=== PATIENT | male | born 1945 | race Caucasian/White ===

== ENCOUNTER 2017-09-11 11:19 | Inpatient (IN) | payer MEDICARE, BC ==
--- NOTE | 2017-09-11 12:35 | EDM.PDOC ---
ED HPI GENERAL MEDICAL PROBLEM - General Chief Complaint: General Time Seen by Provider: 09/11/17 11:59 Source of Information: Reports: Patient History Limitations: Reports: No Limitations - History of Present Illness INITIAL COMMENTS - FREE TEXT/NARRATIVE: Patient presents with pain in medial posterior right thigh for the last 5 days. It feels so tight that he can't straighten his knee enough to put weight on the leg; he is completely non-ambulatory for 5 days now. His and daughter aren't able to help him transfer to chair and bed, etc anymore. This started 5 days ago when he was going down some stairs with his walker and had to sit down on a step due to weakness in right knee. Since then he has been too tight and painful to bear weight on right leg or straighten the knee. Prior to this he has been minimally ambulatory with his walker, mostly just to bed, chair, bathroom and table for the past 6 months. This is due to his right knee arthritis and COPD. He was scheduled to has a right knee replacement a couple weeks ago that had to be postponed due to his COPD. He also tells me that a few times in the past couple weeks (most recently 3 days ago) he has had tightness in his chest and pain in his right shoulder. This usually lasted only a few seconds and was relieved by taking several deep breaths. He denies history of ME or CHF but has diabetes, COPD. Treatments [employer]: Reports: Acetaminophen Right Leg Pain Score (Numeric/FACES): 10 - Related Data Allergies Allergy/AdvReac Type Severity Reaction Status Date / Time aspirin Allergy Elevates Verified 09/11/17 11:36 LFT's per patient Home Meds: Home Meds fluvoxaMINE [Luvox] 100 mg PO BID 04/25/15 [History] metFORMIN [Glucophage XR] 1,000 mg PO BID 04/25/15 [History] Pravastatin [Pravachol] 40 mg PO DAILY 11/01/15 [History] Acetaminophen [Acetaminophen Extra Strength] 1,000 mg PO Q6H 09/11/17 [History] Albuterol/Ipratropium [DuoNeb 3.0-0.5 MG/3 ML] 3 ml INH TID 09/11/17 [History] Celecoxib 200 mg PO DAILY@1800 09/11/17 [History] Fluticasone/Salmeterol [Advair 100-50] 1 puff INH BID 09/11/17 [History] Tresiba 65 unit SUBCUT BID 09/11/17 [History] amLODIPine Besylate/Benazepril [Amlodipine-Benazepril 5-40 MG] 1 cap PO DAILY [History] Past Medical History Cardiovascular History: Reports: Heart Murmur, High Cholesterol, Hypertension, SOB on Exertion Respiratory History: Reports: Asthma, COPD, Sleep Apnea, SOB Gastrointestinal History: Reports: Diverticulosis, Helicobacter Pylori Genitourinary History: Reports: UTI, Recurrent Musculoskeletal History: Reports: Fracture, Gout, Osteoarthritis Neurological History: Reports: Vertigo Other Neuro History: patient states "bad memory" Psychiatric History: Reports: Depression, OCD Other Psychiatric History: irritability Endocrine/Metabolic History: Reports: Diabetes, Type II Oncologic (Cancer) History: Reports: Other (See Below) Other Oncologic History: skin Dermatologic History: Reports: Melanoma - Infectious Disease History Infectious Disease History: Reports: Chicken Pox, Herpes, Measles, Shingles - Past Surgical History Other Neurological Surgeries/Procedures: bone spurs on spinal cord, spinal operation, Social & Family History - Family History Cardiac: Reports: Angina, Heart Failure, High Cholesterol, Hypertension, ME Respiratory: Reports: Asthma, COPD Psychiatric: Reports: Depression, OCD - Tobacco Use Smoking Status *Q: Never Smoker Second Hand Smoke Exposure: No - Caffeine Use Caffeine Use: Reports: Soda - Recreational Drug Use Recreational Drug Use: No ED ROS GENERAL - Review of Systems Review Of Systems: See Below Constitutional: Denies: Fever, Malaise, Diaphoresis HEENT: Denies: Throat Pain, Vision Change Respiratory: Reports: Shortness of Breath (chronic without recent worsening) Cardiovascular: Denies: Chest Pain (see HPI), Lightheadedness, Syncope GI/Abdominal: Denies: Abdominal Pain, Vomiting : Denies: Dysuria, Flank Pain Musculoskeletal: Reports: Leg Pain. Denies: Neck Pain, Shoulder Pain, Arm Pain , Back Pain Skin: Denies: Cyanosis, Jaundice, Mottled, Pallor, Diaphoresis Neurological: Reports: Difficulty Walking. Denies: Confusion, Dizziness, Seizure, Syncope, Trouble Speaking Psychiatric: Denies: Agitation, Anxiety, Confusion ED EXAM, GENERAL - Physical Exam Exam: See Below Exam Limited By: No Limitations General Appearance: Alert, WD/WN, No Apparent Distress Eye Exam: Bilateral Eye: EOMI, Normal Inspection, PERRL Ears: Normal External Exam, Hearing Grossly Normal Nose: Normal Inspection, No Blood Throat/Mouth: Normal Inspection, Normal Lips, Normal Voice, No Airway Compromise Head: Atraumatic, Normocephalic Neck: Normal Inspection, Full Range of Motion Respiratory/Chest: No Respiratory Distress, Lungs Clear, Decreased Breath Sounds (distant throughout ). No: Crackles, Rhonchi, Wheezing, Stridor Cardiovascular: Regular Rate, Rhythm, No Murmur GI/Abdominal: Normal Bowel Sounds, Soft, Non-Tender, No Organomegaly, No Distention Back Exam: No: CVA Tenderness (L), CVA Tenderness (R) Extremities: Other (Leg raise shows symmetric strength against resistance but cannot raise as far with right as left. Palpation of the calf and thigh reveals exquisite tenderness of posterior, medial distal thigh. Calves are mildly tender to palpation/squeeze. Right calf measures 42 cm and left 41.5 cm in circumferences. ) Neurological: Alert, Oriented, Normal Cognition, No Motor/Sensory Deficits Psychiatric: Normal Affect, Normal Mood Skin Exam: Warm, Dry, Intact, Normal Color, No Rash Course - Vital Signs Last Recorded V/S: Last Vital Signs Temp 97.8 F 09/11/17 11:26 Pulse 82 09/11/17 11:26 Resp 20 09/11/17 11:26 BP 131/76 09/11/17 11:26 Pulse Ox 99 09/11/17 11:26 - Orders/Labs/Meds Orders: Active Orders 24 hr Category Date Time Status EKG Documentation Completion [RC] ASDIRECTED Care 09/11/17 12:22 Active Chest 2V [CR] Stat Exams 09/11/17 12:17 Ordered BASIC METABOLIC PANEL,BMP [CHEM] Stat Lab 09/11/17 12:17 Ordered CBC WITH AUTO DIFF [HEME] Stat Lab 09/11/17 12:17 Ordered TROPONIN I [CHEM] Stat Lab 09/11/17 12:17 Ordered EKG 12 Lead [EK] Routine Ther 09/11/17 12:21 Ordered - Re-Assessments/Exams Free Text/Narrative Re-Assessment/Exam: 09/11/17 12:45 I want to ruleout DVT but US is not available here now and we can't send to the [facility] because that would be sending to a lower level of care for a diagnostic test. The US tech may be able to come to the hospital in 1.5 hours to run the test in the ER but may have something else going on per clinic staff ; they will ask her when she returns from lunch. 09/11/17 13:55 CXR report shows left lower lobe infiltrate. Labs okay. We can get an US at 1500 today so will get blood cultures, start antibiotics and admit for treatment of pneumonia and after DVT is ruled out will likely get inpatient PT for muscle spasm and increased mobility. Discussed case with Dr. Bello who accepted patient for admission. Patient remained stable throughout ER course. Departure - Departure Time of Disposition: 13:53 Disposition: Admitted As Inpatient 66 Condition: Good Clinical Impression: Right thigh pain, Swelling of calf CAP (community acquired pneumonia) Qualifiers: Laterality: left Lung location: lower lobe of lung Qualified Code(s): J18.1 - Lobar pneumonia, unspecified organism - Discharge Information Referrals: Lynda Rai MD [Primary Care Provider] - - My Orders Last 24 Hours: My Active Orders 09/11/17 12:17 Chest 2V [CR] Stat BASIC METABOLIC PANEL,BMP [CHEM] Stat CBC WITH AUTO DIFF [HEME] Stat TROPONIN I [CHEM] Stat 09/11/17 12:21 EKG 12 Lead [EK] Routine 09/11/17 12:22 EKG Documentation Completion [RC] ASDIRECTED - Assessment/Plan Last 24 Hours: My Active Orders 09/11/17 12:17 Chest 2V [CR] Stat BASIC METABOLIC PANEL,BMP [CHEM] Stat CBC WITH AUTO DIFF [HEME] Stat TROPONIN I [CHEM] Stat 09/11/17 12:21 EKG 12 Lead [EK] Routine 09/11/17 12:22 EKG Documentation Completion [RC] ASDIRECTED
[2017-09-11 12:57] LABS: CHLORIDE,CL 106 mmol/L (98-115); SODIUM,NA 144 mmol/L (136-145)
[2017-09-11] MEDS ORDERED: cefTRIAXone 1 GM Vial IVPUSH ONE (13:54)
[2017-09-11] MEDS ORDERED: Levofloxacin/Dextrose 5%-Water 500 MG in Premix Bag 1 BAG IV ONE (13:54)
[2017-09-11] MEDS: Sodium Chloride 0.9% 100 ML IV SCH (14:58)
[2017-09-11] MEDS: Celecoxib 100 MG Cap PO SCH (17:50)
[2017-09-11] MEDS: metFORMIN 500 MG Tab PO SCH (17:50)
[2017-09-11] MEDS: Albuterol/Ipratropium 3.0-0.5 MG/3 ML Neb Soln INH SCH (20:04)
[2017-09-11] MEDS ORDERED: TRESIBA SUBCUT SCH (21:00)
[2017-09-11] MEDS: FLUVOXAMINE 100 MG PO SCH (21:15)
[2017-09-11] MEDS: Diclofenac Sodium 1% Gel 100 GM Tube TOP SCH (21:25)
[2017-09-11] MEDS: Fluticasone/Salmeterol 100-50 MCG Inhalation Powder 14/Diskus INH SCH (23:35)
[2017-09-12] MEDS ORDERED: Acetaminophen 500 MG Tab PO PRN (02:08)
[2017-09-12] MEDS: Albuterol/Ipratropium 3.0-0.5 MG/3 ML Neb Soln INH SCH ×3 (07:46→19:07)
[2017-09-12] MEDS: Fluticasone/Salmeterol 100-50 MCG Inhalation Powder 14/Diskus INH SCH ×2 (08:00→20:53)
[2017-09-12] MEDS: FLUVOXAMINE 100 MG PO SCH ×2 (08:20→20:54)
[2017-09-12] MEDS: Cholecalciferol (Vitamin D3) 1,000 Unit Tab PO SCH (08:20)
[2017-09-12] MEDS: metFORMIN 500 MG Tab PO SCH ×2 (08:20→18:30)
[2017-09-12] MEDS: Diclofenac Sodium 1% Gel 100 GM Tube TOP SCH ×2 (08:23→20:58)
--- NOTE | 2017-09-12 10:22 | HP ---
09/11/2017PATIENT NAME: EMERALD PONCE PATIENT PROFILE: The patient is a 72-year-old gentleman from [place], [place], who was been admitted because of right lobe pneumonia and pain and swelling of his right knee and thigh and calf. HISTORY OF PRESENT ILLNESS: This elderly patient presented to the emergency room with severe pain in his right knee, medial aspect of the right thigh and also coughing and low-grade temperature. The patient was stepping down from some stairs when he felt a sharp pain behind the right knee. He then was unable to twist the knee and he felt the pain increased in intensity. He presented himself to the emergency room after that. PAST MEDICAL HISTORY: His past history is positive for essential hypertension, right-sided back pain with sciatica; COPD; sleep apnea, obstructive; hyperlipidemia; type 2 diabetes mellitus; and diabetic polyneuropathy. Also, arthritis of the shoulder and morbid obesity. ALLERGIES: Aspirin. MEDICATIONS: Include Advair 1 puff two times a day, minerals and calcium two tablets twice a day, DuoNeb 1 inhalation three times a day, Tresiba 65 units subcutaneously daily, Voltaren gel to be applied 2 times a day as needed, luvox 100 mg two times a day, amlodipine/benazepril 10 mg/40 mg one capsule daily, metformin 1000 mg twice a day, vitamin D3 and Cholecalciferol 2000 units daily, Celebrex 200 mg daily, Pravachol 40 mg daily, B12 at 5000 mcg under the tongue one time daily, and natural products daily. He also uses CPAP and BiPAP therapy at bedtime at home. PAST SURGICAL HISTORY: Includes spine surgery and tonsillectomy. REVIEW OF SYSTEMS: HEAD AND NECK: No complaints. EYES: No complaints. EARS, NOSE, AND THROAT: No complaints. NECK: No complaints. LUNGS: Complains of coughing and wheezing. CHEST: No complaints. ABDOMEN: No complaints. EXTREMITIES: Complains of pain and swelling of the right knee. NEUROLOGICAL SYSTEM: No complaints. UROLOGICAL SYSTEM: No complaints. MUSCULOSKELETAL: Additionally, the patient complains of difficulty walking because of pain in the right knee. PSYCHIATRIC: No complaints. PHYSICAL EXAMINATION: GENERAL: Reveals an elderly patient, in a moderate amount of distress. He seems to be in moderate amount of pain in the right knee. VITAL SIGNS: His temperature is 97.8, pulse 82, respirations 20, blood pressure 130/76, pulse oxygenation is 99%. HEAD: Negative. EYES: Arcus senilis. EARS, NOSE, and THROAT: Normal. NECK: Supple. Full range of motion. No midline swellings. LYMPH NODES: Not enlarged. LUNGS: A few crackles at the right base. Left side is normal. HEART: Regular rhythm. No thrills and no murmurs. ABDOMEN: Normal. EXTREMITIES: The patient has fair amount of swelling in the right knee and also tenderness just below the knee on the medial aspect along the muscular tissue. No effusion is clinically palpable. Left knee is normal. Peripheral pulses are full. The patient has had lab tests performed including EKG and troponin which were negative. LABORATORY DATA: Hemoglobin is 14.4, white count 9.7. Sodium is 144. Eosinophils are slightly high at 9.2, normal is 3. Chest x-ray suspicious for right middle lobe pneumonia. FINAL DIAGNOSIS: 1. Acute pain and swelling of the right knee without effusion, possible deep vein thrombosis, possible tear of the medial collateral ligament and/or medial meniscus, history of osteoarthritis of the right knee. 2. Right middle lobe pneumonia. PLAN: We will get an ultrasound of the right lower extremity to rule out DVT. We will get x-rays of the right knee for additional documentation. Regarding the pneumonia, we will treat him with levofloxacin and Rocephin. Pulmonary function treatments would be to continue DuoNeb and CPAP device. We will follow up closely. Regarding the eosinophilia, this will be carefully monitored for any evidence of allergy, parasitic infections, etc. /[id number]/MODL
--- NOTE | 2017-09-12 10:23 | PCM.PN ---
- General Info Date of Service: 09/12/17 - Patient Data Vitals - Most Recent: Last Vital Signs Temp 97.1 F 09/12/17 06:03 Pulse 80 09/12/17 08:00 Resp 18 09/12/17 06:03 BP 130/80 09/12/17 06:03 Pulse Ox 95 09/12/17 08:00 Weight - Most Recent: 269 lb 13.533 oz I&O - Last 24 Hours: Intake & Output 09/11/17 09/12/17 09/12/17 22:59 06:59 14:59 Intake Total 775 400 Output Total 550 600 Balance 225 -200 Lab Results Last 24 Hours: Laboratory Results - last 24 hr 09/11/17 09/11/17 09/11/17 Range/Units 12:25 12:25 12:30 WBC 9.7 (5.0-10.0) 10^3/uL RBC 5.32 (4.50-6.00) 10^6/uL Hgb 14.4 (13.0-17.0) g/dL Hct 45.7 (40.0-52.0) % MCV 85.9 (82.0-92.0) fL MCH 27.1 (27.0-31.0) pg MCHC 31.5 L (32.0-36.0) g/dL RDW 16.4 H (11.5-14.5) % Plt Count 264 (150-300) 10^3/uL MPV 7.9 (7.4-10.4) fL Neut % (Auto) 65.5 (50.0-70.0) % Lymph % (Auto) 17.9 L (20.0-40.0) % [facility] % (Auto) 6.8 (2.0-8.0) % Eos % (Auto) 9.2 H (1.0-3.0) % Baso % (Auto) 0.6 (0.0-1.0) % Neut # (Auto) 6.3 (2.5-7.0) 10^3/uL Lymph # (Auto) 1.7 (1.0-4.0) 10^3/uL [facility] # (Auto) 0.7 (0.1-0.8) 10^3/uL Eos # (Auto) 0.9 H (0.1-0.3) 10^3/uL Baso # (Auto) 0.1 (0.0-0.1) 10^3/uL Sodium 144 (136-145) mmol/L Potassium 4.4 (3.3-5.3) mmol/L Chloride 106 (98-115) mmol/L Carbon Dioxide 25.7 (21.0-32.0) mmol/L BUN 20 (6-25) mg/dL Creatinine 0.74 (0.51-1.17) mg/dL Est Cr Clr Drug Dosing 90.23 mL/min Estimated GFR (MDRD) > 60 mL/min Glucose 100 (70-110) mg/dL POC Glucose 97 (74-106) mg/dl Calcium 9.5 (8.7-10.3) mg/dL Troponin I 0.06 (0.00-0.070) ng/mL 09/11/17 09/11/17 09/12/17 Range/Units 17:48 21:10 07:10 WBC 7.7 (5.0-10.0) 10^3/uL RBC 4.83 (4.50-6.00) 10^6/uL Hgb 13.1 (13.0-17.0) g/dL Hct 41.4 (40.0-52.0) % MCV 85.7 (82.0-92.0) fL MCH 27.0 (27.0-31.0) pg MCHC 31.5 L (32.0-36.0) g/dL RDW 16.3 H (11.5-14.5) % Plt Count 233 (150-300) 10^3/uL MPV 8.2 (7.4-10.4) fL Neut % (Auto) 54.0 (50.0-70.0) % Lymph % (Auto) 19.6 L (20.0-40.0) % [facility] % (Auto) 10.5 H (2.0-8.0) % Eos % (Auto) 14.7 H (1.0-3.0) % Baso % (Auto) 1.2 H (0.0-1.0) % Neut # (Auto) 4.2 (2.5-7.0) 10^3/uL Lymph # (Auto) 1.5 (1.0-4.0) 10^3/uL [facility] # (Auto) 0.8 (0.1-0.8) 10^3/uL Eos # (Auto) 1.1 H (0.1-0.3) 10^3/uL Baso # (Auto) 0.1 (0.0-0.1) 10^3/uL Sodium (136-145) mmol/L Potassium (3.3-5.3) mmol/L Chloride (98-115) mmol/L Carbon Dioxide (21.0-32.0) mmol/L BUN (6-25) mg/dL Creatinine (0.51-1.17) mg/dL Est Cr Clr Drug Dosing mL/min Estimated GFR (MDRD) mL/min Glucose (70-110) mg/dL POC Glucose 145 H 177 H (74-106) mg/dl Calcium (8.7-10.3) mg/dL Troponin I (0.00-0.070) ng/mL 09/12/17 Range/Units 07:12 WBC (5.0-10.0) 10^3/uL RBC (4.50-6.00) 10^6/uL Hgb (13.0-17.0) g/dL Hct (40.0-52.0) % MCV (82.0-92.0) fL MCH (27.0-31.0) pg MCHC (32.0-36.0) g/dL RDW (11.5-14.5) % Plt Count (150-300) 10^3/uL MPV (7.4-10.4) fL Neut % (Auto) (50.0-70.0) % Lymph % (Auto) (20.0-40.0) % [facility] % (Auto) (2.0-8.0) % Eos % (Auto) (1.0-3.0) % Baso % (Auto) (0.0-1.0) % Neut # (Auto) (2.5-7.0) 10^3/uL Lymph # (Auto) (1.0-4.0) 10^3/uL [facility] # (Auto) (0.1-0.8) 10^3/uL Eos # (Auto) (0.1-0.3) 10^3/uL Baso # (Auto) (0.0-0.1) 10^3/uL Sodium (136-145) mmol/L Potassium (3.3-5.3) mmol/L Chloride (98-115) mmol/L Carbon Dioxide (21.0-32.0) mmol/L BUN (6-25) mg/dL Creatinine (0.51-1.17) mg/dL Est Cr Clr Drug Dosing mL/min Estimated GFR (MDRD) mL/min Glucose (70-110) mg/dL POC Glucose 51 L (74-106) mg/dl Calcium (8.7-10.3) mg/dL Troponin I (0.00-0.070) ng/mL Med Orders - Current: Current Medications Acetaminophen (Tylenol Extra Strength) 1,000 mg PO Q6HR [facility] Albuterol/Ipratropium (Duoneb 3.0-0.5 Mg/3 Ml) 3 ml INH TIDRT [facility] Last Admin: 09/12/17 07:46 Dose: 3 ml Amlodipine Besylate (Norvasc) 5 mg PO DAILY [facility] Benazepril HCl (Lotensin) 40 mg PO DAILY [facility] Ceftriaxone Sodium (Rocephin) 1 gm IVPUSH Q24H [facility] Celecoxib (Celebrex) 200 mg PO DAILY@1800 [facility] Last Admin: 09/11/17 17:50 Dose: 200 mg Cholecalciferol (Vitamin D3) 2,000 units PO DAILY [facility] Last Admin: 09/12/17 08:20 Dose: 2,000 units Diclofenac Sodium (Voltaren 1% Gel) 0 gm TOP BID [facility] Last Admin: 09/12/17 08:23 Dose: 1 applic Sodium Chloride (Normal Saline) 100 mls @ 999 mls/hr IV DAILY@1500 [facility] Last Admin: 09/11/17 14:58 Dose: 999 mls/hr Levofloxacin/Dextrose 250 mg/ (Premix) 50 mls @ 50 mls/hr IV Q24H [facility] Metformin HCl (Glucophage) 1,000 mg PO BIDMEALS [facility] Last Admin: 09/12/17 08:20 Dose: 1,000 mg Ptom Cyanocobalamin ( Vitamin B-12) 5,000 Mcg Odt 1 each PO DAILY [facility] Fluvoxamine 100 Mg (Tab*Pt Own Med*) 1 each PO BID [facility] Last Admin: 09/12/17 08:20 Dose: 1 each Tresiba*Pt Own Med* 0 each SUBCUT BEDTIME [facility] Last Admin: 09/11/17 21:11 Dose: 65 each Fluticasone/Salmeterol (Advair Diskus 100-50) 0 puff INH BIDRT [facility] Last Admin: 09/12/17 08:00 Dose: 1 puff Simvastatin (Zocor) 20 mg PO DAILY [facility] Discontinued Medications Acetaminophen (Tylenol Extra Strength) 1,000 mg PO Q6H [facility] Acetaminophen (Tylenol Extra Strength) 1,000 mg PO Q6H PRN PRN Reason: Pain (Severe 7-10) Last Admin: 09/12/17 03:32 Dose: 1,000 mg Ceftriaxone Sodium (Rocephin) 1 gm IVPUSH ONETIME ONE Stop: 09/11/17 13:55 Last Admin: 09/11/17 14:29 Dose: 1 gm Levofloxacin/Dextrose 500 mg/ (Premix) 100 mls @ 100 mls/hr IV ONETIME ONE Stop: 09/11/17 14:53 Last Admin: 09/11/17 14:58 Dose: 100 mls/hr - Problem List Review Problem List Initiated/Reviewed/Updated: Yes - Plan Plan:: Chest x-ray, mild left lower lobe infiltrate or atelectasis, mild cardiomegaly without evidence of CHF
[2017-09-12] MEDS: Acetaminophen 500 MG Tab PO SCH ×5 (10:53→22:07)
[2017-09-12] MEDS: Simvastatin 20 MG Tab PO SCH (10:58)
[2017-09-12] MEDS: Benazepril 10 MG Tab PO SCH (10:59)
[2017-09-12] MEDS: amLODIPine 5 MG Tab PO SCH (11:00)
[2017-09-12] MEDS: CYANOCOBALAMIN 5000 MCG PO SCH (12:01)
[2017-09-12] MEDS ORDERED: cefTRIAXone 1 GM Vial IVPUSH SCH (14:00)
[2017-09-12] MEDS ORDERED: Levofloxacin/Dextrose 5%-Water 250 MG in Premix Bag 1 BAG IV SCH (15:00)
[2017-09-12] MEDS: Sodium Chloride 0.9% 100 ML IV SCH (18:21)
[2017-09-12] MEDS: Celecoxib 100 MG Cap PO SCH (18:30)
[2017-09-12] MEDS ORDERED: [UNRECOGNIZED DRUG - OTHER] SUBCUT SCH (21:00)
[2017-09-12] MEDS ORDERED: TRESIBA SUBCUT SCH (21:00)
[2017-09-13] MEDS: Acetaminophen 500 MG Tab PO SCH ×4 (05:39→22:41)
[2017-09-13] MEDS: Albuterol/Ipratropium 3.0-0.5 MG/3 ML Neb Soln INH SCH ×3 (07:14→19:03)
[2017-09-13] MEDS: Fluticasone/Salmeterol 100-50 MCG Inhalation Powder 14/Diskus INH SCH ×2 (07:30→19:44)
--- NOTE | 2017-09-13 08:16 | PN ---
09/12/2017 PATIENT NAME: EMERALD PONCE CHIEF COMPLAINT: Overall does feel better; however, still has ongoing pain in his right inner thigh behind right knee. BRIEF HISTORY: This patient was seen and evaluated in the ED complaining of some severe pain in his right knee, medial aspect of the knee. He stated he was stepping down from some stairs and felt a sharp pain behind the right knee, unable to twist the knee and felt pain increasingly quite bad. He did have a negative DVT ultrasound yesterday. While he was in the ED, chest x-ray did show an incidental suspicious for right middle lobe pneumonia. However, he had a normal hemoglobin. White count was normal. however, he did have elevated eosinophilia. He was started on dual antibiotics. PHYSICAL EXAMINATION: VITAL SIGNS: Blood pressure 126/70, heart rate 92, temperature 98.3, O2 sats 95% on room air, respiratory rate 16. GENERAL: The patient is alert and oriented. CV: Regular rate and rhythm. PULMONARY: Slight rhonchus anterior. RIGHT KNEE: No evidence of effusion. No palpable cyst posteriorly. Negative anterior posterior drawers. Slight pain on varus stress, however, does have significant tenderness and slight induration to his right hamstring. We will get MRI today. Negative Homans sign. DIAGNOSTICS: Chest x-ray showed mild left lower lobe infiltrate or atelectasis. No evidence of CHF. LABORATORY DATA: White count on admission was 9.7, still remains normal, normal hemoglobin, hematocrit, neutrophilia normal. Sodium 144, potassium 4.4, BUN 20, creatinine 0.74. Troponin normal. Calcium 9.5. IMPRESSION AND PLAN: 1. Acute pain, right medial thigh. We will get MRI today. 2. Rule out pneumonia likely viral etiology. Discontinue antibiotics. /[id number]/MODL MTDD
[2017-09-13] MEDS: metFORMIN 500 MG Tab PO SCH ×2 (08:43→17:57)
[2017-09-13] MEDS: Cholecalciferol (Vitamin D3) 1,000 Unit Tab PO SCH (08:43)
[2017-09-13] MEDS: Simvastatin 20 MG Tab PO SCH (08:44)
[2017-09-13] MEDS: amLODIPine 5 MG Tab PO SCH (08:45)
[2017-09-13] MEDS: Benazepril 10 MG Tab PO SCH (08:45)
[2017-09-13] MEDS: FLUVOXAMINE 100 MG PO SCH ×2 (08:47→20:52)
[2017-09-13] MEDS: CYANOCOBALAMIN 5000 MCG PO SCH (08:49)
[2017-09-13] MEDS: Diclofenac Sodium 1% Gel 100 GM Tube TOP SCH ×2 (08:49→20:53)
[2017-09-13] MEDS: Celecoxib 100 MG Cap PO SCH (17:57)
[2017-09-13] MEDS ORDERED: TRESIBA SUBCUT SCH (21:00)
[2017-09-13] MEDS ORDERED: [UNRECOGNIZED DRUG - OTHER] SUBCUT SCH (21:00)
[2017-09-13] MEDS ORDERED: TRESIBA 100 UNIT/ML SQ ONE (21:13)
--- NOTE | 2017-09-13 21:24 | PCM.PN ---
- General Info Date of Service: 09/13/17 Subjective Update: Mr. Womack reports improvement since admission in his RLE pain. Swelling has improved. States he feels much better knowing there isn't a clot in there, but is concerned about his ability to get around still. Continues to deny cough, shortness of breath, or any respiratory concerns. Nursing and physical therapy note ongoing significant difficulty with transfers and ambulation. - Patient Data Vitals - Most Recent: Last Vital Signs Temp 36.4 C 09/13/17 14:15 Pulse 79 09/13/17 19:04 Resp 16 09/13/17 14:15 BP 120/62 09/13/17 14:15 Pulse Ox 93 L 09/13/17 19:04 Weight - Most Recent: 122.4 kg I&O - Last 24 Hours: Intake & Output 09/13/17 09/13/17 09/13/17 06:59 14:59 22:59 Intake Total 100 1240 Output Total 750 575 Balance -650 665 Lab Results Last 24 Hours: Laboratory Results - last 24 hr 09/13/17 09/13/17 09/13/17 Range/Units 07:45 12:08 17:00 POC Glucose 40 L 120 H 102 (74-106) mg/dl 09/13/17 Range/Units 20:56 POC Glucose 108 H (74-106) mg/dl Ibrahima Results Last 24 Hours: Microbiology 09/11/17 13:55 Aerobic Blood Culture - Preliminary Blood - Venous NO GROWTH AFTER 2 DAYS Anaerobic Blood Culture - Preliminary NO GROWTH AFTER 2 DAYS 09/11/17 13:55 Aerobic Blood Culture - Preliminary Blood - Venous - Lab Draw NO GROWTH AFTER 2 DAYS Anaerobic Blood Culture - Preliminary NO GROWTH AFTER 2 DAYS Med Orders - Current: Current Medications Acetaminophen (Tylenol Extra Strength) 1,000 mg PO Q6HR [facility] Last Admin: 09/13/17 17:56 Dose: 1,000 mg Albuterol/Ipratropium (Duoneb 3.0-0.5 Mg/3 Ml) 3 ml INH TIDRT [facility] Last Admin: 09/13/17 19:03 Dose: 3 ml Amlodipine Besylate (Norvasc) 5 mg PO DAILY [facility] Last Admin: 09/13/17 08:45 Dose: 5 mg Benazepril HCl (Lotensin) 40 mg PO DAILY [facility] Last Admin: 09/13/17 08:45 Dose: 40 mg Celecoxib (Celebrex) 200 mg PO DAILY@1800 [facility] Last Admin: 09/13/17 17:57 Dose: 200 mg Cholecalciferol (Vitamin D3) 2,000 units PO DAILY [facility] Last Admin: 09/13/17 08:43 Dose: 2,000 units Diclofenac Sodium (Voltaren 1% Gel) 0 gm TOP BID [facility] Last Admin: 09/13/17 20:53 Dose: 1 applic Metformin HCl (Glucophage) 1,000 mg PO BIDMEALS [facility] Last Admin: 09/13/17 17:57 Dose: 1,000 mg Ptom Cyanocobalamin ( Vitamin B-12) 5,000 Mcg Odt 1 each PO DAILY [facility] Last Admin: 09/13/17 08:49 Dose: 1 each Fluvoxamine 100 Mg (Tab*Pt Own Med*) 1 each PO BID [facility] Last Admin: 09/13/17 20:52 Dose: 1 each Ptom Tresiba (100u/Ml Pen) 55 each SUBCUT BEDTIME [facility] Last Admin: 09/13/17 21:19 Dose: Not Given Fluticasone/Salmeterol (Advair Diskus 100-50) 0 puff INH BIDRT [facility] Last Admin: 09/13/17 19:44 Dose: 1 inhalation Simvastatin (Zocor) 20 mg PO DAILY [facility] Last Admin: 09/13/17 08:44 Dose: 20 mg Discontinued Medications Acetaminophen (Tylenol Extra Strength) 1,000 mg PO Q6H [facility] Last Admin: 09/12/17 20:09 Dose: Not Given Acetaminophen (Tylenol Extra Strength) 1,000 mg PO Q6H PRN PRN Reason: Pain (Severe 7-10) Last Admin: 09/12/17 03:32 Dose: 1,000 mg Ceftriaxone Sodium (Rocephin) 1 gm IVPUSH ONETIME ONE Stop: 09/11/17 13:55 Last Admin: 09/11/17 14:29 Dose: 1 gm Ceftriaxone Sodium (Rocephin) 1 gm IVPUSH Q24H [facility] Levofloxacin/Dextrose 500 mg/ (Premix) 100 mls @ 100 mls/hr IV ONETIME ONE Stop: 09/11/17 14:53 Last Admin: 09/11/17 14:58 Dose: 100 mls/hr Sodium Chloride (Normal Saline) 100 mls @ 999 mls/hr IV DAILY@1500 [facility] Last Admin: 09/12/17 18:21 Dose: Not Given Levofloxacin/Dextrose 250 mg/ (Premix) 50 mls @ 50 mls/hr IV Q24H [facility] Last Admin: 09/12/17 18:21 Dose: Not Given Tresiba 100 Units/Ml (Own Med) 0 units SQ ONETIME ONE Stop: 09/13/17 21:14 Tresiba*Pt Own Med* 0 each SUBCUT BEDTIME [facility] Last Admin: 09/11/17 21:11 Dose: 65 each Ptom Tresiba ( Insulin Degludec) 100u/Ml Pen 65 each SUBCUT BEDTIME [facility] Last Admin: 09/12/17 20:56 Dose: 65 each - Exam Physical Findings Comments:: GENERAL: Well-appearing elderly male sitting in bedside chair in no acute distress. HEENT: Normocephalic, atraumatic. Conjunctiva clear. Nares patent without discharge. Mucous membranes moist, posterior pharynx unremarkable. NECK: Supple, no masses. CV: Regular rate and rhythm, no murmurs, rubs, or gallops. 2+ radial pulses. PULMONARY: Normal effort, clear to auscultation bilaterally, no wheezes, rales, or rhonchi. ABDOMEN: Positive bowel sounds, soft, nontender, nondistended. EXTREMITIES: No edema, cyanosis, or clubbing. MUSCULOSKELETAL: R medial thigh with tenderness to palpation without overlying ecchymosis or palpable defect. R knee without abnormality. NEUROLOGICAL: No obvious deficits. DERMATOLOGIC: No rashes or suspicious lesions in exposed areas. PSYCHIATRIC: Alert, interactive, appropriate affect. - Problem List Review Problem List Initiated/Reviewed/Updated: Yes - My Orders Last 24 Hours: My Active Orders 09/13/17 21:00 Patient's Own Medication [Ptom] 55 each SUBCUT BEDTIME - Plan Plan:: 72yoM who sustained acute pain of his right medial thigh prior to presentation to the [facility] ED and was admitted for concern regarding DVT as well as CXR with possible pneumonia. # R medial thigh pain # Debility Ultrasound for DVT and MRI of the RLE are unremarkable and presentation most fitting with acute right adductor strain resulting in significant difficulty with ambulation and transfers for which physical therapy recommends ongoing assistance. # LLL atelectasis vs. infiltrates CXR with LLL atelectasis vs. infiltrates, which in the setting of no clinical evidence of pulmonary infection on admission or throughout stay, is like atelectasis. Antibiotics were stopped on 09/13/17. Sputum sample obtained and pending. Blood cultures negative. Continue clinical monitoring. # DMT2 # Hypoglycemia Asymptomatic hypoglycemia the past 2 mornings with this morning's BG of 40. Likely in setting of more regulated diet. Decrease Tresiba from 65 units to 55 units and continue to monitor BGs closely. Chronic conditions: # COPD: Stable. Continue Advair, DuoNebs. # HTN: Stable. Continue benazepril, amlodipine. # HLD: Continue simvastatin. # OA: Stable. Continue celecoxib. # Depression: Stable. Continue fluvoxamine. Hospitalization details: # FEN: No IVF. Electrolytes normal. Diabetic diet. # PPX: Enoxaparin for DVT ppx. # Code status: FULL. # Disposition: Continue on inpatient status for ongoing assistance with ADLs and ambulation. Anticipate discharge to swing bed tomorrow pending ongoing physical therapy recommendations.
[2017-09-14] MEDS: Acetaminophen 500 MG Tab PO SCH ×2 (05:54→10:40)
[2017-09-14] MEDS: Albuterol/Ipratropium 3.0-0.5 MG/3 ML Neb Soln INH SCH (06:05)
[2017-09-14 06:08] VITALS: BP 139/76
[2017-09-14] MEDS: Fluticasone/Salmeterol 100-50 MCG Inhalation Powder 14/Diskus INH SCH (08:33)
[2017-09-14] MEDS: Diclofenac Sodium 1% Gel 100 GM Tube TOP SCH (08:33)
[2017-09-14] MEDS: CYANOCOBALAMIN 5000 MCG PO SCH (08:34)
[2017-09-14] MEDS: FLUVOXAMINE 100 MG PO SCH (08:34)
[2017-09-14] MEDS: metFORMIN 500 MG Tab PO SCH (08:35)
[2017-09-14] MEDS: Benazepril 10 MG Tab PO SCH (08:35)
[2017-09-14] MEDS: amLODIPine 5 MG Tab PO SCH (08:36)
[2017-09-14] MEDS: Simvastatin 20 MG Tab PO SCH (08:37)
[2017-09-14] MEDS: Cholecalciferol (Vitamin D3) 1,000 Unit Tab PO SCH (08:37)
--- NOTE | 2017-09-16 12:14 | DISCH ---
DISCHARGE DIAGNOSIS: 1. Right medial thigh pain with debilitation. 2. Left lower lobe atelectasis versus infiltrates. 3. Type 2 diabetes. 4. Chronic conditions include chronic obstructive pulmonary disease which is stable. 5. Hypertension. 6. Stable HDL. 7. Osteoarthritis. 8. Depression. BRIEF HISTORY AND INPATIENT HOSPITAL SUMMARIZATION: The patient was initially evaluated through the emergency department complaining of pain and has right knee and medial aspect of the right thigh. The history included stepping down stairs and noting a sharp pain behind the knee. He was unable to twist and he felt the pain increase. He then fell on the step landing on his buttocks that did bring him to the emergency room and he was evaluated, treated, and admitted to inpatient. During the course of his inpatient stay, chest x-ray was completed noting the atelectasis versus the infiltrated. He initially was started on antibiotics, but those were discontinued. Blood cultures were obtained, those are negative as of day #2. Sputum sample was obtained and that report is pending. He also had an ultrasound completed for DVT and MRI of the right extremity which was unremarkable and presented most fitting with a right abductor strain. There were no specific complications. His labs and diagnostics done included the chest x-ray, MRI, and ultrasound of the right lower extremity. He did have lab work obtained. White count on admission was normal and remained normal. Sodium 144, potassium was 4.4, BUN 20 with a creatinine of 0.74, calcium was 9.5 and his troponin was normal. He had no consults on hospital inpatient discharge. REVIEW OF SYSTEMS: Review of systems was completed. HEENT: Negative. RESPIRATORY: He does have an intermittent cause that has improved. CARDIOVASCULAR: No complaints of chest pain or palpitations. ABDOMEN: No GI upset. MUSCULOSKELETAL: Improving right lower extremity pain and discomfort. The patient does state that he initially was to have a right knee replacement which has been placed on hold. PHYSICAL EXAMINATION: GENERAL: Well-appearing elderly male. HEENT: Head is normocephalic. Conjunctiva is clear. No nasal drainage. NECK: Supple without rigidity. RESPIRATORY: Lungs sounds are clear to auscultation without wheezing, rhonchi, or rales. CARDIOVASCULAR: Hear rate and rhythm is regular. S1 and S2. ABDOMEN: Bowel sounds are present x4 quadrants. Nontender. Nondistended. MUSCULOSKELETAL: Mild right medial thigh tenderness to touch and palpation. No discoloration, bruising, or swelling is observed. DISPOSITION AT DISCHARGE: The patient will be discharged from inpatient care and will be admitted to [facility]. MEDICATIONS: 1. Tylenol Extra Strength 1000 mg every six hours p.r.n. 2. DuoNeb t.i.d. p.r.n. 3. Norvasc 5 mg daily. 4. Benazepril 40 mg daily. 5. Celebrex 200 mg daily. 6. Vitamin D3 2000 units daily. 7. Voltaren gel topically b.i.d. 8. Metformin has been changed from 1000 mg to 500 mg b.i.d. due to current blood sugars. 9. Tresiba 50 units daily. 10.Fluvoxamine 100 mg daily. 11.Vitamin B12 5000 mcg daily. 12.Advair Diskus daily. 13.He will be receiving simvastatin 20 mg daily. /[id number]/MODL
== END 2017-09-14 11:07 | disposition swing bed (61) | DRG 537 ==
LOC: KA.ED 11:19 → KA.MS 13:59
PROVIDERS: ADMIT Physician Assistant Surgical; ATTEND Family Medicine
DX: M79.651 Pain in right thigh (principal); S76.211A Strain of adductor muscle, fascia and tendon of right thigh, initial encounter; M79.89 Other specified soft tissue disorders; J18.1 Lobar pneumonia, unspecified organism; E11.9 Type 2 diabetes mellitus without complications; R01.1 Cardiac murmur, unspecified; M17.11 Unilateral primary osteoarthritis, right knee; E78.00 Pure hypercholesterolemia, unspecified; Z68.41 Body mass index [BMI] 40.0-44.9, adult; M25.561 Pain in right knee; Z88.8 Allergy status to other drugs, medicaments and biological substances; D72.1 Eosinophilia; Z85.820 Personal history of malignant melanoma of skin; X58.XXXA Exposure to other specified factors, initial encounter; Y92.019 Unspecified place in single-family (private) house as the place of occurrence of the external cause; I10 Essential (primary) hypertension; J44.9 Chronic obstructive pulmonary disease, unspecified; E78.5 Hyperlipidemia, unspecified; E11.649 Type 2 diabetes mellitus with hypoglycemia without coma; E11.42 Type 2 diabetes mellitus with diabetic polyneuropathy; F32.9 Major depressive disorder, single episode, unspecified; E66.01 Morbid (severe) obesity due to excess calories; Z79.899 Other long term (current) drug therapy
CPT/HCPCS: 36415; 71046; 73718-RT; 80048; 82962; 84484; 85025; 87040; 87070; 87205; 93005; 93971; 94640; 94640-76; 97162-GP; 99284; 99285; A9270-GY; J0696; J1956; J7050

== ENCOUNTER 2017-09-14 09:45 | Inpatient (IN) | payer MEDICARE, BC ==
[2017-09-14] MEDS ORDERED: Albuterol/Ipratropium 3.0-0.5 MG/3 ML Neb Soln INH PRN ×2 (11:18→11:22)
[2017-09-14] MEDS: Acetaminophen 500 MG Tab PO SCH ×3 (12:35→23:24)
[2017-09-14] MEDS ORDERED: Acetaminophen 500 MG Tab PO SCH (17:00)
[2017-09-14] MEDS: Celecoxib 100 MG Cap PO SCH (17:33)
[2017-09-14] MEDS: metFORMIN 500 MG Tab PO SCH (17:34)
[2017-09-14] MEDS ORDERED: Non-Formulary Medication 1 Each (Celecoxib [Celecoxib] 200 MG) PO SCH (18:00)
[2017-09-14] MEDS ORDERED: Non-Formulary Medication 1 Each (Metformin Hcl [Metformin Hcl] 500 MG) PO SCH (18:00)
[2017-09-14] MEDS ORDERED: DICLOFENAC SODIUM 1 GM TOP SCH (21:00)
[2017-09-14] MEDS ORDERED: Non-Formulary Medication 1 Each (Fluticasone/Salmeterol [Advair 100-50] 1 PUFF) INH SCH (21:00)
[2017-09-14] MEDS ORDERED: Patient's Own Medication 1 Each SUBCUT SCH (21:00)
[2017-09-14] MEDS ORDERED: TRESIBA 50 UNIT SUBCUT SCH (21:00)
[2017-09-14] MEDS ORDERED: FLUVOXAMINE 100 MG PO SCH (21:00)
[2017-09-14] MEDS ORDERED: [UNRECOGNIZED DRUG - OTHER] SUBCUT ONE (21:15)
[2017-09-14] MEDS ORDERED: TRESIBA SUBCUT ONE (21:15)
[2017-09-14] MEDS: Fluticasone/Salmeterol 100-50 MCG Inhalation Powder 14/Diskus INH SCH (21:26)
[2017-09-14] MEDS: FLUVOXAMINE 100 MG PO SCH (21:28)
[2017-09-14] MEDS: Diclofenac Sodium 1% Gel 100 GM Tube TOP SCH (21:29)
[2017-09-15] MEDS: Acetaminophen 500 MG Tab PO SCH ×4 (05:14→22:34)
[2017-09-15] MEDS ORDERED: Benazepril 10 MG Tab PO SCH (09:00)
[2017-09-15] MEDS ORDERED: Simvastatin 20 MG Tab PO SCH (09:00)
[2017-09-15] MEDS ORDERED: amLODIPine 5 MG Tab PO SCH (09:00)
[2017-09-15] MEDS ORDERED: Patient's Own Medication 1 Each PO SCH (09:00)
[2017-09-15] MEDS ORDERED: Non-Formulary Medication 1 Each (Cholecalciferol (Vitamin D3) [Vitamin D3] 2,000 UNIT) PO SCH (09:00)
[2017-09-15] MEDS: Diclofenac Sodium 1% Gel 100 GM Tube TOP SCH ×2 (09:10→20:07)
[2017-09-15] MEDS: Fluticasone/Salmeterol 100-50 MCG Inhalation Powder 14/Diskus INH SCH ×2 (09:10→20:06)
[2017-09-15] MEDS: Benazepril 10 MG Tab PO SCH (09:11)
[2017-09-15] MEDS: metFORMIN 500 MG Tab PO SCH (09:12)
[2017-09-15] MEDS: amLODIPine 5 MG Tab PO SCH (09:13)
[2017-09-15] MEDS: Cholecalciferol (Vitamin D3) 1,000 Unit Tab PO SCH (09:13)
[2017-09-15] MEDS: VITAMIN B12 5000 MCG PO SCH (09:14)
[2017-09-15] MEDS: FLUVOXAMINE 100 MG PO SCH ×2 (09:14→20:07)
[2017-09-15] MEDS: Simvastatin 20 MG Tab PO SCH (09:15)
--- NOTE | 2017-09-15 09:34 | PCM.SN ---
- Free Text/Narrative Note: Mr. Flores is a 72-year-old male patient who has been placed in swing bed status as of yesterday. He has had ongoing low blood sugars with hypoglycemic reactions throughout the past few days. Yesterday his metformin was decreased from 1000 mg twice a day to 500 mg twice a day and he was given Tarceva 30 units at at bedtime. The Tresiba dosage on admit was 65 units daily. This a.m. it is reported that he is blood sugar was 64 mg percent. He was experiencing hypoglycemic symptoms. Patient was provided his breakfast diet along with juice. Blood sugar then increase to 134 mg percent. In visiting with the patient he reports that at home his dietary patterns are much different. He has a large breakfast which consists of 3 eggs and hashbrowns. His noon meal is also quite generous. He snacks throughout the day. His evening meal is taken at 10 PM. Should he take his evening meal at an earlier time he reports he has peanut butter and jelly sandwiches at bedtime. He also does have candy and sweets available if he feels his blood sugars are decreasing. He has not monitored the blood sugars when he experiences the symptoms. Patient is alert and oriented at the time of conversation. Respirations are at ease. Heart rate and rhythm is regular. As a result his metformin will be discontinued. Tresiba will be reevaluated this evening after his blood sugars have been reported.
[2017-09-15] MEDS: Celecoxib 100 MG Cap PO SCH (18:06)
[2017-09-15] MEDS ORDERED: Patient's Own Medication 1 Each SUBCUT ONE (21:12)
[2017-09-16] MEDS: Acetaminophen 500 MG Tab PO SCH ×3 (06:10→17:55)
[2017-09-16] MEDS: Fluticasone/Salmeterol 100-50 MCG Inhalation Powder 14/Diskus INH SCH ×2 (07:53→20:18)
[2017-09-16] MEDS: Benazepril 10 MG Tab PO SCH (08:03)
[2017-09-16] MEDS: amLODIPine 5 MG Tab PO SCH (08:04)
[2017-09-16] MEDS: FLUVOXAMINE 100 MG PO SCH ×2 (08:05→20:18)
[2017-09-16] MEDS: VITAMIN B12 5000 MCG PO SCH (08:05)
[2017-09-16] MEDS: Simvastatin 20 MG Tab PO SCH (08:06)
[2017-09-16] MEDS: Cholecalciferol (Vitamin D3) 1,000 Unit Tab PO SCH (08:06)
[2017-09-16] MEDS: Diclofenac Sodium 1% Gel 100 GM Tube TOP SCH ×2 (08:07→20:21)
[2017-09-16] MEDS: Celecoxib 100 MG Cap PO SCH (17:56)
[2017-09-16] MEDS ORDERED: TRESIBA SUBCUT SCH (21:00)
[2017-09-16] MEDS ORDERED: [UNRECOGNIZED DRUG - OTHER] SUBCUT SCH (21:00)
[2017-09-16] MEDS ORDERED: TRESIBA 100 UNIT/ML SQ ONE (21:19)
[2017-09-17] MEDS: Acetaminophen 500 MG Tab PO SCH ×4 (00:23→20:01)
[2017-09-17] MEDS: Fluticasone/Salmeterol 100-50 MCG Inhalation Powder 14/Diskus INH SCH ×2 (07:20→20:01)
[2017-09-17] MEDS: Benazepril 10 MG Tab PO SCH (10:03)
[2017-09-17] MEDS: FLUVOXAMINE 100 MG PO SCH ×2 (10:05→20:02)
[2017-09-17] MEDS: amLODIPine 5 MG Tab PO SCH (10:05)
[2017-09-17] MEDS: VITAMIN B12 5000 MCG PO SCH (10:05)
[2017-09-17] MEDS: Cholecalciferol (Vitamin D3) 1,000 Unit Tab PO SCH (10:06)
[2017-09-17] MEDS: Simvastatin 20 MG Tab PO SCH (10:07)
[2017-09-17] MEDS: Diclofenac Sodium 1% Gel 100 GM Tube TOP SCH ×2 (10:08→20:02)
[2017-09-17] MEDS: Celecoxib 100 MG Cap PO SCH (18:01)
[2017-09-17] MEDS: [UNRECOGNIZED DRUG - OTHER] SUBCUT SCH (21:14)
[2017-09-17] MEDS: TRESIBA SUBCUT SCH (21:14)
[2017-09-18] MEDS: Acetaminophen 500 MG Tab PO SCH ×3 (06:43→20:08)
[2017-09-18] MEDS: Fluticasone/Salmeterol 100-50 MCG Inhalation Powder 14/Diskus INH SCH ×2 (07:36→20:07)
[2017-09-18] MEDS: Benazepril 10 MG Tab PO SCH (08:33)
[2017-09-18] MEDS: Cholecalciferol (Vitamin D3) 1,000 Unit Tab PO SCH (08:34)
[2017-09-18] MEDS: amLODIPine 5 MG Tab PO SCH (08:34)
[2017-09-18] MEDS: Simvastatin 20 MG Tab PO SCH (08:34)
[2017-09-18] MEDS: Diclofenac Sodium 1% Gel 100 GM Tube TOP SCH ×2 (08:37→20:09)
[2017-09-18] MEDS: VITAMIN B12 5000 MCG PO SCH (08:37)
[2017-09-18] MEDS: FLUVOXAMINE 100 MG PO SCH ×2 (08:37→20:08)
--- NOTE | 2017-09-18 10:56 | HP ---
HISTORY OF PRESENT ILLNESS: The patient was initially admitted through the ED due to pain of the right knee and the medial aspect of the right thigh. The history of this injury included stepping downstairs and noting a sharp pain behind his knee. At that time, he was unable to twist and he felt the pain increased. He then fell on the step landing on his buttocks and that is what brought him to the emergency room. He was evaluated and treated and admitted. During the course of his inpatient stay, chest x-ray was completed noting atelectasis versus infiltrate. He initially was started on antibiotics. Those antibiotics were discontinued. Blood cultures were obtained. Negative reports as of day two. Sputum sample was obtained and that report is pending. The patient did have an ultrasound completed for DVT and MRI of the right extremity, which was unremarkable, and presented most fitting with a right abductor strain. There were no specific complications. LABS AND DIAGNOSTICS: Included chest x-ray, MRI, and ultrasound of the right lower extremity. He did have lab work obtained. White count on admission was normal and remained normal. His sodium was 144, potassium was 4.4, BUN 20 with a creatinine of 0.74, calcium was 9.5, and troponin was normal. He had no consults during his inpatient hospitalization. PAST MEDICAL HISTORY: Includes heart murmur, hypercholesterolemia, hypertension, shortness of breath on exertion, asthma, COPD, sleep apnea, diverticulosis with H. pylori, gout, osteoarthritis, depression, OCD, and diabetes. PAST SURGICAL HISTORY: Includes spinal surgeries due to bone spurs. FAMILY HISTORY: Cardiac disease, high cholesterol, hypertension, asthma, COPD, and depression. SOCIAL HISTORY: The patient has not been a smoker. He states that he does have occasional caffeinated sodas. REVIEW OF SYSTEMS: CONSTITUTIONAL: Negative. HEENT: Negative. RESPIRATORY: He has no complaints of cough or congestion. CARDIOVASCULAR: No chest pain or palpitations. GI: His appetite has been good without nausea, vomiting, or diarrhea. MUSCULOSKELETAL: Improving right lower extremity pain and discomfort. He does state that he initially was to have a right knee replacement which has been placed on hold. ENDOCRINE: The patient is diabetic. His blood sugars have been somewhat unstable during his hospital course. PHYSICAL EXAMINATION: HEENT: Head is normocephalic. Conjunctiva is clear. Mucosa is pink and moist. NECK: Supple without rigidity. RESPIRATORY: Lung sounds are clear to auscultation. CARDIOVASCULAR: Heart rate and rhythm is regular. S1 and S2. ABDOMEN: Soft, nontender. MUSCULOSKELETAL: Mild right medial thigh tenderness to touch and palpation. There is no discoloration, bruising, or swelling. DIAGNOSES: Includes right medial thigh pain with debilitation, left lower lobe atelectasis, type 2 diabetes. Chronic conditions include his chronic obstructive pulmonary disease which is stable, hypertension, stable HDL, osteoarthritis, and depression. PLAN: The patient will be admitted to the [facility] bed services for physical therapy to increase strength and endurance. He will continue on his current medications which includes Tylenol Extra Strength a 1000 mg every 6 hours, DuoNeb t.i.d., Norvasc 5 mg daily, benazepril 40 mg daily, Celebrex 200 mg daily, vitamin D 2000 units daily, Voltaren gel topically b.i.d., metformin 500 mg b.i.d., Tresiba will be adjusted daily, fluvoxamine 100 mg daily, vitamin B12 5000 mcg daily, Advair Diskus daily, and simvastatin 20 mg daily. /[id number]/MODL MTDD
[2017-09-18] MEDS: Celecoxib 100 MG Cap PO SCH (18:12)
[2017-09-18] MEDS: [UNRECOGNIZED DRUG - OTHER] SUBCUT SCH (20:09)
[2017-09-18] MEDS: TRESIBA SUBCUT SCH (20:09)
[2017-09-19] MEDS: Acetaminophen 500 MG Tab PO SCH (06:00)
[2017-09-19 06:41] VITALS: BP 140/81
[2017-09-19] MEDS: Fluticasone/Salmeterol 100-50 MCG Inhalation Powder 14/Diskus INH SCH (07:49)
[2017-09-19] MEDS: Diclofenac Sodium 1% Gel 100 GM Tube TOP SCH (08:47)
[2017-09-19] MEDS: Simvastatin 20 MG Tab PO SCH (08:47)
[2017-09-19] MEDS: VITAMIN B12 5000 MCG PO SCH (08:48)
[2017-09-19] MEDS: amLODIPine 5 MG Tab PO SCH (08:48)
[2017-09-19] MEDS: Cholecalciferol (Vitamin D3) 1,000 Unit Tab PO SCH (08:48)
[2017-09-19] MEDS: FLUVOXAMINE 100 MG PO SCH (08:48)
[2017-09-19] MEDS: Benazepril 10 MG Tab PO SCH (08:49)
--- NOTE | 2017-09-20 10:16 | DISCH ---
He was admitted into swing bed on 09/11/2017. Discharged from the swing bed today, 09/19/2017. FINAL DIAGNOSES: Right adductor strain, significant improvement with physical therapy. Asymptomatic hypoglycemia, improved with recent medications/insulin adjustments. HISTORY: This is a 72-year-old gentleman, who was initially admitted through the ER on 09/11/2017 due to extreme right knee, thigh, and calf pain as well as slight cough. On 09/07/2017, he fell down the steps as he lowered himself to sitting position somewhat of a controlled fall. His pain had progressively gotten worse. He was unable to advance his legs with walking. He did have an acute care stay that was noted for him to have a right lower lobe pneumonia that was incidental in the ED. He does have history of right knee osteoarthritis, COPD, and diabetes. An ultrasound was performed on 09/11/2017 to rule out DVT, which was ruled out. A subsequent MRI was done of his right groin and his right femur leg, which showed nonspecific edema in the anterior compartment of the thigh, however, otherwise no significant abnormalities. Again, he did very well in Physical Therapy. The patient does have diabetes mellitus and he has some asymptomatic hypoglycemic episodes in which his Tresiba was decreased significantly each day from 65 units to 14 units. His metformin was also slowly tapered off. This will have to be re-looked at that as he goes back on his home diet. Hopefully, the patient may eventually be continue to reduce his Tresiba and get back on metformin. Medication changes and adjustments; metformin, hold for now. Tresiba decreased from 65 units on admission to 14 units on discharge. Amlodipine 5 mg p.o. daily, with benazepril 40 mg p.o. daily. The patient to continue on all other home medications. DISPOSITION: The patient will be discharged from swing bed. He will receive outpatient physical therapy with at [facility] (patient preference). He is to report any increase in pain in his right lower extremity or any shortness of breath or cough. The patient will follow up with myself Delio Adam next week, mid week. /[id number]/MODL
== END 2017-09-19 10:55 | disposition home or self-care (01) | DRG 948 ==
LOC: KA.MS 11:07
PROVIDERS: ADMIT Physician Assistant Medical; ATTEND Family Medicine
DX: R53.81 Other malaise (principal); J98.11 Atelectasis; M17.11 Unilateral primary osteoarthritis, right knee; J44.9 Chronic obstructive pulmonary disease, unspecified; E11.649 Type 2 diabetes mellitus with hypoglycemia without coma; W10.9XXA Fall (on) (from) unspecified stairs and steps, initial encounter; I10 Essential (primary) hypertension; G47.30 Sleep apnea, unspecified; M10.9 Gout, unspecified; F32.9 Major depressive disorder, single episode, unspecified; F42.9 Obsessive-compulsive disorder, unspecified; M79.651 Pain in right thigh; E78.5 Hyperlipidemia, unspecified; Z79.84 Long term (current) use of oral hypoglycemic drugs; Z79.899 Other long term (current) drug therapy
CPT/HCPCS: 82962; 94640-76; 97110-GP; 97161-GP; A9270-GY

== ENCOUNTER 2017-10-14 17:45 | Observation (INO) | payer MEDICARE, BC ==
[2017-10-14] MEDS: fluvoxaMINE 100 MG Tab PO SCH (21:00)
[2017-10-14] MEDS ORDERED: Ketorolac 30 MG/ML SDV IM ONE (21:00)
[2017-10-14] MEDS ORDERED: Enoxaparin 40 MG/0.4 ML Syringe SUBCUT ONE (22:13)
[2017-10-15] MEDS ORDERED: Ketorolac 30 MG/ML SDV IM PRN (05:55)
[2017-10-15] MEDS ORDERED: Ondansetron 4 MG Tab.DIS PO PRN (05:57)
[2017-10-15] MEDS ORDERED: Acetaminophen/oxyCODONE 325-5 MG Tab PO PRN (05:57)
[2017-10-15] MEDS ORDERED: Acetaminophen 325 MG Tab PO PRN (05:58)
[2017-10-15 07:03] VITALS: BP 124/74
[2017-10-15] MEDS ORDERED: metFORMIN 500 MG Tab PO SCH (08:00)
[2017-10-15] MEDS ORDERED: Benazepril 10 MG Tab PO SCH (09:00)
[2017-10-15] MEDS ORDERED: AMLODIPINE PO SCH (09:00)
[2017-10-15] MEDS ORDERED: Pravastatin 20 MG Tab PO SCH (09:00)
[2017-10-15] MEDS ORDERED: Acetaminophen 500 MG Tab PO SCH (09:00)
[2017-10-15] MEDS ORDERED: BENAZEPRIL PO SCH (09:00)
[2017-10-15] MEDS ORDERED: amLODIPine 5 MG Tab PO SCH (09:00)
[2017-10-15] MEDS ORDERED: FLUVOXAMINE 100 MG PO SCH ×2 (09:36→09:45)
[2017-10-15] MEDS: fluvoxaMINE 100 MG Tab PO SCH (09:46)
--- NOTE | 2017-10-15 10:09 | PCM.HP ---
H&P History of Present Illness - General Date of Service: 10/15/17 Admit Problem/Dx: Admission Diagnosis/Problem Admission Diagnosis/Problem Patellar instability Source of Information: Patient, Old Records, Provider - History of Present Illness Initial Comments - Free Text/Narative: 72-year-old gentleman was admitted last night through the ED into observation after he states sustained a fall sustaining nondisplaced seventh and eighth rib fractures, along with a non-displaced left patella fracture, he was evaluated with plans on discharging with close follow-up however family concern immobility and high fall risk so he was admitted for pain control measures with social service consultation. He was placed in knee immobilizer, given Toradol and Percocet. Patient was recently discharged from SNF here at [facility] September 19, after sustaining a strain of his right abductor muscle in which he improved greatly with physical therapy--although he was also diagnosed and successfully treated for pneumonia upon ED arrival. The decision was made to place patient this morning directly from observation into SNF since the cause of the patient's fall likely was a result of his recent problems/dx in diagnosis as the patient was scheduled to undergo total right knee replacement tomorrow Monday, October 16, 2017. - Related Data Allergies/Adverse Reactions: Allergies Allergy/AdvReac Type Severity Reaction Status Date / Time aspirin Allergy Elevates Verified 10/15/17 04:58 LFT's per patient Home Medications: Home Meds Pravastatin [Pravachol] 40 mg PO 0900 11/01/15 [History] Acetaminophen [Acetaminophen Extra Strength] 1,000 mg PO 0900,2100 09/11/17 [ History] amLODIPine Besylate/Benazepril [Lotrel 10-40 MG] 1 cap PO 0900 09/12/17 [History ] fluvoxaMINE [Luvox] 100 mg PO 0900,2100 09/12/17 [History] metFORMIN HCl [Metformin HCl] 1,000 mg PO 0900,1800 09/12/17 [History] Tresiba 14 unit SUBCUT BEDTIME #0 09/19/17 [Rx] Past Medical History HEENT History: Reports: Impaired Vision Cardiovascular History: Reports: Heart Murmur, High Cholesterol, Hypertension, SOB on Exertion Respiratory History: Reports: Asthma, COPD, Sleep Apnea, SOB Gastrointestinal History: Reports: Diverticulosis, Helicobacter Pylori Genitourinary History: Reports: None Musculoskeletal History: Reports: Fracture, Gout, Osteoarthritis Neurological History: Reports: Vertigo Other Neuro History: patient states "bad memory" Psychiatric History: Reports: Depression, Mood Swings, OCD Other Psychiatric History: irritability Endocrine/Metabolic History: Reports: Diabetes, Type II, Obesity/BMI 30+ Oncologic (Cancer) History: Reports: Other (See Below) Other Oncologic History: skin Dermatologic History: Reports: Melanoma - Infectious Disease History Infectious Disease History: Reports: Chicken Pox, Measles, Shingles - Past Surgical History HEENT Surgical History: Reports: Adenoidectomy, Oral Surgery, Tonsillectomy Cardiovascular Surgical History: Reports: None Respiratory Surgical History: Reports: None GI Surgical History: Reports: Colonoscopy Male Surgical History: Reports: None Endocrine Surgical History: Reports: None Neurological Surgical History: Reports: C-Spine Other Neurological Surgeries/Procedures: bone spurs on spinal cord, spinal operation, Musculoskeletal Surgical History: Reports: Shoulder Surgery Oncologic Surgical History: Reports: None Dermatological Surgical History: Reports: None Social & Family History - Family History Cardiac: Reports: Angina, Heart Failure, High Cholesterol, Hypertension, [place] Respiratory: Reports: Asthma, COPD Psychiatric: Reports: Depression, OCD - Tobacco Use Smoking Status *Q: Never Smoker Second Hand Smoke Exposure: No - Caffeine Use Caffeine Use: Reports: None - Recreational Drug Use Recreational Drug Use: No H&P Review of Systems - Review of Systems: Review Of Systems: See Below General: Reports: No Symptoms HEENT: Reports: No Symptoms Pulmonary: Reports: No Symptoms Cardiovascular: Reports: Other (Left-sided chest wall pain since rib fractures) Gastrointestinal: Reports: No Symptoms Genitourinary: Reports: No Symptoms Musculoskeletal: Reports: Shoulder Pain (Left shoulder pain and stiffness, left knee pain and edema), Joint Pain, Joint Swelling, Muscle Stiffness Skin: Reports: Wound (Abrasion left elbow) Psychiatric: Reports: No Symptoms Neurological: Reports: Difficulty Walking. Denies: Confusion, Paresthesia, Syncope, Tingling, Change in Speech Hematologic/Lymphatic: Reports: No Symptoms Immunologic: Reports: No Symptoms Exam - Exam Exam: See Below - Vital Signs Vital Signs: Last Vital Signs Temp 97.2 F 10/15/17 07:00 Pulse 80 10/15/17 07:00 Resp 20 10/15/17 07:00 BP 124/74 10/15/17 07:00 Pulse Ox 96 10/15/17 07:00 Weight: 266 lb 7 oz - Exam Quality Assessment: No: Supplemental Oxygen General: Alert, Oriented, Cooperative. No: Mild Distress HEENT: Mucosa Moist & [place] Lungs: Clear to Auscultation, Normal Respiratory Effort Cardiovascular: Regular Rate, Regular Rhythm GI/Abdominal Exam: Normal Bowel Sounds, Soft (Male) Exam: Deferred Rectal (Males) Exam: Deferred Back Exam: No: CVA Tenderness (L), CVA Tenderness (R) Extremities: No Pedal Edema, Joint Swelling (Left knee effusion however in immobilizer now), Other (Left shoulder, limited ROM, ). No: Leg Pain, Increased Warmth Peripheral Pulses: 2+: Radial (L), Radial (R), Dorsalis Pedis (L), Dorsalis Pedis (R) Skin: Wound (Abrasion left elbow from fall,) Neurological: Strength Equal Bilateral, Normal Tone. No: Normal Gait (Unable to assess gait, left knee immobilizer) Neuro Extensive - Mental Status: Alert, Oriented x3, Normal Mood/Affect, Normal Cognition Neuro Extensive - Motor, Sensory, Reflexes: CN II-XII Intact Psychiatric: Alert, Normal Affect, Normal Mood Problem List Initiated/Reviewed/Updated: Yes Orders Last 24hrs: Active Orders 24 hr Category Date Time Status Admission Status [Patient Status] [ADT] Routine ADT 10/14/17 21:00 Ordered Activity as Tolerated [RC] DAILY Care 10/15/17 06:01 Active Blood Glucose Check, Bedside [RC] 0730,1130,1730,2100 Care 10/15/17 06:00 Active CPAP Noctural Home [RT BiPAP/CPAP] [RC] 2099 Care 10/15/17 06:07 Active Immobilizer [RC] DAILY Care 10/15/17 06:02 Active Vital Signs [RC] 0700,1500,2300 Care 10/15/17 06:01 Active ADA Diabetic [[employer]abetic [employer] Diet] [DIET Diet 10/15/17 Breakfast Active ] Acetaminophen [Tylenol Extra Strength] Med 10/15/17 09:00 Active 1,000 mg PO BID@0900,2100 Acetaminophen [Tylenol] Med 10/15/17 05:58 Active 650 mg PO Q4H PRN Acetaminophen/oxyCODONE [Percocet 325-5 MG] Med 10/15/17 05:57 Active 1 tab PO Q4H PRN Benazepril [Lotensin] Med 10/15/17 09:00 Active 40 mg PO DAILY Ketorolac [Toradol] Med 10/15/17 05:55 Active 15 mg IM Q6H PRN Ondansetron [Zofran ODT] Med 10/15/17 05:57 Active 4 mg PO Q4H PRN Patient's Own Medication [Ptom] Med 10/15/17 09:45 Active 1 each PO BID@0900,2100 Simvastatin [Zocor] Med 10/16/17 09:45 Active 20 mg PO DAILY amLODIPine [Norvasc] Med 10/15/17 09:00 Active 10 mg PO DAILY metFORMIN [Glucophage] Med 10/15/17 08:00 Active 1,000 mg PO BIDMEALS Ice Pack [Ice Therapy] [OM.PC] DAILY Oth 10/15/17 06:08 Ordered Code Status [Resuscitation Status] Routine Resus Stat 10/15/17 06:07 Ordered Medication Orders Acetaminophen (Tylenol Extra Strength) 1,000 mg PO BID@0900,2100 [facility] Acetaminophen (Tylenol) 650 mg PO Q4H PRN PRN Reason: Pain Amlodipine Besylate (Norvasc) 10 mg PO DAILY [facility] Benazepril HCl (Lotensin) 40 mg PO DAILY [facility] Ketorolac Tromethamine (Toradol) 15 mg IM Q6H PRN PRN Reason: Pain Stop: 10/20/17 05:56 Metformin HCl (Glucophage) 1,000 mg PO BIDMEALS [facility] Last Admin: 10/15/17 08:31 Dose: 1,000 mg Ondansetron HCl (Zofran Odt) 4 mg PO Q4H PRN PRN Reason: Nausea/Vomiting Oxycodone/Acetaminophen (Percocet 325-5 Mg) 1 tab PO Q4H PRN PRN Reason: Pain Last Admin: 10/14/17 22:15 Dose: 1 tab Ptom Fluvoxamine (100 Mg Tab) 1 each PO BID@0900,2100 [facility] Simvastatin (Zocor) 20 mg PO DAILY [facility] Assessment/Plan Comment:: HISTORY OF PRESENT ILLNESS and discharge summary (will be placed into SNF today) 72-year-old gentleman was admitted last night through the ED into observation after he states sustained a fall sustaining nondisplaced seventh and eighth rib fractures, along with a non-displaced left patella fracture, he was evaluated with plans on discharging with close follow-up however family concern immobility and high fall risk so he was admitted for pain control measures with social service consultation. He was placed in knee immobilizer, given Toradol and Percocet. Patient was recently discharged from SNF here at [facility] September 19, after sustaining a strain of his right abductor muscle in which he improved greatly with physical therapy--although he was also diagnosed and successfully treated for pneumonia upon ED arrival. The decision was made to place patient this morning directly from observation into SNF since the cause of the patient's fall likely was a result of his recent problems/dx in diagnosis as the patient was scheduled to undergo total right knee replacement tomorrow Saturday, October 16, 2017. Pertinent ED workup and findings Rib series, acute nondisplaced fractures left 7th & 8th rib Left knee, acute nondisplaced patella fracture, knee joint effusion Left shoulder, no acute findings, AC glenohumeral OA Primary problem Rib fractures Left patella fracture Mobility High risk recurrent pneumonia Chronic problems T2DM, significant reduction previous admission on his Tresiba, Continue with Metformin, monitor BG carefully, ADA diet COPD, stable, on no medication HTN, stable on CCB and MAURA inhibitor HLD, statin therapy OA, scheduled Tylenol Depression, stable on Luvox Overall plan; patient will be discharged from observation and placed directly into SNF this morning. Please use this document as both H&P into observation and discharge summary from observation. Incentive spirometer, pain control measures, social service consultation, physical therapy consultation, knee immobilizer, ice to shoulder and knee, Final diagnosis Rib fractures left, seventh and eighth ribs Left patella fracture Mobility
--- NOTE | 2017-10-15 13:26 | EDM.PDOC ---
ED HPI GENERAL MEDICAL PROBLEM - General Chief Complaint: Lower Extremity Injury/Pain Stated Complaint: fall Time Seen by Provider: 10/14/17 18:00 Source of Information: Reports: Patient, Old Records, Provider History Limitations: Reports: No Limitations - History of Present Illness INITIAL COMMENTS - FREE TEXT/NARRATIVE: PATIENT IS A 72-YEAR-OLD GENTLEMAN WHO PRESENTS TO THE EMERGENCY DEPARTMENT WITH A COMPLAINT OF LEFT KNEE PAIN, LEFT SHOULDER PLAIN, AND LEFT RIB PAIN. PATIENT STATES THAT HE ACCIDENTALLY TRIPPED ON A CURB, FROM A STANDING POSITION FELL TO HIS LEFT KNEE AND THEN ON HIS LEFT SIDE TO CONCRETE SIDEWALK. PATIENT DENIES HEADACHE INJURY, LOSS OF CONSCIOUSNESS, BLURRY VISION, NAUSEA OR VOMITING. Onset: Today Onset Date: 10/14/17 Location: Reports: Chest, Upper Extremity, Left, Lower Extremity, Left Quality: Reports: Ache Severity: Mild Improves with: Reports: None Worsens with: Reports: Movement Context: Reports: Trauma (PATIENT FELL FROM STANDING POSITION) Associated Symptoms: Reports: No Other Symptoms - Related Data Allergies Allergy/AdvReac Type Severity Reaction Status Date / Time aspirin Allergy Elevates Verified 10/15/17 04:58 LFT's per patient Home Meds: Home Meds Pravastatin [Pravachol] 40 mg PO 0900 11/01/15 [History] Acetaminophen [Acetaminophen Extra Strength] 1,000 mg PO 0900,2100 09/11/17 [ History] amLODIPine Besylate/Benazepril [Lotrel 10-40 MG] 1 cap PO 0900 09/12/17 [History ] fluvoxaMINE [Luvox] 100 mg PO 0900,2100 09/12/17 [History] metFORMIN HCl [Metformin HCl] 1,000 mg PO 0900,1800 09/12/17 [History] Tresiba 14 unit SUBCUT BEDTIME #0 09/19/17 [Rx] Past Medical History HEENT History: Reports: Impaired Vision Cardiovascular History: Reports: Heart Murmur, High Cholesterol, Hypertension, SOB on Exertion Respiratory History: Reports: Asthma, COPD, Sleep Apnea, SOB Gastrointestinal History: Reports: Diverticulosis, Helicobacter Pylori Genitourinary History: Reports: None Musculoskeletal History: Reports: Fracture, Gout, Osteoarthritis Neurological History: Reports: Vertigo Other Neuro History: patient states "bad memory" Psychiatric History: Reports: Depression, Mood Swings, OCD Other Psychiatric History: irritability Endocrine/Metabolic History: Reports: Diabetes, Type II, Obesity/BMI 30+ Oncologic (Cancer) History: Reports: Other (See Below) Other Oncologic History: skin Dermatologic History: Reports: Melanoma - Infectious Disease History Infectious Disease History: Reports: Chicken Pox, Measles, Shingles - Past Surgical History HEENT Surgical History: Reports: Adenoidectomy, Oral Surgery, Tonsillectomy Cardiovascular Surgical History: Reports: None Respiratory Surgical History: Reports: None GI Surgical History: Reports: Colonoscopy Male Surgical History: Reports: None Endocrine Surgical History: Reports: None Neurological Surgical History: Reports: C-Spine Other Neurological Surgeries/Procedures: bone spurs on spinal cord, spinal operation, Musculoskeletal Surgical History: Reports: Shoulder Surgery Oncologic Surgical History: Reports: None Dermatological Surgical History: Reports: None Social & Family History - Family History Family Medical History: Noncontributory Cardiac: Reports: Angina, Heart Failure, High Cholesterol, Hypertension, [place] Respiratory: Reports: Asthma, COPD Psychiatric: Reports: Depression, OCD - Tobacco Use Smoking Status *Q: Never Smoker Second Hand Smoke Exposure: No - Caffeine Use Caffeine Use: Reports: None - Recreational Drug Use Recreational Drug Use: No Review of Systems - Review of Systems Review Of Systems: ROS reveals no pertinent complaints other than HPI. Constitutional: Reports: No Symptoms Eyes: Reports: No Symptoms Ears: Reports: No Symptoms Nose: Reports: No Symptoms Mouth/Throat: Reports: No Symptoms Respiratory: Reports: Pleuritic Chest Pain Cardiovascular: Reports: No Symptoms GI/Abdominal: Reports: No Symptoms Genitourinary: Reports: No Symptoms Musculoskeletal: Reports: No Symptoms, Arm Pain (LEFT), Leg Pain (LEFT KNEE), Other (LEFT RIB PAIN) Skin: Reports: Wound (ABRASION TO LEFT KNEE) Neurological: Reports: No Symptoms Psychiatric: Reports: No Symptoms ED EXAM, GENERAL - Physical Exam Exam: See Below Exam Limited By: No Limitations General Appearance: Alert, WD/WN, No Apparent Distress Eye Exam: Bilateral Eye: Normal Inspection Ears: Normal External Exam, Normal Canal Nose: Normal Inspection, Normal Mucosa, No Blood Throat/Mouth: Normal Inspection, Normal Oropharynx, No Airway Compromise Head: Atraumatic, Normocephalic Neck: Normal Inspection, Supple, Non-Tender, Full Range of Motion Respiratory/Chest: No Respiratory Distress, Lungs Clear, Normal Breath Sounds, Other (LEFT MID AXILLA, TENDER TO PALPATION WITHOUT ECCHYMOSIS OR FLAIL CHEST.) Cardiovascular: Normal Peripheral Pulses, Regular Rate, Rhythm, No Murmur Peripheral Pulses: 2+: Radial (L), Radial (R), Dorsalis Pedis (L), Dorsalis Pedis (R) GI/Abdominal: Normal Bowel Sounds, Soft Back Exam: Normal Inspection. No: CVA Tenderness (L), CVA Tenderness (R) Extremities: No Pedal Edema, Joint Swelling (Left knee effusion however in immobilizer now), Arm Pain (LEFT SHOULDER TENDER TO RANGE OF MOTION. NO DISLOCATION NOTED), Leg Pain (LEFT KNEE ABRASION WITH MILD SUBPATELLAR EDEMA, NO LIGAMENT LAXITY), Other (Left shoulder, limited ROM, ) Neurological: Alert, Oriented, CN II-XII Intact, Normal Cognition Psychiatric: Normal Affect, Normal Mood Skin Exam: Warm, Dry, Intact, Normal Color, No Rash Course - Vital Signs Last Recorded V/S: Last Vital Signs Temp 97.2 F 10/15/17 07:00 Pulse 80 10/15/17 10:29 Resp 20 10/15/17 07:00 BP 124/74 10/15/17 09:39 Pulse Ox 99 10/15/17 10:29 - Orders/Labs/Meds Meds: Medications Discontinued Medications Generic Name Dose Route Start Last Admin Trade Name Mariia PRN Reason Stop Dose Admin Acetaminophen 1,000 mg 10/15/17 09:00 10/15/17 09:40 Tylenol Extra Strength PO 1,000 mg BID@0900,2100 [facility] Administration Acetaminophen 650 mg 10/15/17 05:58 Tylenol PO Q4H PRN Pain Amlodipine Besylate 10 mg 10/15/17 09:00 10/15/17 09:39 Norvasc PO 10 mg DAILY [facility] Administration Benazepril HCl 40 mg 10/15/17 09:00 10/15/17 09:38 Lotensin PO 40 mg DAILY [facility] Administration Enoxaparin Sodium 40 mg 10/14/17 22:13 10/14/17 22:13 Lovenox SUBCUT 10/14/17 22:14 40 mg ONETIME ONE Administration Fluvoxamine Maleate 100 mg 10/15/17 09:00 10/15/17 09:46 Luvox PO Not Given BID@0900,2100 [facility] Ketorolac Tromethamine 15 mg 10/15/17 05:55 Toradol IM 10/20/17 05:56 Q6H PRN Pain Ketorolac Tromethamine 30 mg 10/14/17 21:00 10/14/17 22:14 Toradol IM 10/14/17 21:01 30 mg ONETIME ONE Administration Metformin HCl 1,000 mg 10/15/17 08:00 10/15/17 08:31 Glucophage PO 1,000 mg BIDMEALS [facility] Administration Ondansetron HCl 4 mg 10/15/17 05:57 Zofran Odt PO Q4H PRN Nausea/Vomiting Oxycodone/Acetaminophen 1 tab 10/15/17 05:57 10/14/17 22:15 Percocet 325-5 Mg PO 1 tab Q4H PRN Administration Pain Ptom Fluvoxamine 1 each 10/15/17 09:36 100 Mg Tab PO BID@0900,2100 [facility] Ptom Fluvoxamine 1 each 10/15/17 09:45 10/15/17 09:49 100 Mg Tab PO 1 each BID@0900,2100 [facility] Administration Pravastatin Sodium 40 mg 10/15/17 09:00 10/15/17 09:47 Pravachol PO Not Given DAILY [facility] Simvastatin 20 mg 10/16/17 09:45 10/15/17 09:49 Zocor PO 20 mg DAILY [facility] Administration - Radiology Interpretation Free Text/Narrative:: X-RAY SHOWS NONDISPLACED LEFT PATELLA FRACTURE, AND NONDISPLACED LEFT SEVENTH AND EIGHTH RIB FRACTURES - Re-Assessments/Exams Free Text/Narrative Re-Assessment/Exam: 10/15/17 13:34 PATIENT AFEBRILE, NONTOXIC APPEARING, VITAL SIGNS STABLE. CASE DISCUSSED WITH GWEN ORTEGA FROM [facility] AND PATIENT WILL BE ADMITTED FOR OBSERVATION STATUS. Departure - Departure Time of Disposition: 21:00 Disposition: Refer to Observation Condition: Fair Clinical Impression: Left patella fracture Qualifiers: Encounter type: initial encounter Fracture type: closed Fracture morphology: unspecified fracture morphology Fracture alignment: nondisplaced Qualified Code( s): S82.002A - Unspecified fracture of left patella, initial encounter for closed fracture Multiple rib fractures Qualifiers: Encounter type: initial encounter Fracture type: closed Laterality: left Qualified Code(s): S22.42XA - Multiple fractures of ribs, left side, initial encounter for closed fracture - Discharge Information - Assessment/Plan Assessment:: LEFT PATELLA FRACTURE, RIB FRACTURES Plan: ADMIT TO [facility] FOR OBSERVATION
[2017-10-16] MEDS ORDERED: Simvastatin 20 MG Tab PO SCH (09:45)
== END 2017-10-15 10:24 | disposition swing bed (61) ==
LOC: KA.ED 17:45 → INTOOBSV 21:00 → KA.MS 21:00
PROVIDERS: ADMIT Nurse Practitioner Family; ATTEND Nurse Practitioner Family
DX: S22.42XA Multiple fractures of ribs, left side, initial encounter for closed fracture (principal); S82.002A Unspecified fracture of left patella, initial encounter for closed fracture; M25.462 Effusion, left knee; M19.012 Primary osteoarthritis, left shoulder; F32.9 Major depressive disorder, single episode, unspecified; I10 Essential (primary) hypertension; E78.00 Pure hypercholesterolemia, unspecified; J44.9 Chronic obstructive pulmonary disease, unspecified; G47.30 Sleep apnea, unspecified; E11.9 Type 2 diabetes mellitus without complications; E66.9 Obesity, unspecified; W19.XXXA Unspecified fall, initial encounter; Z88.0 Allergy status to penicillin; Z79.84 Long term (current) use of oral hypoglycemic drugs; Z68.30 Body mass index [BMI] 30.0-30.9, adult
CPT/HCPCS: 71101-LT; 73030-LT; 73562-LT; 82962; 96372; 99284; A9270-GY; G0378; J1650; J1885

== ENCOUNTER 2017-10-15 10:20 | Inpatient (IN) | payer MEDICARE, BC ==
[2017-10-15] MEDS ORDERED: Ketorolac 30 MG/ML SDV IM PRN (10:25)
[2017-10-15] MEDS ORDERED: Acetaminophen 325 MG Tab PO PRN (10:25)
[2017-10-15] MEDS ORDERED: Ondansetron 4 MG Tab.DIS PO PRN (10:25)
[2017-10-15] MEDS ORDERED: Acetaminophen/oxyCODONE 325-5 MG Tab PO PRN (10:25)
--- NOTE | 2017-10-15 10:34 | PCM.HP ---
H&P History of Present Illness - General Date of Service: 10/15/17 Source of Information: Patient, Old Records, Provider, RN History Limitations: Reports: No Limitations - History of Present Illness Initial Comments - Free Text/Narative: 72-year-old gentleman was admitted last night through the ED into observation after he states sustained a fall sustaining nondisplaced seventh and eighth rib fractures, along with a non-displaced left patella fracture, he was evaluated with plans on discharging with close follow-up however family concern immobility and high fall risk so he was admitted for pain control measures with social service consultation. He was placed in knee immobilizer, given Toradol and Percocet. Patient was recently discharged from SNF here at [facility] September 19, after sustaining a strain of his right abductor muscle in which he improved greatly with physical therapy--although he was also diagnosed and successfully treated for pneumonia upon ED arrival. The decision was made to place patient this morning directly from observation into SNF since the cause of the patient's fall likely was a result of his recent problems/dx in diagnosis as the patient was scheduled to undergo total right knee replacement tomorrow Saturday, October 16, 2017. - Related Data Allergies/Adverse Reactions: Allergies Allergy/AdvReac Type Severity Reaction Status Date / Time aspirin Allergy Elevates Verified 10/15/17 04:58 LFT's per patient Home Medications: Home Meds Pravastatin [Pravachol] 40 mg PO 0900 11/01/15 [History] Acetaminophen [Acetaminophen Extra Strength] 1,000 mg PO 0900,2100 09/11/17 [ History] amLODIPine Besylate/Benazepril [Lotrel 10-40 MG] 1 cap PO 0900 09/12/17 [History ] fluvoxaMINE [Luvox] 100 mg PO 0900,2100 09/12/17 [History] metFORMIN HCl [Metformin HCl] 1,000 mg PO 0900,1800 09/12/17 [History] Tresiba 14 unit SUBCUT BEDTIME #0 09/19/17 [Rx] Past Medical History HEENT History: Reports: Impaired Vision Cardiovascular History: Reports: Heart Murmur, High Cholesterol, Hypertension, SOB on Exertion Respiratory History: Reports: Asthma, COPD, Sleep Apnea, SOB Gastrointestinal History: Reports: Diverticulosis, Helicobacter Pylori Genitourinary History: Reports: None Musculoskeletal History: Reports: Fracture, Gout, Osteoarthritis Neurological History: Reports: Vertigo Other Neuro History: patient states "bad memory" Psychiatric History: Reports: Depression, Mood Swings, OCD Other Psychiatric History: irritability Endocrine/Metabolic History: Reports: Diabetes, Type II, Obesity/BMI 30+ Oncologic (Cancer) History: Reports: Other (See Below) Other Oncologic History: skin Dermatologic History: Reports: Melanoma - Infectious Disease History Infectious Disease History: Reports: Chicken Pox, Measles, Shingles - Past Surgical History HEENT Surgical History: Reports: Adenoidectomy, Oral Surgery, Tonsillectomy Cardiovascular Surgical History: Reports: None Respiratory Surgical History: Reports: None GI Surgical History: Reports: Colonoscopy Male Surgical History: Reports: None Endocrine Surgical History: Reports: None Neurological Surgical History: Reports: C-Spine Other Neurological Surgeries/Procedures: bone spurs on spinal cord, spinal operation, Musculoskeletal Surgical History: Reports: Shoulder Surgery Oncologic Surgical History: Reports: None Dermatological Surgical History: Reports: None Social & Family History - Family History Cardiac: Reports: Angina, Heart Failure, High Cholesterol, Hypertension, [place] Respiratory: Reports: Asthma, COPD Psychiatric: Reports: Depression, OCD - Caffeine Use Caffeine Use: Reports: None H&P Review of Systems - Review of Systems: Review Of Systems: See Below General: Denies: Fever, Chills, Malaise, Weakness, Decreased Appetite HEENT: Reports: No Symptoms Pulmonary: Reports: No Symptoms Cardiovascular: Reports: Other (Left chest wall pain) Gastrointestinal: Reports: No Symptoms Genitourinary: Reports: No Symptoms Musculoskeletal: Reports: Shoulder Pain, Arm Pain (Left elbow abrasion, left shoulder pain, left knee edema), Joint Pain, Joint Swelling Skin: Reports: Wound (Abrasion left elbow) Psychiatric: Reports: No Symptoms Neurological: Reports: Difficulty Walking, Gait Disturbance Hematologic/Lymphatic: Reports: No Symptoms Immunologic: Reports: No Symptoms Exam - Exam Exam: See Below - Exam Quality Assessment: DVT Prophylaxis. No: Supplemental Oxygen General: Alert, Oriented, 4 HEENT: Mucosa Moist & [place] Neck: Supple, Trachea Midline, 2 Lungs: Clear to Auscultation, Normal Respiratory Effort Cardiovascular: Regular Rate, Regular Rhythm, Normal S1, Normal S2 GI/Abdominal Exam: Normal Bowel Sounds, Soft, Non-Tender, No Organomegaly, No Distention, No Abnormal Bruit, No Mass, Pelvis Stable (Male) Exam: Deferred Rectal (Males) Exam: Deferred Back Exam: Muscle Spasm (Left shoulder muscle spasm joint stiffness). No: CVA Tenderness (L), CVA Tenderness (R) Extremities: No Pedal Edema, Joint Swelling (Left knee edema, currently in knee immobilizer). No: Increased Warmth Skin: Wound (Slight superficial abrasion left elbow covered with Telfa pad) Neurological: Cranial Nerves Intact Neuro Extensive - Mental Status: Alert, Oriented x3, Normal Mood/Affect, Normal Cognition Neuro Extensive - Motor, Sensory, Reflexes: CN II-XII Intact, Normal Gait, Normal Reflexes Psychiatric: Alert, Normal Affect, Normal Mood Problem List Initiated/Reviewed/Updated: Yes Orders Last 24hrs: Active Orders 24 hr Category Date Time Status Activity as Tolerated [] DAILY Care 10/15/17 10:25 Active Blood Glucose Check, Bedside [] 0730,1130,1730,2100 Care 10/15/17 10:25 Active CPAP Noctural Home [RT BiPAP/CPAP] [] 2099 Care 10/15/17 10:25 Active Immobilizer [] DAILY Care 10/15/17 10:25 Active Ready for Discharge [] PER UNIT ROUTINE Care 10/15/17 10:25 Active Vital Signs [] 0700,1500,2300 Care 10/15/17 10:25 Active ADA Diabetic [[employer] Diet] [DIET Diet 10/15/17 Breakfast Active ] Acetaminophen [Tylenol Extra Strength] Med 10/15/17 21:00 Ordered 1,000 mg PO BID@0900,2100 Acetaminophen [Tylenol] Med 10/15/17 10:25 Ordered 650 mg PO Q4H PRN Acetaminophen/oxyCODONE [Percocet 325-5 MG] Med 10/15/17 10:25 Ordered 1 tab PO Q4H PRN Benazepril [Lotensin] Med 10/16/17 09:00 Ordered 40 mg PO DAILY Ketorolac [Toradol] Med 10/15/17 10:25 Ordered 15 mg IM Q6H PRN Ondansetron [Zofran ODT] Med 10/15/17 10:25 Ordered 4 mg PO Q4H PRN Patient's Own Medication [Ptom] Med 10/15/17 21:00 Ordered 1 each PO BID@0900,2100 Simvastatin [Zocor] Med 10/17/17 09:00 Ordered 20 mg PO DAILY amLODIPine [Norvasc] Med 10/16/17 09:00 Ordered 10 mg PO DAILY metFORMIN [Glucophage] Med 10/15/17 18:00 Ordered 1,000 mg PO BIDMEALS Ice Pack [Ice Therapy] [OM.PC] DAILY Oth 10/15/17 10:25 Ordered Medication Orders Acetaminophen (Tylenol Extra Strength) 1,000 mg PO BID@0900,2100 [facility] Acetaminophen (Tylenol) 650 mg PO Q4H PRN PRN Reason: Pain Amlodipine Besylate (Norvasc) 10 mg PO DAILY [facility] Benazepril HCl (Lotensin) 40 mg PO DAILY [facility] Ketorolac Tromethamine (Toradol) 15 mg IM Q6H PRN PRN Reason: Pain Stop: 10/20/17 05:56 Metformin HCl (Glucophage) 1,000 mg PO BIDMEALS [facility] Ondansetron HCl (Zofran Odt) 4 mg PO Q4H PRN PRN Reason: Nausea/Vomiting Oxycodone/Acetaminophen (Percocet 325-5 Mg) 1 tab PO Q4H PRN PRN Reason: Pain Patient Own Medication (Ptom) 1 each PO BID@0900,2100 [facility] Simvastatin (Zocor) 20 mg PO DAILY [facility] Assessment/Plan Comment:: HISTORY OF PRESENT ILLNESS 72-year-old gentleman was admitted last night through the ED into observation after he sustained a fall when he tripped landing on his left shoulder and left knee, sustaining non-displaced seventh and eighth rib fractures, along with a non-displaced left patella fracture, he was evaluated with plans on discharging with close follow-up however family concern immobility and high fall risk so he was admitted for pain control measures with social service consultation. He was placed in knee immobilizer, given Toradol and Percocet. Patient was recently discharged from SNF here at [facility] September 19, after sustaining a strain of his right abductor muscle in which he improved greatly with physical therapy--although he was also diagnosed and successfully treated for pneumonia upon ED arrival. The decision was made to place patient this morning directly from observation into SNF since the cause of the patient's fall likely was a result of his recent problems/dx in diagnosis as the patient was scheduled to undergo total right knee replacement tomorrow Monday, October 16, 2017. Pertinent ED workup and findings Rib series, acute nondisplaced fractures left 7th & 8th rib Left knee, acute nondisplaced patella fracture, knee joint effusion Left shoulder, no acute findings, AC glenohumeral OA Primary problem Rib fractures Left patella fracture Decrease Mobility High risk recurrent pneumonia Chronic problems T2DM, significant reduction previous admission on his Tresiba, Continue with Metformin, monitor BG carefully, ADA diet COPD, stable, on no medication ARTEMIO, in home CPAP on hand HTN, stable on CCB and MAURA inhibitor HLD, statin therapy OA, scheduled Tylenol Depression, stable on Luvox Overall plan; PT consultation, isometric contraction of the quadriceps and SLR. DVT prophylaxis, LMWH Constipation, prophylaxis, senna S Delirium prophylaxis Remalteon, ear plugs, Activity, No weightbearing left leg, knee immobilizer, RICE, PT to instruct isometric contraction of the quadriceps and SLR. Pain control, scheduled Tylenol, discontinue ketorolac, Percocet when necessary CODE STATUS, discussed with patient, full code PT consult, social service consultation, was discharged from observation directly into SNF, Incentive spirometer, pain control measures, SS and PT consultation, knee immobilizer, ice to shoulder and knee.
[2017-10-15 12:34] LABS: CHLORIDE,CL 107 mmol/L (98-115); SODIUM,NA 144 mmol/L (136-145)
[2017-10-15] MEDS: Enoxaparin 40 MG/0.4 ML Syringe SUBCUT SCH (12:57)
[2017-10-15] MEDS: Acetaminophen 500 MG Tab PO SCH ×2 (15:37→21:09)
[2017-10-15] MEDS: metFORMIN 500 MG Tab PO SCH (19:45)
[2017-10-15] MEDS: fluvoxaMINE 100 MG Tab PO SCH (20:25)
[2017-10-15] MEDS: Insulin Detemir 100 Units/ML 3 ML Pen SUBCUT SCH (20:41)
[2017-10-15] MEDS ORDERED: Acetaminophen 500 MG Tab PO SCH (21:00)
[2017-10-16] MEDS: Acetaminophen 500 MG Tab PO SCH ×3 (06:02→21:24)
[2017-10-16] MEDS: Enoxaparin 40 MG/0.4 ML Syringe SUBCUT SCH (08:20)
[2017-10-16] MEDS: fluvoxaMINE 100 MG Tab PO SCH ×2 (08:21→20:48)
[2017-10-16] MEDS: Simvastatin 20 MG Tab PO SCH (08:22)
[2017-10-16] MEDS: metFORMIN 500 MG Tab PO SCH ×2 (08:23→18:21)
[2017-10-16] MEDS: amLODIPine 5 MG Tab PO SCH (08:24)
[2017-10-16] MEDS: Benazepril 10 MG Tab PO SCH (08:25)
[2017-10-16] MEDS: Insulin Detemir 100 Units/ML 3 ML Pen SUBCUT SCH (20:50)
[2017-10-17] MEDS: Acetaminophen 500 MG Tab PO SCH ×3 (05:22→21:02)
[2017-10-17] MEDS: metFORMIN 500 MG Tab PO SCH ×2 (08:13→18:23)
[2017-10-17] MEDS: fluvoxaMINE 100 MG Tab PO SCH ×2 (09:24→21:02)
[2017-10-17] MEDS: Benazepril 10 MG Tab PO SCH (09:24)
[2017-10-17] MEDS: Simvastatin 20 MG Tab PO SCH (09:26)
[2017-10-17] MEDS: amLODIPine 5 MG Tab PO SCH (09:26)
[2017-10-17] MEDS: Enoxaparin 40 MG/0.4 ML Syringe SUBCUT SCH (09:27)
[2017-10-17] MEDS: Insulin Detemir 100 Units/ML 3 ML Pen SUBCUT SCH (21:00)
[2017-10-18] MEDS: Acetaminophen 500 MG Tab PO SCH ×3 (06:26→21:03)
[2017-10-18] MEDS: metFORMIN 500 MG Tab PO SCH ×2 (08:57→18:04)
[2017-10-18] MEDS: amLODIPine 5 MG Tab PO SCH (08:58)
[2017-10-18] MEDS: fluvoxaMINE 100 MG Tab PO SCH ×2 (08:58→21:03)
[2017-10-18] MEDS: Benazepril 10 MG Tab PO SCH (08:59)
[2017-10-18] MEDS: Enoxaparin 40 MG/0.4 ML Syringe SUBCUT SCH (09:01)
[2017-10-18] MEDS: Simvastatin 20 MG Tab PO SCH (09:01)
[2017-10-18] MEDS: Insulin Detemir 100 Units/ML 3 ML Pen SUBCUT SCH (21:02)
[2017-10-18] MEDS: Melatonin 3 MG Tab PO SCH (21:04)
[2017-10-19] MEDS: Acetaminophen 500 MG Tab PO SCH ×3 (06:04→21:30)
[2017-10-19] MEDS: Simvastatin 20 MG Tab PO SCH (09:26)
[2017-10-19] MEDS: amLODIPine 5 MG Tab PO SCH (09:26)
[2017-10-19] MEDS: fluvoxaMINE 100 MG Tab PO SCH ×2 (09:26→21:30)
[2017-10-19] MEDS: Benazepril 10 MG Tab PO SCH (09:27)
[2017-10-19] MEDS: metFORMIN 500 MG Tab PO SCH ×2 (09:27→17:40)
[2017-10-19] MEDS: Enoxaparin 40 MG/0.4 ML Syringe SUBCUT SCH (09:27)
[2017-10-19] MEDS: Insulin Detemir 100 Units/ML 3 ML Pen SUBCUT SCH (21:28)
[2017-10-19] MEDS: Melatonin 3 MG Tab PO SCH (21:30)
[2017-10-20] MEDS: Acetaminophen 500 MG Tab PO SCH ×3 (06:21→21:08)
[2017-10-20] MEDS: metFORMIN 500 MG Tab PO SCH ×2 (08:31→17:48)
[2017-10-20] MEDS: amLODIPine 5 MG Tab PO SCH (08:31)
[2017-10-20] MEDS: Benazepril 10 MG Tab PO SCH (08:31)
[2017-10-20] MEDS: Enoxaparin 40 MG/0.4 ML Syringe SUBCUT SCH (08:32)
[2017-10-20] MEDS: fluvoxaMINE 100 MG Tab PO SCH ×2 (08:32→21:05)
[2017-10-20] MEDS: Simvastatin 20 MG Tab PO SCH (08:32)
[2017-10-20] MEDS: Insulin Detemir 100 Units/ML 3 ML Pen SUBCUT SCH (21:03)
[2017-10-20] MEDS: Melatonin 3 MG Tab PO SCH (21:05)
[2017-10-21] MEDS: Acetaminophen 500 MG Tab PO SCH ×3 (06:12→22:02)
[2017-10-21] MEDS: Benazepril 10 MG Tab PO SCH (08:23)
[2017-10-21] MEDS: Simvastatin 20 MG Tab PO SCH (08:23)
[2017-10-21] MEDS: metFORMIN 500 MG Tab PO SCH ×2 (08:23→18:18)
[2017-10-21] MEDS: amLODIPine 5 MG Tab PO SCH (08:24)
[2017-10-21] MEDS: Enoxaparin 40 MG/0.4 ML Syringe SUBCUT SCH (08:24)
[2017-10-21] MEDS: fluvoxaMINE 100 MG Tab PO SCH ×2 (08:24→21:54)
[2017-10-21] MEDS ORDERED: Bacitracin/Neomycin/Polymyxin B Oint 0.9 GM U/D Packet TOP SCH (10:30)
--- NOTE | 2017-10-21 12:41 | PN ---
10/21/2017 PATIENT NAME: EMERALD PONCE SUBJECTIVE: This is a 72-year-old male patient that was actually going to [place], going to a clinic for rehabilitation of his right knee so that he can have surgery, a knee replacement on his right knee when he tripped and fell on a lip in the concrete. He had a falling and landing directly on his left knee. At that time, he sustained a fracture to his left knee cap. He actually came from [place] back to [place], and was seen here in the emergency room for the left knee. He was admitted at that time to the hospital. He is in swing bed status now for PT and rehabilitation of the left and right knee. The patient states he is doing fine today. He takes Tylenol before his physical therapy. He states that his physical therapy has been doing well. He is able to walk short distances. He says his pain has been pretty well-controlled. He has no other health concerns today. OBJECTIVE: VITAL SIGNS: Today, he is 271 pounds, temperature is 98.0, blood pressure is 110/71, pulse is 70, respiratory rate is 20, and oxygen saturation on room air is 94%. HEART: Heart tones are regular rate and rhythm. LUNGS: Lung sounds are clear in upper lobes. GENERAL: He is obese. ABDOMEN: Large, soft, and nondistended. Bowel sounds present x4. EXTREMITIES: Left knee is edematous with a large scab with some small amount of serosanguineous drainage. He does have a left knee immobilizer on the left knee. LABORATORY DATA: He does not have any lab work drawn inpatient. His blood sugars have been well-controlled. IMPRESSION AND PLAN: 1. Fracture of the left patellar along with 7th and 8th rib fractures also. Plan; the patient just takes Tylenol before his physical therapy appointment, he states that it helps with the pain. He has been seen in physical therapy. He states that is going well. We will continue with the left knee immobilizer. 2. History of hypertension. The patient's blood pressure has been well- controlled. We will continue with amlodipine 10 mg daily along with benazepril 40 mg daily. 3. Deep vein thrombosis prophylaxis. Plan; the patient is mostly active, started with PT. We will continue the patient on Lovenox 40 mg subcutaneously daily. 4. History of mood disorder with depression. Plan; continue with Luvox 100 mg twice a day. 5. History of diabetes mellitus type 2. Plan; continue with Levemir 14 units subcutaneously at bedtime, along with metformin 1000 mg twice a day. Continue with blood sugar checks. 6. History of hyperlipidemia. Plan; continue with Zocor 20 mg daily. 7. Sleep disorder. Plan; continue with melatonin 3 mg at bedtime. 8. History of obstructive sleep apnea. Plan; continue with CPAP mask at night along with incentive spirometer. /[id number]/MODL MTDD
[2017-10-21] MEDS: Bacitracin/Neomycin/Polymyxin B Oint 28.4 GM Tube TOP SCH (21:52)
[2017-10-21] MEDS: Insulin Detemir 100 Units/ML 3 ML Pen SUBCUT SCH (21:53)
[2017-10-21] MEDS: Melatonin 3 MG Tab PO SCH (21:54)
[2017-10-22] MEDS: Acetaminophen 500 MG Tab PO SCH ×3 (06:01→21:01)
[2017-10-22] MEDS: metFORMIN 500 MG Tab PO SCH ×2 (08:10→18:05)
[2017-10-22] MEDS: fluvoxaMINE 100 MG Tab PO SCH ×2 (08:11→21:00)
[2017-10-22] MEDS: Simvastatin 20 MG Tab PO SCH (08:11)
[2017-10-22] MEDS: amLODIPine 5 MG Tab PO SCH (08:12)
[2017-10-22] MEDS: Benazepril 10 MG Tab PO SCH (08:12)
[2017-10-22] MEDS: Enoxaparin 40 MG/0.4 ML Syringe SUBCUT SCH (08:13)
[2017-10-22] MEDS: Bacitracin/Neomycin/Polymyxin B Oint 28.4 GM Tube TOP SCH ×2 (08:15→21:50)
[2017-10-22] MEDS: Insulin Detemir 100 Units/ML 3 ML Pen SUBCUT SCH (20:59)
[2017-10-22] MEDS: Melatonin 3 MG Tab PO SCH (21:00)
[2017-10-23] MEDS: Acetaminophen 500 MG Tab PO SCH ×3 (05:41→21:33)
[2017-10-23] MEDS: metFORMIN 500 MG Tab PO SCH ×2 (08:29→17:31)
[2017-10-23] MEDS: amLODIPine 5 MG Tab PO SCH (08:29)
[2017-10-23] MEDS: Bacitracin/Neomycin/Polymyxin B Oint 28.4 GM Tube TOP SCH ×2 (08:29→20:36)
[2017-10-23] MEDS: Simvastatin 20 MG Tab PO SCH (08:29)
[2017-10-23] MEDS: Benazepril 10 MG Tab PO SCH (08:30)
[2017-10-23] MEDS: Enoxaparin 40 MG/0.4 ML Syringe SUBCUT SCH (08:30)
[2017-10-23] MEDS: fluvoxaMINE 100 MG Tab PO SCH ×2 (08:30→20:38)
[2017-10-23] MEDS: Melatonin 3 MG Tab PO SCH (20:38)
[2017-10-23] MEDS: Insulin Detemir 100 Units/ML 3 ML Pen SUBCUT SCH (20:38)
[2017-10-24] MEDS: Acetaminophen 500 MG Tab PO SCH ×3 (06:29→21:46)
[2017-10-24] MEDS: metFORMIN 500 MG Tab PO SCH ×2 (08:18→17:53)
[2017-10-24] MEDS: Simvastatin 20 MG Tab PO SCH (08:18)
[2017-10-24] MEDS: fluvoxaMINE 100 MG Tab PO SCH ×2 (08:19→20:40)
[2017-10-24] MEDS: amLODIPine 5 MG Tab PO SCH (08:20)
[2017-10-24] MEDS: Benazepril 10 MG Tab PO SCH (08:21)
[2017-10-24] MEDS: Bacitracin/Neomycin/Polymyxin B Oint 28.4 GM Tube TOP SCH ×2 (08:22→21:44)
[2017-10-24] MEDS: Enoxaparin 40 MG/0.4 ML Syringe SUBCUT SCH (08:22)
[2017-10-24] MEDS: Insulin Detemir 100 Units/ML 3 ML Pen SUBCUT SCH (20:40)
[2017-10-24] MEDS: Melatonin 3 MG Tab PO SCH (21:44)
[2017-10-25] MEDS: Acetaminophen 500 MG Tab PO SCH ×3 (06:05→21:46)
[2017-10-25] MEDS: metFORMIN 500 MG Tab PO SCH ×2 (08:32→18:01)
[2017-10-25] MEDS: Benazepril 10 MG Tab PO SCH (08:34)
[2017-10-25] MEDS: fluvoxaMINE 100 MG Tab PO SCH ×2 (08:36→20:36)
[2017-10-25] MEDS: amLODIPine 5 MG Tab PO SCH (08:36)
[2017-10-25] MEDS: Enoxaparin 40 MG/0.4 ML Syringe SUBCUT SCH (08:39)
[2017-10-25] MEDS: Simvastatin 20 MG Tab PO SCH (09:54)
[2017-10-25] MEDS: Bacitracin/Neomycin/Polymyxin B Oint 28.4 GM Tube TOP SCH ×3 (09:57→21:48)
[2017-10-25] MEDS: Melatonin 3 MG Tab PO SCH (20:36)
[2017-10-25] MEDS: Insulin Detemir 100 Units/ML 3 ML Pen SUBCUT SCH (20:38)
[2017-10-26] MEDS: Acetaminophen 500 MG Tab PO SCH ×3 (05:56→21:46)
[2017-10-26] MEDS: Simvastatin 20 MG Tab PO SCH (08:29)
[2017-10-26] MEDS: fluvoxaMINE 100 MG Tab PO SCH ×2 (08:29→21:46)
[2017-10-26] MEDS: metFORMIN 500 MG Tab PO SCH ×2 (08:29→17:58)
[2017-10-26] MEDS: Benazepril 10 MG Tab PO SCH (08:31)
[2017-10-26] MEDS: Enoxaparin 40 MG/0.4 ML Syringe SUBCUT SCH (08:31)
[2017-10-26] MEDS: amLODIPine 5 MG Tab PO SCH (08:31)
[2017-10-26] MEDS: Bacitracin/Neomycin/Polymyxin B Oint 28.4 GM Tube TOP SCH (10:00)
[2017-10-26] MEDS: Melatonin 3 MG Tab PO SCH (21:46)
[2017-10-26] MEDS: Insulin Detemir 100 Units/ML 3 ML Pen SUBCUT SCH (21:50)
[2017-10-27] MEDS: Acetaminophen 500 MG Tab PO SCH ×3 (06:27→21:51)
[2017-10-27] MEDS: metFORMIN 500 MG Tab PO SCH ×2 (07:50→17:54)
[2017-10-27] MEDS: fluvoxaMINE 100 MG Tab PO SCH ×2 (09:06→21:51)
[2017-10-27] MEDS: Simvastatin 20 MG Tab PO SCH (09:06)
[2017-10-27] MEDS: amLODIPine 5 MG Tab PO SCH (09:07)
[2017-10-27] MEDS: Benazepril 10 MG Tab PO SCH (09:07)
[2017-10-27] MEDS: Enoxaparin 40 MG/0.4 ML Syringe SUBCUT SCH (09:10)
[2017-10-27] MEDS: Melatonin 3 MG Tab PO SCH (21:51)
[2017-10-27] MEDS: Insulin Detemir 100 Units/ML 3 ML Pen SUBCUT SCH (21:52)
[2017-10-28] MEDS: Acetaminophen 500 MG Tab PO SCH (05:46)
[2017-10-28] MEDS: metFORMIN 500 MG Tab PO SCH ×2 (08:49→18:10)
[2017-10-28] MEDS: fluvoxaMINE 100 MG Tab PO SCH ×2 (10:17→21:02)
[2017-10-28] MEDS: Benazepril 10 MG Tab PO SCH (10:18)
[2017-10-28] MEDS: Enoxaparin 40 MG/0.4 ML Syringe SUBCUT SCH (10:18)
[2017-10-28] MEDS: amLODIPine 5 MG Tab PO SCH (10:18)
[2017-10-28] MEDS: Simvastatin 20 MG Tab PO SCH (10:20)
[2017-10-28] MEDS ORDERED: Acetaminophen 500 MG Tab PO PRN (14:00)
[2017-10-28] MEDS: Melatonin 3 MG Tab PO SCH (21:02)
[2017-10-28] MEDS: Insulin Detemir 100 Units/ML 3 ML Pen SUBCUT SCH (21:02)
[2017-10-29] MEDS: metFORMIN 500 MG Tab PO SCH ×2 (08:09→17:58)
[2017-10-29] MEDS: Benazepril 10 MG Tab PO SCH (08:11)
[2017-10-29] MEDS: fluvoxaMINE 100 MG Tab PO SCH ×2 (08:12→21:48)
[2017-10-29] MEDS: amLODIPine 5 MG Tab PO SCH (08:13)
[2017-10-29] MEDS: Simvastatin 20 MG Tab PO SCH (08:13)
[2017-10-29] MEDS: Enoxaparin 40 MG/0.4 ML Syringe SUBCUT SCH (08:14)
[2017-10-29] MEDS: Insulin Detemir 100 Units/ML 3 ML Pen SUBCUT SCH (21:48)
[2017-10-29] MEDS: Melatonin 3 MG Tab PO SCH (21:48)
[2017-10-30] MEDS: metFORMIN 500 MG Tab PO SCH ×2 (08:18→18:06)
[2017-10-30] MEDS: Benazepril 10 MG Tab PO SCH (08:18)
[2017-10-30] MEDS: amLODIPine 5 MG Tab PO SCH (08:20)
[2017-10-30] MEDS: fluvoxaMINE 100 MG Tab PO SCH ×2 (08:20→21:26)
[2017-10-30] MEDS: Simvastatin 20 MG Tab PO SCH (08:20)
[2017-10-30] MEDS: Enoxaparin 40 MG/0.4 ML Syringe SUBCUT SCH (08:21)
--- NOTE | 2017-10-30 09:36 | PCM.PN ---
- General Info Date of Service: 10/25/17 Functional Status: Reports: Pain Controlled - Review of Systems General: Reports: No Symptoms HEENT: Reports: No Symptoms Pulmonary: Reports: No Symptoms Cardiovascular: Reports: No Symptoms Gastrointestinal: Reports: No Symptoms Genitourinary: Reports: No Symptoms Musculoskeletal: Reports: Joint Swelling (left knee swollen) Skin: Reports: Bruising (left knee and left elbow) Neurological: Reports: No Symptoms Psychiatric: Reports: No Symptoms - Patient Data Vitals - Most Recent: Last Vital Signs Temp 97.5 F 10/30/17 06:54 Pulse 62 10/30/17 06:54 Resp 16 10/30/17 06:54 BP 123/70 10/30/17 08:20 Pulse Ox 94 L 10/30/17 06:54 Weight - Most Recent: 266 lb I&O - Last 24 Hours: Intake & Output 10/29/17 10/30/17 10/30/17 22:59 06:59 14:59 Intake Total 500 50 Balance 500 50 Lab Results Last 24 Hours: Laboratory Results - last 24 hr 10/29/17 10/30/17 Range/Units 07:42 06:26 POC Glucose 162 H 130 H (74-106) mg/dl Med Orders - Current: Current Medications Acetaminophen (Tylenol Extra Strength) 1,000 mg PO Q8HR PRN PRN Reason: Pain Amlodipine Besylate (Norvasc) 10 mg PO DAILY [facility] Last Admin: 10/30/17 08:20 Dose: 10 mg Benazepril HCl (Lotensin) 40 mg PO DAILY [facility] Last Admin: 10/30/17 08:18 Dose: 40 mg Enoxaparin Sodium (Lovenox) 40 mg SUBCUT DAILY [facility] Last Admin: 10/30/17 08:21 Dose: 40 mg Fluvoxamine Maleate (Luvox) 100 mg PO BID@0900,2100 [facility] Last Admin: 10/30/17 08:20 Dose: 100 mg Insulin Detemir (Levemir) 14 unit SUBCUT BEDTIME [facility] Last Admin: 10/29/17 21:48 Dose: 14 units Melatonin (Melatonin) 3 mg PO BEDTIME [facility] Last Admin: 10/29/17 21:48 Dose: 3 mg Metformin HCl (Glucophage) 1,000 mg PO BIDMEALS [facility] Last Admin: 10/30/17 08:18 Dose: 1,000 mg Ondansetron HCl (Zofran Odt) 4 mg PO Q4H PRN PRN Reason: Nausea/Vomiting Oxycodone/Acetaminophen (Percocet 325-5 Mg) 1 tab PO Q4H PRN PRN Reason: Pain Last Admin: 10/24/17 13:19 Dose: 1 tab Senna/Docusate Sodium (Senna Plus) 1 tab PO DAILY [facility] Last Admin: 10/30/17 08:20 Dose: 1 tab Simvastatin (Zocor) 20 mg PO DAILY [facility] Last Admin: 10/30/17 08:20 Dose: 20 mg Discontinued Medications Acetaminophen (Tylenol Extra Strength) 1,000 mg PO BID@0900,2100 [facility] Acetaminophen (Tylenol) 650 mg PO Q4H PRN PRN Reason: Pain Acetaminophen (Tylenol Extra Strength) 1,000 mg PO Q8HR [facility] Last Admin: 10/28/17 05:46 Dose: 1,000 mg Ketorolac Tromethamine (Toradol) 15 mg IM Q6H PRN PRN Reason: Pain Stop: 10/20/17 05:56 Neomycin/Polymyxin/Bacitracin (Triple Antibiotic Oint) 1 each TOP BID [facility] Last Admin: 10/21/17 11:03 Dose: 1 each Neomycin/Polymyxin/Bacitracin (Triple Antibiotic Oint) 0 gm TOP BID [facility] Last Admin: 10/26/17 10:00 Dose: 1 applic - Exam Quality Assessment: Supplemental Oxygen General: Alert, Oriented Neck: Supple Lungs: Clear to Auscultation Cardiovascular: Regular Rate, Regular Rhythm Back Exam: CVA Tenderness (L), CVA Tenderness (R) Wound/Incisions: Healing Well, No Drainage Neurological: No New Focal Deficit Psy/Mental Status: Alert (nurses are reporting patient eating multiple entres during meal time,), Normal Affect, Normal Mood - Problem List Review Problem List Initiated/Reviewed/Updated: Yes - Plan Plan:: HISTORY OF PRESENT ILLNESS 72-year-old gentleman was admitted last night through the ED into observation after he sustained a fall when he tripped landing on his left shoulder and left knee, sustaining non-displaced seventh and eighth rib fractures, along with a non-displaced left patella fracture, he was evaluated with plans on discharging with close follow-up however family concern immobility and high fall risk so he was admitted for pain control measures with social service consultation. He was placed in knee immobilizer, given Toradol and Percocet. Patient was recently discharged from SNF here at [facility] September 19, after sustaining a strain of his right abductor muscle in which he improved greatly with physical therapy--although he was also diagnosed and successfully treated for pneumonia upon ED arrival. The decision was made to place patient this morning directly from observation into SNF since the cause of the patient's fall likely was a result of his recent problems/dx in diagnosis as the patient was scheduled to undergo total right knee replacement tomorrow Monday, October 16, 2017. Pertinent ED workup and findings Rib series, acute nondisplaced fractures left 7th & 8th rib Left knee, acute nondisplaced patella fracture, knee joint effusion Left shoulder, no acute findings, AC glenohumeral OA Primary problem Rib fractures Left patella fracture Decrease Mobility High risk recurrent pneumonia ARTEMIO, CPAP mask at night Chronic problems T2DM, significant reduction previous admission on his [facility], Continue with Metformin, monitor BG carefully, ADA diet, dietary consultation COPD, stable, on no medication ARTEMIO, in home CPAP on hand HTN, stable on CCB and MAURA inhibitor HLD, statin therapy OA, scheduled Tylenol Depression, stable on Luvox Overall plan; PT consultation, isometric contraction of the quadriceps and SLR. DVT prophylaxis, LMWH Constipation, prophylaxis, senna S Delirium prophylaxis Remalteon, ear plugs, Pain control, scheduled Tylenol, discontinue ketorolac, Percocet when necessary CODE STATUS, discussed with patient, full code continue with physical therapy, dietary consultation placed for weight loss diet.
[2017-10-30] MEDS: Melatonin 3 MG Tab PO SCH (21:26)
[2017-10-30] MEDS: Insulin Detemir 100 Units/ML 3 ML Pen SUBCUT SCH (21:27)
[2017-10-31 06:43] VITALS: BP 132/67
[2017-10-31] MEDS: fluvoxaMINE 100 MG Tab PO SCH (08:16)
[2017-10-31] MEDS: metFORMIN 500 MG Tab PO SCH (08:17)
[2017-10-31] MEDS: amLODIPine 5 MG Tab PO SCH (08:17)
[2017-10-31] MEDS: Benazepril 10 MG Tab PO SCH (08:17)
[2017-10-31] MEDS: Simvastatin 20 MG Tab PO SCH (08:17)
[2017-10-31] MEDS: Enoxaparin 40 MG/0.4 ML Syringe SUBCUT SCH (08:18)
--- NOTE | 2017-11-01 07:51 | DISCH ---
ADMITTING DIAGNOSIS: Nondisplaced left rib fracture of the 7th and 8th rib along with a nondisplaced left patellar fracture with high risk for fall. FINAL DIAGNOSES: Nondisplaced fracture of the 7th and 8th rib on the left, also nondisplaced fracture of the left patella. The patient improving with mobility and physical therapy. Pain is controlled. BRIEF HISTORY AND ESSENTIAL FINDINGS: This is a 72-year-old male patient that was in [place] at a rehabilitation clinic where he was going to do some rehab to his right knee so that he can have surgery and knee replacement on his right knee. While he was at the clinic, he tripped and fell on a lip in the concrete and fell directly on his left knee and left shoulder. The patient was in pain. He actually had driven back to [place] from [place] and was seen in [place] [facility] here where x-rays were obtained to the left shoulder, which was unremarkable except for some osteoarthritis. Left knee revealed a fracture of his left patella and left rib fractures showed a nondisplaced fracture of the seventh and eight rib. The patient was admitted to the hospital for observation. Then, he was admitted to swing bed the following day for rehabilitation due to high risk of falling again at home. SIGNIFICANT LABS, X-RAYS, AND CONSULTATION FINDINGS: Again, x-rays had revealed a left patellar fracture along with a left rib fracture, 7th and 8th ribs all were non-displaced. Significant labs; the patient's CBC that was obtained on 10/15/2017 showed WBC count within normal range at 8.0, hemoglobin 14.2, platelet count of 227. Chemistry panel that was obtained on that day also was unremarkable except for his glucose which was slightly elevated. Troponin was negative. The patient was referred to Physical Therapy. COURSE IN HOSPITAL WITH COMPLICATIONS IF ANY: The patient slowly progressed with his mobility and strengthening and gait. He does still wear a left knee immobilizer when he walks. The patient has been able to manage walking up- stairs here in physical therapy in the hospital. His pain has been well controlled. He has been taking some Tylenol, but he does not even take that much anymore. The patient is ready to go home. CONDITION TREATMENT AND FINAL DISPOSITION ON DISCHARGE AND PROGNOSIS: IMPRESSION AND PLAN: 1. Fracture of the left along with 7th and 8th rib fractures that are all nondisplaced. Plan: The patient has been working with physical therapy. They feel that he can be discharged home. He can take Tylenol as needed for pain at home. He is going to continue with outpatient physical therapy. Continue with left knee immobilizer. 2. History of hypertension. Plan: The patient's blood pressure has been well controlled in the hospital. We will continue with amlodipine 10 mg daily along with benazepril 40 mg daily. 3. History of mood disorder with depression. Plan: Continue with Luvox 100 mg twice a day. 4. History of diabetes mellitus type 2. Plan: Continue with Levemir 14 units subcutaneously at bedtime, along with metformin 1000 mg twice a day. The patient checks his blood sugars at home. 5. History of hyperlipidemia. Plan: Continue with Zocor 20 mg daily. 6. Sleep disorder. Plan: Continue with melatonin 3 mg at bedtime. 7. History of obstructive sleep apnea. Plan: Continue with the CPAP mask at night. OVERALL PLAN: The patient states he is ready for home. Physical Therapy feels that he is able to go home. He will continue with outpatient physical therapy. The patient does have frequent urination, he states that he has to get up three to four times a night for urinating. May consider Flomax or Ditropan for urinary frequency. The patient will follow with Delio Adam nurse practitioner in the clinic next week. /[id number]/MODL
== END 2017-10-31 16:40 | disposition home or self-care (01) | DRG 563 ==
LOC: KA.MS 10:24
PROVIDERS: ADMIT Nurse Practitioner Family; ATTEND Family Medicine
DX: S82.002A Unspecified fracture of left patella, initial encounter for closed fracture (principal); S22.42XA Multiple fractures of ribs, left side, initial encounter for closed fracture; W01.0XXA Fall on same level from slipping, tripping and stumbling without subsequent striking against object, initial encounter; Y92.89 Other specified places as the place of occurrence of the external cause; I10 Essential (primary) hypertension; E11.9 Type 2 diabetes mellitus without complications; E78.5 Hyperlipidemia, unspecified; J44.9 Chronic obstructive pulmonary disease, unspecified; M19.90 Unspecified osteoarthritis, unspecified site; G47.9 Sleep disorder, unspecified; G47.33 Obstructive sleep apnea (adult) (pediatric); R01.1 Cardiac murmur, unspecified; F32.9 Major depressive disorder, single episode, unspecified; Z79.899 Other long term (current) drug therapy; Z85.820 Personal history of malignant melanoma of skin
CPT/HCPCS: 36415; 80048; 82962; 85027; 97110-GP; 97140-GP; 97162-GP; 97530-GP; 97537-GP; A9270-GY; J1650; J1815-GY

== ENCOUNTER 2018-12-24 13:24 | Inpatient (IN) | payer MEDICARE, BC ==
[2018-12-24] MEDS ORDERED: Diclofenac Sodium 1% Gel 100 GM Tube TOP PRN (17:19)
[2018-12-24] MEDS: Acetaminophen 325 MG Tab PO SCH ×2 (18:14→23:54)
[2018-12-24] MEDS: metFORMIN 500 MG Tab PO SCH (18:14)
[2018-12-24] MEDS: fluvoxaMINE 100 MG Tab PO SCH (20:37)
[2018-12-24] MEDS: Bumetanide 1 MG Tab PO SCH (20:37)
[2018-12-24] MEDS ORDERED: amLODIPine 5 MG Tab PO SCH (21:00)
[2018-12-24] MEDS ORDERED: Benazepril 10 MG Tab PO SCH (21:00)
[2018-12-24] MEDS ORDERED: B.Bifidum/B.Longum/L.Acidophilus/L.Rhamnosus (Probiotic) Cap PO SCH (21:00)
[2018-12-25] MEDS: Acetaminophen 325 MG Tab PO SCH ×3 (05:05→17:52)
[2018-12-25] MEDS: Omeprazole 20 MG Cap.CR PO SCH (07:42)
[2018-12-25] MEDS: Amiodarone 200 MG Tab PO SCH (08:13)
[2018-12-25] MEDS: metFORMIN 500 MG Tab PO SCH (08:13)
[2018-12-25] MEDS: Aspirin 81 MG Tab.Chew PO SCH (08:13)
[2018-12-25] MEDS: fluvoxaMINE 100 MG Tab PO SCH ×2 (08:13→20:40)
[2018-12-25] MEDS: Bumetanide 1 MG Tab PO SCH ×2 (08:14→10:11)
[2018-12-25] MEDS ORDERED: Polyethylene Glycol 3350 Powder 17 GM Packet PO SCH (09:00)
[2018-12-25] MEDS ORDERED: Cyanocobalamin (Vitamin B12) 500 MCG Tab PO SCH (09:00)
[2018-12-25] MEDS ORDERED: Hydrocortisone 1% Crm 30 GM Tube TOP SCH (09:00)
[2018-12-25] MEDS ORDERED: Pravastatin 20 MG Tab PO SCH (09:00)
--- NOTE | 2018-12-25 11:26 | PCM.HP ---
H&P History of Present Illness - General Date of Service: 12/25/18 Admit Problem/Dx: Admission Diagnosis/Problem Admission Diagnosis/Problem Coronary artery disease Source of Information: Patient, Old Records, RN - Related Data Allergies/Adverse Reactions: Allergies Allergy/AdvReac Type Severity Reaction Status Date / Time aspirin Allergy Elevates Verified 12/23/17 15:13 LFT's per patient Home Medications: Home Meds Pravastatin [Pravachol] 40 mg PO DAILY 11/01/15 [History] amLODIPine Besylate/Benazepril [Lotrel 10-40 MG] 1 cap PO BEDTIME 09/12/17 [ History] fluvoxaMINE [Luvox] 100 mg PO BID 09/12/17 [History] metFORMIN HCl [Metformin HCl] 1,000 mg PO BIDMEALS 09/12/17 [History] Cyanocobalamin (Vitamin B-12) [B-12] 1,000 mcg SL DAILY 12/23/17 [History] Diclofenac Sodium [Voltaren] 2 gm TOP BID PRN 12/23/17 [History] Menthol/Aloe Vera Extract [Polar May Gel] 1 applic TOP DAILY PRN 12/23/17 [ History] [place] 1 tab PO QID 12/24/18 [History] Amiodarone [Cordarone] 200 mg PO DAILY 12/24/18 [History] Aspirin 81 mg PO DAILY 12/24/18 [History] Beef [place] 1 tab PO DAILY 12/24/18 [History] Bumetanide [Bumex] 1 mg PO BID 12/24/18 [History] Calcium Lactate 3 tab PO DAILY 12/24/18 [History] Cataplex C 3 tab PO DAILY 12/24/18 [History] Celecoxib [CeleBREX] 200 mg PO DAILY PRN 12/24/18 [History] Coconut Oil 1,000 mg PO DAILY 12/24/18 [History] Garlic Po 3 tab PO DAILY 12/24/18 [History] Ginkoba Po 1 tab PO DAILY 12/24/18 [History] Glucosamine Sulfate 2 tab PO BEDTIME 12/24/18 [History] Glucosamine Sulfate/Msm [Glucosamine-MSM 500-400 MG] 1 tab PO BEDTIME 12/24/18 [ History] High Tart [place] 1 tab PO DAILY 12/24/18 [History] Insulin Degludec [Tresiba] 14 units SQ BEDTIME 12/24/18 [History] L S 1 tab PO DAILY 12/24/18 [History] [place] 3-6-9 Complex Po 2 tab PO BEDTIME 12/24/18 [History] Omeprazole 20 mg PO ACBREAKFAST 12/24/18 [History] Pumpkin Seed Extract/Soy Germ [Azo Bladder Control Capsule] 2 tab PO DAILY 12/24 [History] [place] Oil 1 cap PO DAILY 12/24/18 [History] Tumeric 2 tab PO BEDTIME 12/24/18 [History] Albuterol/Ipratropium [DuoNeb 3.0-0.5 MG/3 ML] 3 ml INH Q4H PRN 12/25/18 [ History] Fluticasone/Vilanterol [Breo Ellipta 100-25 MCG Inhalation Kit] 1 each IH DAILY 12/25/18 [History] Potassium Chloride 40 meq PO DAILY 12/25/18 [History] Sennosides/Docusate Sodium [Senna-S] 1 each PO DAILY PRN 12/25/18 [History] Past Medical History HEENT History: Reports: Impaired Vision Cardiovascular History: Reports: CAD, Heart Murmur, High Cholesterol, Hypertension, MD, SOB on Exertion, Stents Respiratory History: Reports: Asthma, COPD, Sleep Apnea, SOB Gastrointestinal History: Reports: Diverticulosis, Helicobacter Pylori Genitourinary History: Reports: None Musculoskeletal History: Reports: Fracture, Gout, Osteoarthritis Neurological History: Reports: Vertigo, Other (See Below) Other Neuro History: patient states "bad memory" Psychiatric History: Reports: Depression, Mood Swings, OCD Other Psychiatric History: irritability Endocrine/Metabolic History: Reports: Diabetes, Type II, Obesity/BMI 30+ Oncologic (Cancer) History: Reports: Other (See Below) Other Oncologic History: skin Dermatologic History: Reports: Melanoma - Infectious Disease History Infectious Disease History: Reports: Chicken Pox, Measles, Shingles - Past Surgical History HEENT Surgical History: Reports: Adenoidectomy, Oral Surgery, Tonsillectomy Cardiovascular Surgical History: Reports: None, Other (See Below) Other Cardiovascular Surgeries/Procedures: lifevest Respiratory Surgical History: Reports: None GI Surgical History: Reports: Colonoscopy Male Surgical History: Reports: None Endocrine Surgical History: Reports: None Neurological Surgical History: Reports: C-Spine Other Neurological Surgeries/Procedures: bone spurs on spinal cord, spinal operation Musculoskeletal Surgical History: Reports: Knee Replacement, Shoulder Surgery Other Musculoskeletal Surgeries/Procedures:: 12-19-17 Right TKA Oncologic Surgical History: Reports: None Dermatological Surgical History: Reports: None Social & Family History - Family History Family Medical History: Noncontributory Cardiac: Reports: Angina, Heart Failure, High Cholesterol, Hypertension, MD Respiratory: Reports: Asthma, COPD Psychiatric: Reports: Depression, OCD - Tobacco Use Smoking Status *Q: Never Smoker Second Hand Smoke Exposure: No - Caffeine Use Caffeine Use: Reports: None - Recreational Drug Use Recreational Drug Use: No H&P Review of Systems - Review of Systems: Review Of Systems: See Below General: Reports: Weakness, Fatigue. Denies: Fever, Decreased Appetite HEENT: Reports: No Symptoms Pulmonary: Reports: No Symptoms Cardiovascular: Reports: Dyspnea on Exertion, Blood Pressure Problem. Denies: Chest Pain, Palpitations Gastrointestinal: Reports: No Symptoms Genitourinary: Reports: No Symptoms Musculoskeletal: Reports: No Symptoms Psychiatric: Reports: No Symptoms Neurological: Reports: Confusion, Pre-Existing Deficit, Difficulty Walking, Weakness Hematologic/Lymphatic: Reports: No Symptoms Immunologic: Reports: No Symptoms Exam - Exam Exam: See Below - Vital Signs Vital Signs: Last Vital Signs Temp 96.9 F 12/25/18 06:53 Pulse 64 12/25/18 06:53 Resp 16 12/25/18 06:53 BP 80/52 L 12/25/18 10:37 Pulse Ox 94 L 12/25/18 06:53 Weight: 255 lb 7 oz - Patient Data Result Diagrams: 12/26/18 07:25 01/04/19 08:30 Problem List Initiated/Reviewed/Updated: Yes Orders Last 24hrs: Active Orders 24 hr Category Date Time Status Patient Status [ADT] Routine ADT 12/24/18 14:05 Active Height and Weight [RC] DAILY Care 12/24/18 15:00 Active Intake and Output [RC] 1400,2200,0600 Care 12/24/18 14:05 Active May Shower [RC] ASDIRECTED Care 12/24/18 14:05 Active Oxygen Therapy [RC] .PRN Care 12/24/18 14:05 Active Up With Assistance [RC] ASDIRECTED Care 12/24/18 14:05 Active VTE/DVT Education [RC] PER UNIT ROUTINE Care 12/24/18 14:05 Active Vital Signs [RC] 0700,1500 Care 12/24/18 15:00 Active Mechanical Soft Diet [DIET] Diet 12/24/18 Dinner Active Acetaminophen [Tylenol] Med 12/24/18 17:30 Active 650 mg PO Q6H Amiodarone [Cordarone] Med 12/25/18 09:00 Active 200 mg PO DAILY Aspirin Med 12/25/18 09:00 Active 81 mg PO DAILY B.Bif/B.Long/L.Acidoph/L.Rhamn [Multi-Jennifer Plus] Med 12/24/18 21:00 Active 1 cap PO BEDTIME Benazepril [Lotensin] Med 12/24/18 21:00 Active 40 mg PO BEDTIME Bumetanide [Bumex] Med 12/24/18 21:00 Active 1 mg PO BID Cyanocobalamin (Vitamin B12) [Vitamin B12] Med 12/25/18 09:00 Active 1,000 mcg PO DAILY Diclofenac Sodium [Voltaren 1% Gel] Med 12/24/18 17:19 Active 2 gm TOP BID PRN Hydrocortisone [Hydrocortisone 1% Crm] Med 12/25/18 09:00 Active 0 gm TOP DAILY Insulin Degludec [Tresiba] Med 12/24/18 21:00 Pending 14 units SQ BEDTIME Omeprazole Med 12/25/18 07:30 Active 20 mg PO ACBREAKFAST Polyethylene Glycol 3350 [MiraLAX] Med 12/25/18 09:00 Active 17 gm PO DAILY Pravastatin [Pravachol] Med 12/25/18 09:00 Active 40 mg PO DAILY amLODIPine [Norvasc] Med 12/24/18 21:00 Active 10 mg PO BEDTIME fluvoxaMINE [Luvox] Med 12/24/18 21:00 Active 100 mg PO BID metFORMIN [Glucophage] Med 12/24/18 18:00 Active 1,000 mg PO BIDMEALS Resuscitation Status Routine Resus Stat 12/24/18 14:05 Ordered Medication Orders Acetaminophen (Tylenol) 650 mg PO Q6H [facility] Last Admin: 12/25/18 10:51 Dose: 650 mg Admin: 12/25/18 05:05 Dose: 650 mg Admin: 12/24/18 23:54 Dose: 650 mg Admin: 12/24/18 18:14 Dose: 650 mg Amiodarone HCl (Cordarone) 200 mg PO DAILY [facility] Last Admin: 12/25/18 08:13 Dose: 200 mg Amlodipine Besylate (Norvasc) 10 mg PO BEDTIME [facility] Last Admin: 12/24/18 20:37 Dose: 10 mg Aspirin (Aspirin) 81 mg PO DAILY [facility] Last Admin: 12/25/18 08:13 Dose: 81 mg Benazepril HCl (Lotensin) 40 mg PO BEDTIME [facility] Last Admin: 12/24/18 20:38 Dose: 40 mg Bumetanide (Bumex) 1 mg PO BID [facility] Last Admin: 12/25/18 10:11 Dose: Not Given Admin: 12/24/18 20:37 Dose: 1 mg Cyanocobalamin (Vitamin B12) 1,000 mcg PO DAILY [facility] Last Admin: 12/25/18 08:13 Dose: 1,000 mcg Diclofenac Sodium (Voltaren 1% Gel) 2 gm TOP BID PRN PRN Reason: Pain Fluvoxamine Maleate (Luvox) 100 mg PO BID [facility] Last Admin: 12/25/18 08:13 Dose: 100 mg Admin: 12/24/18 20:37 Dose: 100 mg Hydrocortisone (Hydrocortisone 1% Crm) 0 gm TOP DAILY [facility] Last Admin: 12/25/18 10:51 Dose: 1 applic Lactobacillus Acidophilus/Rhamnosus (Multi-Jennifer Plus) 1 cap PO BEDTIME [facility] Last Admin: 12/24/18 20:37 Dose: 1 cap Metformin HCl (Glucophage) 1,000 mg PO BIDMEALS [facility] Last Admin: 12/25/18 08:13 Dose: 1,000 mg Admin: 12/24/18 18:14 Dose: 1,000 mg Non-Formulary Medication (Insulin Degludec [Tresiba]) 14 units SQ BEDTIME [facility] Omeprazole (Omeprazole) 20 mg PO ACBREAKFAST [facility] Last Admin: 12/25/18 07:42 Dose: 20 mg Polyethylene Glycol (Miralax) 17 gm PO DAILY [facility] Last Admin: 12/25/18 08:13 Dose: 17 gm Pravastatin Sodium (Pravachol) 40 mg PO DAILY [facility] Last Admin: 12/25/18 10:46 Dose: Assessment/Plan Comment:: History of present illness 73-year-old gentleman was discharged from acute care to [facility] for rehabilitation. Hospital course [facility] Admit Date: 12/04/2018 Discharge Date: 12/24/2018 Length of stay: 20 Patient was admitted on 12/04 [facility] with dyspnea 2/2 decompensated HF w/ PNA. Patient underwent coronary angiogram on 12/08 demonstrating multivessel CAD. Line Controller recommended CABG. An IABP was placed on 12/11 with plan of CABG on 12/12 however patient developed V-fib requiring 2 rounds of CPR & defibrillator shock after which ROSC was achieved. He was transferred to ICU for close monitoring. During the ICU stay, patient had to be intubated, thoracocentesis 12/14 was done and chest tube was placed. Patient was started on an antiarrhythmic agent of mexiletine in the ICU and he was downgraded to intermediate care. He had developed PEYTON 2/2 contrast-induced kidney injury vs cardiogenic shock. diuretic was given and his creatinine reached a plateau. Patient had ongoing overload fluid quiring ongoi diuresis with lasix and zaroxolyn. he encountered episode of Afib and was successfully cardioverted. Patient was then switched to amiodarone and spironolactone was added. chest tube DC'd 12/22. Due to lasix, his gout flared up improve with steroids. Patient was slowly and steadily weaned off oxygen. Patient was discharged with a LifeVest to low intensity setting. Medication changes Upon [place] discharge ADDED --carvedilol --bumex, zaroxolyn, spironolactone, --aspirin, --plavix, --warfarin, --amiodarone, --rosuvastatin (changed from pravastatin) DC'd --amlodipine/benazepril Primary hospital problems Weakness/debilitation Recent PEYTON, 2/2 contrast recent gout flareup, 2/2 diuresis med anticoagulation, INR goal 2-3 Chronic problems HFrEF recent decompensation, Recent cardiact arrest with V. fib, external defibrillator, on Life Vest Recent single episode of A. Fib, successful cardioverted PVD, HTN CAD, multi-vessel DM, was on home Tresiba (lantus in hosp, increased from 40-50 on 23 December in [place]) HLD, mixed ARTEMIO, Nasal Bi/PAP obesity, BMI 35%
[2018-12-25] MEDS ORDERED: Metolazone 2.5 MG Tab PO SCH (12:00)
[2018-12-25] MEDS: Insulin Glargine,Human Rec. Analog 100 Units/ML 3 ML Pen SUBCUT SCH ×2 (12:08→20:44)
[2018-12-25] MEDS: Magnesium Oxide 500 MG Tab PO SCH (12:12)
[2018-12-25] MEDS: Insulin Aspart 100 Units/ML 3 ML Pen SUBCUT SCH ×2 (12:13→18:00)
[2018-12-25] MEDS: Clopidogrel 75 MG Tab PO SCH (12:13)
[2018-12-25] MEDS: Rosuvastatin 10 MG Tab PO SCH (12:13)
[2018-12-25] MEDS: Warfarin 2.5 MG Tab PO SCH (17:53)
[2018-12-25] MEDS: Carvedilol 6.25 MG Tab PO SCH (17:54)
[2018-12-25] MEDS ORDERED: Albuterol/Ipratropium 3.0-0.5 MG/3 ML Neb Soln NEB PRN (19:12)
[2018-12-26 08:00] LABS: HEMOGLOBIN A1C 7.4 % (4.3-5.7)
[2018-12-26 08:07] LABS: ANION GAP 9.9 mmol/L (5-15)
[2018-12-26] MEDS: Aspirin 81 MG Tab.Chew PO SCH (08:23)
[2018-12-26] MEDS: Clopidogrel 75 MG Tab PO SCH (08:23)
[2018-12-26] MEDS: Rosuvastatin 10 MG Tab PO SCH (08:23)
[2018-12-26] MEDS: Potassium Chloride 20 MEQ Tab.ER PO SCH (08:23)
[2018-12-26] MEDS: Insulin Aspart 100 Units/ML 3 ML Pen SUBCUT SCH ×3 (08:24→18:01)
[2018-12-26] MEDS: Amiodarone 200 MG Tab PO SCH (08:24)
[2018-12-26] MEDS: Metolazone 2.5 MG Tab PO SCH (08:24)
[2018-12-26] MEDS: Omeprazole 20 MG Cap.CR PO SCH (08:24)
[2018-12-26] MEDS: Spironolactone 25 MG Tab PO SCH (08:25)
[2018-12-26] MEDS: Magnesium Oxide 500 MG Tab PO SCH (08:25)
[2018-12-26] MEDS: Carvedilol 6.25 MG Tab PO SCH ×2 (08:31→18:13)
[2018-12-26] MEDS: VILANTEROL IH SCH (12:46)
[2018-12-26] MEDS: FLUTICASONE IH SCH (12:46)
[2018-12-26] MEDS: fluvoxaMINE 100 MG Tab PO SCH ×3 (13:00→20:37)
[2018-12-26] MEDS: Warfarin 2.5 MG Tab PO SCH (18:12)
[2018-12-26] MEDS ORDERED: Sodium Chloride 0.9% 500 ML IV SCH (18:45)
[2018-12-26] MEDS ORDERED: Sodium Chloride 0.9% 10 ML Syringe FLUSH PRN (19:04)
[2018-12-26] MEDS: Bumetanide 1 MG Tab PO SCH (20:37)
[2018-12-26] MEDS: Insulin Glargine,Human Rec. Analog 100 Units/ML 3 ML Pen SUBCUT SCH (20:40)
[2018-12-26] MEDS: Sodium Chloride 0.9% 1,000 ML IV SCH (22:01)
[2018-12-27] MEDS: Insulin Aspart 100 Units/ML 3 ML Pen SUBCUT SCH ×3 (08:04→18:10)
[2018-12-27] MEDS: Carvedilol 6.25 MG Tab PO SCH ×2 (08:04→18:12)
[2018-12-27] MEDS: Omeprazole 20 MG Cap.CR PO SCH (08:04)
[2018-12-27] MEDS: Rosuvastatin 10 MG Tab PO SCH (08:56)
[2018-12-27] MEDS: Magnesium Oxide 500 MG Tab PO SCH (08:56)
[2018-12-27] MEDS: Clopidogrel 75 MG Tab PO SCH (08:57)
[2018-12-27] MEDS: Aspirin 81 MG Tab.Chew PO SCH (08:57)
[2018-12-27] MEDS: Spironolactone 25 MG Tab PO SCH (08:57)
[2018-12-27] MEDS: Bumetanide 1 MG Tab PO SCH (08:57)
[2018-12-27] MEDS: Potassium Chloride 20 MEQ Tab.ER PO SCH (08:57)
[2018-12-27] MEDS: FLUTICASONE IH SCH (08:58)
[2018-12-27] MEDS: Amiodarone 200 MG Tab PO SCH (08:58)
[2018-12-27] MEDS: fluvoxaMINE 100 MG Tab PO SCH ×2 (08:58→20:22)
[2018-12-27] MEDS: VILANTEROL IH SCH (08:58)
[2018-12-27 10:45] LABS: ANION GAP 8.8 mmol/L (5-15)
--- NOTE | 2018-12-27 11:01 | PCM.PN ---
- General Info Date of Service: 12/27/18 Functional Status: Reports: Pain Controlled, Tolerating Diet, New Symptoms ( Rash to groin). Denies: Ambulating, Incentive Spirometry - Review of Systems General: Reports: Weakness, Fatigue, Malaise. Denies: Chills HEENT: Reports: No Symptoms Pulmonary: Reports: No Symptoms Cardiovascular: Reports: No Symptoms Gastrointestinal: Reports: Other ([place] difficult to chew) Genitourinary: Reports: No Symptoms Musculoskeletal: Reports: No Symptoms Skin: Reports: Rash (Rash to groin area) Neurological: Reports: Weakness, Gait Disturbance. Denies: Confusion Psychiatric: Reports: Mood Lability - Patient Data Vitals - Most Recent: Last Vital Signs Temp 96.4 F 12/27/18 06:30 Pulse 63 12/27/18 08:04 Resp 16 12/27/18 06:30 BP 101/63 12/27/18 08:04 Pulse Ox 96 12/27/18 06:30 Weight - Most Recent: 254 lb I&O - Last 24 Hours: Intake & Output 12/26/18 12/27/18 12/27/18 22:59 06:59 14:59 Intake Total 807 629 Output Total 400 Balance 407 629 Lab Results Last 24 Hours: Laboratory Results - last 24 hr 12/26/18 12/26/18 12/27/18 Range/Units 12:34 17:32 07:58 POC Glucose 221 H 223 H 207 H (74-106) mg/dl Med Orders - Current: Current Medications Albuterol/Ipratropium (Duoneb 3.0-0.5 Mg/3 Ml) 3 ml NEB Q4HRRT PRN PRN Reason: Shortness of Breath Amiodarone HCl (Cordarone) 200 mg PO DAILY [facility] Last Admin: 12/27/18 08:58 Dose: 200 mg Aspirin (Aspirin) 81 mg PO DAILY [facility] Last Admin: 12/27/18 08:57 Dose: 81 mg Bumetanide (Bumex) 1 mg PO BID [facility] Last Admin: 12/27/18 08:57 Dose: 1 mg Carvedilol (Coreg) 3.125 mg PO BIDMEALS [facility] Last Admin: 12/27/18 08:04 Dose: 3.125 mg Clopidogrel Bisulfate (Plavix) 75 mg PO DAILY [facility] Last Admin: 12/27/18 08:57 Dose: 75 mg Fluticasone/Vilanterol (Breo Ellipta 100-25 Mcg Inhalation Kit) 1 each IH DAILY [facility] Last Admin: 12/27/18 08:58 Dose: 1 each Fluvoxamine Maleate (Luvox) 100 mg PO BID [facility] Last Admin: 12/27/18 08:58 Dose: 100 mg Sodium Chloride (Normal Saline) 1,000 mls @ 75 mls/hr IV ASDIRECTED [facility] Last Admin: 12/26/18 22:01 Dose: 75 mls/hr Sodium Chloride (Normal Saline) 500 mls @ 250 mls/hr IV .BOLUS [facility] Last Admin: 12/26/18 19:59 Dose: 250 mls/hr Insulin Aspart (Novolog) 0 unit SUBCUT TIDMEALS [facility]; Protocol Last Admin: 12/27/18 08:04 Dose: 2 unit Insulin Glargine (Lantus Solostar) 15 units SUBCUT BEDTIME [facility] Last Admin: 12/26/18 20:40 Dose: 15 units Magnesium Oxide (Magnesium Oxide) 250 mg PO DAILY [facility] Last Admin: 12/27/18 08:56 Dose: 250 mg Metformin HCl (Glucophage) 1,000 mg PO BIDMEALS [facility] Last Admin: 12/25/18 08:13 Dose: 1,000 mg Metolazone (Zaroxolyn) 2.5 mg PO DAILY [facility] Last Admin: 12/26/18 08:24 Dose: 2.5 mg Omeprazole (Omeprazole) 20 mg PO ACBREAKFAST [facility] Last Admin: 12/27/18 08:04 Dose: 20 mg Potassium Chloride (Klor-Con M20) 20 meq PO DAILY [facility] Last Admin: 12/27/18 08:57 Dose: 20 meq Ramelteon (Rozerem) 8 mg PO BEDTIME [facility] Last Admin: 12/26/18 20:36 Dose: 8 mg Rosuvastatin Calcium (Crestor) 20 mg PO DAILY [facility] Last Admin: 12/27/18 08:56 Dose: 20 mg Senna/Docusate Sodium (Senna Plus) 1 tab PO DAILY PRN PRN Reason: Constipation Sodium Chloride (Saline Flush) 10 ml FLUSH Q8HR PRN PRN Reason: keep vein open Last Admin: 12/26/18 19:59 Dose: 10 ml Spironolactone (Aldactone) 12.5 mg PO DAILY [facility] Last Admin: 12/27/18 08:57 Dose: 12.5 mg Warfarin Sodium (Coumadin) 3.75 mg PO 1800 [facility] Last Admin: 12/26/18 18:12 Dose: 3.75 mg Discontinued Medications Acetaminophen (Tylenol) 650 mg PO Q6H [facility] Last Admin: 12/25/18 17:52 Dose: 650 mg Amlodipine Besylate (Norvasc) 10 mg PO BEDTIME [facility] Last Admin: 12/24/18 20:37 Dose: 10 mg Benazepril HCl (Lotensin) 40 mg PO BEDTIME [facility] Last Admin: 12/24/18 20:38 Dose: 40 mg Cyanocobalamin (Vitamin B12) 1,000 mcg PO DAILY [facility] Last Admin: 12/25/18 08:13 Dose: 1,000 mcg Fluvoxamine Maleate (Luvox) 100 mg PO BID [facility] Last Admin: 12/26/18 13:00 Dose: Not Given Hydrocortisone (Hydrocortisone 1% Crm) 0 gm TOP DAILY [facility] Last Admin: 12/25/18 10:51 Dose: 1 applic Lactobacillus Acidophilus/Rhamnosus (Multi-Jennifer Plus) 1 cap PO BEDTIME [facility] Last Admin: 12/24/18 20:37 Dose: 1 cap Metolazone (Zaroxolyn) 2.5 mg PO DAILY [facility] Polyethylene Glycol (Miralax) 17 gm PO DAILY [facility] Last Admin: 12/25/18 08:13 Dose: 17 gm Pravastatin Sodium (Pravachol) 40 mg PO DAILY [facility] Last Admin: 12/25/18 10:46 Dose: Not Given - Exam Quality Assessment: DVT Prophylaxis (Cross covered with anticoagulation). No: Supplemental Oxygen General: Alert, Oriented, No Acute Distress Neck: Supple, No JVD Lungs: Clear to Auscultation, Normal Respiratory Effort Cardiovascular: Murmurs GI/Abdominal Exam: Soft, No Distention Extremities: Non-Tender. No: Pedal Edema Skin: Moist, Rash (Yeasty appearance rash bilateral groin) Neurological: Normal Speech, Normal Tone Psy/Mental Status: Alert, Labile Mood - Problem List Review Problem List Initiated/Reviewed/Updated: Yes - My Orders Last 24 Hours: My Active Orders 12/26/18 13:00 fluvoxaMINE [Luvox] 100 mg PO BID 12/26/18 18:45 Sodium Chloride 0.9% [Normal Saline] 1,000 ml IV ASDIRECTED Sodium Chloride 0.9% [Normal Saline] 500 ml IV .BOLUS 12/26/18 19:04 Peripheral IV Care [RC] 0900,2100 Sodium Chloride 0.9% [Saline Flush] 10 ml FLUSH Q8HR PRN Peripheral IV Insertion Adult [OM.PC] Routine 12/27/18 10:20 BASIC METABOLIC PANEL,BMP [CHEM] Routine INR,PT,PROTHROMBIN TIME [COAG] Routine - Plan Plan:: History [place] 73-year-old gentleman was discharged from acute care to [facility] for rehabilitation. Patient was admitted on 12/[address] [facility] with dyspnea 2/ 2 decompensated HF w/PNA. Patient underwent coronary angiogram on 12/08 demonstrating multivessel CAD. Interventional Pain Physician recommended CABG. An IABP was placed on 12/11 with plan of CABG on 12/12 however patient developed V-fib requiring 2 rounds of CPR &defibrillator shock after which ROSC was achieved. He was transferred to ICU for close monitoring. During the ICU stay, patient had to be intubated, thoracocentesis 12/14 was done and chest tube was placed. Patient was started on an antiarrhythmic agent of mexiletine in the ICU and he was downgraded to intermediate care. He had developed PEYTON 2/2 contrast-induced kidney injury vs cardiogenic shock. diuretic was given and his creatinine reached a plateau.Patient had ongoing overload fluid quiring ongoi diuresis with lasix and zaroxolyn. he encountered episode of Afib and was successfully cardioverted. Patient was then switched to amiodarone and spironolactone was added. chest tube DC'd 12/22. Due to lasix, his gout flared up improve with steroids. Patient was slowly and steadily weaned off oxygen. Patient was discharged with a LifeVest to low intensity setting. He is here in [facility] for rehabilitation with physical therapy Hospital Dates [facility] Admit Date: 12/04/2018 Discharge Date: 12/24/2018 Length of stay: 20 Medication changes Upon [place] discharge ADDED --carvedilol --bumex, zaroxolyn, spironolactone, --aspirin, stop date placed. --plavix, --warfarin, --amiodarone, --rosuvastatin (changed from pravastatin) DC'd --amlodipine/benazepril Primary hospital problems PEYTON, recurrent, likely prerenal Weakness/debilitation Recent and ongoing PEYTON, 2/2 nephrotoxic contrast and diuretics recent gout flareup, 2/2 diuresis med anticoagulation therapy, INR goal 2-3 Chronic problems HFrEF recent decompensation, combined systolic/diastolic Recent cardiact arrest with V. fib, external defibrillator, on LifeVest/ wearable cardioverter-defibrillator Recent single episode of A. Fib, successful cardioverted Peripheral vascular disease, stable HTN stable within guidelines CAD, multi-vessel, no ongoing ischemic pain T2DM, with polyneuropathy, was on home Tresiba (lantus in hosp, increased from 40-50 on 23 December in [place]) HLD, mixed, changed to Rosuvastatin ARTEMIO, Nasal Bi/PAP, tolerating obesity, BMI 35%, dietary consultation for weight loss Disposition/overall plan --Continue gentle fluids holding diuretics and very close monitoring of fluid status --Hold diuretics for now due to PEYTON --Continue holding metformin, GFR ~35, will consider restarting soon at lower dose --SNF for rehabilitation, reinforce self ADLs as much as possible on his own --Bumex 1mg bid, Metolazone 2.5mg Mon/Thur Holding for now Nursing considerations --Notify provider for any SOB or edema, pulm rales or abdominal fullness. --Daily wts, contact provider with 3# wt weight gain overnight or 5 pound i 1 week. --Have pharmacist discuss with patient regarding OTC meds, run interaction checks, educate patient on unnecessary OTC meds --Consult with fiber optic technician for wt loss diet recommendations Follow-up appointments Needs cardiology and EP follow ~Jan 22, nursing staff please coordinate
[2018-12-27] MEDS: Sodium Chloride 0.9% 1,000 ML IV SCH (12:10)
[2018-12-27] MEDS: Nystatin Topical Powder 15 GM Bottle TOP SCH ×2 (16:30→22:00)
[2018-12-27] MEDS: Warfarin 2.5 MG Tab PO SCH (18:51)
[2018-12-27] MEDS ORDERED: Nitroglycerin 0.4 MG Tab.SL SL ONE (18:52)
[2018-12-27] MEDS: Insulin Glargine,Human Rec. Analog 100 Units/ML 3 ML Pen SUBCUT SCH (20:25)
[2018-12-27] MEDS ORDERED: Lidocaine 2% 100 MG/5 ML Syringe IVPUSH PRN (21:40)
[2018-12-27] MEDS ORDERED: Atropine 0.1 MG/ML 10 ML Syringe IVPUSH PRN (21:40)
[2018-12-27] MEDS ORDERED: Nitroglycerin 0.4 MG Tab.SL SL PRN (21:40)
[2018-12-27] MEDS ORDERED: EPINEPHrine 1:10,000 1 MG/10 ML Syringe IVPUSH PRN (21:40)
[2018-12-28] MEDS: Sodium Chloride 0.9% 1,000 ML IV SCH (02:10)
[2018-12-28] MEDS: Omeprazole 20 MG Cap.CR PO SCH (07:56)
[2018-12-28] MEDS: Carvedilol 6.25 MG Tab PO SCH ×2 (07:57→17:41)
[2018-12-28] MEDS: Insulin Aspart 100 Units/ML 3 ML Pen SUBCUT SCH ×3 (08:02→17:38)
[2018-12-28] MEDS: Clopidogrel 75 MG Tab PO SCH (08:13)
[2018-12-28] MEDS: Potassium Chloride 20 MEQ Tab.ER PO SCH (08:13)
[2018-12-28] MEDS: Rosuvastatin 10 MG Tab PO SCH (08:13)
[2018-12-28] MEDS: Aspirin 81 MG Tab.Chew PO SCH (08:14)
[2018-12-28] MEDS: Amiodarone 200 MG Tab PO SCH (08:14)
[2018-12-28] MEDS: Magnesium Oxide 500 MG Tab PO SCH (08:14)
[2018-12-28] MEDS: Spironolactone 25 MG Tab PO SCH (08:15)
[2018-12-28] MEDS: Nystatin Topical Powder 15 GM Bottle TOP SCH ×3 (08:15→21:23)
[2018-12-28] MEDS: FLUTICASONE IH SCH (08:16)
[2018-12-28] MEDS: fluvoxaMINE 100 MG Tab PO SCH ×2 (08:16→21:21)
[2018-12-28] MEDS: VILANTEROL IH SCH (08:16)
[2018-12-28] MEDS: Bumetanide 1 MG Tab PO SCH ×3 (10:46→21:21)
[2018-12-28] MEDS: Insulin Glargine,Human Rec. Analog 100 Units/ML 3 ML Pen SUBCUT SCH (21:22)
[2018-12-29] MEDS: Carvedilol 6.25 MG Tab PO SCH ×2 (08:23→18:34)
[2018-12-29] MEDS: Omeprazole 20 MG Cap.CR PO SCH (08:23)
[2018-12-29] MEDS: Insulin Aspart 100 Units/ML 3 ML Pen SUBCUT SCH ×3 (08:24→18:34)
[2018-12-29] MEDS: Spironolactone 25 MG Tab PO SCH (09:28)
[2018-12-29] MEDS: Clopidogrel 75 MG Tab PO SCH (09:28)
[2018-12-29] MEDS: Potassium Chloride 20 MEQ Tab.ER PO SCH (09:28)
[2018-12-29] MEDS: Rosuvastatin 10 MG Tab PO SCH (09:28)
[2018-12-29] MEDS: Metolazone 2.5 MG Tab PO SCH (09:28)
[2018-12-29] MEDS: Magnesium Oxide 500 MG Tab PO SCH (09:28)
[2018-12-29] MEDS: Bumetanide 1 MG Tab PO SCH ×2 (09:28→20:27)
[2018-12-29] MEDS: Amiodarone 200 MG Tab PO SCH (09:29)
[2018-12-29] MEDS: Aspirin 81 MG Tab.Chew PO SCH (09:29)
[2018-12-29] MEDS: Nystatin Topical Powder 15 GM Bottle TOP SCH ×3 (09:29→20:28)
[2018-12-29] MEDS: VILANTEROL IH SCH (09:30)
[2018-12-29] MEDS: FLUTICASONE IH SCH (09:30)
[2018-12-29] MEDS: fluvoxaMINE 100 MG Tab PO SCH ×2 (09:30→20:27)
[2018-12-29] MEDS: Insulin Glargine,Human Rec. Analog 100 Units/ML 3 ML Pen SUBCUT SCH (20:27)
[2018-12-30] MEDS: Omeprazole 20 MG Cap.CR PO SCH (06:33)
[2018-12-30] MEDS: Bumetanide 1 MG Tab PO SCH ×2 (08:07→21:05)
[2018-12-30] MEDS: Rosuvastatin 10 MG Tab PO SCH (08:07)
[2018-12-30] MEDS: Clopidogrel 75 MG Tab PO SCH (08:08)
[2018-12-30] MEDS: Metolazone 2.5 MG Tab PO SCH (08:08)
[2018-12-30] MEDS: Carvedilol 6.25 MG Tab PO SCH ×2 (08:08→18:13)
[2018-12-30] MEDS: Aspirin 81 MG Tab.Chew PO SCH (08:08)
[2018-12-30] MEDS: Spironolactone 25 MG Tab PO SCH (08:08)
[2018-12-30] MEDS: Potassium Chloride 20 MEQ Tab.ER PO SCH (08:08)
[2018-12-30] MEDS: Amiodarone 200 MG Tab PO SCH (08:09)
[2018-12-30] MEDS: fluvoxaMINE 100 MG Tab PO SCH ×2 (08:09→21:06)
[2018-12-30] MEDS: Magnesium Oxide 500 MG Tab PO SCH (08:09)
[2018-12-30] MEDS: Insulin Aspart 100 Units/ML 3 ML Pen SUBCUT SCH ×3 (08:13→18:13)
[2018-12-30] MEDS: FLUTICASONE IH SCH (08:52)
[2018-12-30] MEDS: VILANTEROL IH SCH (08:52)
--- NOTE | 2018-12-30 09:47 | PCM.SN ---
- Free Text/Narrative Note: --due to PEYTON with decreased GFR although improving we'll restart back on home metformin but much lower dose -500 mg by mouth daily --BMP today --Add ADA diet --start back on Coumadin however lower dose of 2.5 mg daily --Monitor INR
[2018-12-30] MEDS: Nystatin Topical Powder 15 GM Bottle TOP SCH ×3 (11:25→21:06)
[2018-12-30] MEDS: metFORMIN 500 MG Tab.ER PO SCH (18:12)
[2018-12-30] MEDS: Warfarin 2.5 MG Tab PO SCH (18:13)
[2018-12-30] MEDS: Insulin Glargine,Human Rec. Analog 100 Units/ML 3 ML Pen SUBCUT SCH (21:07)
[2018-12-31] MEDS: Nystatin Topical Powder 15 GM Bottle TOP SCH ×5 (07:42→21:24)
[2018-12-31] MEDS: Omeprazole 20 MG Cap.CR PO SCH (07:43)
[2018-12-31] MEDS: fluvoxaMINE 100 MG Tab PO SCH ×2 (08:17→21:24)
[2018-12-31] MEDS: Clopidogrel 75 MG Tab PO SCH (08:18)
[2018-12-31] MEDS: Bumetanide 1 MG Tab PO SCH ×2 (08:18→21:23)
[2018-12-31] MEDS: Spironolactone 25 MG Tab PO SCH (08:18)
[2018-12-31] MEDS: Rosuvastatin 10 MG Tab PO SCH (08:18)
[2018-12-31] MEDS: Amiodarone 200 MG Tab PO SCH (08:18)
[2018-12-31] MEDS: Metolazone 2.5 MG Tab PO SCH (08:19)
[2018-12-31] MEDS: Magnesium Oxide 500 MG Tab PO SCH (08:19)
[2018-12-31] MEDS: Aspirin 81 MG Tab.Chew PO SCH (08:20)
[2018-12-31] MEDS: Carvedilol 6.25 MG Tab PO SCH ×2 (08:20→18:01)
[2018-12-31] MEDS: Potassium Chloride 20 MEQ Tab.ER PO SCH (08:20)
[2018-12-31] MEDS: Insulin Aspart 100 Units/ML 3 ML Pen SUBCUT SCH ×3 (08:22→18:03)
[2018-12-31] MEDS: VILANTEROL IH SCH (08:53)
[2018-12-31] MEDS: FLUTICASONE IH SCH (08:53)
[2018-12-31] MEDS: metFORMIN 500 MG Tab.ER PO SCH (18:01)
[2018-12-31] MEDS: Warfarin 2.5 MG Tab PO SCH (18:01)
[2018-12-31] MEDS: Insulin Glargine,Human Rec. Analog 100 Units/ML 3 ML Pen SUBCUT SCH (21:25)
[2019-01-01] MEDS: Bumetanide 1 MG Tab PO SCH ×2 (08:21→20:52)
[2019-01-01] MEDS: Spironolactone 25 MG Tab PO SCH (08:21)
[2019-01-01] MEDS: Metolazone 2.5 MG Tab PO SCH (08:21)
[2019-01-01] MEDS: Aspirin 81 MG Tab.Chew PO SCH (08:21)
[2019-01-01] MEDS: Potassium Chloride 20 MEQ Tab.ER PO SCH (08:21)
[2019-01-01] MEDS: Clopidogrel 75 MG Tab PO SCH (08:22)
[2019-01-01] MEDS: Carvedilol 6.25 MG Tab PO SCH ×2 (08:22→18:03)
[2019-01-01] MEDS: Amiodarone 200 MG Tab PO SCH (08:22)
[2019-01-01] MEDS: Magnesium Oxide 500 MG Tab PO SCH (08:22)
[2019-01-01] MEDS: fluvoxaMINE 100 MG Tab PO SCH ×2 (08:22→20:52)
[2019-01-01] MEDS: Insulin Aspart 100 Units/ML 3 ML Pen SUBCUT SCH ×3 (08:25→18:00)
[2019-01-01] MEDS: Omeprazole 20 MG Cap.CR PO SCH (08:28)
[2019-01-01] MEDS: Rosuvastatin 10 MG Tab PO SCH (08:29)
[2019-01-01] MEDS: Nystatin Topical Powder 15 GM Bottle TOP SCH ×3 (08:30→20:52)
[2019-01-01] MEDS: VILANTEROL IH SCH (08:30)
[2019-01-01] MEDS: FLUTICASONE IH SCH (08:30)
[2019-01-01] MEDS: Warfarin 2.5 MG Tab PO SCH (18:00)
[2019-01-01] MEDS: metFORMIN 500 MG Tab.ER PO SCH (18:00)
[2019-01-01] MEDS: Insulin Glargine,Human Rec. Analog 100 Units/ML 3 ML Pen SUBCUT SCH (20:53)
[2019-01-02] MEDS: Carvedilol 6.25 MG Tab PO SCH ×2 (07:51→18:19)
[2019-01-02] MEDS: Omeprazole 20 MG Cap.CR PO SCH (07:52)
[2019-01-02] MEDS: Insulin Aspart 100 Units/ML 3 ML Pen SUBCUT SCH ×3 (07:52→18:18)
[2019-01-02] MEDS: Potassium Chloride 20 MEQ Tab.ER PO SCH (08:43)
[2019-01-02] MEDS: Clopidogrel 75 MG Tab PO SCH (08:43)
[2019-01-02] MEDS: Magnesium Oxide 500 MG Tab PO SCH (08:43)
[2019-01-02] MEDS: Aspirin 81 MG Tab.Chew PO SCH (08:43)
[2019-01-02] MEDS: Rosuvastatin 10 MG Tab PO SCH (08:43)
[2019-01-02] MEDS: fluvoxaMINE 100 MG Tab PO SCH ×2 (08:43→21:37)
[2019-01-02] MEDS: Spironolactone 25 MG Tab PO SCH (08:43)
[2019-01-02] MEDS: Bumetanide 1 MG Tab PO SCH ×2 (08:43→21:37)
[2019-01-02] MEDS: Metolazone 2.5 MG Tab PO SCH (08:43)
[2019-01-02] MEDS: Amiodarone 200 MG Tab PO SCH (08:44)
[2019-01-02] MEDS: VILANTEROL IH SCH (08:44)
[2019-01-02] MEDS: Nystatin Topical Powder 15 GM Bottle TOP SCH ×3 (08:44→21:38)
[2019-01-02] MEDS: FLUTICASONE IH SCH (08:44)
--- NOTE | 2019-01-02 09:34 | PCM.PN ---
- General Info Date of Service: 01/02/19 Functional Status: Reports: Pain Controlled, Tolerating Diet, Ambulating, New Symptoms (sore fingers from Accu-Cheks), Incentive Spirometry - Review of Systems General: Reports: Weakness HEENT: Reports: No Symptoms Pulmonary: Reports: No Symptoms Cardiovascular: Reports: Dyspnea on Exertion. Denies: Chest Pain, Palpitations , PND, Edema Gastrointestinal: Reports: No Symptoms Genitourinary: Reports: No Symptoms Musculoskeletal: Reports: No Symptoms Skin: Reports: No Symptoms Neurological: Reports: No Symptoms. Denies: Confusion Psychiatric: Reports: No Symptoms - Patient Data Vitals - Most Recent: Last Vital Signs Temp 99.1 F 01/02/19 06:34 Pulse 68 01/02/19 07:51 Resp 20 01/02/19 06:34 BP 107/64 01/02/19 07:51 Pulse Ox 95 01/02/19 06:34 Weight - Most Recent: 243 lb 6 oz I&O - Last 24 Hours: Intake & Output 01/01/19 01/02/19 01/02/19 22:59 06:59 14:59 Intake Total 300 0 Output Total 100 800 Balance 200 -800 Lab Results Last 24 Hours: Laboratory Results - last 24 hr 01/01/19 01/01/19 01/01/19 Range/Units 07:43 11:48 17:58 INR (0.9-1.1) POC Glucose 208 H 291 H 237 H (74-106) mg/dl 01/02/19 01/02/19 Range/Units 07:29 07:42 INR 1.9 H (0.9-1.1) POC Glucose 220 H (74-106) mg/dl Med Orders - Current: Current Medications Albuterol/Ipratropium (Duoneb 3.0-0.5 Mg/3 Ml) 3 ml NEB Q4HRRT PRN PRN Reason: Shortness of Breath Amiodarone HCl (Cordarone) 200 mg PO DAILY [facility] Last Admin: 01/02/19 08:44 Dose: 200 mg Aspirin (Aspirin) 81 mg PO DAILY [facility] Stop: 01/22/19 23:59 Last Admin: 01/02/19 08:43 Dose: 81 mg Atropine Sulfate (Atropine 0.1 Mg/Ml) 0 mg IVPUSH ASDIRECTED PRN PRN Reason: Heart. Bumetanide (Bumex) 1 mg PO BID [facility] Last Admin: 01/02/19 08:43 Dose: 1 mg Carvedilol (Coreg) 3.125 mg PO BIDMEALS [facility] Last Admin: 01/02/19 07:51 Dose: 3.125 mg Clopidogrel Bisulfate (Plavix) 75 mg PO DAILY [facility] Last Admin: 01/02/19 08:43 Dose: 75 mg Epinephrine HCl (Epinephrine 1:10,000) 1 mg IVPUSH ASDIRECTED PRN PRN Reason: Heart. Fluticasone/Vilanterol (Breo Ellipta 100-25 Mcg Inhalation Kit) 1 each IH DAILY [facility] Last Admin: 01/02/19 08:44 Dose: 1 each Fluvoxamine Maleate (Luvox) 100 mg PO BID [facility] Last Admin: 01/02/19 08:43 Dose: 100 mg Insulin Aspart (Novolog) 0 unit SUBCUT TIDMEALS [facility]; Protocol Last Admin: 01/02/19 07:52 Dose: 2 unit Insulin Glargine (Lantus Solostar) 15 units SUBCUT BEDTIME [facility] Last Admin: 01/01/19 20:53 Dose: 15 units Lidocaine HCl (Xylocaine 2%) 0 mg IVPUSH ASDIRECTED PRN PRN Reason: Heart. Magnesium Oxide (Magnesium Oxide) 250 mg PO DAILY [facility] Last Admin: 01/02/19 08:43 Dose: 250 mg Metformin HCl (Glucophage) 1,000 mg PO BIDMEALS [facility] Last Admin: 12/25/18 08:13 Dose: 1,000 mg Metformin HCl (Glucophage Xr) 500 mg PO 1800 [facility] Last Admin: 01/01/19 18:00 Dose: 500 mg Metolazone (Zaroxolyn) 2.5 mg PO DAILY [facility] Last Admin: 01/02/19 08:43 Dose: 2.5 mg Nitroglycerin (Nitrostat) 0.4 mg SL ASDIRECTED PRN PRN Reason: Heart. Nystatin (Nystop) 0 gm TOP TID [facility] Last Admin: 01/02/19 08:44 Dose: 1 applic Omeprazole (Omeprazole) 20 mg PO ACBREAKFAST [facility] Last Admin: 01/02/19 07:52 Dose: 20 mg Potassium Chloride (Klor-Con M20) 20 meq PO DAILY [facility] Last Admin: 01/02/19 08:43 Dose: 20 meq Ramelteon (Rozerem) 8 mg PO BEDTIME [facility] Last Admin: 01/01/19 20:52 Dose: 8 mg Rosuvastatin Calcium (Crestor) 20 mg PO DAILY [facility] Last Admin: 01/02/19 08:43 Dose: 20 mg Senna/Docusate Sodium (Senna Plus) 1 tab PO DAILY PRN PRN Reason: Constipation Sodium Chloride (Saline Flush) 10 ml FLUSH Q8HR PRN PRN Reason: keep vein open Last Admin: 12/26/18 19:59 Dose: 10 ml Spironolactone (Aldactone) 12.5 mg PO DAILY [facility] Last Admin: 01/02/19 08:43 Dose: 12.5 mg Warfarin Sodium (Coumadin Ask) 1 each PO ONETIME ONE Stop: 12/29/18 15:16 Warfarin Sodium (Coumadin) 2.5 mg PO 1800 [facility] Last Admin: 01/01/19 18:00 Dose: 2.5 mg Discontinued Medications Acetaminophen (Tylenol) 650 mg PO Q6H [facility] Last Admin: 12/25/18 17:52 Dose: 650 mg Amlodipine Besylate (Norvasc) 10 mg PO BEDTIME [facility] Last Admin: 12/24/18 20:37 Dose: 10 mg Benazepril HCl (Lotensin) 40 mg PO BEDTIME [facility] Last Admin: 12/24/18 20:38 Dose: 40 mg Cyanocobalamin (Vitamin B12) 1,000 mcg PO DAILY [facility] Last Admin: 12/25/18 08:13 Dose: 1,000 mcg Fluvoxamine Maleate (Luvox) 100 mg PO BID [facility] Last Admin: 12/26/18 13:00 Dose: Not Given Hydrocortisone (Hydrocortisone 1% Crm) 0 gm TOP DAILY [facility] Last Admin: 12/25/18 10:51 Dose: 1 applic Sodium Chloride (Normal Saline) 1,000 mls @ 75 mls/hr IV ASDIRECTED [facility] Last Admin: 12/28/18 02:10 Dose: 75 mls/hr Sodium Chloride (Normal Saline) 500 mls @ 250 mls/hr IV .BOLUS [facility] Last Admin: 12/26/18 19:59 Dose: 250 mls/hr Lactobacillus Acidophilus/Rhamnosus (Multi-Jennifer Plus) 1 cap PO BEDTIME [facility] Last Admin: 12/24/18 20:37 Dose: 1 cap Metolazone (Zaroxolyn) 2.5 mg PO DAILY [facility] Nitroglycerin (Nitrostat) 0.4 mg SL ONETIME ONE Stop: 12/27/18 18:53 Last Admin: 12/27/18 22:11 Dose: Not Given Polyethylene Glycol (Miralax) 17 gm PO DAILY [facility] Last Admin: 12/25/18 08:13 Dose: 17 gm Pravastatin Sodium (Pravachol) 40 mg PO DAILY [facility] Last Admin: 12/25/18 10:46 Dose: Not Given Warfarin Sodium (Coumadin) 3.75 mg PO 1800 [facility] Last Admin: 12/27/18 18:51 Dose: Not Given Warfarin Sodium (Coumadin) 1 mg PO ONETIME ONE Stop: 12/27/18 19:01 Last Admin: 12/27/18 20:22 Dose: 1 mg - Exam Quality Assessment: DVT Prophylaxis. No: Supplemental Oxygen General: Alert, Oriented Neck: Supple Lungs: Clear to Auscultation, Normal Respiratory Effort Cardiovascular: Regular Rate, Regular Rhythm, Other (continues on LifeVes) GI/Abdominal Exam: Soft (Male) Exam: Deferred Back Exam: No: Normal Inspection, CVA Tenderness (L) Extremities: No Pedal Edema Peripheral Pulses: 2+: Radial (L), Radial (R) Skin: Warm, Dry, Intact Neurological: No New Focal Deficit Psy/Mental Status: Alert, Normal Affect, Normal Mood - Problem List Review Problem List Initiated/Reviewed/Updated: Yes - My Orders Last 24 Hours: My Active Orders 01/03/19 05:11 INR,PT,PROTHROMBIN TIME [[facility]] DAILY 01/04/19 05:11 INR,PT,PROTHROMBIN TIME [[facility]] DAILY 01/05/19 05:11 INR,PT,PROTHROMBIN TIME [[facility]AG] DAILY - Plan Plan:: History Escobar 73-year-old gentleman was discharged from acute care to [facility] for rehabilitation. Patient was admitted on 12/04 with dyspnea 2/ 2 decompensated HF w/PNA. Patient underwent coronary angiogram on 12/08 demonstrating multivessel CAD. [place] Nurse recommended CABG. An IABP was placed on 12/11 with plan of CABG on 12/12 however patient developed V-fib requiring 2 rounds of CPR &defibrillator shock after which ROSC was achieved. He was transferred to ICU for close monitoring. During the ICU stay, patient had to be intubated, thoracocentesis 12/14 was done and chest tube was placed. Patient was started on an antiarrhythmic agent of mexiletine in the ICU and he was downgraded to intermediate care. He had developed PEYTON 2/2 contrast-induced kidney injury vs cardiogenic shock. diuretic was given and his creatinine reached a plateau.Patient had ongoing overload fluid quiring ongoi diuresis with lasix and zaroxolyn. he encountered episode of Afib and was successfully cardioverted. Patient was then switched to amiodarone and spironolactone was added. chest tube DC'd 12/22. Due to lasix, his gout flared up improve with steroids. Patient was slowly and steadily weaned off oxygen. Patient was discharged with a LifeVest to low intensity setting. He is here in [facility] for rehabilitation with physical therapy [facility] Admit Date: 12/04/2018 Discharge Date: 12/24/2018 Length of stay: 20 Medication changes Upon [place] discharge ADDED --carvedilol --bumex, zaroxolyn, spironolactone, --aspirin, stop date placed. --plavix, --warfarin, --amiodarone, --rosuvastatin (changed from pravastatin) DC'd --amlodipine/benazepril Primary SNF problems Weakness/debilitation PEYTON, recurrent, likely prerenal hyponatremia, hyotonic subtheraputic Anticoagulation, anticoagulation therapy, INR goal 2-3 Recent PEYTON, 2/2 nephrotoxic contrast and diuretics recent gout flareup, 2/2 diuresis med Chronic problems HFrEF recent decompensation, combined systolic/diastolic Recent cardiact arrest with V. fib, external defibrillator, on LifeVest/ wearable cardioverter-defibrillator Recent single episode of A. Fib, successful cardioverted Peripheral vascular disease, stable HTN stable within guidelines CAD, multi-vessel, no ongoing ischemic pain T2DM, with polyneuropathy, was on home Tresiba HLD, mixed, changed to Rosuvastatin ARTEMIO, Nasal Bi/PAP, tolerating obesity, BMI 35%, dietary consultation for weight loss Disposition/overall plan --due to PEYTON with decreased GFR although improving we'll restart back on home metformin at lower dose of 500mg BID --increase Lantus from 15 to 18 UNITS QHS --SNF for rehabilitation, reinforce self ADLs as much as possible on his own --reduce Accu-Cheks to twice a day before meals --BMP a.m. Nursing considerations --Notify provider for any SOB or edema, pulm rales or abdominal fullness. --Daily wts, contact provider with 3# wt weight gain overnight or 5 pound i 1 week. --Have pharmacist discuss with patient regarding OTC meds, run interaction checks, educate patient on unnecessary OTC meds --[employer] nail tech recommendatioregarding weight loss diet Follow-up appointments Needs cardiology and EP follow ~Jan 22, nursing staff please coordinate
[2019-01-02] MEDS: metFORMIN 500 MG Tab.ER PO SCH ×2 (18:18→21:38)
[2019-01-02] MEDS: Warfarin 2.5 MG Tab PO SCH (18:20)
[2019-01-02] MEDS: Insulin Glargine,Human Rec. Analog 100 Units/ML 3 ML Pen SUBCUT SCH (21:37)
[2019-01-03] MEDS: Omeprazole 20 MG Cap.CR PO SCH (06:42)
[2019-01-03] MEDS: Insulin Aspart 100 Units/ML 3 ML Pen SUBCUT SCH ×2 (08:10→18:15)
[2019-01-03] MEDS: Carvedilol 6.25 MG Tab PO SCH ×2 (08:10→17:46)
[2019-01-03] MEDS: Rosuvastatin 10 MG Tab PO SCH (09:05)
[2019-01-03] MEDS: Clopidogrel 75 MG Tab PO SCH (09:06)
[2019-01-03] MEDS: fluvoxaMINE 100 MG Tab PO SCH ×2 (09:06→21:01)
[2019-01-03] MEDS: Aspirin 81 MG Tab.Chew PO SCH (09:06)
[2019-01-03] MEDS: Metolazone 2.5 MG Tab PO SCH (09:06)
[2019-01-03] MEDS: Bumetanide 1 MG Tab PO SCH ×2 (09:06→21:01)
[2019-01-03] MEDS: Amiodarone 200 MG Tab PO SCH (09:06)
[2019-01-03] MEDS: metFORMIN 500 MG Tab.ER PO SCH ×2 (09:06→21:01)
[2019-01-03] MEDS: Spironolactone 25 MG Tab PO SCH (09:06)
[2019-01-03] MEDS: Magnesium Oxide 500 MG Tab PO SCH (09:06)
[2019-01-03] MEDS: FLUTICASONE IH SCH (09:07)
[2019-01-03] MEDS: Potassium Chloride 20 MEQ Tab.ER PO SCH (09:07)
[2019-01-03] MEDS: VILANTEROL IH SCH (09:07)
[2019-01-03 09:14] LABS: ANION GAP 10.3 mmol/L (5-15)
[2019-01-03] MEDS: Nystatin Topical Powder 15 GM Bottle TOP SCH ×3 (09:55→21:01)
[2019-01-03] MEDS ORDERED: Warfarin 2.5 MG Tab PO ONE (18:00)
[2019-01-03] MEDS: Insulin Glargine,Human Rec. Analog 100 Units/ML 3 ML Pen SUBCUT SCH (21:01)
[2019-01-04] MEDS: Insulin Aspart 100 Units/ML 3 ML Pen SUBCUT SCH ×2 (08:30→18:48)
[2019-01-04 08:54] LABS: ANION GAP 13.4 mmol/L (5-15)
[2019-01-04] MEDS: Omeprazole 20 MG Cap.CR PO SCH (09:06)
[2019-01-04] MEDS: Carvedilol 6.25 MG Tab PO SCH ×2 (09:07→18:45)
[2019-01-04] MEDS: Spironolactone 25 MG Tab PO SCH (09:08)
[2019-01-04] MEDS: Bumetanide 1 MG Tab PO SCH ×2 (09:09→20:46)
[2019-01-04] MEDS: Rosuvastatin 10 MG Tab PO SCH (09:09)
[2019-01-04] MEDS: Amiodarone 200 MG Tab PO SCH (09:09)
[2019-01-04] MEDS: Aspirin 81 MG Tab.Chew PO SCH (09:09)
[2019-01-04] MEDS: Potassium Chloride 20 MEQ Tab.ER PO SCH (09:11)
[2019-01-04] MEDS: Magnesium Oxide 500 MG Tab PO SCH (09:11)
[2019-01-04] MEDS: fluvoxaMINE 100 MG Tab PO SCH ×2 (09:11→20:46)
[2019-01-04] MEDS: metFORMIN 500 MG Tab.ER PO SCH ×2 (09:11→20:45)
[2019-01-04] MEDS: Clopidogrel 75 MG Tab PO SCH (09:12)
[2019-01-04] MEDS: Metolazone 2.5 MG Tab PO SCH (09:12)
[2019-01-04] MEDS: Nystatin Topical Powder 15 GM Bottle TOP SCH ×3 (09:15→20:46)
[2019-01-04] MEDS: FLUTICASONE IH SCH (10:06)
[2019-01-04] MEDS: VILANTEROL IH SCH (10:06)
[2019-01-04] MEDS ORDERED: Warfarin 2.5 MG Tab PO ONE (18:00)
[2019-01-04] MEDS: Insulin Glargine,Human Rec. Analog 100 Units/ML 3 ML Pen SUBCUT SCH (20:44)
[2019-01-05] MEDS: Carvedilol 6.25 MG Tab PO SCH ×2 (07:57→18:09)
[2019-01-05] MEDS: Omeprazole 20 MG Cap.CR PO SCH (07:57)
[2019-01-05] MEDS: Insulin Aspart 100 Units/ML 3 ML Pen SUBCUT SCH ×2 (07:58→18:05)
[2019-01-05] MEDS: fluvoxaMINE 100 MG Tab PO SCH ×2 (08:43→20:13)
[2019-01-05] MEDS: Aspirin 81 MG Tab.Chew PO SCH (08:43)
[2019-01-05] MEDS: Potassium Chloride 20 MEQ Tab.ER PO SCH (08:43)
[2019-01-05] MEDS: Metolazone 2.5 MG Tab PO SCH (08:43)
[2019-01-05] MEDS: Spironolactone 25 MG Tab PO SCH (08:43)
[2019-01-05] MEDS: Rosuvastatin 10 MG Tab PO SCH (08:43)
[2019-01-05] MEDS: Amiodarone 200 MG Tab PO SCH (08:43)
[2019-01-05] MEDS: Clopidogrel 75 MG Tab PO SCH (08:43)
[2019-01-05] MEDS: Nystatin Topical Powder 15 GM Bottle TOP SCH ×3 (08:44→20:13)
[2019-01-05] MEDS: Magnesium Oxide 500 MG Tab PO SCH (08:44)
[2019-01-05] MEDS: Bumetanide 1 MG Tab PO SCH ×2 (08:44→20:13)
[2019-01-05] MEDS: metFORMIN 500 MG Tab.ER PO SCH ×2 (08:44→20:13)
[2019-01-05] MEDS: VILANTEROL IH SCH (10:07)
[2019-01-05] MEDS: FLUTICASONE IH SCH (10:07)
[2019-01-05] MEDS: Warfarin 2.5 MG Tab PO SCH (18:05)
[2019-01-05] MEDS: Insulin Glargine,Human Rec. Analog 100 Units/ML 3 ML Pen SUBCUT SCH (20:15)
[2019-01-06] MEDS: Omeprazole 20 MG Cap.CR PO SCH (07:41)
[2019-01-06] MEDS: Insulin Aspart 100 Units/ML 3 ML Pen SUBCUT SCH ×2 (07:43→18:22)
[2019-01-06] MEDS: metFORMIN 500 MG Tab.ER PO SCH ×2 (08:16→21:17)
[2019-01-06] MEDS: Clopidogrel 75 MG Tab PO SCH (08:16)
[2019-01-06] MEDS: Rosuvastatin 10 MG Tab PO SCH (08:16)
[2019-01-06] MEDS: Potassium Chloride 20 MEQ Tab.ER PO SCH (08:16)
[2019-01-06] MEDS: Bumetanide 1 MG Tab PO SCH ×2 (08:17→21:17)
[2019-01-06] MEDS: Metolazone 2.5 MG Tab PO SCH (08:17)
[2019-01-06] MEDS: Amiodarone 200 MG Tab PO SCH (08:17)
[2019-01-06] MEDS: Spironolactone 25 MG Tab PO SCH (08:17)
[2019-01-06] MEDS: Aspirin 81 MG Tab.Chew PO SCH (08:17)
[2019-01-06] MEDS: Magnesium Oxide 500 MG Tab PO SCH (08:18)
[2019-01-06] MEDS: fluvoxaMINE 100 MG Tab PO SCH ×2 (08:18→21:17)
[2019-01-06] MEDS: Carvedilol 6.25 MG Tab PO SCH ×2 (08:22→17:49)
[2019-01-06] MEDS: Nystatin Topical Powder 15 GM Bottle TOP SCH ×3 (08:22→21:17)
[2019-01-06] MEDS: FLUTICASONE IH SCH (08:55)
[2019-01-06] MEDS: VILANTEROL IH SCH (08:55)
[2019-01-06] MEDS: Warfarin 2.5 MG Tab PO SCH (17:49)
[2019-01-06] MEDS: Insulin Glargine,Human Rec. Analog 100 Units/ML 3 ML Pen SUBCUT SCH (21:16)
[2019-01-07] MEDS: Omeprazole 20 MG Cap.CR PO SCH (07:44)
[2019-01-07] MEDS: Rosuvastatin 10 MG Tab PO SCH (08:36)
[2019-01-07] MEDS: Spironolactone 25 MG Tab PO SCH (08:37)
[2019-01-07] MEDS: Bumetanide 1 MG Tab PO SCH ×2 (08:37→21:09)
[2019-01-07] MEDS: fluvoxaMINE 100 MG Tab PO SCH ×2 (08:37→21:10)
[2019-01-07] MEDS: Carvedilol 6.25 MG Tab PO SCH ×2 (08:38→18:04)
[2019-01-07] MEDS: Magnesium Oxide 500 MG Tab PO SCH (08:38)
[2019-01-07] MEDS: Clopidogrel 75 MG Tab PO SCH (08:39)
[2019-01-07] MEDS: Potassium Chloride 20 MEQ Tab.ER PO SCH (08:39)
[2019-01-07] MEDS: Metolazone 2.5 MG Tab PO SCH (08:39)
[2019-01-07] MEDS: Amiodarone 200 MG Tab PO SCH (08:39)
[2019-01-07] MEDS: Aspirin 81 MG Tab.Chew PO SCH (08:39)
[2019-01-07] MEDS: Insulin Aspart 100 Units/ML 3 ML Pen SUBCUT SCH ×2 (08:40→18:04)
[2019-01-07] MEDS: metFORMIN 500 MG Tab.ER PO SCH ×2 (08:40→21:09)
[2019-01-07] MEDS: Nystatin Topical Powder 15 GM Bottle TOP SCH ×3 (08:43→21:10)
[2019-01-07] MEDS: VILANTEROL IH SCH (09:01)
[2019-01-07] MEDS: FLUTICASONE IH SCH (09:01)
[2019-01-07] MEDS ORDERED: Colchicine 0.6 MG Tab PO ONE ×2 (10:44→12:00)
[2019-01-07] MEDS ORDERED: Allopurinol 100 MG Tab PO SCH (10:45)
[2019-01-07] MEDS: Warfarin 2.5 MG Tab PO SCH (18:04)
[2019-01-07] MEDS: Insulin Glargine,Human Rec. Analog 100 Units/ML 3 ML Pen SUBCUT SCH (21:07)
[2019-01-08] MEDS: Rosuvastatin 10 MG Tab PO SCH (08:04)
[2019-01-08] MEDS: Omeprazole 20 MG Cap.CR PO SCH (08:04)
[2019-01-08] MEDS: metFORMIN 500 MG Tab.ER PO SCH ×2 (08:04→21:42)
[2019-01-08] MEDS: Spironolactone 25 MG Tab PO SCH (08:04)
[2019-01-08] MEDS: Metolazone 2.5 MG Tab PO SCH (08:05)
[2019-01-08] MEDS: Magnesium Oxide 500 MG Tab PO SCH (08:05)
[2019-01-08] MEDS: Amiodarone 200 MG Tab PO SCH (08:06)
[2019-01-08] MEDS: Clopidogrel 75 MG Tab PO SCH (08:06)
[2019-01-08] MEDS: Aspirin 81 MG Tab.Chew PO SCH (08:06)
[2019-01-08] MEDS: Potassium Chloride 20 MEQ Tab.ER PO SCH (08:07)
[2019-01-08] MEDS: fluvoxaMINE 100 MG Tab PO SCH ×2 (08:07→21:42)
[2019-01-08] MEDS: Carvedilol 6.25 MG Tab PO SCH ×2 (08:07→18:09)
[2019-01-08] MEDS: Bumetanide 1 MG Tab PO SCH ×2 (08:10→21:42)
[2019-01-08] MEDS: Insulin Aspart 100 Units/ML 3 ML Pen SUBCUT SCH ×2 (08:10→18:05)
[2019-01-08] MEDS: Nystatin Topical Powder 15 GM Bottle TOP SCH ×3 (08:11→21:42)
[2019-01-08] MEDS: VILANTEROL IH SCH (08:39)
[2019-01-08] MEDS: FLUTICASONE IH SCH (08:39)
[2019-01-08] MEDS: Warfarin 2.5 MG Tab PO SCH (18:02)
--- NOTE | 2019-01-08 18:05 | CR ---
[id number] RAD/RAD Ribs Bilateral 3V Exam: RAD Ribs Bilateral 3V Clinical Data: RIGHT RIB PAIN. RECENT TRAUMA COMPARISON: CORRELATION IS MADE WITH THE EXAM OF OCTOBER 14, 2017. FINDINGS: There are fracture deformities of the right ninth and 10th ribs. There may be a fracture of the right 11th rib. The age of the fractures is not obvious but apparently the pain is ongoing and the trauma is recent. If there is abdominal pain, consider contrast CT of the abdomen to evaluate the liver. IMPRESSION: IDENTIFICATION OF LOWER RIGHT RIB FRACTURES NOT SEEN ON THE CHEST RADIOGRAPH OF OCTOBER 14, 2017. Demetri Archuleta MD 01/08/19 [id number] Thank you for allowing us to participate in the care of your patient.
--- NOTE | 2019-01-08 18:07 | CR ---
[id number] RAD/RAD Chest PA And Lateral EXAM: RAD Chest PA And Lateral CLINICAL DATA: RIGHT SIDE CHEST PAIN. HISTORY OF RELATIVELY RECENT TRAUMA. COMPARISON: CORRELATION IS MADE WITH THE EXAM OF SEPTEMBER 11, 2017. FINDINGS: The right rib series today demonstrates relatively recent lower right rib fractures. The exam of October 14, 2017 demonstrated left rib fractures. Currently there is discoid atelectasis at the right lung base. There is also mild pleural reaction at the right lung base. There is no pneumothorax. The cardiomediastinal contour is stable. IMPRESSION: PLEURAL AND PARENCHYMAL CHANGES RIGHT LUNG BASE. RELATIVELY RECENT LOWER RIGHT RIB FRACTURES. IF FURTHER EVALUATION IS NEEDED, CONTRAST CT OF THE CHEST AND ABDOMEN WOULD BE HELPFUL. Demetri Archuleta MD 01/08/19 [id number] Thank you for allowing us to participate in the care of your patient.
[2019-01-08] MEDS: Insulin Glargine,Human Rec. Analog 100 Units/ML 3 ML Pen SUBCUT SCH (21:44)
[2019-01-09] MEDS: Potassium Chloride 20 MEQ Tab.ER PO SCH (08:12)
[2019-01-09] MEDS: Omeprazole 20 MG Cap.CR PO SCH (08:12)
[2019-01-09] MEDS: Aspirin 81 MG Tab.Chew PO SCH (08:12)
[2019-01-09] MEDS: metFORMIN 500 MG Tab.ER PO SCH ×2 (08:12→22:10)
[2019-01-09] MEDS: Magnesium Oxide 500 MG Tab PO SCH (08:12)
[2019-01-09] MEDS: Bumetanide 1 MG Tab PO SCH ×2 (08:12→22:10)
[2019-01-09] MEDS: Amiodarone 200 MG Tab PO SCH (08:12)
[2019-01-09] MEDS: Rosuvastatin 10 MG Tab PO SCH (08:12)
[2019-01-09] MEDS: Clopidogrel 75 MG Tab PO SCH (08:13)
[2019-01-09] MEDS: Spironolactone 25 MG Tab PO SCH (08:13)
[2019-01-09] MEDS: Metolazone 2.5 MG Tab PO SCH (08:13)
[2019-01-09] MEDS: fluvoxaMINE 100 MG Tab PO SCH ×2 (08:13→22:10)
[2019-01-09] MEDS: VILANTEROL IH SCH (08:14)
[2019-01-09] MEDS: Insulin Aspart 100 Units/ML 3 ML Pen SUBCUT SCH ×2 (08:14→17:49)
[2019-01-09] MEDS: Nystatin Topical Powder 15 GM Bottle TOP SCH ×3 (08:14→22:11)
[2019-01-09] MEDS: Carvedilol 6.25 MG Tab PO SCH ×2 (08:14→17:48)
[2019-01-09] MEDS: FLUTICASONE IH SCH (08:14)
[2019-01-09] MEDS: Warfarin 2.5 MG Tab PO SCH (17:48)
[2019-01-09] MEDS: Insulin Glargine,Human Rec. Analog 100 Units/ML 3 ML Pen SUBCUT SCH (22:13)
[2019-01-10] MEDS: Carvedilol 6.25 MG Tab PO SCH ×2 (07:48→18:04)
[2019-01-10] MEDS: Omeprazole 20 MG Cap.CR PO SCH (07:49)
[2019-01-10] MEDS: Spironolactone 25 MG Tab PO SCH (08:09)
[2019-01-10] MEDS: metFORMIN 500 MG Tab.ER PO SCH ×2 (08:09→21:16)
[2019-01-10] MEDS: Amiodarone 200 MG Tab PO SCH (08:09)
[2019-01-10] MEDS: Magnesium Oxide 500 MG Tab PO SCH (08:09)
[2019-01-10] MEDS: fluvoxaMINE 100 MG Tab PO SCH ×2 (08:09→21:17)
[2019-01-10] MEDS: Clopidogrel 75 MG Tab PO SCH (08:09)
[2019-01-10] MEDS: Aspirin 81 MG Tab.Chew PO SCH (08:09)
[2019-01-10] MEDS: Metolazone 2.5 MG Tab PO SCH (08:09)
[2019-01-10] MEDS: Nystatin Topical Powder 15 GM Bottle TOP SCH ×3 (08:10→21:18)
[2019-01-10] MEDS: Insulin Aspart 100 Units/ML 3 ML Pen SUBCUT SCH ×2 (08:10→18:04)
[2019-01-10] MEDS: Bumetanide 1 MG Tab PO SCH ×2 (08:10→21:17)
[2019-01-10] MEDS: Rosuvastatin 10 MG Tab PO SCH (08:10)
[2019-01-10] MEDS: Potassium Chloride 20 MEQ Tab.ER PO SCH (08:10)
[2019-01-10] MEDS: VILANTEROL IH SCH (08:10)
[2019-01-10] MEDS: FLUTICASONE IH SCH (08:10)
[2019-01-10] MEDS: Insulin Glargine,Human Rec. Analog 100 Units/ML 3 ML Pen SUBCUT SCH (21:19)
[2019-01-11] MEDS: Omeprazole 20 MG Cap.CR PO SCH (07:38)
[2019-01-11] MEDS: Carvedilol 6.25 MG Tab PO SCH ×2 (07:38→17:57)
[2019-01-11] MEDS: Insulin Aspart 100 Units/ML 3 ML Pen SUBCUT SCH ×2 (07:39→18:29)
[2019-01-11] MEDS: Potassium Chloride 20 MEQ Tab.ER PO SCH (08:35)
[2019-01-11] MEDS: Amiodarone 200 MG Tab PO SCH (08:35)
[2019-01-11] MEDS: Aspirin 81 MG Tab.Chew PO SCH (08:35)
[2019-01-11] MEDS: VILANTEROL IH SCH (08:35)
[2019-01-11] MEDS: FLUTICASONE IH SCH (08:35)
[2019-01-11] MEDS: Clopidogrel 75 MG Tab PO SCH (08:35)
[2019-01-11] MEDS: Spironolactone 25 MG Tab PO SCH (08:35)
[2019-01-11] MEDS: Bumetanide 1 MG Tab PO SCH ×2 (08:35→21:21)
[2019-01-11] MEDS: metFORMIN 500 MG Tab.ER PO SCH ×2 (08:35→21:21)
[2019-01-11] MEDS: Rosuvastatin 10 MG Tab PO SCH (08:35)
[2019-01-11] MEDS: fluvoxaMINE 100 MG Tab PO SCH ×2 (08:35→21:21)
[2019-01-11] MEDS: Nystatin Topical Powder 15 GM Bottle TOP SCH ×3 (08:36→21:21)
[2019-01-11] MEDS: Metolazone 2.5 MG Tab PO SCH (08:36)
[2019-01-11] MEDS: Magnesium Oxide 500 MG Tab PO SCH (08:36)
[2019-01-11] MEDS: Insulin Glargine,Human Rec. Analog 100 Units/ML 3 ML Pen SUBCUT SCH (21:25)
[2019-01-12] MEDS: Omeprazole 20 MG Cap.CR PO SCH (07:52)
[2019-01-12] MEDS: Insulin Aspart 100 Units/ML 3 ML Pen SUBCUT SCH ×2 (08:36→18:05)
[2019-01-12] MEDS: Aspirin 81 MG Tab.Chew PO SCH (08:37)
[2019-01-12] MEDS: Rosuvastatin 10 MG Tab PO SCH (08:37)
[2019-01-12] MEDS: fluvoxaMINE 100 MG Tab PO SCH ×2 (08:37→20:12)
[2019-01-12] MEDS: Bumetanide 1 MG Tab PO SCH ×2 (08:37→20:12)
[2019-01-12] MEDS: Metolazone 2.5 MG Tab PO SCH (08:37)
[2019-01-12] MEDS: Clopidogrel 75 MG Tab PO SCH (08:37)
[2019-01-12] MEDS: metFORMIN 500 MG Tab.ER PO SCH ×2 (08:37→20:12)
[2019-01-12] MEDS: Spironolactone 25 MG Tab PO SCH (08:38)
[2019-01-12] MEDS: Nystatin Topical Powder 15 GM Bottle TOP SCH ×3 (08:38→20:12)
[2019-01-12] MEDS: Potassium Chloride 20 MEQ Tab.ER PO SCH (08:38)
[2019-01-12] MEDS: Magnesium Oxide 500 MG Tab PO SCH (08:38)
[2019-01-12] MEDS: Amiodarone 200 MG Tab PO SCH (08:38)
[2019-01-12] MEDS: Carvedilol 6.25 MG Tab PO SCH ×2 (08:41→17:54)
[2019-01-12] MEDS: VILANTEROL IH SCH (08:52)
[2019-01-12] MEDS: FLUTICASONE IH SCH (08:52)
[2019-01-12] MEDS: Insulin Glargine,Human Rec. Analog 100 Units/ML 3 ML Pen SUBCUT SCH (20:13)
[2019-01-13] MEDS: Magnesium Oxide 500 MG Tab PO SCH (08:13)
[2019-01-13] MEDS: metFORMIN 500 MG Tab.ER PO SCH ×2 (08:13→21:11)
[2019-01-13] MEDS: fluvoxaMINE 100 MG Tab PO SCH ×2 (08:13→21:11)
[2019-01-13] MEDS: Potassium Chloride 20 MEQ Tab.ER PO SCH (08:14)
[2019-01-13] MEDS: Rosuvastatin 10 MG Tab PO SCH (08:14)
[2019-01-13] MEDS: Aspirin 81 MG Tab.Chew PO SCH (08:14)
[2019-01-13] MEDS: Clopidogrel 75 MG Tab PO SCH (08:14)
[2019-01-13] MEDS: Spironolactone 25 MG Tab PO SCH (08:14)
[2019-01-13] MEDS: Metolazone 2.5 MG Tab PO SCH (08:14)
[2019-01-13] MEDS: Bumetanide 1 MG Tab PO SCH ×2 (08:14→21:11)
[2019-01-13] MEDS: Amiodarone 200 MG Tab PO SCH (08:14)
[2019-01-13] MEDS: Omeprazole 20 MG Cap.CR PO SCH (08:14)
[2019-01-13] MEDS: Carvedilol 6.25 MG Tab PO SCH ×2 (08:15→17:35)
[2019-01-13] MEDS: Insulin Aspart 100 Units/ML 3 ML Pen SUBCUT SCH ×2 (08:16→17:17)
[2019-01-13] MEDS: Nystatin Topical Powder 15 GM Bottle TOP SCH ×3 (08:17→21:14)
[2019-01-13] MEDS: VILANTEROL IH SCH (08:27)
[2019-01-13] MEDS: FLUTICASONE IH SCH (08:27)
[2019-01-13] MEDS: Magnesium Hydroxide 400 MG/5 ML Susp 30 ML Cup PO PRN (14:21)
[2019-01-13] MEDS: Warfarin 2.5 MG Tab PO SCH (17:35)
[2019-01-13] MEDS: Insulin Glargine,Human Rec. Analog 100 Units/ML 3 ML Pen SUBCUT SCH (21:11)
[2019-01-14] MEDS: Omeprazole 20 MG Cap.CR PO SCH (07:35)
[2019-01-14] MEDS: Rosuvastatin 10 MG Tab PO SCH (08:19)
[2019-01-14] MEDS: Aspirin 81 MG Tab.Chew PO SCH (08:20)
[2019-01-14] MEDS: Bumetanide 1 MG Tab PO SCH ×2 (08:20→20:07)
[2019-01-14] MEDS: Spironolactone 25 MG Tab PO SCH (08:21)
[2019-01-14] MEDS: Clopidogrel 75 MG Tab PO SCH (08:22)
[2019-01-14] MEDS: Amiodarone 200 MG Tab PO SCH (08:22)
[2019-01-14] MEDS: Magnesium Oxide 500 MG Tab PO SCH (08:22)
[2019-01-14] MEDS: Carvedilol 6.25 MG Tab PO SCH ×2 (08:23→17:53)
[2019-01-14] MEDS: Potassium Chloride 20 MEQ Tab.ER PO SCH (08:24)
[2019-01-14] MEDS: fluvoxaMINE 100 MG Tab PO SCH ×2 (08:24→20:07)
[2019-01-14] MEDS: metFORMIN 500 MG Tab.ER PO SCH ×2 (08:25→20:08)
[2019-01-14] MEDS: Metolazone 2.5 MG Tab PO SCH (08:25)
[2019-01-14] MEDS: Insulin Aspart 100 Units/ML 3 ML Pen SUBCUT SCH ×2 (08:26→17:26)
[2019-01-14] MEDS: Nystatin Topical Powder 15 GM Bottle TOP SCH ×3 (08:26→20:08)
[2019-01-14] MEDS: FLUTICASONE IH SCH (08:54)
[2019-01-14] MEDS: VILANTEROL IH SCH (08:54)
[2019-01-14] MEDS: Warfarin 2 MG Tab PO SCH (17:53)
[2019-01-14] MEDS: Insulin Glargine,Human Rec. Analog 100 Units/ML 3 ML Pen SUBCUT SCH (20:08)
[2019-01-15] MEDS: Omeprazole 20 MG Cap.CR PO SCH (07:28)
[2019-01-15] MEDS: Clopidogrel 75 MG Tab PO SCH (08:28)
[2019-01-15] MEDS: metFORMIN 500 MG Tab.ER PO SCH ×2 (08:28→20:47)
[2019-01-15] MEDS: Rosuvastatin 10 MG Tab PO SCH (08:28)
[2019-01-15] MEDS: fluvoxaMINE 100 MG Tab PO SCH ×2 (08:28→20:47)
[2019-01-15] MEDS: Carvedilol 6.25 MG Tab PO SCH ×2 (08:29→18:06)
[2019-01-15] MEDS: Metolazone 2.5 MG Tab PO SCH (08:30)
[2019-01-15] MEDS: Potassium Chloride 20 MEQ Tab.ER PO SCH (08:30)
[2019-01-15] MEDS: Bumetanide 1 MG Tab PO SCH ×2 (08:30→20:47)
[2019-01-15] MEDS: Magnesium Oxide 500 MG Tab PO SCH (08:31)
[2019-01-15] MEDS: Spironolactone 25 MG Tab PO SCH (08:31)
[2019-01-15] MEDS: Amiodarone 200 MG Tab PO SCH (08:32)
[2019-01-15] MEDS: Aspirin 81 MG Tab.Chew PO SCH (08:32)
[2019-01-15] MEDS: Nystatin Topical Powder 15 GM Bottle TOP SCH ×3 (08:38→20:47)
[2019-01-15] MEDS: Insulin Aspart 100 Units/ML 3 ML Pen SUBCUT SCH ×2 (09:17→18:12)
[2019-01-15] MEDS: FLUTICASONE IH SCH (09:56)
[2019-01-15] MEDS: VILANTEROL IH SCH (09:56)
[2019-01-15] MEDS: Warfarin 2.5 MG Tab PO SCH (18:10)
[2019-01-15] MEDS: Insulin Glargine,Human Rec. Analog 100 Units/ML 3 ML Pen SUBCUT SCH (20:47)
[2019-01-16] MEDS: Carvedilol 6.25 MG Tab PO SCH ×3 (07:59→17:20)
[2019-01-16] MEDS: Omeprazole 20 MG Cap.CR PO SCH (07:59)
[2019-01-16] MEDS: metFORMIN 500 MG Tab.ER PO SCH ×2 (10:04→21:15)
[2019-01-16] MEDS: Magnesium Oxide 500 MG Tab PO SCH (10:04)
[2019-01-16] MEDS: Spironolactone 25 MG Tab PO SCH (10:04)
[2019-01-16] MEDS: Bumetanide 1 MG Tab PO SCH ×2 (10:04→21:15)
[2019-01-16] MEDS: Potassium Chloride 20 MEQ Tab.ER PO SCH (10:04)
[2019-01-16] MEDS: Aspirin 81 MG Tab.Chew PO SCH (10:05)
[2019-01-16] MEDS: VILANTEROL IH SCH (10:05)
[2019-01-16] MEDS: Rosuvastatin 10 MG Tab PO SCH (10:05)
[2019-01-16] MEDS: fluvoxaMINE 100 MG Tab PO SCH ×2 (10:05→21:15)
[2019-01-16] MEDS: FLUTICASONE IH SCH (10:05)
[2019-01-16] MEDS: Metolazone 2.5 MG Tab PO SCH (10:05)
[2019-01-16] MEDS: Clopidogrel 75 MG Tab PO SCH (10:05)
[2019-01-16] MEDS: Amiodarone 200 MG Tab PO SCH (10:05)
[2019-01-16] MEDS: Nystatin Topical Powder 15 GM Bottle TOP SCH ×3 (10:05→21:14)
[2019-01-16] MEDS: Insulin Aspart 100 Units/ML 3 ML Pen SUBCUT SCH ×2 (10:06→18:34)
[2019-01-16] MEDS: Warfarin 2 MG Tab PO SCH (17:18)
[2019-01-16] MEDS: Insulin Glargine,Human Rec. Analog 100 Units/ML 3 ML Pen SUBCUT SCH (21:14)
[2019-01-17] MEDS: Omeprazole 20 MG Cap.CR PO SCH (08:31)
[2019-01-17] MEDS: Insulin Aspart 100 Units/ML 3 ML Pen SUBCUT SCH ×2 (08:31→17:33)
[2019-01-17] MEDS: Bumetanide 1 MG Tab PO SCH ×2 (08:32→20:45)
[2019-01-17] MEDS: Metolazone 2.5 MG Tab PO SCH (08:32)
[2019-01-17] MEDS: Clopidogrel 75 MG Tab PO SCH (08:33)
[2019-01-17] MEDS: metFORMIN 500 MG Tab.ER PO SCH ×2 (08:33→20:46)
[2019-01-17] MEDS: fluvoxaMINE 100 MG Tab PO SCH ×2 (08:33→20:45)
[2019-01-17] MEDS: Potassium Chloride 20 MEQ Tab.ER PO SCH (08:33)
[2019-01-17] MEDS: Rosuvastatin 10 MG Tab PO SCH (08:34)
[2019-01-17] MEDS: Aspirin 81 MG Tab.Chew PO SCH (08:34)
[2019-01-17] MEDS: Carvedilol 6.25 MG Tab PO SCH ×2 (08:34→17:43)
[2019-01-17] MEDS: Amiodarone 200 MG Tab PO SCH (08:34)
[2019-01-17] MEDS: Magnesium Oxide 500 MG Tab PO SCH (08:36)
[2019-01-17] MEDS: Spironolactone 25 MG Tab PO SCH (08:36)
[2019-01-17] MEDS: Nystatin Topical Powder 15 GM Bottle TOP SCH ×3 (08:37→20:45)
[2019-01-17] MEDS: VILANTEROL IH SCH (08:37)
[2019-01-17] MEDS: FLUTICASONE IH SCH (08:37)
[2019-01-17] MEDS: Warfarin 2.5 MG Tab PO SCH (17:43)
[2019-01-17] MEDS: Insulin Glargine,Human Rec. Analog 100 Units/ML 3 ML Pen SUBCUT SCH (20:44)
[2019-01-17] MEDS: Magnesium Hydroxide 400 MG/5 ML Susp 30 ML Cup PO PRN (20:45)
[2019-01-18] MEDS: Omeprazole 20 MG Cap.CR PO SCH (08:00)
[2019-01-18] MEDS: Insulin Aspart 100 Units/ML 3 ML Pen SUBCUT SCH ×2 (09:03→18:06)
[2019-01-18] MEDS: Potassium Chloride 20 MEQ Tab.ER PO SCH (09:04)
[2019-01-18] MEDS: Rosuvastatin 10 MG Tab PO SCH (09:04)
[2019-01-18] MEDS: Spironolactone 25 MG Tab PO SCH (09:04)
[2019-01-18] MEDS: fluvoxaMINE 100 MG Tab PO SCH ×2 (09:04→20:39)
[2019-01-18] MEDS: metFORMIN 500 MG Tab.ER PO SCH ×2 (09:04→20:39)
[2019-01-18] MEDS: Clopidogrel 75 MG Tab PO SCH (09:04)
[2019-01-18] MEDS: Metolazone 2.5 MG Tab PO SCH (09:06)
[2019-01-18] MEDS: Carvedilol 6.25 MG Tab PO SCH ×2 (09:06→18:06)
[2019-01-18] MEDS: Bumetanide 1 MG Tab PO SCH ×2 (09:06→20:39)
[2019-01-18] MEDS: Aspirin 81 MG Tab.Chew PO SCH (09:07)
[2019-01-18] MEDS: Amiodarone 200 MG Tab PO SCH (09:07)
[2019-01-18] MEDS: Magnesium Oxide 500 MG Tab PO SCH (09:07)
[2019-01-18] MEDS: VILANTEROL IH SCH (09:10)
[2019-01-18] MEDS: Nystatin Topical Powder 15 GM Bottle TOP SCH ×3 (09:10→20:39)
[2019-01-18] MEDS: FLUTICASONE IH SCH (09:10)
[2019-01-18] MEDS: Warfarin 2.5 MG Tab PO SCH (18:05)
[2019-01-18] MEDS: Insulin Glargine,Human Rec. Analog 100 Units/ML 3 ML Pen SUBCUT SCH (20:40)
[2019-01-19] MEDS: Aspirin 81 MG Tab.Chew PO SCH (07:59)
[2019-01-19] MEDS: Rosuvastatin 10 MG Tab PO SCH (07:59)
[2019-01-19] MEDS: Metolazone 2.5 MG Tab PO SCH (07:59)
[2019-01-19] MEDS: Insulin Aspart 100 Units/ML 3 ML Pen SUBCUT SCH ×2 (07:59→17:51)
[2019-01-19] MEDS: fluvoxaMINE 100 MG Tab PO SCH ×2 (08:00→21:07)
[2019-01-19] MEDS: Magnesium Oxide 500 MG Tab PO SCH (08:00)
[2019-01-19] MEDS: Bumetanide 1 MG Tab PO SCH ×2 (08:00→21:07)
[2019-01-19] MEDS: Clopidogrel 75 MG Tab PO SCH (08:00)
[2019-01-19] MEDS: Spironolactone 25 MG Tab PO SCH (08:00)
[2019-01-19] MEDS: Potassium Chloride 20 MEQ Tab.ER PO SCH (08:00)
[2019-01-19] MEDS: Amiodarone 200 MG Tab PO SCH (08:00)
[2019-01-19] MEDS: Omeprazole 20 MG Cap.CR PO SCH (08:00)
[2019-01-19] MEDS: metFORMIN 500 MG Tab.ER PO SCH ×2 (08:01→21:07)
[2019-01-19] MEDS: Carvedilol 6.25 MG Tab PO SCH ×2 (08:06→17:40)
[2019-01-19] MEDS: FLUTICASONE IH SCH (08:30)
[2019-01-19] MEDS: VILANTEROL IH SCH (08:30)
[2019-01-19] MEDS: Nystatin Topical Powder 15 GM Bottle TOP SCH ×3 (09:38→21:13)
[2019-01-19] MEDS: Insulin Glargine,Human Rec. Analog 100 Units/ML 3 ML Pen SUBCUT SCH (21:07)
[2019-01-20] MEDS: VILANTEROL IH SCH (08:14)
[2019-01-20] MEDS: FLUTICASONE IH SCH (08:14)
[2019-01-20] MEDS: Omeprazole 20 MG Cap.CR PO SCH (08:26)
[2019-01-20] MEDS: fluvoxaMINE 100 MG Tab PO SCH ×2 (08:26→20:45)
[2019-01-20] MEDS: Rosuvastatin 10 MG Tab PO SCH (08:26)
[2019-01-20] MEDS: metFORMIN 500 MG Tab.ER PO SCH ×2 (08:26→20:45)
[2019-01-20] MEDS: Potassium Chloride 20 MEQ Tab.ER PO SCH (08:26)
[2019-01-20] MEDS: Clopidogrel 75 MG Tab PO SCH (08:26)
[2019-01-20] MEDS: Aspirin 81 MG Tab.Chew PO SCH (08:26)
[2019-01-20] MEDS: Bumetanide 1 MG Tab PO SCH ×2 (08:26→20:44)
[2019-01-20] MEDS: Amiodarone 200 MG Tab PO SCH (08:27)
[2019-01-20] MEDS: Nystatin Topical Powder 15 GM Bottle TOP SCH ×3 (08:27→20:45)
[2019-01-20] MEDS: Carvedilol 6.25 MG Tab PO SCH ×2 (08:27→18:03)
[2019-01-20] MEDS: Spironolactone 25 MG Tab PO SCH (08:27)
[2019-01-20] MEDS: Metolazone 2.5 MG Tab PO SCH (08:27)
[2019-01-20] MEDS: Magnesium Oxide 500 MG Tab PO SCH (08:27)
[2019-01-20] MEDS: Insulin Aspart 100 Units/ML 3 ML Pen SUBCUT SCH ×2 (10:14→18:03)
[2019-01-20] MEDS: Warfarin 2 MG Tab PO SCH (18:03)
[2019-01-20] MEDS: Insulin Glargine,Human Rec. Analog 100 Units/ML 3 ML Pen SUBCUT SCH (20:45)
[2019-01-21] MEDS: Bumetanide 1 MG Tab PO SCH ×2 (08:05→21:23)
[2019-01-21] MEDS: Clopidogrel 75 MG Tab PO SCH (08:06)
[2019-01-21] MEDS: Magnesium Oxide 500 MG Tab PO SCH (08:06)
[2019-01-21] MEDS: Omeprazole 20 MG Cap.CR PO SCH (08:06)
[2019-01-21] MEDS: Potassium Chloride 20 MEQ Tab.ER PO SCH (08:06)
[2019-01-21] MEDS: Metolazone 2.5 MG Tab PO SCH (08:07)
[2019-01-21] MEDS: metFORMIN 500 MG Tab.ER PO SCH ×2 (08:07→21:24)
[2019-01-21] MEDS: Rosuvastatin 10 MG Tab PO SCH (08:07)
[2019-01-21] MEDS: fluvoxaMINE 100 MG Tab PO SCH ×2 (08:07→21:24)
[2019-01-21] MEDS: Spironolactone 25 MG Tab PO SCH (08:07)
[2019-01-21] MEDS: Aspirin 81 MG Tab.Chew PO SCH (08:07)
[2019-01-21] MEDS: Carvedilol 6.25 MG Tab PO SCH ×2 (08:14→17:46)
[2019-01-21] MEDS: Amiodarone 200 MG Tab PO SCH (08:15)
[2019-01-21] MEDS: Insulin Aspart 100 Units/ML 3 ML Pen SUBCUT SCH ×2 (09:48→18:17)
[2019-01-21] MEDS: Nystatin Topical Powder 15 GM Bottle TOP SCH ×3 (10:07→21:26)
[2019-01-21] MEDS: FLUTICASONE IH SCH (10:16)
[2019-01-21] MEDS: VILANTEROL IH SCH (10:16)
[2019-01-21] MEDS: Warfarin 2 MG Tab PO SCH (17:47)
[2019-01-21] MEDS: Insulin Glargine,Human Rec. Analog 100 Units/ML 3 ML Pen SUBCUT SCH (21:24)
[2019-01-22] MEDS: Omeprazole 20 MG Cap.CR PO SCH (06:33)
[2019-01-22] MEDS: Insulin Aspart 100 Units/ML 3 ML Pen SUBCUT SCH ×2 (07:54→18:08)
[2019-01-22] MEDS: FLUTICASONE IH SCH (08:04)
[2019-01-22] MEDS: VILANTEROL IH SCH (08:04)
[2019-01-22] MEDS: Magnesium Oxide 500 MG Tab PO SCH (08:13)
[2019-01-22] MEDS: Aspirin 81 MG Tab.Chew PO SCH (08:13)
[2019-01-22] MEDS: Carvedilol 6.25 MG Tab PO SCH ×2 (08:13→17:58)
[2019-01-22] MEDS: Amiodarone 200 MG Tab PO SCH (08:14)
[2019-01-22] MEDS: metFORMIN 500 MG Tab.ER PO SCH ×2 (08:14→21:16)
[2019-01-22] MEDS: Metolazone 2.5 MG Tab PO SCH (08:14)
[2019-01-22] MEDS: fluvoxaMINE 100 MG Tab PO SCH ×2 (08:14→21:17)
[2019-01-22] MEDS: Potassium Chloride 20 MEQ Tab.ER PO SCH (08:14)
[2019-01-22] MEDS: Bumetanide 1 MG Tab PO SCH (08:15)
[2019-01-22] MEDS: Spironolactone 25 MG Tab PO SCH (08:15)
[2019-01-22] MEDS: Clopidogrel 75 MG Tab PO SCH (08:15)
[2019-01-22] MEDS: Rosuvastatin 10 MG Tab PO SCH (08:15)
[2019-01-22] MEDS: Nystatin Topical Powder 15 GM Bottle TOP SCH ×3 (08:18→21:14)
[2019-01-22] MEDS: Warfarin 2 MG Tab PO SCH (17:58)
[2019-01-22] MEDS: Insulin Glargine,Human Rec. Analog 100 Units/ML 3 ML Pen SUBCUT SCH (21:18)
[2019-01-23] MEDS: Omeprazole 20 MG Cap.CR PO SCH (06:33)
[2019-01-23] MEDS: Carvedilol 6.25 MG Tab PO SCH ×2 (08:01→18:06)
[2019-01-23] MEDS: Insulin Aspart 100 Units/ML 3 ML Pen SUBCUT SCH ×2 (08:03→18:08)
[2019-01-23] MEDS: Potassium Chloride 20 MEQ Tab.ER PO SCH (08:38)
[2019-01-23] MEDS: Clopidogrel 75 MG Tab PO SCH (08:39)
[2019-01-23] MEDS: Spironolactone 25 MG Tab PO SCH (08:39)
[2019-01-23] MEDS: Magnesium Oxide 500 MG Tab PO SCH (08:39)
[2019-01-23] MEDS: fluvoxaMINE 100 MG Tab PO SCH ×2 (08:39→21:13)
[2019-01-23] MEDS: Bumetanide 1 MG Tab PO SCH ×2 (08:40→21:15)
[2019-01-23] MEDS: metFORMIN 500 MG Tab.ER PO SCH ×2 (08:40→21:13)
[2019-01-23] MEDS: Rosuvastatin 10 MG Tab PO SCH (08:41)
[2019-01-23] MEDS: Amiodarone 200 MG Tab PO SCH (08:41)
[2019-01-23] MEDS: Nystatin Topical Powder 15 GM Bottle TOP SCH ×3 (10:25→21:14)
[2019-01-23] MEDS: FLUTICASONE IH SCH (10:25)
[2019-01-23] MEDS: VILANTEROL IH SCH (10:25)
[2019-01-23] MEDS ORDERED: Warfarin 2.5 MG Tab PO SCH (18:00)
[2019-01-23] MEDS: Warfarin 2.5 MG Tab PO SCH (18:06)
[2019-01-23] MEDS: Magnesium Hydroxide 400 MG/5 ML Susp 30 ML Cup PO PRN (21:12)
[2019-01-23] MEDS: Insulin Glargine,Human Rec. Analog 100 Units/ML 3 ML Pen SUBCUT SCH (21:18)
[2019-01-24] MEDS: Carvedilol 6.25 MG Tab PO SCH ×2 (07:51→18:12)
[2019-01-24] MEDS: Omeprazole 20 MG Cap.CR PO SCH (07:51)
[2019-01-24] MEDS: Insulin Aspart 100 Units/ML 3 ML Pen SUBCUT SCH ×2 (09:00→18:12)
[2019-01-24] MEDS: Clopidogrel 75 MG Tab PO SCH (09:51)
[2019-01-24] MEDS: metFORMIN 500 MG Tab.ER PO SCH ×2 (09:51→22:04)
[2019-01-24] MEDS: fluvoxaMINE 100 MG Tab PO SCH ×2 (09:51→22:04)
[2019-01-24] MEDS: Potassium Chloride 20 MEQ Tab.ER PO SCH (09:51)
[2019-01-24] MEDS: Spironolactone 25 MG Tab PO SCH (09:52)
[2019-01-24] MEDS: Magnesium Oxide 500 MG Tab PO SCH (09:52)
[2019-01-24] MEDS: VILANTEROL IH SCH (09:52)
[2019-01-24] MEDS: Nystatin Topical Powder 15 GM Bottle TOP SCH ×3 (09:52→22:05)
[2019-01-24] MEDS: Rosuvastatin 10 MG Tab PO SCH (09:52)
[2019-01-24] MEDS: FLUTICASONE IH SCH (09:52)
[2019-01-24] MEDS: Amiodarone 200 MG Tab PO SCH (09:52)
[2019-01-24] MEDS: Bumetanide 1 MG Tab PO SCH ×2 (09:52→22:04)
[2019-01-24] MEDS: Insulin Glargine,Human Rec. Analog 100 Units/ML 3 ML Pen SUBCUT SCH (22:05)
[2019-01-25] MEDS: Omeprazole 20 MG Cap.CR PO SCH (06:41)
[2019-01-25] MEDS: Carvedilol 6.25 MG Tab PO SCH ×2 (08:02→17:06)
[2019-01-25] MEDS: Insulin Aspart 100 Units/ML 3 ML Pen SUBCUT SCH ×2 (08:03→18:16)
[2019-01-25] MEDS: Spironolactone 25 MG Tab PO SCH (09:02)
[2019-01-25] MEDS: Bumetanide 1 MG Tab PO SCH ×2 (09:02→21:46)
[2019-01-25] MEDS: metFORMIN 500 MG Tab.ER PO SCH ×2 (09:03→21:45)
[2019-01-25] MEDS: Magnesium Oxide 500 MG Tab PO SCH (09:03)
[2019-01-25] MEDS: Rosuvastatin 10 MG Tab PO SCH (09:03)
[2019-01-25] MEDS: Clopidogrel 75 MG Tab PO SCH (09:03)
[2019-01-25] MEDS: Amiodarone 200 MG Tab PO SCH (09:04)
[2019-01-25] MEDS: fluvoxaMINE 100 MG Tab PO SCH ×2 (09:04→21:46)
[2019-01-25] MEDS: Potassium Chloride 20 MEQ Tab.ER PO SCH (09:04)
[2019-01-25] MEDS: Nystatin Topical Powder 15 GM Bottle TOP SCH ×3 (09:05→21:47)
[2019-01-25] MEDS: VILANTEROL IH SCH (09:06)
[2019-01-25] MEDS: FLUTICASONE IH SCH (09:06)
[2019-01-25] MEDS: Insulin Glargine,Human Rec. Analog 100 Units/ML 3 ML Pen SUBCUT SCH (21:45)
[2019-01-26] MEDS: Omeprazole 20 MG Cap.CR PO SCH (06:37)
[2019-01-26] MEDS: Insulin Aspart 100 Units/ML 3 ML Pen SUBCUT SCH ×2 (08:27→18:13)
[2019-01-26] MEDS: Spironolactone 25 MG Tab PO SCH (08:27)
[2019-01-26] MEDS: metFORMIN 500 MG Tab.ER PO SCH ×2 (08:28→20:08)
[2019-01-26] MEDS: Rosuvastatin 10 MG Tab PO SCH (08:28)
[2019-01-26] MEDS: Magnesium Oxide 500 MG Tab PO SCH (08:28)
[2019-01-26] MEDS: Potassium Chloride 20 MEQ Tab.ER PO SCH (08:28)
[2019-01-26] MEDS: Bumetanide 1 MG Tab PO SCH ×2 (08:28→20:08)
[2019-01-26] MEDS: fluvoxaMINE 100 MG Tab PO SCH ×2 (08:29→20:08)
[2019-01-26] MEDS: Clopidogrel 75 MG Tab PO SCH (08:29)
[2019-01-26] MEDS: Nystatin Topical Powder 15 GM Bottle TOP SCH ×3 (08:30→20:08)
[2019-01-26] MEDS: Amiodarone 200 MG Tab PO SCH (08:30)
[2019-01-26] MEDS: Carvedilol 6.25 MG Tab PO SCH ×2 (08:31→18:30)
[2019-01-26] MEDS: VILANTEROL IH SCH (08:35)
[2019-01-26] MEDS: FLUTICASONE IH SCH (08:35)
[2019-01-26] MEDS: Warfarin 2.5 MG Tab PO SCH (18:29)
[2019-01-26] MEDS: Insulin Glargine,Human Rec. Analog 100 Units/ML 3 ML Pen SUBCUT SCH (20:09)
[2019-01-27] MEDS: Omeprazole 20 MG Cap.CR PO SCH (07:44)
[2019-01-27] MEDS: Carvedilol 6.25 MG Tab PO SCH ×2 (07:45→19:27)
[2019-01-27] MEDS: FLUTICASONE IH SCH (08:42)
[2019-01-27] MEDS: VILANTEROL IH SCH (08:42)
[2019-01-27] MEDS: metFORMIN 500 MG Tab.ER PO SCH ×2 (09:07→20:56)
[2019-01-27] MEDS: Spironolactone 25 MG Tab PO SCH (09:07)
[2019-01-27] MEDS: Potassium Chloride 20 MEQ Tab.ER PO SCH (09:07)
[2019-01-27] MEDS: Magnesium Oxide 500 MG Tab PO SCH (09:07)
[2019-01-27] MEDS: Rosuvastatin 10 MG Tab PO SCH (09:07)
[2019-01-27] MEDS: Amiodarone 200 MG Tab PO SCH (09:07)
[2019-01-27] MEDS: Bumetanide 1 MG Tab PO SCH ×2 (09:08→20:57)
[2019-01-27] MEDS: Nystatin Topical Powder 15 GM Bottle TOP SCH ×3 (09:08→20:55)
[2019-01-27] MEDS: fluvoxaMINE 100 MG Tab PO SCH ×2 (09:08→20:56)
[2019-01-27] MEDS: Clopidogrel 75 MG Tab PO SCH (09:08)
[2019-01-27] MEDS: Insulin Aspart 100 Units/ML 3 ML Pen SUBCUT SCH ×2 (09:40→18:11)
--- NOTE | 2019-01-27 10:37 | PCM.SN ---
- Free Text/Narrative Note: Was asked to see patient improves on lower back. Nursing report patient likely sustained a bruise to his back after "flopping" down hard on toilet a few days ago. Patient has no mechanism of injury recollection. I had patient walked to the bathroom and it appears the metal area on the back of the toilet could match the area as described by nursing could reproduce the area of concern. Physical exam: mid lower lumbar 5 cm annular bruise noted, appears to have actinic keratosis in the center. Plan, demarcated with a skin pen. Ice. Will monitor for any sequela.
[2019-01-27] MEDS ORDERED: amLODIPine 5 MG Tab PO SCH (11:00)
[2019-01-27] MEDS ORDERED: Benazepril 10 MG Tab PO SCH (11:00)
[2019-01-27] MEDS: Benazepril 10 MG Tab PO SCH (11:52)
[2019-01-27] MEDS: amLODIPine 5 MG Tab PO SCH (11:52)
[2019-01-27] MEDS: Warfarin 2 MG Tab PO SCH (18:10)
[2019-01-27] MEDS ORDERED: Sodium Chloride 0.9% 1,000 ML IV SCH ×2 (18:15→19:14)
[2019-01-27] MEDS: Sodium Chloride 0.9% 1,000 ML IV SCH (19:20)
[2019-01-27 20:50] LABS: ANION GAP 15.9 mmol/L (5-15); CHLORIDE,CL 95 mmol/L (98-115); SODIUM,NA 136 mmol/L (136-145)
[2019-01-27] MEDS: Insulin Glargine,Human Rec. Analog 100 Units/ML 3 ML Pen SUBCUT SCH (20:56)
[2019-01-28] MEDS: Sodium Chloride 0.9% 1,000 ML IV SCH ×2 (01:05→18:56)
[2019-01-28] MEDS: Omeprazole 20 MG Cap.CR PO SCH (07:23)
[2019-01-28] MEDS: Insulin Aspart 100 Units/ML 3 ML Pen SUBCUT SCH ×2 (07:24→17:54)
[2019-01-28] MEDS: fluvoxaMINE 100 MG Tab PO SCH ×2 (08:13→20:56)
[2019-01-28] MEDS: Clopidogrel 75 MG Tab PO SCH (08:13)
[2019-01-28] MEDS: Magnesium Oxide 500 MG Tab PO SCH (08:13)
[2019-01-28] MEDS: metFORMIN 500 MG Tab.ER PO SCH (08:13)
[2019-01-28] MEDS: Amiodarone 200 MG Tab PO SCH (08:13)
[2019-01-28] MEDS: Rosuvastatin 10 MG Tab PO SCH (08:13)
[2019-01-28] MEDS: Potassium Chloride 20 MEQ Tab.ER PO SCH (08:14)
[2019-01-28] MEDS: Nystatin Topical Powder 15 GM Bottle TOP SCH ×3 (08:17→20:56)
--- NOTE | 2019-01-28 09:19 | PCM.PN ---
- General Info Date of Service: 01/28/19 Functional Status: Reports: Pain Controlled, Tolerating Diet, Ambulating ( Assistants), New Symptoms (Slight lightheadedness upon standing) - Review of Systems General: Denies: Fever, Weakness, Fatigue, Chills HEENT: Reports: No Symptoms Pulmonary: Denies: Shortness of Breath, Cough Cardiovascular: Reports: Orthopnea, Lightheadedness. Denies: Chest Pain, Palpitations, PND, Edema Gastrointestinal: Reports: No Symptoms Genitourinary: Reports: No Symptoms Skin: Reports: Bruising, Other (Bruise middle lower back). Denies: Cyanosis Neurological: Reports: Pre-Existing Deficit, Difficulty Walking, Gait Disturbance. Denies: Confusion, Numbness - Patient Data Vitals - Most Recent: Last Vital Signs Temp 96.7 F 01/28/19 06:40 Pulse 65 01/28/19 06:40 Resp 20 01/28/19 06:40 BP 89/47 L 01/28/19 06:40 Pulse Ox 95 01/28/19 06:40 Weight - Most Recent: 233 lb 4.8 oz I&O - Last 24 Hours: Intake & Output 01/27/19 01/28/19 01/28/19 22:59 06:59 14:59 Intake Total 350 1331 Output Total 100 Balance 350 1231 Lab Results Last 24 Hours: Laboratory Results - last 24 hr 01/27/19 01/27/19 01/27/19 Range/Units 11:35 14:57 17:21 PT TNP INR 2.2 H (0.9-1.1) Sodium (136-145) mmol/L Potassium (3.3-5.3) mmol/L Chloride (98-115) mmol/L Carbon Dioxide (21.0-32.0) mmol/L Anion Gap (5-15) mmol/L BUN (6-25) mg/dL Creatinine (0.51-1.17) mg/dL Est Cr Clr Drug Dosing mL/min Estimated GFR (MDRD) mL/min Glucose (75 - 99) mg/dL POC Glucose 171 H 169 H (74-106) mg/dl Calcium (8.7-10.3) mg/dL Troponin I (0.00-0.070) ng/mL 01/27/19 01/28/19 01/28/19 Range/Units 20:15 07:10 07:24 PT TNP INR 2.5 H (0.9-1.1) Sodium 136 (136-145) mmol/L Potassium 4.1 (3.3-5.3) mmol/L Chloride 95 L (98-115) mmol/L Carbon Dioxide 29.2 (21.0-32.0) mmol/L Anion Gap 15.9 H (5-15) mmol/L BUN 54 H* (6-25) mg/dL Creatinine 2.72 H (0.51-1.17) mg/dL Est Cr Clr Drug Dosing 24.97 mL/min Estimated GFR (MDRD) 23 mL/min Glucose 173 H (75 - 99) mg/dL POC Glucose 135 H (74-106) mg/dl Calcium 9.1 (8.7-10.3) mg/dL Troponin I < 0.04 (0.00-0.070) ng/mL Med Orders - Current: Current Medications Albuterol/Ipratropium (Duoneb 3.0-0.5 Mg/3 Ml) 3 ml NEB Q4HRRT PRN PRN Reason: Shortness of Breath Amiodarone HCl (Cordarone) 200 mg PO DAILY [facility] Last Admin: 01/28/19 08:13 Dose: 200 mg Amlodipine Besylate (Norvasc) 5 mg PO DAILY [facility] Last Admin: 01/27/19 11:52 Dose: 5 mg Atropine Sulfate (Atropine 0.1 Mg/Ml) 0 mg IVPUSH ASDIRECTED PRN PRN Reason: Heart. Benazepril HCl (Lotensin) 20 mg PO DAILY [facility] Last Admin: 01/27/19 11:52 Dose: 20 mg Bumetanide (Bumex) 2 mg PO BID [facility] Last Admin: 01/27/19 20:57 Dose: Not Given Carvedilol (Coreg) 6.25 mg PO BIDMEALS [facility] Last Admin: 01/27/19 19:27 Dose: Not Given Clopidogrel Bisulfate (Plavix) 75 mg PO DAILY [facility] Last Admin: 01/28/19 08:13 Dose: 75 mg Epinephrine HCl (Epinephrine 1:10,000) 1 mg IVPUSH ASDIRECTED PRN PRN Reason: Heart. Fluticasone/Vilanterol (Breo Ellipta 100-25 Mcg Inhalation Kit) 1 each IH DAILY [facility] Last Admin: 01/27/19 08:42 Dose: 1 each Fluvoxamine Maleate (Luvox) 100 mg PO BID [facility] Last Admin: 01/28/19 08:13 Dose: 100 mg Sodium Chloride (Normal Saline) 1,000 mls @ 60 mls/hr IV ASDIRECTED [facility] Last Admin: 01/28/19 01:05 Dose: 60 mls/hr Insulin Aspart (Novolog) 0 unit SUBCUT BIDMEALS [facility]; Protocol Last Admin: 01/28/19 07:24 Dose: Not Given Insulin Glargine (Lantus Solostar) 22 units SUBCUT BEDTIME [facility] Last Admin: 01/27/19 20:56 Dose: 22 units Lidocaine HCl (Xylocaine 2%) 0 mg IVPUSH ASDIRECTED PRN PRN Reason: Heart. Magnesium Hydroxide (Milk Of Magnesia) 30 ml PO DAILY PRN PRN Reason: Constipation Last Admin: 01/23/19 21:12 Dose: 30 ml Magnesium Oxide (Magnesium Oxide) 250 mg PO DAILY [facility] Last Admin: 01/28/19 08:13 Dose: 250 mg Metformin HCl (Glucophage Xr) 500 mg PO BID [facility] Last Admin: 01/28/19 08:13 Dose: 500 mg Nitroglycerin (Nitrostat) 0.4 mg SL ASDIRECTED PRN PRN Reason: Heart. Nystatin (Nystop) 0 gm TOP TID [facility] Last Admin: 01/28/19 08:17 Dose: 1 applic Omeprazole (Omeprazole) 20 mg PO ACBREAKFAST [facility] Last Admin: 01/28/19 07:23 Dose: 20 mg Potassium Chloride (Klor-Con M20) 20 meq PO DAILY [facility] Last Admin: 01/28/19 08:14 Dose: 20 meq Ramelteon (Rozerem) 8 mg PO BEDTIME [facility] Last Admin: 01/27/19 20:56 Dose: 8 mg Rosuvastatin Calcium (Crestor) 20 mg PO DAILY [facility] Last Admin: 01/28/19 08:13 Dose: 20 mg Senna/Docusate Sodium (Senna Plus) 1 tab PO DAILY PRN PRN Reason: Constipation Last Admin: 01/13/19 10:13 Dose: 1 tab Sodium Chloride (Saline Flush) 10 ml FLUSH Q8HR PRN PRN Reason: keep vein open Last Admin: 12/26/18 19:59 Dose: 10 ml Spironolactone (Aldactone) 12.5 mg PO DAILY [facility] Last Admin: 01/27/19 09:07 Dose: 12.5 mg Warfarin Sodium (Coumadin Ask) 1 each PO ONETIME ONE Stop: 12/29/18 15:16 Warfarin Sodium (Coumadin) 2 mg PO SuTuWeThSa@1800 [facility] Last Admin: 01/27/19 18:10 Dose: 2 mg Warfarin Sodium (Coumadin) 2.5 mg PO MoFr@1800 [facility] Last Admin: 01/26/19 18:29 Dose: 2.5 mg Discontinued Medications Acetaminophen (Tylenol) 650 mg PO Q6H [facility] Last Admin: 12/25/18 17:52 Dose: 650 mg Allopurinol (Zyloprim) 100 mg PO DAILY [facility] Amlodipine Besylate (Norvasc) 10 mg PO BEDTIME [facility] Last Admin: 12/24/18 20:37 Dose: 10 mg Amlodipine Besylate (Norvasc) 10 mg PO DAILY [facility] Aspirin (Aspirin) 81 mg PO DAILY [facility] Stop: 01/22/19 23:59 Last Admin: 01/22/19 08:13 Dose: 81 mg Benazepril HCl (Lotensin) 40 mg PO BEDTIME [facility] Last Admin: 12/24/18 20:38 Dose: 40 mg Benazepril HCl (Lotensin) 40 mg PO DAILY [facility] Bumetanide (Bumex) 1 mg PO BID [facility] Last Admin: 01/22/19 08:15 Dose: 1 mg Carvedilol (Coreg) 3.125 mg PO BIDMEALS [facility] Last Admin: 01/22/19 08:13 Dose: 3.125 mg Colchicine (Colcrys) 1.2 mg PO ONETIME ONE Stop: 01/07/19 10:45 Last Admin: 01/07/19 11:50 Dose: 1.2 mg Colchicine (Colcrys) 0.6 mg PO ONETIME ONE Stop: 01/07/19 12:01 Last Admin: 01/07/19 12:57 Dose: 0.6 mg Cyanocobalamin (Vitamin B12) 1,000 mcg PO DAILY [facility] Last Admin: 12/25/18 08:13 Dose: 1,000 mcg Fluvoxamine Maleate (Luvox) 100 mg PO BID [facility] Last Admin: 12/26/18 13:00 Dose: Not Given Hydrocortisone (Hydrocortisone 1% Crm) 0 gm TOP DAILY [facility] Last Admin: 12/25/18 10:51 Dose: 1 applic Sodium Chloride (Normal Saline) 1,000 mls @ 75 mls/hr IV ASDIRECTED [facility] Last Admin: 12/28/18 02:10 Dose: 75 mls/hr Sodium Chloride (Normal Saline) 500 mls @ 250 mls/hr IV .BOLUS ROSIO Last Admin: 12/26/18 19:59 Dose: 250 mls/hr Sodium Chloride (Normal Saline) 1,000 mls @ 400 mls/hr IV ASDIRECTED ROSIO Stop: 01/27/19 19:16 Sodium Chloride (Normal Saline) 400 mls @ 200 mls/hr IV ASDIRECTED ROSIO Stop: 01/27/19 19:16 Insulin Aspart (Novolog) 0 unit SUBCUT TIDMEALS [facility]; Protocol Last Admin: 01/02/19 14:48 Dose: Not Given Insulin Glargine (Lantus Solostar) 15 units SUBCUT BEDTIME [facility] Last Admin: 01/01/19 20:53 Dose: 15 units Insulin Glargine (Lantus Solostar) 18 units SUBCUT BEDTIME [facility] Last Admin: 01/04/19 20:44 Dose: 18 units Insulin Glargine (Lantus Solostar) 20 units SUBCUT BEDTIME [facility] Last Admin: 01/06/19 21:16 Dose: 20 units Lactobacillus Acidophilus/Rhamnosus (Multi-Jennifer Plus) 1 cap PO BEDTIME [facility] Last Admin: 12/24/18 20:37 Dose: 1 cap Metformin HCl (Glucophage) 1,000 mg PO BIDMEALS [facility] Last Admin: 12/25/18 08:13 Dose: 1,000 mg Metformin HCl (Glucophage Xr) 500 mg PO 1800 [facility] Last Admin: 01/01/19 18:00 Dose: 500 mg Metolazone (Zaroxolyn) 2.5 mg PO DAILY [facility] Metolazone (Zaroxolyn) 2.5 mg PO DAILY [facility] Last Admin: 01/22/19 08:14 Dose: 2.5 mg Nitroglycerin (Nitrostat) 0.4 mg SL ONETIME ONE Stop: 12/27/18 18:53 Last Admin: 12/27/18 22:11 Dose: Not Given Polyethylene Glycol (Miralax) 17 gm PO DAILY [facility] Last Admin: 12/25/18 08:13 Dose: 17 gm Pravastatin Sodium (Pravachol) 40 mg PO DAILY [facility] Last Admin: 12/25/18 10:46 Dose: Not Given Warfarin Sodium (Coumadin) 3.75 mg PO 1800 [facility] Last Admin: 12/27/18 18:51 Dose: Not Given Warfarin Sodium (Coumadin) 1 mg PO ONETIME ONE Stop: 12/27/18 19:01 Last Admin: 12/27/18 20:22 Dose: 1 mg Warfarin Sodium (Coumadin) 2.5 mg PO 1800 [facility] Last Admin: 01/02/19 18:20 Dose: 2.5 mg Warfarin Sodium (Coumadin) 3.75 mg PO ONETIME ONE Stop: 01/03/19 18:01 Last Admin: 01/03/19 17:45 Dose: 3.75 mg Warfarin Sodium (Coumadin) 2.5 mg PO ONETIME ONE Stop: 01/04/19 18:01 Last Admin: 01/04/19 18:45 Dose: 2.5 mg Warfarin Sodium (Coumadin) 2.5 mg PO 1800 [facility] Last Admin: 01/09/19 17:48 Dose: 2.5 mg Warfarin Sodium (Coumadin) 1 mg PO ONETIME ONE Stop: 01/10/19 18:01 Last Admin: 01/10/19 18:02 Dose: 1 mg Warfarin Sodium (Coumadin) 2 mg PO MoWeFr@1800 [facility] Last Admin: 01/16/19 17:18 Dose: 2 mg Warfarin Sodium (Coumadin) 2.5 mg PO SuTuThSa@1800 [facility] Last Admin: 01/18/19 18:05 Dose: 2.5 mg Warfarin Sodium (Coumadin) 1 mg PO ONETIME [facility] Last Admin: 01/19/19 17:40 Dose: 1 mg Warfarin Sodium (Coumadin) 2 mg PO SuTuWeThSa@1800 [facility] Last Admin: 01/22/19 17:58 Dose: 2 mg Warfarin Sodium (Coumadin) 2.5 mg PO MoFr@1800 [facility] - Exam Quality Assessment: DVT Prophylaxis. No: Supplemental Oxygen General: Alert, Oriented Neck: Supple Lungs: Clear to Auscultation, Normal Respiratory Effort Cardiovascular: Regular Rate, Regular Rhythm Back Exam: No: CVA Tenderness (R) Extremities: No Pedal Edema Skin: Other (Bruised middle lower back, receiving from demarcated lines) Neurological: No New Focal Deficit Psy/Mental Status: Alert, Normal Affect, Normal Mood - Problem List Review Problem List Initiated/Reviewed/Updated: Yes - My Orders Last 24 Hours: My Active Orders 01/27/19 11:00 Benazepril [Lotensin] 20 mg PO DAILY amLODIPine [Norvasc] 5 mg PO DAILY 01/27/19 19:15 Sodium Chloride 0.9% [Normal Saline] 1,000 ml IV ASDIRECTED 01/27/19 20:37 Sequential Compression Device [OM.PC] Routine JUAN FRANCISCO Hose [Antiembolic Hose] [OM.PC] Routine 01/27/19 20:38 Antiembolic Devices [RC] PER UNIT ROUTINE 01/29/19 05:11 INR,PT,PROTHROMBIN TIME [COAG] DAILY 01/30/19 05:11 INR,PT,PROTHROMBIN TIME [COAG] DAILY - Plan Plan:: History History Escobar 73-year-old gentleman was discharged from acute care to [facility] for rehabilitation. Patient was admitted on 12/04 [facility] with dyspnea 2/2 decompensated HF w/PNA. Patient underwent coronary angiogram on 12/08 demonstrating multivessel CAD. Standards Analyst recommended CABG. An IABP was placed on 12/11 with plan of CABG on 12/12 however patient developed V-fib requiring 2 rounds of CPR &defibrillator shock after which ROSC was achieved. He was transferred to ICU for close monitoring. During the ICU stay, patient had to be intubated, thoracocentesis 12/14 was done and chest tube was placed. Patient was started on an antiarrhythmic agent of mexiletine in the ICU and he was downgraded to intermediate care. He had developed PEYTON 2/2 contrast-induced kidney injury vs cardiogenic shock. diuretic was given and his creatinine reached a plateau.Patient had ongoing overload fluid quiring ongoi diuresis with lasix and zaroxolyn. he encountered episode of Afib and was successfully cardioverted. Patient was then switched to amiodarone and spironolactone was added. chest tube DC'd 12/22. Due to lasix, his gout flared up improve with steroids. Patient was slowly and steadily weaned off oxygen. Patient was discharged with a LifeVest to low intensity setting. He is here in [facility] for rehabilitation with physical therapy [facility] Admit Date: 12/04/2018 Discharge Date: 12/24/2018 Length of stay: 20 Medication changes Upon [place] discharge ADDED --carvedilol --bumex, zaroxolyn, spironolactone, --aspirin, stop date placed. --plavix, --warfarin, --amiodarone, --rosuvastatin (changed from pravastatin) Update, yesterday prior to anticipating discharging home attempted to place patient back on Lotrel per recommended cardiology however started at 50% of the dose (10/27) and patient with profound symptomatic hypotension. No chest pain or shortness of breath, troponin negative, elevated creatinine likely due to prerenal sequela. Oral and IV fluids started, Juan Francisco/SCDs. Blood pressure did improve without the use of pressors. Primary SNF problems Hypotension, drug induced PEYTON, recurrent, prerenal Chronic problems HFrEF recent decompensation, combined systolic/diastolic Recent cardiact arrest with V. fib, external defibrillator, on LifeVest/ wearable cardioverter-defibrillator Recent single episode of A. Fib, successful cardioverted Peripheral vascular disease, stable HTN, hx. CAD, multi-vessel, no ongoing ischemic pain T2DM, with polyneuropathy, was on home Tresiba HLD, mixed, changed to Rosuvastatin ARTEMIO, Nasal Bi/PAP, tolerating obesity, BMI 35%, dietary consultation for weight loss Disposition/overall plan --due to PEYTON with decreased GFR we'll hold amlodipine/benazepril , IV and oral fluids gently. Hold metformin. --Recommend 24-48hrs SNF stay--monitoring, IV fluids, monitor BP/creatinine levels.
[2019-01-28] MEDS: Benazepril 10 MG Tab PO SCH (10:37)
[2019-01-28] MEDS: amLODIPine 5 MG Tab PO SCH (10:38)
[2019-01-28] MEDS: VILANTEROL IH SCH (11:04)
[2019-01-28] MEDS: FLUTICASONE IH SCH (11:04)
[2019-01-28] MEDS: Spironolactone 25 MG Tab PO SCH (11:16)
[2019-01-28] MEDS: Bumetanide 1 MG Tab PO SCH ×2 (11:18→20:06)
[2019-01-28 15:06] LABS: ANION GAP 14.1 mmol/L (5-15)
[2019-01-28] MEDS: Warfarin 2 MG Tab PO SCH (17:59)
[2019-01-28] MEDS: Insulin Glargine,Human Rec. Analog 100 Units/ML 3 ML Pen SUBCUT SCH (20:57)
[2019-01-29] MEDS: Omeprazole 20 MG Cap.CR PO SCH (06:51)
[2019-01-29] MEDS: Insulin Aspart 100 Units/ML 3 ML Pen SUBCUT SCH ×2 (08:17→18:07)
[2019-01-29] MEDS: Spironolactone 25 MG Tab PO SCH (08:18)
[2019-01-29] MEDS: Magnesium Oxide 500 MG Tab PO SCH (08:18)
[2019-01-29] MEDS: fluvoxaMINE 100 MG Tab PO SCH ×2 (08:19→21:58)
[2019-01-29] MEDS: Amiodarone 200 MG Tab PO SCH (08:19)
[2019-01-29] MEDS: Clopidogrel 75 MG Tab PO SCH (08:19)
[2019-01-29] MEDS: Rosuvastatin 10 MG Tab PO SCH (08:19)
[2019-01-29] MEDS: Potassium Chloride 20 MEQ Tab.ER PO SCH (08:20)
[2019-01-29] MEDS: Nystatin Topical Powder 15 GM Bottle TOP SCH ×3 (08:20→21:58)
[2019-01-29] MEDS: FLUTICASONE IH SCH (09:59)
[2019-01-29] MEDS: VILANTEROL IH SCH (09:59)
[2019-01-29 10:12] LABS: ANION GAP 12.2 mmol/L (5-15)
[2019-01-29] MEDS: Carvedilol 6.25 MG Tab PO SCH (17:46)
[2019-01-29] MEDS: Warfarin 2 MG Tab PO SCH (17:48)
[2019-01-29] MEDS: Bumetanide 1 MG Tab PO SCH (21:57)
[2019-01-29] MEDS: Insulin Glargine,Human Rec. Analog 100 Units/ML 3 ML Pen SUBCUT SCH (22:00)
[2019-01-30 07:46] LABS: ANION GAP 14.6 mmol/L (5-15)
[2019-01-30] MEDS: VILANTEROL IH SCH (08:01)
[2019-01-30] MEDS: FLUTICASONE IH SCH (08:01)
[2019-01-30] MEDS: Spironolactone 25 MG Tab PO SCH (08:45)
[2019-01-30] MEDS: Omeprazole 20 MG Cap.CR PO SCH (08:45)
[2019-01-30] MEDS: Magnesium Oxide 500 MG Tab PO SCH (08:46)
[2019-01-30] MEDS: fluvoxaMINE 100 MG Tab PO SCH (08:47)
[2019-01-30] MEDS: Rosuvastatin 10 MG Tab PO SCH (08:47)
[2019-01-30] MEDS: Potassium Chloride 20 MEQ Tab.ER PO SCH (08:47)
[2019-01-30] MEDS: Clopidogrel 75 MG Tab PO SCH (08:47)
[2019-01-30] MEDS: Bumetanide 1 MG Tab PO SCH (08:47)
[2019-01-30] MEDS: Amiodarone 200 MG Tab PO SCH (08:47)
[2019-01-30] MEDS: Insulin Aspart 100 Units/ML 3 ML Pen SUBCUT SCH (08:51)
[2019-01-30] MEDS: Carvedilol 6.25 MG Tab PO SCH (08:51)
[2019-01-30] MEDS: Nystatin Topical Powder 15 GM Bottle TOP SCH (08:52)
--- NOTE | 2019-01-30 10:17 | PCM.DCSUM1 ---
Discharge Summary - Hospital Course Diagnosis: Stroke: No - Discharge Data Discharge Date: 01/30/19 Discharge Disposition: Home, W Home Health Agency 06 Condition: Good - Patient Summary/Data Consults: Consultations 12/25/18 11:37 Consult to Physical Therapy [PT Evaluation and Treatment] [CONS] Routine 12/28/18 08:00 Consult to Dietary [Consult to Legal Support Assistant] [CONS] Routine - Patient Instructions Diet: Heart Healthy Diet, Diabetic Diet Activity: As Tolerated Driving: Do Not Drive Showering/Bathing: May Shower Other/Special Instructions: --report any lightheadedness or dizziness. -- report any life pack issues. Called [phone] if it goes off. --You done a good job keeping your calories down--keep up the good work. --Avoid dehydration. -- - Discharge Plan *PRESCRIPTION DRUG MONITORING PROGRAM REVIEWED*: Not Applicable *COPY OF PRESCRIPTION DRUG MONITORING REPORT IN PATIENT PHAN: Not Applicable Prescriptions/Med Rec: Amiodarone [Cordarone] 200 mg PO DAILY #30 tablet metFORMIN [Glucophage XR] 500 mg PO BIDMEALS #60 tab.er Home Medications: Home Meds Pravastatin [Pravachol] 40 mg PO DAILY 11/01/15 [History] fluvoxaMINE [Luvox] 100 mg PO BID 09/12/17 [History] Cyanocobalamin (Vitamin B-12) [B-12] 1,000 mcg SL DAILY 12/23/17 [History] Diclofenac Sodium [Voltaren] 2 gm TOP BID PRN 12/23/17 [History] Menthol/Aloe Vera Extract [Polar May Gel] 1 applic TOP DAILY PRN 12/23/17 [ History] Amiodarone [Cordarone] 200 mg PO DAILY 12/24/18 [History] Aspirin 81 mg PO DAILY 12/24/18 [History] Calcium Lactate 3 tab PO DAILY 12/24/18 [History] Cataplex C 3 tab PO DAILY 12/24/18 [History] Celecoxib [CeleBREX] 200 mg PO DAILY PRN 12/24/18 [History] Coconut Oil 1,000 mg PO DAILY 12/24/18 [History] Garlic Po 3 tab PO DAILY 12/24/18 [History] Glucosamine Sulfate 2 tab PO BEDTIME 12/24/18 [History] Glucosamine Sulfate/Msm [Glucosamine-MSM 500-400 MG] 1 tab PO BEDTIME 12/24/18 [ History] Insulin Degludec [Tresiba] 14 units SQ BEDTIME 12/24/18 [History] L S 1 tab PO DAILY 12/24/18 [History] [place] 3-6-9 Complex Po 2 tab PO BEDTIME 12/24/18 [History] Omeprazole 20 mg PO ACBREAKFAST 12/24/18 [History] Pumpkin Seed Extract/Soy Germ [Azo Bladder Control Capsule] 2 tab PO DAILY 12/24 [History] [place] Oil 1 cap PO DAILY 12/24/18 [History] Tumeric 2 tab PO BEDTIME 12/24/18 [History] Albuterol/Ipratropium [DuoNeb 3.0-0.5 MG/3 ML] 3 ml INH Q4H PRN 12/25/18 [ History] Fluticasone/Vilanterol [Breo Ellipta 100-25 MCG Inhalation Kit] 1 each IH DAILY 12/25/18 [History] Potassium Chloride 40 meq PO DAILY 12/25/18 [History] Sennosides/Docusate Sodium [Senna-S] 1 each PO DAILY PRN 12/25/18 [History] Amiodarone [Cordarone] 200 mg PO DAILY #30 tablet 01/30/19 [Rx] Bumetanide [Bumex] 2 mg PO BID #60 01/30/19 [Rx] Clopidogrel [Plavix] 75 mg PO DAILY tablet 01/30/19 [Rx] metFORMIN [Glucophage XR] 500 mg PO BIDMEALS #60 tab.er 01/30/19 [Rx] Referrals: [facility] [Outside] Delio Adam, NEGATIVE STRIPPER [Nurse Practitioner] - (mid to late next week. tell patient to bring all meds to this appointment) - Discharge Summary/Plan Comment DC Time >30 min.: Yes Discharge Summary/Plan Comment: final diagnosis Weakness/debilitation Hypotension, drug induced PEYTON, recurrent, prerenal Chronic problems HFrEF recent decompensation, combined systolic/diastolic Recent cardiact arrest with V. fib, external defibrillator, on LifeVest/ wearable cardioverter-defibrillator Recent single episode of A. Fib, successful cardioverted Peripheral vascular disease, stable HTN, hx. many adjustments made CAD, multi-vessel, had no ischemic pain T2DM, with polyneuropathy, HLD, mixed, changed to Rosuvastatin ARTEMIO, Nasal Bi/PAP, tolerated well in hospital obesity, BMI 35%, wt loss diet, dietary consultated while in SNF History History Escobar 73-year-old gentleman was discharged from acute care to [facility] for rehabilitation. Patient was admitted on 12/04 [facility] with dyspnea 2/2 decompensated HF w/PNA. Patient underwent coronary angiogram on 12/08 demonstrating multivessel CAD. [employer] recommended CABG. An IABP was placed on 12/11 with plan of CABG on 12/12 however patient developed V-fib requiring 2 rounds of CPR &defibrillator shock after which ROSC was achieved. He was transferred to ICU for close monitoring. During the ICU stay, patient had to be intubated, thoracocentesis 12/14 was done and chest tube was placed. Patient was started on an antiarrhythmic agent of mexiletine in the ICU and he was downgraded to intermediate care. He had developed PEYTON 2/2 contrast-induced kidney injury vs cardiogenic shock. diuretic was given and his creatinine reached a plateau.Patient had ongoing overload fluid quiring ongoi diuresis with lasix and zaroxolyn. he encountered episode of Afib and was successfully cardioverted. Patient was then switched to amiodarone and spironolactone was added. chest tube DC'd 12/22. Due to lasix, his gout flared up improve with steroids. Patient was slowly and steadily weaned off oxygen. Patient was discharged with a LifeVest to low intensity setting. He considerable time in [facility] for rehabilitation with physical therapy. hospital course Went fairly well however was quite variable at times. he did continue to wear his life vest without any difficulty and no aberrancy. attempted to start patient on Lotrel per recommended cardiology however started at 50% of the dose (gave 10/27) however the patient had profound symptomatic hypotension. No chest pain or shortness of breath, troponin negative, elevated creatinine likely due to prerenal sequela. Oral and IV fluids started, Davis/SCDs. Blood pressure did improve without the use of pressors--because of this it did extend his day by 48 more hours. Upon discharge his blood pressure had improved to 110/59. we did not attempt restart this. patient did require IV fluids due to elevated creatinine levels [facility] due to prerenal dehydration/diuretic use. His creatinine was much improved on discharge. Patient did sustain a bruise to his back after "flopping" down hard on toilet. Patient has no mechanism of injury recollection. I had patient walked to the bathroom and it appears the metal area on the back of the toilet could match the area as described by nursing could reproduce the area of concern. mid lower lumbar 5 cm annular bruise noted, appears to have actinic keratosis in the center, this was improving upon discharge. discharge discharge the family received LifeVest training. patient was sent to cardiology for follow-up soma medication changes adjustments. See plan below. Enrolled in the epidural clinic. Will eventually need cardiac rehabilitation. Recent Medication changes/adjustments --carvedilol (Increased to 6.25mg BID by cardiology) --bumex, (increased to 2mg bid by cardiology) --aspirin, stop date placed. --plavix, --warfarin, --amiodarone, --rosuvastatin (changed from pravastatin) --zaroxolyn (DC by cardiology) --amlodipine/benazepril, holding due to profound hypotension --metformin, due to GFR decreased by 50% to 500 mg by mouth twice a day --Majority of his nyoh-hld-dyxdwzy herbs were held-some restared on dc. disposition/follow-up --Discharged from [facility], --Nursing, PT, OT referrals placed --follow-up appointment with Delio Adam NP --will need cardiac rehabilitation --we'll consider outpatient Benazapril trial This is the order and a [id number] encounter for home health services to include nursing, PT, OT. these develop an in-home therapy program along with home safety assessment instruction plan as the patient does have decreased strength and endurance and will require the above services. Patient is homebound due to limited or decreased strength and endurance lower extremity muscle weakness along with unsteady gait area they have been medication changes and adjustments require close monitoring of blood pressure rate, daily weights. Or any weight gain more than 2 pounds a day or 5 pounds/week or any shortness of breath, chest pain or any concerns with Lifepak Vest - General Info Functional Status: Reports: Pain Controlled - Review of Systems General: Denies: Weakness HEENT: Reports: No Symptoms Pulmonary: Reports: No Symptoms Cardiovascular: Denies: Dyspnea on Exertion, Orthopnea, Edema, Lightheadedness Gastrointestinal: Reports: No Symptoms Genitourinary: Reports: No Symptoms Musculoskeletal: Reports: No Symptoms Skin: Reports: Bruising (bruise on middle lower back) Neurological: Reports: Difficulty Walking, Gait Disturbance Psychiatric: Reports: No Symptoms - Patient Data Vitals - Most Recent: Last Vital Signs Temp 97.4 F 01/30/19 06:55 Pulse 68 01/30/19 08:01 Resp 18 01/30/19 06:55 BP 107/56 L 01/30/19 06:55 Pulse Ox 96 01/30/19 09:20 Weight - Most Recent: 241 lb 3 oz I&O - Last 24 hours: Intake & Output 01/29/19 01/30/19 01/30/19 22:59 06:59 14:59 Intake Total 1129 314 Output Total 300 1750 Balance 829 -1436 Lab Results - Last 24 hrs: Laboratory Results - last 24 hr 01/29/19 01/29/19 01/30/19 Range/Units 09:45 17:50 06:45 PT 22.6 H (8.9-11.4) SEC INR 2.3 H (0.9-1.1) Sodium 135 L (136-145) mmol/L Potassium 4.9 (3.3-5.3) mmol/L Chloride 99 (98-115) mmol/L Carbon Dioxide 28.7 (21.0-32.0) mmol/L Anion Gap 12.2 (5-15) mmol/L BUN 52 H* (6-25) mg/dL Creatinine 2.03 H (0.51-1.17) mg/dL Est Cr Clr Drug Dosing 33.46 mL/min Estimated GFR (MDRD) 32 mL/min Glucose 252 H (75 - 99) mg/dL POC Glucose 162 H (74-106) mg/dl Calcium 9.1 (8.7-10.3) mg/dL 01/30/19 01/30/19 Range/Units 06:45 08:21 PT (8.9-11.4) SEC INR (0.9-1.1) Sodium 141 (136-145) mmol/L Potassium 4.3 (3.3-5.3) mmol/L Chloride 103 (98-115) mmol/L Carbon Dioxide 27.7 (21.0-32.0) mmol/L Anion Gap 14.6 (5-15) mmol/L BUN 34 H (6-25) mg/dL Creatinine 1.45 H (0.51-1.17) mg/dL Est Cr Clr Drug Dosing 46.85 mL/min Estimated GFR (MDRD) 48 mL/min Glucose 109 H (75 - 99) mg/dL POC Glucose 101 (74-106) mg/dl Calcium 8.9 (8.7-10.3) mg/dL Med Orders - Current: Current Medications Albuterol/Ipratropium (Duoneb 3.0-0.5 Mg/3 Ml) 3 ml NEB Q4HRRT PRN PRN Reason: Shortness of Breath Amiodarone HCl (Cordarone) 200 mg PO DAILY [facility] Last Admin: 01/30/19 08:47 Dose: 200 mg Amlodipine Besylate (Norvasc) 5 mg PO DAILY [facility] Last Admin: 01/28/19 10:38 Dose: Not Given Atropine Sulfate (Atropine 0.1 Mg/Ml) 0 mg IVPUSH ASDIRECTED PRN PRN Reason: Heart. Benazepril HCl (Lotensin) 20 mg PO DAILY [facility] Last Admin: 01/28/19 10:37 Dose: Not Given Bumetanide (Bumex) 2 mg PO BID [facility] Last Admin: 01/30/19 08:47 Dose: 2 mg Carvedilol (Coreg) 6.25 mg PO BIDMEALS [facility] Last Admin: 01/29/19 17:46 Dose: Not Given Clopidogrel Bisulfate (Plavix) 75 mg PO DAILY [facility] Last Admin: 01/30/19 08:47 Dose: 75 mg Epinephrine HCl (Epinephrine 1:10,000) 1 mg IVPUSH ASDIRECTED PRN PRN Reason: Heart. Fluticasone/Vilanterol (Breo Ellipta 100-25 Mcg Inhalation Kit) 1 each IH DAILY [facility] Last Admin: 01/30/19 08:01 Dose: 1 each Fluvoxamine Maleate (Luvox) 100 mg PO BID [facility] Last Admin: 01/30/19 08:47 Dose: 100 mg Sodium Chloride (Normal Saline) 1,000 mls @ 60 mls/hr IV ASDIRECTED [facility] Last Admin: 01/28/19 18:56 Dose: 60 mls/hr Insulin Aspart (Novolog) 0 unit SUBCUT BIDMEALS [facility]; Protocol Last Admin: 01/30/19 08:51 Dose: Not Given Insulin Glargine (Lantus Solostar) 22 units SUBCUT BEDTIME [facility] Last Admin: 01/29/19 22:00 Dose: 22 units Lidocaine HCl (Xylocaine 2%) 0 mg IVPUSH ASDIRECTED PRN PRN Reason: Heart. Magnesium Hydroxide (Milk Of Magnesia) 30 ml PO DAILY PRN PRN Reason: Constipation Last Admin: 01/23/19 21:12 Dose: 30 ml Magnesium Oxide (Magnesium Oxide) 250 mg PO DAILY [facility] Last Admin: 01/30/19 08:46 Dose: 250 mg Metformin HCl (Glucophage Xr) 500 mg PO BID [facility] Last Admin: 01/28/19 08:13 Dose: 500 mg Nitroglycerin (Nitrostat) 0.4 mg SL ASDIRECTED PRN PRN Reason: Heart. Nystatin (Nystop) 0 gm TOP TID [facility] Last Admin: 01/30/19 08:52 Dose: 1 applic Omeprazole (Omeprazole) 20 mg PO ACBREAKFAST [facility] Last Admin: 01/30/19 08:45 Dose: 20 mg Potassium Chloride (Klor-Con M20) 20 meq PO DAILY [facility] Last Admin: 01/30/19 08:47 Dose: 20 meq Ramelteon (Rozerem) 8 mg PO BEDTIME [facility] Last Admin: 01/29/19 21:58 Dose: 8 mg Rosuvastatin Calcium (Crestor) 20 mg PO DAILY [facility] Last Admin: 01/30/19 08:47 Dose: 20 mg Senna/Docusate Sodium (Senna Plus) 1 tab PO DAILY PRN PRN Reason: Constipation Last Admin: 01/13/19 10:13 Dose: 1 tab Sodium Chloride (Saline Flush) 10 ml FLUSH Q8HR PRN PRN Reason: keep vein open Last Admin: 12/26/18 19:59 Dose: 10 ml Spironolactone (Aldactone) 12.5 mg PO DAILY [facility] Last Admin: 01/30/19 08:45 Dose: 12.5 mg Warfarin Sodium (Coumadin Ask) 1 each PO ONETIME ONE Stop: 12/29/18 15:16 Warfarin Sodium (Coumadin) 2 mg PO [email or web address] [facility] Last Admin: 01/29/19 17:48 Dose: 2 mg Warfarin Sodium (Coumadin) 2.5 mg PO [email or web address]@1800 [facility] Last Admin: 01/26/19 18:29 Dose: 2.5 mg Discontinued Medications Acetaminophen (Tylenol) 650 mg PO Q6H [facility] Last Admin: 12/25/18 17:52 Dose: 650 mg Allopurinol (Zyloprim) 100 mg PO DAILY [facility] Amlodipine Besylate (Norvasc) 10 mg PO BEDTIME [facility] Last Admin: 12/24/18 20:37 Dose: 10 mg Amlodipine Besylate (Norvasc) 10 mg PO DAILY [facility] Aspirin (Aspirin) 81 mg PO DAILY [facility] Stop: 01/22/19 23:59 Last Admin: 01/22/19 08:13 Dose: 81 mg Benazepril HCl (Lotensin) 40 mg PO BEDTIME [facility] Last Admin: 12/24/18 20:38 Dose: 40 mg Benazepril HCl (Lotensin) 40 mg PO DAILY [facility] Bumetanide (Bumex) 1 mg PO BID [facility] Last Admin: 01/22/19 08:15 Dose: 1 mg Carvedilol (Coreg) 3.125 mg PO BIDMEALS [facility] Last Admin: 01/22/19 08:13 Dose: 3.125 mg Colchicine (Colcrys) 1.2 mg PO ONETIME ONE Stop: 01/07/19 10:45 Last Admin: 01/07/19 11:50 Dose: 1.2 mg Colchicine (Colcrys) 0.6 mg PO ONETIME ONE Stop: 01/07/19 12:01 Last Admin: 01/07/19 12:57 Dose: 0.6 mg Cyanocobalamin (Vitamin B12) 1,000 mcg PO DAILY [facility] Last Admin: 12/25/18 08:13 Dose: 1,000 mcg Fluvoxamine Maleate (Luvox) 100 mg PO BID [facility] Last Admin: 12/26/18 13:00 Dose: Not Given Hydrocortisone (Hydrocortisone 1% Crm) 0 gm TOP DAILY [facility] Last Admin: 12/25/18 10:51 Dose: 1 applic Sodium Chloride (Normal Saline) 1,000 mls @ 75 mls/hr IV ASDIRECTED [facility] Last Admin: 12/28/18 02:10 Dose: 75 mls/hr Sodium Chloride (Normal Saline) 500 mls @ 250 mls/hr IV .BOLUS [facility] Last Admin: 12/26/18 19:59 Dose: 250 mls/hr Sodium Chloride (Normal Saline) 1,000 mls @ 400 mls/hr IV ASDIRECTED [facility] Stop: 01/27/19 19:16 Sodium Chloride (Normal Saline) 400 mls @ 200 mls/hr IV ASDIRECTED [facility] Stop: 01/27/19 19:16 Insulin Aspart (Novolog) 0 unit SUBCUT TIDMEALS [facility]; Protocol Last Admin: 01/02/19 14:48 Dose: Not Given Insulin Glargine (Lantus Solostar) 15 units SUBCUT BEDTIME [facility] Last Admin: 01/01/19 20:53 Dose: 15 units Insulin Glargine (Lantus Solostar) 18 units SUBCUT BEDTIME [facility] Last Admin: 01/04/19 20:44 Dose: 18 units Insulin Glargine (Lantus Solostar) 20 units SUBCUT BEDTIME [facility] Last Admin: 01/06/19 21:16 Dose: 20 units Lactobacillus Acidophilus/Rhamnosus (Multi-Jennifer Plus) 1 cap PO BEDTIME [facility] Last Admin: 12/24/18 20:37 Dose: 1 cap Metformin HCl (Glucophage) 1,000 mg PO BIDMEALS [facility] Last Admin: 12/25/18 08:13 Dose: 1,000 mg Metformin HCl (Glucophage Xr) 500 mg PO 1800 [facility] Last Admin: 01/01/19 18:00 Dose: 500 mg Metolazone (Zaroxolyn) 2.5 mg PO DAILY [facility] Metolazone (Zaroxolyn) 2.5 mg PO DAILY [facility] Last Admin: 01/22/19 08:14 Dose: 2.5 mg Nitroglycerin (Nitrostat) 0.4 mg SL ONETIME ONE Stop: 12/27/18 18:53 Last Admin: 12/27/18 22:11 Dose: Not Given Polyethylene Glycol (Miralax) 17 gm PO DAILY [facility] Last Admin: 12/25/18 08:13 Dose: 17 gm Pravastatin Sodium (Pravachol) 40 mg PO DAILY [facility] Last Admin: 12/25/18 10:46 Dose: Not Given Warfarin Sodium (Coumadin) 3.75 mg PO 1800 [facility] Last Admin: 12/27/18 18:51 Dose: Not Given Warfarin Sodium (Coumadin) 1 mg PO ONETIME ONE Stop: 12/27/18 19:01 Last Admin: 12/27/18 20:22 Dose: 1 mg Warfarin Sodium (Coumadin) 2.5 mg PO 1800 [facility] Last Admin: 01/02/19 18:20 Dose: 2.5 mg Warfarin Sodium (Coumadin) 3.75 mg PO ONETIME ONE Stop: 01/03/19 18:01 Last Admin: 01/03/19 17:45 Dose: 3.75 mg Warfarin Sodium (Coumadin) 2.5 mg PO ONETIME ONE Stop: 01/04/19 18:01 Last Admin: 01/04/19 18:45 Dose: 2.5 mg Warfarin Sodium (Coumadin) 2.5 mg PO 1800 [facility] Last Admin: 01/09/19 17:48 Dose: 2.5 mg Warfarin Sodium (Coumadin) 1 mg PO ONETIME ONE Stop: 01/10/19 18:01 Last Admin: 01/10/19 18:02 Dose: 1 mg Warfarin Sodium (Coumadin) 2 mg PO [email or web address] [facility] Last Admin: 01/16/19 17:18 Dose: 2 mg Warfarin Sodium (Coumadin) 2.5 mg PO [email or web address] [facility] Last Admin: 01/18/19 18:05 Dose: 2.5 mg Warfarin Sodium (Coumadin) 1 mg PO ONETIME [facility] Last Admin: 01/19/19 17:40 Dose: 1 mg Warfarin Sodium (Coumadin) 2 mg PO [email or web address] [facility] Last Admin: 01/22/19 17:58 Dose: 2 mg Warfarin Sodium (Coumadin) 2.5 mg PO MoFr@1800 [facility] - Exam Quality Assessment: Denies: Supplemental Oxygen General: Reports: Alert, Oriented Neck: Reports: Supple Lungs: Reports: Clear to Auscultation, Normal Respiratory Effort Cardiovascular: Reports: Regular Rate, Regular Rhythm GI/Abdominal Exam: Normal Bowel Sounds, Soft, No Distention. No: Distended (Male) Exam: Deferred Rectal (Males) Exam: Deferred Back Exam: Denies: CVA Tenderness (L), CVA Tenderness (R) Extremities: No Pedal Edema Neurological: Reports: No New Focal Deficit Psy/Mental Status: Reports: Alert, Normal Affect, Normal Mood
[2019-01-30 15:14] VITALS: BP 113/63
== END 2019-01-30 16:15 | disposition home health service (06) | DRG 682 ==
LOC: KA.MS 14:56
PROVIDERS: ADMIT Nurse Practitioner Family; ATTEND Family Medicine
DX: N17.9 Acute kidney failure, unspecified (principal); I50.23 Acute on chronic systolic (congestive) heart failure; E87.1 Hypo-osmolality and hyponatremia; R53.1 Weakness; I95.2 Hypotension due to drugs; I11.0 Hypertensive heart disease with heart failure; I25.10 Atherosclerotic heart disease of native coronary artery without angina pectoris; E66.9 Obesity, unspecified; G47.33 Obstructive sleep apnea (adult) (pediatric); E78.2 Mixed hyperlipidemia; E11.42 Type 2 diabetes mellitus with diabetic polyneuropathy; E11.51 Type 2 diabetes mellitus with diabetic peripheral angiopathy without gangrene; T46.1X5A Adverse effect of calcium-channel blockers, initial encounter; T46.4X5A Adverse effect of angiotensin-converting-enzyme inhibitors, initial encounter; J44.9 Chronic obstructive pulmonary disease, unspecified; F32.9 Major depressive disorder, single episode, unspecified; Z68.35 Body mass index [BMI] 35.0-35.9, adult; M10.9 Gout, unspecified; T50.2X5A Adverse effect of carbonic-anhydrase inhibitors, benzothiadiazides and other diuretics, initial encounter; Z85.828 Personal history of other malignant neoplasm of skin; Z95.810 Presence of automatic (implantable) cardiac defibrillator; Z79.82 Long term (current) use of aspirin; Z79.899 Other long term (current) drug therapy; Z96.651 Presence of right artificial knee joint; Z79.4 Long term (current) use of insulin; I25.2 Old myocardial infarction; Z90.49 Acquired absence of other specified parts of digestive tract
CPT/HCPCS: 36415; 36416; 71046; 71110; 80048; 80053; 82962; 83036; 84484; 85027; 85610; 93005; 94640; 97110-GP; 97150-GP; 97162-GP; 97530-GP; 97537-GP; A9270-GY; J1815-GY; J7030; J7040

== ENCOUNTER 2019-07-15 13:29 | Emergency (ER) | payer MEDICARE, BC ==
[2019-07-15] MEDS ORDERED: Sodium Chloride 0.9% 10 ML Syringe FLUSH PRN (13:36)
[2019-07-15 14:17] LABS: ANION GAP 14.9 mmol/L (5-15)
--- NOTE | 2019-07-15 14:38 | EDM.PDOC ---
ED HPI GENERAL MEDICAL PROBLEM - General Chief Complaint: Lower Extremity Injury/Pain Stated Complaint: FELL Time Seen by Provider: 07/15/19 13:45 Source of Information: Reports: Patient, EMS, EMS Notes Reviewed, Family (Son and ) History Limitations: Reports: No Limitations - History of Present Illness INITIAL COMMENTS - FREE TEXT/NARRATIVE: Patient is a 74-year-old gentleman who presents to the emergency department via EMS secondary to fall at home. His son and state that patient became dizzy while walking with walker, lost his balance and fell to his left side against wall. Son said that father complained of left leg pain following fall. Patient was said to not have struck head. Patient has had more recent falls and increased confusion over the last several months. Patient has history of cardiac stent placement December 2018. Patient denies chest pain, shortness of breath, headache, fever, nausea, vomiting, diarrhea, abdominal pain, neck pain, hip pain, or back pain. Onset: Today Duration: Hour(s): Location: Reports: Lower Extremity, Left Quality: Reports: Ache Severity: Mild Improves with: Reports: Immobilization Worsens with: Reports: Movement Context: Reports: Trauma (Fall from standing position) Left Thigh Pain Score (Numeric/FACES): 5 - Related Data Allergies Allergy/AdvReac Type Severity Reaction Status Date / Time No Known Allergies Allergy Verified 07/15/19 14:12 Home Meds: Home Meds fluvoxaMINE [Luvox] 100 mg PO BID 09/12/17 [History] Albuterol/Ipratropium [DuoNeb 3.0-0.5 MG/3 ML] 3 ml INH Q4H PRN 12/25/18 [ History] Fluticasone/Vilanterol [Breo Ellipta 100-25 MCG Inhalation Kit] 1 each IH DAILY 12/25/18 [History] Amiodarone [Cordarone] 200 mg PO DAILY #30 tablet 01/30/19 [Rx] Clopidogrel [Plavix] 75 mg PO DAILY tablet 01/30/19 [Rx] Rosuvastatin [Crestor] 20 mg PO DAILY #90 tablet 01/30/19 [Rx] Benazepril HCl 5 mg PO DAILY 07/15/19 [History] Bumetanide [Bumex] 1 mg PO BID 07/15/19 [History] Insulin Degludec [Tresiba] 10 unit SQ BEDTIME 07/15/19 [History] Isosorbide Dinitrate 5 mg PO BID 07/15/19 [History] Tamsulosin HCl 0.4 mg PO BEDTIME 07/15/19 [History] Warfarin [Coumadin] 1 mg PO MOWEFR 07/15/19 [History] Warfarin [Coumadin] 2 mg PO SUTUTHSA@1800 07/15/19 [History] carvediloL [Coreg] 12.5 mg PO BIDMEALS 07/15/19 [History] hydrALAZINE [Apresoline] 25 mg PO TID 07/15/19 [History] polyethylene glycoL 3350 [MiraLAX] 17 gm PO DAILY PRN 07/15/19 [History] Past Medical History HEENT History: Reports: Impaired Vision Cardiovascular History: Reports: CAD, Heart Murmur, High Cholesterol, Hypertension, [place], SOB on Exertion, Stents Respiratory History: Reports: Asthma, COPD, Sleep Apnea, SOB Gastrointestinal History: Reports: Diverticulosis, Helicobacter Pylori Genitourinary History: Reports: None Musculoskeletal History: Reports: Fracture, Gout, Osteoarthritis Neurological History: Reports: Vertigo, Other (See Below) Other Neuro History: patient states "bad memory" Psychiatric History: Reports: Depression, Mood Swings, OCD Other Psychiatric History: irritability Endocrine/Metabolic History: Reports: Diabetes, Type II, Obesity/BMI 30+ Oncologic (Cancer) History: Reports: Other (See Below) Other Oncologic History: skin Dermatologic History: Reports: Melanoma - Infectious Disease History Infectious Disease History: Reports: Chicken Pox, Measles, Shingles - Past Surgical History HEENT Surgical History: Reports: Adenoidectomy, Oral Surgery, Tonsillectomy Cardiovascular Surgical History: Reports: None, Other (See Below) Other Cardiovascular Surgeries/Procedures: lifevest Respiratory Surgical History: Reports: None GI Surgical History: Reports: Colonoscopy Male Surgical History: Reports: None Endocrine Surgical History: Reports: None Neurological Surgical History: Reports: C-Spine Other Neurological Surgeries/Procedures: bone spurs on spinal cord, spinal operation Musculoskeletal Surgical History: Reports: Knee Replacement, Shoulder Surgery Other Musculoskeletal Surgeries/Procedures:: 12-19-17 Right TKA Oncologic Surgical History: Reports: None Dermatological Surgical History: Reports: None Social & Family History - Family History Family Medical History: Noncontributory Cardiac: Reports: Angina, Heart Failure, High Cholesterol, Hypertension, [place] Respiratory: Reports: Asthma, COPD Psychiatric: Reports: Depression, OCD - Tobacco Use Smoking Status *Q: Never Smoker Second Hand Smoke Exposure: No - Caffeine Use Caffeine Use: Reports: Other Other Caffeine Use: water with lemon - Recreational Drug Use Recreational Drug Use: No Review of Systems - Review of Systems Review Of Systems: Comprehensive ROS is negative, except as noted in HPI. Constitutional: Reports: No Symptoms Eyes: Reports: No Symptoms Ears: Reports: No Symptoms Nose: Reports: No Symptoms Mouth/Throat: Reports: No Symptoms Respiratory: Reports: No Symptoms Cardiovascular: Reports: No Symptoms GI/Abdominal: Reports: No Symptoms Genitourinary: Reports: No Symptoms Musculoskeletal: Reports: Leg Pain (Left thigh) Skin: Reports: No Symptoms Neurological: Reports: Confusion (Of worsening nature over the past several months) Psychiatric: Reports: No Symptoms ED EXAM, GENERAL - Physical Exam Exam: See Below Exam Limited By: No Limitations General Appearance: Alert, WD/WN, No Apparent Distress Eye Exam: Bilateral Eye: Normal Inspection Nose: Normal Inspection, Normal Mucosa, No Blood Throat/Mouth: Normal Inspection, Normal Oropharynx, No Airway Compromise Head: Atraumatic, Normocephalic Neck: Normal Inspection, Supple, Non-Tender, Full Range of Motion Respiratory/Chest: No Respiratory Distress, Lungs Clear, Normal Breath Sounds, No Accessory Muscle Use, Chest Non-Tender Cardiovascular: No Murmur, Bradycardia Peripheral Pulses: 2+: Femoral (L), Femoral (R), Popliteal (L), Popliteal (R), Posterior Tibial (L), Posterior Tibial (R), Dorsalis Pedis (L), Dorsalis Pedis ( R) GI/Abdominal: Normal Bowel Sounds, Soft, Non-Tender, No Organomegaly, No Distention, No Abnormal Bruit, No Mass, Pelvis Stable Back Exam: Normal Inspection. No: CVA Tenderness (L), CVA Tenderness (R), Decreased Range of Motion, Paraspinal Tenderness, Vertebral Tenderness Extremities: No Pedal Edema, Normal Capillary Refill, Leg Pain (Left lateral mid femur), Other (Left lower extremity, lateral rotation without shortening) Neurological: Alert, Oriented, Normal Cognition Psychiatric: Normal Affect, Normal Mood Skin Exam: Warm, Dry, Intact, Normal Color, No Rash Lymphatic: No Adenopathy Course - Vital Signs Last Recorded V/S: Last Vital Signs Temp 97.3 F 07/15/19 13:30 Pulse 61 07/15/19 15:00 Resp 22 H 07/15/19 15:00 BP 116/45 L 07/15/19 15:00 Pulse Ox 93 L 07/15/19 15:00 - Orders/Labs/Meds Orders: Active Orders 24 hr Category Date Time Status EKG Documentation Completion [RC] ASDIRECTED Care 07/15/19 13:34 Active Peripheral IV Care [RC] . DIRECTED Care 07/15/19 13:36 Active Sodium Chloride 0.9% [Saline Flush] Med 07/15/19 13:36 Active 10 ml FLUSH Q8HR PRN Peripheral IV Insertion Adult [OM.PC] Routine Oth 07/15/19 13:36 Ordered EKG 12 Lead [EK] Routine Ther 07/15/19 13:34 Ordered Medication Orders Sodium Chloride (Saline Flush) 10 ml FLUSH Q8HR PRN PRN Reason: keep vein open Labs: Laboratory Tests 07/15/19 07/15/19 07/15/19 Range/Units 13:42 13:42 13:42 WBC 8.18 (5.00-10.00) 10^3/uL RBC 4.13 L (4.50-6.00) 10^6/uL Hgb 12.9 L (13.0-17.0) g/dL Hct 38.5 L (40.0-52.0) % MCV 93.2 H D (82.0-92.0) fL MCH 31.2 H (27.0-31.0) pg MCHC 33.5 (32.0-36.0) g/dL RDW 13.8 (11.5-14.5) % Plt Count 204 D (150-400) 10^3/uL MPV 10.3 (7.4-10.4) fL Immature Gran % (Auto) 0.2 (0.0-5.0) % Neut % (Auto) 85.9 H (50.0-70.0) % Lymph % (Auto) 8.8 L (20.0-40.0) % [place] % (Auto) 4.3 (2.0-8.0) % Eos % (Auto) 0.6 L (1.0-3.0) % Baso % (Auto) 0.2 (0.0-1.0) % Immature Gran # (Auto) 0.02 (0.00-0.50) 10^3/uL Neut # (Auto) 7.02 H (2.50-7.00) 10^3/uL Lymph # (Auto) 0.72 L (1.00-4.00) 10^3/uL [place] # (Auto) 0.35 (0.10-0.80) 10^3/uL Eos # (Auto) 0.05 L (0.10-0.30) 10^3/uL Baso # (Auto) 0.02 (0.00-0.10) 10^3/uL PT 18.4 H (8.9-11.4) SEC INR 1.8 H (0.9-1.1) APTT 34.5 H (23.1-31.3) SEC Sodium 138 (136-145) mmol/L Potassium 4.3 (3.3-5.3) mmol/L Chloride 100 (98-115) mmol/L Carbon Dioxide 27.4 (21.0-32.0) mmol/L Anion Gap 14.9 (5-15) mmol/L BUN 37 H (6-25) mg/dL Creatinine 1.61 H (0.51-1.17) mg/dL Est Cr Clr Drug Dosing 41.56 mL/min Estimated GFR (MDRD) 42 mL/min Glucose 159 H (75 - 99) mg/dL Calcium 9.3 (8.7-10.3) mg/dL Total Bilirubin 0.9 (0.2-1.0) mg/dL AST 62 H (15-37) U/L ALT 130 H (12-78) U/L Alkaline Phosphatase 108 (46-116) IU/L B-Natriuretic Peptide (0-100) pg/mL Total Protein 7.1 (6.4-8.2) g/dL Albumin 3.61 (3.00-4.80) g/dL Specimen Type Urine Color (YELLOW) Urine Appearance (CLEAR) Urine pH (5.0-9.0) Ur Specific [place] (1.005-1.030) Urine Protein (NEGATIVE) mg/dL Urine Glucose (UA) (NEGATIVE) mg/dL Urine Ketones (NEGATIVE) mg/dL Urine Occult Blood (NEGATIVE) Urine Nitrite (NEGATIVE) Urine Bilirubin (NEGATIVE) Urine Urobilinogen (0.2-1.0) E.U./dL Ur Leukocyte Esterase (NEGATIVE) Urine RBC (0-5) /HPF Urine WBC (0-5) /HPF Ur Epithelial Cells /LPF Urine Bacteria (NONE TO FEW) /HPF 07/15/19 07/15/19 Range/Units 13:42 14:10 WBC (5.00-10.00) 10^3/uL RBC (4.50-6.00) 10^6/uL Hgb (13.0-17.0) g/dL Hct (40.0-52.0) % MCV (82.0-92.0) fL MCH (27.0-31.0) pg MCHC (32.0-36.0) g/dL RDW (11.5-14.5) % Plt Count (150-400) 10^3/uL MPV (7.4-10.4) fL Immature Gran % (Auto) (0.0-5.0) % Neut % (Auto) (50.0-70.0) % Lymph % (Auto) (20.0-40.0) % [place] % (Auto) (2.0-8.0) % Eos % (Auto) (1.0-3.0) % Baso % (Auto) (0.0-1.0) % Immature Gran # (Auto) (0.00-0.50) 10^3/uL Neut # (Auto) (2.50-7.00) 10^3/uL Lymph # (Auto) (1.00-4.00) 10^3/uL [place] # (Auto) (0.10-0.80) 10^3/uL Eos # (Auto) (0.10-0.30) 10^3/uL Baso # (Auto) (0.00-0.10) 10^3/uL PT (8.9-11.4) SEC INR (0.9-1.1) APTT (23.1-31.3) SEC Sodium (136-145) mmol/L Potassium (3.3-5.3) mmol/L Chloride (98-115) mmol/L Carbon Dioxide (21.0-32.0) mmol/L Anion Gap (5-15) mmol/L BUN (6-25) mg/dL Creatinine (0.51-1.17) mg/dL Est Cr Clr Drug Dosing mL/min Estimated GFR (MDRD) mL/min Glucose (75 - 99) mg/dL Calcium (8.7-10.3) mg/dL Total Bilirubin (0.2-1.0) mg/dL AST (15-37) U/L ALT (12-78) U/L Alkaline Phosphatase (46-116) IU/L B-Natriuretic Peptide 433 H (0-100) pg/mL Total Protein (6.4-8.2) g/dL Albumin (3.00-4.80) g/dL Specimen Type . Urine Color Yellow (YELLOW) Urine Appearance Clear (CLEAR) Urine pH 6.5 (5.0-9.0) Ur Specific [place] 1.015 (1.005-1.030) Urine Protein Trace H (NEGATIVE) mg/dL Urine Glucose (UA) Negative (NEGATIVE) mg/dL Urine Ketones Negative (NEGATIVE) mg/dL Urine Occult Blood Negative (NEGATIVE) Urine Nitrite Negative (NEGATIVE) Urine Bilirubin Negative (NEGATIVE) Urine Urobilinogen 0.2 (0.2-1.0) E.U./dL Ur Leukocyte Esterase Small H (NEGATIVE) Urine RBC 0-5 (0-5) /HPF Urine WBC >100 H (0-5) /HPF Ur Epithelial Cells Rare /LPF Urine Bacteria Occasional (NONE TO FEW) /HPF Meds: Medications Generic Name Dose Route Start Last Admin Trade Name Freq PRN Reason Stop Dose Admin Sodium Chloride 10 ml 07/15/19 13:36 Saline Flush FLUSH Q8HR PRN keep vein open Discontinued Medications Generic Name Dose Route Start Last Admin Trade Name Freq PRN Reason Stop Dose Admin Morphine Sulfate 2 mg 07/15/19 15:22 Morphine IVPUSH 07/15/19 15:23 ONETIME ONE Ondansetron HCl 4 mg 07/15/19 15:22 Zofran IVPUSH 07/15/19 15:23 ONETIME ONE - Radiology Interpretation Free Text/Narrative:: Left hip x-ray shows acute left femoral neck fracture - Re-Assessments/Exams Free Text/Narrative Re-Assessment/Exam: 07/15/19 15:25 Patient afebrile, vital signs stable, pain controlled. Discussed case with Dr. Thomas, hospitalist at [facility]. He will accept transfer of care. Patient will be transferred via ground EMS. Departure - Departure Time of Disposition: 15:26 Disposition: DC/Tfer to [facility] 02 Condition: Fair Clinical Impression: Fracture of neck of femur, hip - Discharge Information Referrals: Delio Adam [employer] MANAGER [Primary Care Provider] - Forms: ED Department Discharge Sepsis Event Note - Evaluation Sepsis Screening Result: No Definite Risk - Focused Exam Vital Signs: Vital Signs Temp Pulse Resp BP Pulse Ox 07/15/19 15:00 61 22 H 116/45 L 93 L 07/15/19 13:30 97.3 F 56 L 22 H 93/44 L 93 L Date Exam was Performed: 07/15/19 Time Exam was Performed: 15:27 - My Orders Last 24 Hours: My Active Orders 07/15/19 13:34 EKG Documentation Completion [RC] ASDIRECTED EKG 12 Lead [EK] Routine 07/15/19 13:36 Peripheral IV Care [RC] . DIRECTED Sodium Chloride 0.9% [Saline Flush] 10 ml FLUSH Q8HR PRN Peripheral IV Insertion Adult [OM.PC] Routine - Assessment/Plan Last 24 Hours: My Active Orders 07/15/19 13:34 EKG Documentation Completion [RC] ASDIRECTED EKG 12 Lead [EK] Routine 07/15/19 13:36 Peripheral IV Care [RC] . DIRECTED Sodium Chloride 0.9% [Saline Flush] 10 ml FLUSH Q8HR PRN Peripheral IV Insertion Adult [OM.PC] Routine Assessment:: Left hip fracture Plan: Transferred to [facility]
--- NOTE | 2019-07-15 14:44 | CR ---
[id number] RAD/RAD Femur Left 2V EXAM: RAD Femur Left 2V CLINICAL DATA: TRAUMA COMPARISON: NO PREVIOUS SIMILAR EXAM IS AVAILABLE. FINDINGS: There is a subcapital fracture of the left hip. IMPRESSION: ACUTE LEFT FEMORAL NECK FRACTURE Demetri Archuleta MD 07/15/19 [id number] Thank you for allowing us to participate in the care of your patient.
[2019-07-15] MEDS ORDERED: Ondansetron 4 MG/2 ML SDV IVPUSH ONE (15:22)
[2019-07-15 15:30] VITALS: BP 108/46; PULSE 62
== END 2019-07-15 16:50 ==
LOC: KA.ED 13:29
DX: S72.012A Unspecified intracapsular fracture of left femur, initial encounter for closed fracture (principal); I25.10 Atherosclerotic heart disease of native coronary artery without angina pectoris; E78.00 Pure hypercholesterolemia, unspecified; I10 Essential (primary) hypertension; I25.2 Old myocardial infarction; J44.9 Chronic obstructive pulmonary disease, unspecified; E11.9 Type 2 diabetes mellitus without complications; E66.9 Obesity, unspecified; Z79.02 Long term (current) use of antithrombotics/antiplatelets; Z79.899 Other long term (current) drug therapy; Z79.4 Long term (current) use of insulin; Z79.01 Long term (current) use of anticoagulants; W19.XXXA Unspecified fall, initial encounter; Y92.009 Unspecified place in unspecified non-institutional (private) residence as the place of occurrence of the external cause
CPT/HCPCS: 80053; 81001; 83880; 85025; 85610; 85730; 93005; 96374; 96375; 96376; 99284; 99285-25; J2270; J2405

== ENCOUNTER 2019-08-04 14:40 | Observation (INO) | payer MEDICARE, BC ==
[2019-08-04] MEDS ORDERED: Furosemide 40 MG/4 ML VIAL IVPUSH ONE (15:28)
[2019-08-04 15:55] LABS: ANION GAP 13.4 mmol/L (5-15); CHLORIDE,CL 106 mmol/L (98-115); SODIUM,NA 142 mmol/L (136-145)
--- NOTE | 2019-08-04 16:29 | CR ---
[id number] RAD/RAD Chest PA or AP 1V EXAM: RAD Chest PA or AP 1V INDICATION: EDEMA. COMPARISON: January 2019. DISCUSSION: Cardiomegaly and central vascular congestion. Small bilateral effusions. Early changes of fluid retention, possibly CHF exacerbation, most likely. No evidence of parenchymal consolidation or pneumothorax. IMPRESSION: As above. Jose Manuel Spencer MD 08/04/19 [id number] Thank you for allowing us to participate in the care of your patient.
[2019-08-04] MEDS ORDERED: Acetaminophen 325 MG Tab PO PRN (17:47)
[2019-08-04] MEDS ORDERED: Albuterol/Ipratropium 3.0-0.5 MG/3 ML Neb Soln INH PRN (17:47)
[2019-08-04] MEDS ORDERED: Acetaminophen/HYDROcodone 325-10 MG Tab PO PRN (17:47)
[2019-08-04] MEDS: Carvedilol 6.25 MG Tab PO SCH (18:40)
[2019-08-04] MEDS: INSULIN LISPRO SQ SCH (19:00)
[2019-08-04] MEDS ORDERED: Warfarin 2 MG Tab PO SCH (19:45)
[2019-08-04] MEDS: Tamsulosin 0.4 MG Cap.ER PO SCH (20:10)
[2019-08-04] MEDS: fluvoxaMINE 100 MG Tab PO SCH (20:11)
[2019-08-04] MEDS ORDERED: Oseltamivir 75 MG Cap PO SCH (21:00)
[2019-08-04] MEDS: Nystatin Ointment 15 GM Tube TOP SCH (21:54)
[2019-08-05 07:39] LABS: ANION GAP 14.1 mmol/L (5-15); CHLORIDE,CL 113 mmol/L (98-115); SODIUM,NA 151 mmol/L (136-145)
[2019-08-05] MEDS: INSULIN LISPRO SQ SCH ×3 (08:03→18:02)
[2019-08-05] MEDS: Clopidogrel 75 MG Tab PO SCH (08:17)
[2019-08-05] MEDS: fluvoxaMINE 100 MG Tab PO SCH ×2 (08:17→20:04)
[2019-08-05] MEDS: Amiodarone 200 MG Tab PO SCH (08:17)
[2019-08-05] MEDS: Docusate Sodium 100 MG Cap PO SCH (08:17)
[2019-08-05] MEDS: Carvedilol 6.25 MG Tab PO SCH ×2 (08:17→17:22)
[2019-08-05] MEDS: Rosuvastatin 10 MG Tab PO SCH (08:17)
[2019-08-05] MEDS: INSULIN DEGLUDEC SQ SCH (08:22)
[2019-08-05] MEDS: VILANTEROL IH SCH (09:30)
[2019-08-05] MEDS: FLUTICASONE IH SCH (09:30)
[2019-08-05] MEDS: Nystatin Ointment 15 GM Tube TOP SCH (10:31)
[2019-08-05] MEDS: Furosemide 40 MG/4 ML VIAL IVPUSH SCH (10:43)
[2019-08-05] MEDS: Sodium Chloride 0.9% 10 ML Syringe FLUSH PRN (10:48)
--- NOTE | 2019-08-05 11:14 | PCM.PN ---
- General Info Date of Service: 08/05/19 Functional Status: Reports: Pain Controlled, Tolerating Diet. Denies: Ambulating, New Symptoms - Review of Systems General: Reports: Weakness. Denies: Fatigue, Malaise, Chills Pulmonary: Denies: Shortness of Breath, Sputum Cardiovascular: Reports: Dyspnea on Exertion, Edema. Denies: Palpitations, Orthopnea Gastrointestinal: Denies: Abdominal Pain Genitourinary: Reports: Incontinence, Other (Robison catheter) Skin: Denies: Dryness Neurological: Reports: Confusion Psychiatric: Denies: Agitation - Patient Data Vitals - Most Recent: Last Vital Signs Temp 98.6 F 08/05/19 06:37 Pulse 68 08/05/19 09:30 Resp 24 H 08/05/19 06:37 BP 127/69 08/05/19 08:17 Pulse Ox 94 L 08/05/19 09:30 Weight - Most Recent: 257 lb I&O - Last 24 Hours: Intake & Output 08/04/19 08/05/19 08/05/19 22:59 06:59 14:59 Intake Total 710 300 Output Total 1800 900 Balance -1090 -600 Lab Results Last 24 Hours: Laboratory Results - last 24 hr 08/04/19 08/04/19 08/04/19 Range/Units 15:25 15:25 15:25 WBC 10.75 H (5.00-10.00) 10^3/uL RBC 3.13 L (4.50-6.00) 10^6/uL Hgb 9.7 L D (13.0-17.0) g/dL Hct 31.3 L (40.0-52.0) % MCV 100.0 H D (82.0-92.0) fL MCH 31.0 (27.0-31.0) pg MCHC 31.0 L (32.0-36.0) g/dL RDW 16.3 H (11.5-14.5) % Plt Count 345 D (150-400) 10^3/uL MPV 9.2 (7.4-10.4) fL Immature Gran % (Auto) 0.3 (0.0-5.0) % Neut % (Auto) 79.8 H (50.0-70.0) % Lymph % (Auto) 8.4 L (20.0-40.0) % [place] % (Auto) 9.7 H (2.0-8.0) % Eos % (Auto) 1.3 (1.0-3.0) % Baso % (Auto) 0.5 (0.0-1.0) % Immature Gran # (Auto) 0.03 (0.00-0.50) 10^3/uL Neut # (Auto) 8.59 H (2.50-7.00) 10^3/uL Lymph # (Auto) 0.90 L (1.00-4.00) 10^3/uL [place] # (Auto) 1.04 H (0.10-0.80) 10^3/uL Eos # (Auto) 0.14 (0.10-0.30) 10^3/uL Baso # (Auto) 0.05 (0.00-0.10) 10^3/uL PT (8.9-11.4) SEC INR (0.9-1.1) Sodium 142 (136-145) mmol/L Potassium 4.7 (3.3-5.3) mmol/L Chloride 106 (98-115) mmol/L Carbon Dioxide 27.3 (21.0-32.0) mmol/L Anion Gap 13.4 (5-15) mmol/L BUN 21 (6-25) mg/dL Creatinine 1.27 H (0.51-1.17) mg/dL Est Cr Clr Drug Dosing TNP Estimated GFR (MDRD) 55 mL/min Glucose 130 H (75 - 99) mg/dL POC Glucose (74-106) mg/dl Calcium 8.3 L (8.7-10.3) mg/dL Total Bilirubin 0.6 (0.2-1.0) mg/dL AST 31 (15-37) U/L ALT 23 (12-78) U/L Alkaline Phosphatase 137 H (46-116) IU/L B-Natriuretic Peptide 759 H (0-100) pg/mL Total Protein 5.6 L (6.4-8.2) g/dL Albumin 2.48 L (3.00-4.80) g/dL 08/04/19 08/04/19 08/05/19 Range/Units 17:42 21:53 06:25 WBC (5.00-10.00) 10^3/uL RBC (4.50-6.00) 10^6/uL Hgb (13.0-17.0) g/dL Hct (40.0-52.0) % MCV (82.0-92.0) fL MCH (27.0-31.0) pg MCHC (32.0-36.0) g/dL RDW (11.5-14.5) % Plt Count (150-400) 10^3/uL MPV (7.4-10.4) fL Immature Gran % (Auto) (0.0-5.0) % Neut % (Auto) (50.0-70.0) % Lymph % (Auto) (20.0-40.0) % [place] % (Auto) (2.0-8.0) % Eos % (Auto) (1.0-3.0) % Baso % (Auto) (0.0-1.0) % Immature Gran # (Auto) (0.00-0.50) 10^3/uL Neut # (Auto) (2.50-7.00) 10^3/uL Lymph # (Auto) (1.00-4.00) 10^3/uL [place] # (Auto) (0.10-0.80) 10^3/uL Eos # (Auto) (0.10-0.30) 10^3/uL Baso # (Auto) (0.00-0.10) 10^3/uL PT (8.9-11.4) SEC INR (0.9-1.1) Sodium (136-145) mmol/L Potassium (3.3-5.3) mmol/L Chloride (98-115) mmol/L Carbon Dioxide (21.0-32.0) mmol/L Anion Gap (5-15) mmol/L BUN (6-25) mg/dL Creatinine (0.51-1.17) mg/dL Est Cr Clr Drug Dosing Estimated GFR (MDRD) mL/min Glucose (75 - 99) mg/dL POC Glucose 111 H 139 H 126 H (74-106) mg/dl Calcium (8.7-10.3) mg/dL Total Bilirubin (0.2-1.0) mg/dL AST (15-37) U/L ALT (12-78) U/L Alkaline Phosphatase (46-116) IU/L B-Natriuretic Peptide (0-100) pg/mL Total Protein (6.4-8.2) g/dL Albumin (3.00-4.80) g/dL 08/05/19 08/05/19 Range/Units 07:00 07:00 WBC (5.00-10.00) 10^3/uL RBC (4.50-6.00) 10^6/uL Hgb (13.0-17.0) g/dL Hct (40.0-52.0) % MCV (82.0-92.0) fL MCH (27.0-31.0) pg MCHC (32.0-36.0) g/dL RDW (11.5-14.5) % Plt Count (150-400) 10^3/uL MPV (7.4-10.4) fL Immature Gran % (Auto) (0.0-5.0) % Neut % (Auto) (50.0-70.0) % Lymph % (Auto) (20.0-40.0) % [place] % (Auto) (2.0-8.0) % Eos % (Auto) (1.0-3.0) % Baso % (Auto) (0.0-1.0) % Immature Gran # (Auto) (0.00-0.50) 10^3/uL Neut # (Auto) (2.50-7.00) 10^3/uL Lymph # (Auto) (1.00-4.00) 10^3/uL [place] # (Auto) (0.10-0.80) 10^3/uL Eos # (Auto) (0.10-0.30) 10^3/uL Baso # (Auto) (0.00-0.10) 10^3/uL PT 18.0 H (8.9-11.4) SEC INR 1.8 H (0.9-1.1) Sodium 151 H (136-145) mmol/L Potassium 4.4 (3.3-5.3) mmol/L Chloride 113 (98-115) mmol/L Carbon Dioxide 28.3 (21.0-32.0) mmol/L Anion Gap 14.1 (5-15) mmol/L BUN 19 (6-25) mg/dL Creatinine 1.16 (0.51-1.17) mg/dL Est Cr Clr Drug Dosing 61.32 Estimated GFR (MDRD) > 60 mL/min Glucose 121 H (75 - 99) mg/dL POC Glucose (74-106) mg/dl Calcium 8.2 L (8.7-10.3) mg/dL Total Bilirubin (0.2-1.0) mg/dL AST (15-37) U/L ALT (12-78) U/L Alkaline Phosphatase (46-116) IU/L B-Natriuretic Peptide (0-100) pg/mL Total Protein (6.4-8.2) g/dL Albumin (3.00-4.80) g/dL Med Orders - Current: Current Medications Acetaminophen (Tylenol) 650 mg PO Q8H PRN PRN Reason: Pain Hydrocodone Bitart/Acetaminophen ([place] 325-10 Mg) 1 tab PO Q6H PRN PRN Reason: Pain Albuterol/Ipratropium (Duoneb 3.0-0.5 Mg/3 Ml) 3 ml INH Q4H PRN PRN Reason: Shortness of Breath Amiodarone HCl (Cordarone) 200 mg PO DAILY [facility] Last Admin: 08/05/19 08:17 Dose: 200 mg Carvedilol (Coreg) 6.25 mg PO BIDMEALS [facility] Last Admin: 08/05/19 08:17 Dose: 6.25 mg Clopidogrel Bisulfate (Plavix) 75 mg PO DAILY [facility] Last Admin: 08/05/19 08:17 Dose: 75 mg Docusate Sodium (Colace) 100 mg PO DAILY [facility] Last Admin: 08/05/19 08:17 Dose: 100 mg Fluvoxamine Maleate (Luvox) 100 mg PO BID [facility] Last Admin: 08/05/19 08:17 Dose: 100 mg Furosemide (Lasix) 40 mg IVPUSH DAILY [facility] Last Admin: 08/05/19 10:43 Dose: 40 mg Furosemide (Lasix) 20 mg IVPUSH NOW ONE Stop: 08/05/19 17:01 Furosemide (Lasix) 40 mg IVPUSH DAILY [facility] Multi-Ingred Cream/Lotion/Oil/Oint (Zinc Oxide) 0 gm TOP ASDIRECTED PRN PRN Reason: redness/irritation Fluticasone/Vilanterol (Breo Ellipta) 100/25 Own Med 1 each IH DAILY [facility] Last Admin: 08/05/19 09:30 Dose: 1 each Insulin Degludec [ Tresiba] Own Med 14 unit SQ DAILY [facility] Last Admin: 08/05/19 08:22 Dose: 14 unit Insulin Lispro [ Humalog] Own Med 4 units SQ BIDMEALS [facility] Last Admin: 08/05/19 08:03 Dose: 4 units Insulin Lispro [ Humalog] Own Med 6 unit SQ DAILY@1100 [facility] Nystatin (Nystatin Ointment) 0 gm TOP BID [facility] Last Admin: 08/05/19 10:31 Dose: 1 applic Rosuvastatin Calcium (Crestor) 20 mg PO DAILY [facility] Last Admin: 08/05/19 08:17 Dose: 20 mg Senna/Docusate Sodium (Senna Plus) 1 tab PO BEDTIME [facility] Last Admin: 08/04/19 20:11 Dose: 1 tab Sodium Chloride (Saline Flush) 10 ml FLUSH Q8HR PRN PRN Reason: keep vein open Last Admin: 08/05/19 10:48 Dose: 10 ml Tamsulosin HCl (Flomax) 0.4 mg PO BEDTIME [facility] Last Admin: 08/04/19 20:10 Dose: 0.4 mg Warfarin Sodium (Coumadin) 1 mg PO MoWeFr@1800 ROSIO Warfarin Sodium (Coumadin) 2 mg PO SUTUTHSA@1800 [facility] Last Admin: 08/04/19 20:10 Dose: 2 mg Discontinued Medications Furosemide (Lasix) 40 mg IVPUSH NOW ONE Stop: 08/04/19 15:29 Last Admin: 08/04/19 16:02 Dose: 40 mg Oseltamivir Phosphate (Tamiflu) 75 mg PO BEDTIME [facility] Stop: 08/04/19 21:01 Last Admin: 08/04/19 20:11 Dose: 75 mg - Exam Quality Assessment: No: Supplemental Oxygen General: Alert, Oriented, Cooperative, No Acute Distress Neck: Other (Very mild JVD) Lungs: Clear to Auscultation, Normal Respiratory Effort. No: Crackles, Rhonchi , Rub Cardiovascular: Irregular Rhythm Back Exam: No: CVA Tenderness (L), CVA Tenderness (R) Extremities: Normal Capillary Refill, Pedal Edema Skin: Dry Psy/Mental Status: Alert, Normal Affect, Normal Mood Sepsis Event Note - Evaluation Sepsis Screening Result: No Definite Risk - Focused Exam Vital Signs: Vital Signs Temp Pulse Pulse Resp BP BP Pulse Ox 08/05/19 09:30 68 08/05/19 08:17 67 127/69 08/05/19 06:37 98.6 F 72 24 H 130/72 92 L 08/05/19 03:00 98.2 F 66 18 112/60 96 Pulse Ox 08/05/19 09:30 94 L 08/05/19 08:17 08/05/19 06:37 08/05/19 03:00 Date Exam was Performed: 08/05/19 Time Exam was Performed: 11:04 - Problem List Review Problem List Initiated/Reviewed/Updated: Yes - My Orders Last 24 Hours: My Active Orders 08/04/19 15:10 MISCELLANEOUS CULT [MREF] Routine 08/04/19 15:13 MISCELLANEOUS CULT [MREF] Routine 08/04/19 16:24 Intake and Output Strict [RC] 0600,1400,2200 08/05/19 09:30 Furosemide [Lasix] 40 mg IVPUSH DAILY 08/05/19 17:00 Furosemide [Lasix] 20 mg IVPUSH NOW ONE 08/06/19 09:00 Furosemide [Lasix] 40 mg IVPUSH DAILY - Plan Plan:: History summary 74-year-old gentleman who is a [facility] after recent hospitalization due to fractured hip. Patient has complex comorbid medical conditions requiring aggressive PT/OT however was admitted due to acute on chronic congestive heart failure with a 14 pound weight gain over the past few days. Patient states food and skilled nursing highly salt however he denies adding any additional salt. BNP greater than 700 well above baseline. Primary problems HFrEF mild exacerbation, combined systolic/diastolic history of decompensation Hematuria, Mild, monitor hemoglobin however continue with DAPT Chronic problems Hx cardiact arrest with V. fib, longer on external defibrillator, Atrial fibrillation, Dapto, continue Coumadin, INR slightly subtherapeutic today recent single episode of A. Fib, successful cardioverted Peripheral vascular disease, stable HTN, hx. CAD, multi-vessel, no ongoing ischemic pain T2DM, with polyneuropathy, home Tresiba HLD, mixed, changed to Rosuvastatin ARTEMIO, Nasal Bi/PAP, NOT tolerating well due to mask compressing on teeth. Respiratory consultation obesity, BMI 35%, dietary consultation for weight loss Disposition/overall plan --Continue observation stay, minimal qualification as long as receiving IV Lasix , --Continue Robison catheter for now, --IV Lasix, --monitor BUN/creatinine and hgb, potassium levels --Strict low-sodium diet, --Strongly anticipate discharge tomorrow back to SNF OT/PT twice daily as patient has already regressed regarding physical conditioning state.
[2019-08-05] MEDS ORDERED: Furosemide 40 MG/4 ML VIAL IVPUSH ONE (17:00)
[2019-08-05] MEDS: Tamsulosin 0.4 MG Cap.ER PO SCH (20:04)
[2019-08-05] MEDS: Nystatin Topical Powder 15 GM Bottle TOP SCH (20:04)
[2019-08-06 07:51] LABS: ANION GAP 10.5 mmol/L (5-15); CHLORIDE,CL 104 mmol/L (98-115); SODIUM,NA 139 mmol/L (136-145)
[2019-08-06] MEDS: INSULIN LISPRO SQ SCH ×2 (08:05→12:08)
[2019-08-06] MEDS: Rosuvastatin 10 MG Tab PO SCH (08:07)
[2019-08-06] MEDS: fluvoxaMINE 100 MG Tab PO SCH (08:08)
[2019-08-06] MEDS: Docusate Sodium 100 MG Cap PO SCH (08:08)
[2019-08-06] MEDS: Clopidogrel 75 MG Tab PO SCH (08:08)
[2019-08-06] MEDS: INSULIN DEGLUDEC SQ SCH (08:14)
[2019-08-06] MEDS: Amiodarone 200 MG Tab PO SCH (08:23)
[2019-08-06] MEDS: Nystatin Topical Powder 15 GM Bottle TOP SCH (08:24)
[2019-08-06] MEDS: Furosemide 40 MG/4 ML VIAL IVPUSH SCH (08:25)
[2019-08-06] MEDS: Sodium Chloride 0.9% 10 ML Syringe FLUSH PRN (08:25)
[2019-08-06] MEDS: VILANTEROL IH SCH (08:39)
[2019-08-06] MEDS: FLUTICASONE IH SCH (08:39)
[2019-08-06] MEDS ORDERED: Furosemide 40 MG/4 ML VIAL IVPUSH SCH (09:00)
--- NOTE | 2019-08-06 09:24 | PCM.DCSUM1 ---
Discharge Summary - Hospital Course Diagnosis: Stroke: No - Discharge Data Discharge Date: 08/06/19 Discharge Disposition: DC/Tfer to SNF 03 Condition: Fair - Referral to Home Health Primary Care Physician: Delio Adam NP - Patient Instructions Diet: Heart Healthy Diet, Low Sodium (1800/day max. ), Diabetic Diet Activity: As Tolerated Driving: Do Not Drive Showering/Bathing: May Shower Other/Special Instructions: weekly wts, notify if greater than 5lbs. - Discharge Plan *PRESCRIPTION DRUG MONITORING PROGRAM REVIEWED*: Not Applicable *COPY OF PRESCRIPTION DRUG MONITORING REPORT IN PATIENT PHAN: Not Applicable Prescriptions/Med Rec: Carvedilol [Coreg] 3.125 mg PO BID #60 tablet Furosemide [Lasix] 40 mg PO DAILY #30 tab Home Medications: Home Meds Albuterol/Ipratropium [DuoNeb 3.0-0.5 MG/3 ML] 3 ml INH Q4H PRN 12/25/18 [ History] Fluticasone/Vilanterol [Breo Ellipta 100-25 MCG Inhalation Kit] 1 each IH DAILY 12/25/18 [History] Amiodarone [Cordarone] 200 mg PO DAILY #30 tablet 01/30/19 [Rx] Clopidogrel [Plavix] 75 mg PO DAILY tablet 01/30/19 [Rx] Rosuvastatin [Crestor] 20 mg PO DAILY #90 tablet 01/30/19 [Rx] Insulin Degludec [Tresiba] 14 unit SQ DAILY 07/15/19 [History] Tamsulosin HCl 0.4 mg PO BEDTIME 07/15/19 [History] Warfarin [Coumadin] 1 mg PO MOWEFR 07/15/19 [History] Warfarin [Coumadin] 2 mg PO SUTUTHSA@1800 07/15/19 [History] carvediloL [Coreg] 6.25 mg PO BIDMEALS 07/15/19 [History] Acetaminophen [Tylenol] 650 mg PO Q8H PRN 08/04/19 [History] Docusate Sodium [Colace] 100 mg PO DAILY 08/04/19 [History] Docusate Sodium/Sennosides [Senna Plus] 1 tab PO BEDTIME 08/04/19 [History] Hydrocodone/Acetaminophen [Hydrocodon-Acetaminophn 10-325] 1 tab PO Q6H PRN [History] Insulin Lispro [HumaLOG] 4 units SQ BIDMEALS 08/04/19 [History] Insulin Lispro [HumaLOG] 6 unit SQ DAILY@1100 08/04/19 [History] Insulin Lispro [HumaLOG] See Protocol SQ TIDMEALS 08/04/19 [History] Nystatin [Nystatin Ointment] 1 applic TOP BID 08/04/19 [History] Oseltamivir [Tamiflu] 75 mg PO BEDTIME 08/04/19 [History] Povidone-Iodine 1 swab TOP BID 08/04/19 [History] Zinc Oxide [Desitin] 1 applic TOP ASDIRECTED PRN 08/04/19 [History] fluvoxaMINE Maleate [Fluvoxamine Maleate] 100 mg PO BID 08/04/19 [History] Carvedilol [Coreg] 3.125 mg PO BID #60 tablet 08/06/19 [Rx] Furosemide [Lasix] 20 mg PO Q48H #30 08/06/19 [Rx] Furosemide [Lasix] 40 mg PO DAILY #30 tab 08/06/19 [Rx] - Discharge Summary/Plan Comment DC Time >30 min.: Yes Discharge Summary/Plan Comment: Primary problems HFrEF mild exacerbation, combined systolic/diastolic history of decompensation Hematuria, resolved, continue with DAPT Chronic problems Hx cardiact arrest with V. fib, longer on external defibrillator, high risk O/P medicine with class III agent antiarrhythmic amiodarone Atrial fibrillation, Dapt continue Coumadin, Peripheral vascular disease, stable HTN, hx. CAD, multi-vessel, no ongoing ischemic pain T2DM, with polyneuropathy, home Tresiba HLD, mixed, changed to Rosuvastatin ARTEMIO, Nasal Bi/PAP, NOT tolerating well due to mask compressing on teeth. Respiratory consultation obesity, morbid BMI 35%, dietary consultation for weight loss, low sodium diet History summary 74-year-old gentleman who is a resident of prison facility after recent hospitalization due to fractured hip. Patient has complex comorbid medical conditions requiring aggressive PT/OT however was admitted due to acute on chronic congestive heart failure with a ~14 pound weight gain over the past few days suspect ~1/2 of wt gain increased caloric intake. Patient does admit to food seeming excessively salty while at prison facility however he denies adding any additional salt. BNP greater than 700 well above baseline. Admitted for diuresing therapy Hospital course Went well however early on required IV Hernández catheter due to excoriation of perineum, 2/2 urinary incontinence and needing accurate intake and output. He was given IV furosemide, negative o/p ~ 5,000 ML. Dietary salt substitute was used, he did have hematuria mildly on admission however this was cleared up upon discharge. Mild JVD was resolved, patient felt much better with less shortness of breath. Electrolytes were monitored carefully and required no adjustments, his carvedilol was reduced dose due bradycardia. His clinical condition improved however likely will require ongoing diuresis therefore will leave Hernández catheter in another 24 hours before removal to also help heal peritoneum Medication changes/adjustments upon discharge --Change home Lasix of 20 mg daily to 20 mg every 48 hours alternating 40 mg every 48 hours --Decrease carvedilol to 3.125 mg p.o. twice daily Disposition Will be discharged back to [facility]term care prison facility for PT OT and continue rehab. --Discontinue Hernández catheter tomorrow morning --Continue observation stay, minimal qualification as long as receiving IV Lasix , --Strict low-sodium diet, dietary consultation for goal of 1800 maximum --Weigh weekly, weight gain of 5 pounds or greater Recommendations on follow-up, --Follow-up on dietary with weight loss nutritional recommendations and compliance --strongly consider cardilogy c/s to review the need for ongoing outpatient amiodarone as high risk and not a good agent long-term outside of hospital 2/2 to significant electrolyte, thyroid toxicity/pulm toxicities and ongoing monitor needs. Since yearly chest x-ray has fallen out of favor for routine monitoring I would suggest Dofetililde as great alternative. If no change is advised then non-fluid retention associated SOB would warrant CXR and red flag for possible amiodorone induced pulmonary toxicity. - General Info Functional Status: Reports: Pain Controlled, Tolerating Diet, Urinating (hernández catheter). Denies: Ambulating - Review of Systems General: Reports: Weakness HEENT: Reports: No Symptoms Pulmonary: Denies: Shortness of Breath Cardiovascular: Reports: Dyspnea on Exertion, Edema. Denies: Chest Pain, Orthopnea Gastrointestinal: Reports: No Symptoms Genitourinary: Reports: Incontinence, Other (hernández catheter. ). Denies: Hematuria Musculoskeletal: Reports: No Symptoms Skin: Reports: No Symptoms Neurological: Reports: Confusion Psychiatric: Reports: Confusion. Denies: Agitation - Patient Data Vitals - Most Recent: Last Vital Signs Temp 97.2 F 08/06/19 06:55 Pulse 58 L 08/06/19 06:55 Resp 20 08/06/19 06:55 BP 130/75 08/06/19 06:55 Pulse Ox 96 08/06/19 06:55 Weight - Most Recent: 248 lb 9 oz I&O - Last 24 hours: Intake & Output 08/05/19 08/06/19 08/06/19 22:59 06:59 14:59 Intake Total 200 0 Output Total 1500 800 Balance -1300 -800 Lab Results - Last 24 hrs: Laboratory Results - last 24 hr 08/05/19 08/05/19 08/06/19 Range/Units 11:23 17:42 06:32 PT INR (0.9-1.1) Sodium (136-145) mmol/L Potassium (3.3-5.3) mmol/L Chloride (98-115) mmol/L Carbon Dioxide (21.0-32.0) mmol/L Anion Gap (5-15) mmol/L BUN (6-25) mg/dL Creatinine (0.51-1.17) mg/dL Est Cr Clr Drug Dosing mL/min Estimated GFR (MDRD) mL/min Glucose (75 - 99) mg/dL POC Glucose 185 H 137 H 118 H (74-106) mg/dl Calcium (8.7-10.3) mg/dL 08/06/19 08/06/19 Range/Units 07:15 07:15 PT TNP INR 1.9 H (0.9-1.1) Sodium 139 D (136-145) mmol/L Potassium 4.2 (3.3-5.3) mmol/L Chloride 104 (98-115) mmol/L Carbon Dioxide 28.7 (21.0-32.0) mmol/L Anion Gap 10.5 (5-15) mmol/L BUN 19 (6-25) mg/dL Creatinine 1.13 (0.51-1.17) mg/dL Est Cr Clr Drug Dosing 62.95 mL/min Estimated GFR (MDRD) > 60 mL/min Glucose 125 H (75 - 99) mg/dL POC Glucose (74-106) mg/dl Calcium 8.1 L (8.7-10.3) mg/dL Med Orders - Current: Current Medications Acetaminophen (Tylenol) 650 mg PO Q8H PRN PRN Reason: Pain Last Admin: 08/05/19 20:04 Dose: 650 mg Hydrocodone Bitart/Acetaminophen ([place] 325-10 Mg) 1 tab PO Q6H PRN PRN Reason: Pain Albuterol/Ipratropium (Duoneb 3.0-0.5 Mg/3 Ml) 3 ml INH Q4H PRN PRN Reason: Shortness of Breath Amiodarone HCl (Cordarone) 200 mg PO DAILY [facility] Last Admin: 08/06/19 08:23 Dose: 200 mg Carvedilol (Coreg) 6.25 mg PO BIDMEALS [facility] Last Admin: 08/05/19 17:22 Dose: 6.25 mg Clopidogrel Bisulfate (Plavix) 75 mg PO DAILY [facility] Last Admin: 08/06/19 08:08 Dose: 75 mg Docusate Sodium (Colace) 100 mg PO DAILY [facility] Last Admin: 08/06/19 08:08 Dose: 100 mg Fluvoxamine Maleate (Luvox) 100 mg PO BID [facility] Last Admin: 08/06/19 08:08 Dose: 100 mg Furosemide (Lasix) 40 mg IVPUSH DAILY [facility] Last Admin: 08/06/19 08:25 Dose: 40 mg Multi-Ingred Cream/Lotion/Oil/Oint (Zinc Oxide) 0 gm TOP ASDIRECTED PRN PRN Reason: redness/irritation Fluticasone/Vilanterol (Breo Ellipta) 100/25 Own Med 1 each IH DAILY [facility] Last Admin: 08/06/19 08:39 Dose: 1 each Insulin Degludec [ Tresiba] Own Med 14 unit SQ DAILY [facility] Last Admin: 08/06/19 08:14 Dose: 14 unit Insulin Lispro [ Humalog] Own Med 4 units SQ BIDMEALS [facility] Last Admin: 08/06/19 08:05 Dose: 4 units Insulin Lispro [ Humalog] Own Med 6 unit SQ DAILY@1100 [facility] Last Admin: 08/05/19 12:14 Dose: 6 unit Nystatin (Nystop) 1 gm TOP BID [facility] Last Admin: 08/06/19 08:24 Dose: 1 applic Rosuvastatin Calcium (Crestor) 20 mg PO DAILY [facility] Last Admin: 08/06/19 08:07 Dose: 20 mg Senna/Docusate Sodium (Senna Plus) 1 tab PO BEDTIME [facility] Last Admin: 08/05/19 20:04 Dose: 1 tab Sodium Chloride (Saline Flush) 10 ml FLUSH Q8HR PRN PRN Reason: keep vein open Last Admin: 08/06/19 08:25 Dose: 10 ml Tamsulosin HCl (Flomax) 0.4 mg PO BEDTIME [facility] Last Admin: 08/05/19 20:04 Dose: 0.4 mg Warfarin Sodium (Coumadin) 1 mg PO MoWeFr@1800 [facility] Last Admin: 08/05/19 17:22 Dose: 1 mg Warfarin Sodium (Coumadin) 2 mg PO SUTUTHSA@1800 [facility] Last Admin: 08/04/19 20:10 Dose: 2 mg Discontinued Medications Furosemide (Lasix) 40 mg IVPUSH NOW ONE Stop: 08/04/19 15:29 Last Admin: 08/04/19 16:02 Dose: 40 mg Furosemide (Lasix) 20 mg IVPUSH NOW ONE Stop: 08/05/19 17:01 Last Admin: 08/05/19 17:00 Dose: 20 mg Furosemide (Lasix) 40 mg IVPUSH DAILY [facility] Nystatin (Nystatin Ointment) 0 gm TOP BID [facility] Last Admin: 08/05/19 10:31 Dose: 1 applic Oseltamivir Phosphate (Tamiflu) 75 mg PO BEDTIME [facility] Stop: 08/04/19 21:01 Last Admin: 08/04/19 20:11 Dose: 75 mg - Exam Quality Assessment: Denies: Supplemental Oxygen General: Reports: Alert, Oriented, Cooperative Neck: Reports: Supple Lungs: Reports: Rales (Mild Rales left lower base) Cardiovascular: Reports: Irregular Rhythm, Bradycardia GI/Abdominal Exam: Soft Skin: Reports: Other (Nurses report erythremia groins) Psy/Mental Status: Reports: Alert, Normal Affect, Normal Mood
[2019-08-06] MEDS: Carvedilol 6.25 MG Tab PO SCH (09:41)
[2019-08-06 11:07] VITALS: BP 130/60; PULSE 55
== END 2019-08-06 11:45 ==
LOC: KA.MS 14:58
PROVIDERS: ADMIT Physician Assistant Medical; ATTEND Nurse Practitioner Family
DX: I13.0 Hypertensive heart and chronic kidney disease with heart failure and stage 1 through stage 4 chronic kidney disease, or unspecified chronic kidney disease (principal); I50.43 Acute on chronic combined systolic (congestive) and diastolic (congestive) heart failure; N18.3 Chronic kidney disease, stage 3 (moderate); E11.22 Type 2 diabetes mellitus with diabetic chronic kidney disease; R31.9 Hematuria, unspecified; I48.91 Unspecified atrial fibrillation; I25.10 Atherosclerotic heart disease of native coronary artery without angina pectoris; E11.42 Type 2 diabetes mellitus with diabetic polyneuropathy; G47.33 Obstructive sleep apnea (adult) (pediatric); J44.9 Chronic obstructive pulmonary disease, unspecified; E78.2 Mixed hyperlipidemia; E66.01 Morbid (severe) obesity due to excess calories; Z79.51 Long term (current) use of inhaled steroids; Z79.899 Other long term (current) drug therapy; Z79.4 Long term (current) use of insulin; Z79.01 Long term (current) use of anticoagulants; Z79.02 Long term (current) use of antithrombotics/antiplatelets; Z99.89 Dependence on other enabling machines and devices; Z68.33 Body mass index [BMI] 33.0-33.9, adult
CPT/HCPCS: 36415; 51702; 71045; 80048; 80053; 82962; 83880; 85025; 85610; 87070; 87205; 94640; 96374; 96376; A9270-GY; G0378; J1940

== ENCOUNTER 2019-09-08 15:14 | Inpatient (IN) | payer MEDICARE, BC, OTHER ==
[2019-09-08] MEDS: Sodium Chloride 0.9% 10 ML Syringe FLUSH PRN (15:30)
[2019-09-08] MEDS ORDERED: Albuterol/Ipratropium 3.0-0.5 MG/3 ML Neb Soln ONE (15:39)
[2019-09-08] MEDS ORDERED: Albuterol/Ipratropium 3.0-0.5 MG/3 ML Neb Soln NEB ONE (15:53)
--- NOTE | 2019-09-08 15:56 | CR ---
[id number] RAD/RAD Chest PA or AP 1V EXAM: SINGLE VIEW CHEST. INDICATION: COUGH SHORTNESS OF BREATH COMPARISON: CORRELATION IS MADE WITH THE EXAM OF AUGUST 04, 2019 FINDINGS: There appears to be moderate edema There are small bilateral effusions The cardiomediastinal contour is stable IMPRESSION: MODERATE CHF Demetri Archuleta MD 09/08/19 [id number] Thank you for allowing us to participate in the care of your patient.
--- NOTE | 2019-09-08 16:05 | EDM.PDOC ---
ED HPI GENERAL MEDICAL PROBLEM - General Chief Complaint: General Time Seen by Provider: 09/08/19 15:50 Source of Information: Reports: Patient, Significant Other History Limitations: Reports: Other (a little hard to understand and seems a little confused with answering questions but is alert and oriented x 3. When I ask yes-or-no questions to make it simple he tries to answer with detail that doesn't make complete sense and is difficult to understand. This is chronic per .) - History of Present Illness INITIAL COMMENTS - FREE TEXT/NARRATIVE: Patient [place] dyspnea. [place] staff called his at 1515 saying they were sending him to ER with dyspnea. Patient and aren't sure when it started. tells me that he has cognitive changes/delays since his ID in December 2018, he also coded a few times and was apneic for 22 minutes she says. He has been on warfarin since the ID. He has CHF. He broke his hip about 6 weeks ago and has been in the [facility] since then. 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 - Related Data Allergies Allergy/AdvReac Type Severity Reaction Status Date / Time No Known Allergies Allergy Verified 09/08/19 15:51 Home Meds: Home Meds Albuterol/Ipratropium [DuoNeb 3.0-0.5 MG/3 ML] 3 ml INH Q4H PRN 12/25/18 [ History] Fluticasone/Vilanterol [Breo Ellipta 100-25 MCG Inhalation Kit] 1 each IH DAILY 12/25/18 [History] Amiodarone [Cordarone] 200 mg PO DAILY #30 tablet 01/30/19 [Rx] Clopidogrel [Plavix] 75 mg PO DAILY tablet 01/30/19 [Rx] Rosuvastatin [Crestor] 20 mg PO DAILY #90 tablet 01/30/19 [Rx] Insulin Degludec [Tresiba] 14 unit SQ DAILY 07/15/19 [History] Tamsulosin HCl 0.4 mg PO BEDTIME 07/15/19 [History] Warfarin [Coumadin] 2 mg PO SUTUTHSA@1800 07/15/19 [History] Acetaminophen [Tylenol] 650 mg PO Q8H PRN 08/04/19 [History] Docusate Sodium [Colace] 100 mg PO DAILY 08/04/19 [History] Docusate Sodium/Sennosides [Senna Plus] 1 tab PO BEDTIME 08/04/19 [History] Hydrocodone/Acetaminophen [Hydrocodon-Acetaminophn 10-325] 1 tab PO Q6H PRN [History] Insulin Lispro [HumaLOG] 4 units SQ BIDMEALS 08/04/19 [History] Insulin Lispro [HumaLOG] 6 unit SQ DAILY@1100 08/04/19 [History] fluvoxaMINE Maleate [Fluvoxamine Maleate] 100 mg PO BID 08/04/19 [History] Carvedilol [Coreg] 3.125 mg PO BID #60 tablet 08/06/19 [Rx] Furosemide [Lasix] 20 mg PO Q48H #30 08/06/19 [Rx] Ascorbic Acid 500 mg PO Q48H 09/08/19 [History] Ferrous Sulfate 325 mg PO Q48H 09/08/19 [History] Furosemide [Lasix] 40 mg PO Q48H 09/08/19 [History] OLANZapine [ZyPREXA] 10 mg PO DAILY 09/08/19 [History] Past Medical History HEENT History: Reports: Impaired Vision Cardiovascular History: Reports: CAD, Heart Murmur, High Cholesterol, Hypertension, ID, SOB on Exertion, Stents Respiratory History: Reports: Asthma, COPD, Sleep Apnea, SOB Gastrointestinal History: Reports: Diverticulosis, Helicobacter Pylori Genitourinary History: Reports: None Musculoskeletal History: Reports: Arthritis, Fracture, Gout, Osteoarthritis Neurological History: Reports: Vertigo, Other (See Below) Other Neuro History: patient states "bad memory" Psychiatric History: Reports: Depression, Mood Swings, OCD Other Psychiatric History: irritability Endocrine/Metabolic History: Reports: Diabetes, Type II, Obesity/BMI 30+ Oncologic (Cancer) History: Reports: Other (See Below) Other Oncologic History: skin - forhead, nose , chest Dermatologic History: Reports: Melanoma - Infectious Disease History Infectious Disease History: Reports: Measles - Past Surgical History HEENT Surgical History: Reports: Adenoidectomy, Oral Surgery, Tonsillectomy Cardiovascular Surgical History: Reports: Carotid Stents Other Cardiovascular Surgeries/Procedures: history of lifevest. 5 stents in december 2018 Respiratory Surgical History: Reports: None GI Surgical History: Reports: Colonoscopy Male Surgical History: Reports: None Endocrine Surgical History: Reports: None Neurological Surgical History: Reports: C-Spine Other Neurological Surgeries/Procedures: bone spurs on spinal cord, spinal operation - plate in neck Musculoskeletal Surgical History: Reports: Knee Replacement, Shoulder Surgery Other Musculoskeletal Surgeries/Procedures:: 12-19-17 Right TKA Oncologic Surgical History: Reports: None Dermatological Surgical History: Reports: None Social & Family History - Family History Family Medical History: Noncontributory Cardiac: Reports: Angina, Heart Failure, High Cholesterol, Hypertension, ID Respiratory: Reports: Asthma, COPD Psychiatric: Reports: Depression, OCD - Caffeine Use Caffeine Use: Reports: Other Other Caffeine Use: water with lemon - MITCH flavoring in water ED ROS GENERAL - Review of Systems Review Of Systems: See Below (limited by dementia) Respiratory: Reports: Shortness of Breath Cardiovascular: Denies: Chest Pain GI/Abdominal: Denies: Abdominal Pain, Vomiting ED EXAM, GENERAL - Physical Exam Exam: See Below Exam Limited By: No Limitations General Appearance: Alert, No Apparent Distress Eye Exam: Bilateral Eye: EOMI, Normal Inspection, PERRL Ears: Normal External Exam, Hearing Grossly Normal Nose: Normal Inspection, No Blood Throat/Mouth: Normal Inspection, Normal Lips, No Airway Compromise Head: Atraumatic, Normocephalic Neck: Normal Inspection, Full Range of Motion Respiratory/Chest: Decreased Breath Sounds (significantly, bilat). No: Rhonchi , Wheezing, Stridor Cardiovascular: Regular Rate, Rhythm, No Murmur GI/Abdominal: Normal Bowel Sounds, Soft, Non-Tender, No Organomegaly Back Exam: Normal Inspection. No: CVA Tenderness (L), CVA Tenderness (R) Extremities: Normal Inspection, Other (no calf pain or swelling) Neurological: Alert, Oriented, No Motor/Sensory Deficits Skin Exam: Warm, Dry, Intact, Normal Color, No Rash Course - Vital Signs Last Recorded V/S: Last Vital Signs Temp 100.0 F 09/08/19 15:46 Pulse 92 09/08/19 16:01 Resp 29 H 09/08/19 16:00 BP 99/49 L 09/08/19 16:00 Pulse Ox 95 09/08/19 16:01 - Orders/Labs/Meds Orders: Active Orders 24 hr Category Date Time Status Patient Status [ADT] Routine ADT 09/08/19 17:07 Ordered EKG Documentation Completion [RC] ASDIRECTED Care 09/08/19 16:05 Ordered Peripheral IV Care [RC] . DIRECTED Care 09/08/19 15:55 Active RT Aerosol Therapy [RC] ASDIRECTED Care 09/08/19 15:53 Active Sodium Chloride 0.9% [Saline Flush] Med 09/08/19 15:55 Active 10 ml FLUSH Q8HR PRN Peripheral IV Insertion Adult [OM.PC] Routine Oth 09/08/19 15:55 Ordered EKG 12 Lead [EK] Routine Ther 09/08/19 16:04 Ordered Medication Orders Sodium Chloride (Saline Flush) 10 ml FLUSH Q8HR PRN PRN Reason: keep vein open Last Admin: 09/08/19 15:30 Dose: 10 ml Labs: Laboratory Tests 09/08/19 09/08/19 09/08/19 Range/Units 15:35 15:35 15:35 WBC 11.47 H (5.00-10.00) 10^3/uL RBC 4.01 L (4.50-6.00) 10^6/uL Hgb 11.6 L D (13.0-17.0) g/dL Hct 37.6 L (40.0-52.0) % MCV 93.8 H D (82.0-92.0) fL MCH 28.9 (27.0-31.0) pg MCHC 30.9 L (32.0-36.0) g/dL RDW 16.6 H (11.5-14.5) % Plt Count 186 D (150-400) 10^3/uL MPV 9.9 (7.4-10.4) fL Add Manual Diff Yes Neutrophils % (Manual) 92 H (50-70) % Band Neutrophils % 6 (4-12) % Lymphocytes % (Manual) 1 L (20-40) % Monocytes % (Manual) 1 L (2-8) % Absolute Neutrophils 11.2406 Lymphocytes # (Manual) 0.1147 Monocytes # (Manual) 0.1147 PT (8.9-11.4) SEC INR (0.9-1.1) Sodium 146 H (136-145) mmol/L Potassium 3.9 (3.3-5.3) mmol/L Chloride 106 (98-115) mmol/L Carbon Dioxide 27.1 (21.0-32.0) mmol/L Anion Gap 16.8 H (5-15) mmol/L BUN 25 (6-25) mg/dL Creatinine 1.29 H (0.51-1.17) mg/dL Est Cr Clr Drug Dosing 55.14 mL/min Estimated GFR (MDRD) 54 mL/min Glucose 94 (75 - 99) mg/dL Lactic Acid 1.8 (0.4-2.0) mmol/L Calcium 8.6 L (8.7-10.3) mg/dL Total Bilirubin 0.9 (0.2-1.0) mg/dL AST 16 (15-37) U/L ALT 21 (12-78) U/L Alkaline Phosphatase 130 H (46-116) IU/L Troponin I (0.00-0.070) ng/mL B-Natriuretic Peptide 946 H (0-100) pg/mL Total Protein 6.4 (6.4-8.2) g/dL Albumin 2.88 L (3.00-4.80) g/dL 09/08/19 09/08/19 Range/Units 15:35 15:35 WBC (5.00-10.00) 10^3/uL RBC (4.50-6.00) 10^6/uL Hgb (13.0-17.0) g/dL Hct (40.0-52.0) % MCV (82.0-92.0) fL MCH (27.0-31.0) pg MCHC (32.0-36.0) g/dL RDW (11.5-14.5) % Plt Count (150-400) 10^3/uL MPV (7.4-10.4) fL Add Manual Diff Neutrophils % (Manual) (50-70) % Band Neutrophils % (4-12) % Lymphocytes % (Manual) (20-40) % Monocytes % (Manual) (2-8) % Absolute Neutrophils Lymphocytes # (Manual) Monocytes # (Manual) PT 23.2 H (8.9-11.4) SEC INR 2.3 H (0.9-1.1) Sodium (136-145) mmol/L Potassium (3.3-5.3) mmol/L Chloride (98-115) mmol/L Carbon Dioxide (21.0-32.0) mmol/L Anion Gap (5-15) mmol/L BUN (6-25) mg/dL Creatinine (0.51-1.17) mg/dL Est Cr Clr Drug Dosing mL/min Estimated GFR (MDRD) mL/min Glucose (75 - 99) mg/dL Lactic Acid (0.4-2.0) mmol/L Calcium (8.7-10.3) mg/dL Total Bilirubin (0.2-1.0) mg/dL AST (15-37) U/L ALT (12-78) U/L Alkaline Phosphatase (46-116) IU/L Troponin I 0.31 H* (0.00-0.070) ng/mL B-Natriuretic Peptide (0-100) pg/mL Total Protein (6.4-8.2) g/dL Albumin (3.00-4.80) g/dL Meds: Medications Generic Name Dose Route Start Last Admin Trade Name Freq PRN Reason Stop Dose Admin Sodium Chloride 10 ml 09/08/19 15:55 09/08/19 15:30 Saline Flush FLUSH 10 ml Q8HR PRN Administration keep vein open Discontinued Medications Generic Name Dose Route Start Last Admin Trade Name Freq PRN Reason Stop Dose Admin Albuterol/Ipratropium Confirm 09/08/19 15:39 09/08/19 16:14 Duoneb 3.0-0.5 Mg/3 Ml Administered 09/08/19 15:40 Not Given Dose 3 ml .ROUTE .STK-MED ONE Albuterol/Ipratropium 3 ml 09/08/19 15:53 09/08/19 15:40 Duoneb 3.0-0.5 Mg/3 Ml NEB 09/08/19 15:54 3 ml ONETIME ONE Administration Aspirin 324 mg 09/08/19 16:34 09/08/19 16:45 Aspirin PO 09/08/19 16:35 324 mg ONETIME ONE Administration - Re-Assessments/Exams Free Text/Narrative Re-Assessment/Exam: 09/08/19 17:11 Troponin is 0.31, INR is 2.3, WBC is 11.4, BNP is 946 which is up some from a month ago but not severely. CXR shows small bilat effusions, EKG shows no ST changes. Patient is therapeutic on warfarin, takes Plavix, we gave aspirin 324 in ER. I discussed all of this with patient's . She is very concerned about sending him to [place] since he went through so much with his ID last December; she doesn't think he could do that again. With covid in [place] she wants to avoid transferring there if at all possible. She is aware that care here in [facility] won't be able to do everything he could have in [place] and he may not survive this. Patient and his want to stay here for conservative treatment. With the hip fracture recently I considered DVT/PE but patient is fully anticoagulated and on antiplatelets as well. Discussed case with Dr. Gracia who accepted for admission. Patient stable. Departure - Departure Time of Disposition: 17:09 Disposition: Admitted As Inpatient 66 Condition: Fair Clinical Impression: Hypoxemia Acute ID Qualifiers: Myocardial infarction type: non-ST elevation myocardial infarction Qualified Code(s): I21.4 - Non-ST elevation (NSTEMI) myocardial infarction CHF exacerbation Qualifiers: Heart failure type: unspecified Qualified Code(s): I50.9 - Heart failure, unspecified Dyspnea Qualifiers: Dyspnea type: shortness of breath Qualified Code(s): R06.02 - Shortness of breath - Discharge Information Referrals: Delio Adam, [employer] [Primary Care Provider] - Forms: ED Department Discharge Sepsis Event Note - Evaluation Sepsis Screening Result: Possible Sepsis Risk - Focused Exam Vital Signs: Vital Signs Temp Pulse Resp BP Pulse Ox Pulse Ox 09/08/19 16:01 92 95 09/08/19 16:00 92 29 H 99/49 L 97 09/08/19 15:46 100.0 F 96 22 H 100/57 L 93 L 09/08/19 15:45 89 38 H 95/50 L 95 Date Exam was Performed: 09/08/19 Time Exam was Performed: 17:32 - My Orders Last 24 Hours: My Active Orders 09/08/19 15:53 RT Aerosol Therapy [RC] ASDIRECTED 09/08/19 15:55 Peripheral IV Care [RC] . DIRECTED Sodium Chloride 0.9% [Saline Flush] 10 ml FLUSH Q8HR PRN Peripheral IV Insertion Adult [OM.PC] Routine 09/08/19 16:04 EKG 12 Lead [EK] Routine 09/08/19 16:05 EKG Documentation Completion [RC] ASDIRECTED 09/08/19 17:07 Patient Status [ADT] Routine - Assessment/Plan Last 24 Hours: My Active Orders 09/08/19 15:53 RT Aerosol Therapy [RC] ASDIRECTED 09/08/19 15:55 Peripheral IV Care [RC] . DIRECTED Sodium Chloride 0.9% [Saline Flush] 10 ml FLUSH Q8HR PRN Peripheral IV Insertion Adult [OM.PC] Routine 09/08/19 16:04 EKG 12 Lead [EK] Routine 09/08/19 16:05 EKG Documentation Completion [RC] ASDIRECTED 09/08/19 17:07 Patient Status [ADT] Routine
[2019-09-08 16:18] LABS: ANION GAP 16.8 mmol/L (5-15)
[2019-09-08] MEDS ORDERED: Aspirin 81 MG Tab.Chew PO ONE (16:34)
[2019-09-08] MEDS ORDERED: Acetaminophen 325 MG Tab PO PRN (19:02)
[2019-09-08] MEDS ORDERED: Albuterol/Ipratropium 3.0-0.5 MG/3 ML Neb Soln INH PRN (19:02)
[2019-09-08] MEDS: Formoterol/Mometasone 100-5 MCG 8.8 GM Inhaler IH SCH (20:56)
[2019-09-08] MEDS: Carvedilol 6.25 MG Tab PO SCH (20:57)
[2019-09-08] MEDS: OLANZapine 5 MG Tab PO SCH (20:58)
[2019-09-08] MEDS: Rosuvastatin 10 MG Tab PO SCH (20:58)
[2019-09-08] MEDS: fluvoxaMINE 100 MG Tab PO SCH (20:59)
[2019-09-08] MEDS: Tamsulosin 0.4 MG Cap.ER PO SCH (20:59)
[2019-09-08] MEDS ORDERED: Insulin Glargine,Human Rec. Analog 100 Units/ML 3 ML Pen SUBCUT SCH (21:00)
--- NOTE | 2019-09-08 22:48 | PCM.SN ---
- Free Text/Narrative Note: Notified at 2220 of rising troponin level, now to 2.20. Nursing noted patient to be in no acute distress and that he continued to deny any chest pain or other complaints. Called , Kasey, and updated her with status change of increasing troponin. She validated the conversation relayed to me by the ED provider that she and their children desired comfort to be the priority for Escobar's care and denied wishes for resuscitation, intubation, cardiac procedures, or transfer to higher level of care. She agreed with DNR/DNI/Comfort measures code status and planned to sign POLST documentation tomorrow expressing written agreement with this. She expressed understanding for the update and endorsed that all her questions were answered. Updated nursing with conversation and requested that myself and be notified with change in patient status.
[2019-09-09 07:45] LABS: ANION GAP 27.2 mmol/L (5-15)
[2019-09-09] MEDS: Formoterol/Mometasone 100-5 MCG 8.8 GM Inhaler IH SCH ×2 (07:45→19:38)
[2019-09-09] MEDS: Insulin Aspart 100 Units/ML 3 ML Pen SUBCUT SCH ×3 (08:10→17:23)
[2019-09-09] MEDS: Docusate Sodium 100 MG Cap PO SCH (08:12)
[2019-09-09] MEDS: Amiodarone 200 MG Tab PO SCH (08:12)
[2019-09-09] MEDS: Carvedilol 6.25 MG Tab PO SCH ×2 (08:15→22:35)
[2019-09-09] MEDS: Clopidogrel 75 MG Tab PO SCH (08:19)
[2019-09-09] MEDS: fluvoxaMINE 100 MG Tab PO SCH ×2 (08:19→22:35)
[2019-09-09] MEDS ORDERED: Ferrous Sulfate 325 MG Tab PO SCH (09:00)
[2019-09-09] MEDS ORDERED: Ascorbic Acid 500 MG Tab PO SCH (09:00)
[2019-09-09] MEDS ORDERED: Furosemide 40 MG/4 ML VIAL IVPUSH ONE (11:15)
[2019-09-09] MEDS: Sodium Chloride 0.9% 10 ML Syringe FLUSH PRN (11:55)
--- NOTE | 2019-09-09 17:24 | PCM.HP.2 ---
H&P History of Present Illness - General Date of Service: 09/09/19 Admit Problem/Dx: Admission Diagnosis/Problem Admission Diagnosis/Problem Acute myocardial infarction Source of Information: Patient, Family (, at bedside), Fdc Records , Old Records, Provider, RN, RN Notes Reviewed History Limitations: Reports: Altered Mental Status (dementia) - History of Present Illness Initial Comments - Free Text/Narative: Mr. Aquino is a 74yoM resident of [facility] with a history notable for significant cardiac disease and dementia who was transported to the [facility] ED on the afternoon of 09/08/19 after being found to have shortness of breath and hypoxia in the low 70s. In the ED, he was requiring 5lpm via nasal cannula in order to maintain oxygen saturations. He denied any chest pain or other symptoms other than shortness of breath. Evaluation was notable for elevated troponin at 0.31 and BNP with bilateral effusions on CXR. expressed patient and family wishes that he be a DNR/DNI and not be considered for transfer to a tertiary care center. She desired minimal further evaluation, but was willing to have him admitted for monitoring and supportive measures, with the focus on comfort. He was admitted for further work-up and management. After admission, repeat troponin significantly elevated to 2.20. He continued to deny pain and continued to have an overall reassuring hemodynamically status. I had a discussion with the patient's over the phone regarding desiring wishes for care, and she reiterated wishes for comfort as primary goal and declined further intervention. This morning on rounds, he continues to deny chest pain. He also denies any other concerns, though history is extremely limited due to the patient's significant dementia. Per his at bedside, he has intermittent faster, noisy breathing, but at times is able to rest without difficulty and has no other increased work of breathing. Nursing reports no concerns with his care otherwise. - Related Data Allergies/Adverse Reactions: Allergies Allergy/AdvReac Type Severity Reaction Status Date / Time No Known Allergies Allergy Verified 09/08/19 15:51 Home Medications: Home Meds Albuterol/Ipratropium [DuoNeb 3.0-0.5 MG/3 ML] 3 ml INH Q4H PRN 12/25/18 [ History] Fluticasone/Vilanterol [Breo Ellipta 100-25 MCG Inhalation Kit] 1 puff IH DAILY 12/25/18 [History] Amiodarone [Cordarone] 200 mg PO DAILY #30 tablet 01/30/19 [Rx] Clopidogrel [Plavix] 75 mg PO DAILY tablet 01/30/19 [Rx] Insulin Degludec [Tresiba] 18 unit SQ DAILY 07/15/19 [History] Tamsulosin HCl 0.4 mg PO BEDTIME 07/15/19 [History] Warfarin [Coumadin] 2 mg PO DAILY@1800 07/15/19 [History] Acetaminophen [Tylenol] 650 mg PO Q8H PRN 08/04/19 [History] Docusate Sodium [Colace] 100 mg PO DAILY 08/04/19 [History] Docusate Sodium/Sennosides [Senna Plus] 1 tab PO BEDTIME 08/04/19 [History] Hydrocodone/Acetaminophen [Hydrocodon-Acetaminophn 10-325] 1 tab PO Q6H PRN [History] Insulin Lispro [HumaLOG] 4 units SQ BIDMEALS 08/04/19 [History] Insulin Lispro [HumaLOG] 6 unit SQ DAILY@1100 08/04/19 [History] fluvoxaMINE Maleate [Fluvoxamine Maleate] 100 mg PO BID 08/04/19 [History] Carvedilol [Coreg] 3.125 mg PO BID #60 tablet 08/06/19 [Rx] Furosemide [Lasix] 20 mg PO Q48H #30 08/06/19 [Rx] Ascorbic Acid 500 mg PO Q48H 09/08/19 [History] Ferrous Sulfate 325 mg PO Q48H 09/08/19 [History] Furosemide [Lasix] 40 mg PO Q48H 09/08/19 [History] OLANZapine [ZyPREXA] 10 mg PO BEDTIME 09/08/19 [History] Rosuvastatin [Crestor] 20 mg PO BEDTIME 09/08/19 [History] Past Medical History HEENT History: Reports: Impaired Vision Cardiovascular History: Reports: CAD, Heart Murmur, High Cholesterol, Hypertension, SC, SOB on Exertion, Stents, Other (See Below) Other Cardiovascular History: cardiac arrest 12/26 Respiratory History: Reports: Asthma, COPD, Sleep Apnea, SOB Gastrointestinal History: Reports: Diverticulosis, Helicobacter Pylori Genitourinary History: Reports: None Musculoskeletal History: Reports: Arthritis, Fracture, Gout, Osteoarthritis Neurological History: Reports: Vertigo, Other (See Below) Other Neuro History: patient states "bad memory" Psychiatric History: Reports: Dementia, Depression, Mood Swings, OCD Other Psychiatric History: irritability Endocrine/Metabolic History: Reports: Diabetes, Type II, Obesity/BMI 30+ Oncologic (Cancer) History: Reports: Other (See Below) Other Oncologic History: skin - forhead, nose , chest Dermatologic History: Reports: Melanoma - Infectious Disease History Infectious Disease History: Reports: Measles - Past Surgical History Head Surgeries/Procedures: Reports: None HEENT Surgical History: Reports: Adenoidectomy, Oral Surgery, Tonsillectomy Cardiovascular Surgical History: Reports: Carotid Stents Other Cardiovascular Surgeries/Procedures: history of lifevest. 5 stents in december 2018 Respiratory Surgical History: Reports: None GI Surgical History: Reports: Colonoscopy Male Surgical History: Reports: None Endocrine Surgical History: Reports: None Neurological Surgical History: Reports: C-Spine Other Neurological Surgeries/Procedures: bone spurs on spinal cord, spinal operation - plate in neck Musculoskeletal Surgical History: Reports: Hip Replacement, Knee Replacement, Shoulder Surgery Other Musculoskeletal Surgeries/Procedures:: 12-19-17 Right TKA Oncologic Surgical History: Reports: None Dermatological Surgical History: Reports: None Social & Family History - Family History Cardiac: Reports: Angina, Heart Failure, High Cholesterol, Hypertension, SC Respiratory: Reports: Asthma, COPD Psychiatric: Reports: Depression, OCD - Tobacco Use Smoking Status *Q: Never Smoker Second Hand Smoke Exposure: No - Caffeine Use Caffeine Use: Reports: Other Other Caffeine Use: water with lemon - MITCH flavoring in water - Recreational Drug Use Recreational Drug Use: No H&P Review of Systems - Review of Systems: Review Of Systems: See Below Reason Not Obtained: Limited due to patient's dementia; obtained in part from . General: Reports: Malaise, Weakness, Fatigue. Denies: Fever, Chills, Decreased Appetite HEENT: Denies: Ear Pain, Headaches, Sore Throat Pulmonary: Reports: Shortness of Breath. Denies: Cough, Hemoptysis Cardiovascular: Reports: Edema. Denies: Chest Pain, Palpitations Gastrointestinal: Denies: Abdominal Pain, Constipation, Diarrhea Genitourinary: Denies: Dysuria, Frequency, Pain Musculoskeletal: Denies: Neck Pain, Leg Pain, Joint Pain Skin: Denies: Cyanosis, Jaundice, Rash Psychiatric: Reports: Confusion, Mood Lability, Agitation Neurological: Reports: Confusion, Trouble Speaking. Denies: Headache Exam - Exam Exam: See Below - Vital Signs Vital Signs: Last Vital Signs Temp 37.2 C 09/09/19 15:00 Pulse 92 09/09/19 15:00 Resp 23 H 09/09/19 15:00 BP 90/57 L 09/09/19 15:00 Pulse Ox 94 L 09/09/19 15:00 Weight: 117.979 kg - Exam Physical Exam Comments:: GENERAL: Elderly male lying in hospital bed with intermittent mild tachypnea, but otherwise in no acute distress. HEENT: Normocephalic, atraumatic. Conjunctiva clear. Nares with cannula in place. Mucous membranes moist, posterior pharynx unremarkable. NECK: Supple, no masses. CV: Regular rate and rhythm, no murmurs, rubs, or gallops. 2+ radial pulses. PULMONARY: Intermittent tachypnea, diminished breath sounds in the bases bilaterally, but no wheezes, rales, or rhonchi. ABDOMEN: Positive bowel sounds, protuberant, soft, nontender, nondistended. EXTREMITIES: 1+ pitting edema to mid [place] bilaterally. MUSCULOSKELETAL: Moves all extremities well. NEUROLOGICAL: No obvious deficits. DERMATOLOGIC: No rashes or suspicious lesions in exposed areas. PSYCHIATRIC: Alert, speech intermittently with word salad and nonsensical, able to answer yes/no questions intermittently seemingly appropriately. - Patient Data Lab Results Last 24 hrs: Laboratory Results - last 24 hr 09/08/19 09/09/19 09/09/19 Range/Units 21:17 07:10 07:10 WBC 11.99 H (5.00-10.00) 10^3/uL RBC 3.39 L (4.50-6.00) 10^6/uL Hgb 10.1 L D (13.0-17.0) g/dL Hct 32.2 L (40.0-52.0) % MCV 95.0 H (82.0-92.0) fL MCH 29.8 (27.0-31.0) pg MCHC 31.4 L (32.0-36.0) g/dL RDW 16.9 H (11.5-14.5) % Plt Count 157 (150-400) 10^3/uL MPV 10.2 (7.4-10.4) fL Immature Gran % (Auto) 0.3 (0.0-5.0) % Neut % (Auto) 88.3 H (50.0-70.0) % Lymph % (Auto) 5.3 L (20.0-40.0) % Cass % (Auto) 4.5 (2.0-8.0) % Eos % (Auto) 1.3 (1.0-3.0) % Baso % (Auto) 0.3 (0.0-1.0) % Immature Gran # (Auto) 0.03 (0.00-0.50) 10^3/uL Neut # (Auto) 10.60 H (2.50-7.00) 10^3/uL Lymph # (Auto) 0.64 L (1.00-4.00) 10^3/uL Cass # (Auto) 0.54 (0.10-0.80) 10^3/uL Eos # (Auto) 0.15 (0.10-0.30) 10^3/uL Baso # (Auto) 0.03 (0.00-0.10) 10^3/uL PT INR (0.9-1.1) Sodium 157 H D (136-145) mmol/L Potassium 4.5 (3.3-5.3) mmol/L Chloride 105 (98-115) mmol/L Carbon Dioxide 29.3 (21.0-32.0) mmol/L Anion Gap 27.2 H (5-15) mmol/L BUN 34 H (6-25) mg/dL Creatinine 1.62 H (0.51-1.17) mg/dL Est Cr Clr Drug Dosing 43.91 mL/min Estimated GFR (MDRD) 42 mL/min Glucose 111 H (75 - 99) mg/dL POC Glucose (74-106) mg/dl Calcium 8.7 (8.7-10.3) mg/dL Troponin I 2.20 H* 2.41 H* (0.00-0.070) ng/mL 09/09/19 09/09/19 09/09/19 Range/Units 07:10 07:12 11:23 WBC (5.00-10.00) 10^3/uL RBC (4.50-6.00) 10^6/uL Hgb (13.0-17.0) g/dL Hct (40.0-52.0) % MCV (82.0-92.0) fL MCH (27.0-31.0) pg MCHC (32.0-36.0) g/dL RDW (11.5-14.5) % Plt Count (150-400) 10^3/uL MPV (7.4-10.4) fL Immature Gran % (Auto) (0.0-5.0) % Neut % (Auto) (50.0-70.0) % Lymph % (Auto) (20.0-40.0) % Cass % (Auto) (2.0-8.0) % Eos % (Auto) (1.0-3.0) % Baso % (Auto) (0.0-1.0) % Immature Gran # (Auto) (0.00-0.50) 10^3/uL Neut # (Auto) (2.50-7.00) 10^3/uL Lymph # (Auto) (1.00-4.00) 10^3/uL Cass # (Auto) (0.10-0.80) 10^3/uL Eos # (Auto) (0.10-0.30) 10^3/uL Baso # (Auto) (0.00-0.10) 10^3/uL PT TNP INR 2.2 H (0.9-1.1) Sodium (136-145) mmol/L Potassium (3.3-5.3) mmol/L Chloride (98-115) mmol/L Carbon Dioxide (21.0-32.0) mmol/L Anion Gap (5-15) mmol/L BUN (6-25) mg/dL Creatinine (0.51-1.17) mg/dL Est Cr Clr Drug Dosing mL/min Estimated GFR (MDRD) mL/min Glucose (75 - 99) mg/dL POC Glucose 101 121 H (74-106) mg/dl Calcium (8.7-10.3) mg/dL Troponin I (0.00-0.070) ng/mL 09/09/19 Range/Units 17:14 WBC (5.00-10.00) 10^3/uL RBC (4.50-6.00) 10^6/uL Hgb (13.0-17.0) g/dL Hct (40.0-52.0) % MCV (82.0-92.0) fL MCH (27.0-31.0) pg MCHC (32.0-36.0) g/dL RDW (11.5-14.5) % Plt Count (150-400) 10^3/uL MPV (7.4-10.4) fL Immature Gran % (Auto) (0.0-5.0) % Neut % (Auto) (50.0-70.0) % Lymph % (Auto) (20.0-40.0) % Cass % (Auto) (2.0-8.0) % Eos % (Auto) (1.0-3.0) % Baso % (Auto) (0.0-1.0) % Immature Gran # (Auto) (0.00-0.50) 10^3/uL Neut # (Auto) (2.50-7.00) 10^3/uL Lymph # (Auto) (1.00-4.00) 10^3/uL Cass # (Auto) (0.10-0.80) 10^3/uL Eos # (Auto) (0.10-0.30) 10^3/uL Baso # (Auto) (0.00-0.10) 10^3/uL PT INR (0.9-1.1) Sodium (136-145) mmol/L Potassium (3.3-5.3) mmol/L Chloride (98-115) mmol/L Carbon Dioxide (21.0-32.0) mmol/L Anion Gap (5-15) mmol/L BUN (6-25) mg/dL Creatinine (0.51-1.17) mg/dL Est Cr Clr Drug Dosing mL/min Estimated GFR (MDRD) mL/min Glucose (75 - 99) mg/dL POC Glucose 134 H (74-106) mg/dl Calcium (8.7-10.3) mg/dL Troponin I (0.00-0.070) ng/mL Result Diagrams: 09/09/19 07:10 09/09/19 07:10 Ibrahima Results Last 24 hrs: Microbiology 09/08/19 15:35 Aerobic Blood Culture - Final Blood - Arm, Left Anaerobic Blood Culture - Final Sepsis Event Note - Evaluation Sepsis Screening Result: No Definite Risk - Focused Exam Vital Signs: Vital Signs Temp Temp Pulse Pulse Resp BP BP 09/09/19 15:00 37.2 C 92 23 H 90/57 L 09/09/19 13:53 38.2 C H 09/09/19 13:23 39.6 C H 09/09/19 13:22 09/09/19 13:20 39.6 C H 09/09/19 11:00 36.7 C 114 H 24 H 140/80 09/09/19 09:00 09/09/19 08:15 73 138/96 H 09/09/19 08:06 09/09/19 07:45 64 09/09/19 07:30 09/09/19 06:45 36.7 C 66 24 H 113/68 Pulse Ox Pulse Ox 09/09/19 15:00 94 L 09/09/19 13:53 09/09/19 13:23 09/09/19 13:22 92 L 09/09/19 13:20 09/09/19 11:00 96 09/09/19 09:00 96 09/09/19 08:15 09/09/19 08:06 97 09/09/19 07:45 100 09/09/19 07:30 100 09/09/19 06:45 100 Date Exam was Performed: 09/09/19 Time Exam was Performed: 22:19 Problem List Initiated/Reviewed/Updated: Yes Orders Last 24hrs: Active Orders 24 hr Category Date Time Status Patient Status [ADT] Routine ADT 09/08/19 17:07 Active Blood Glucose Check, Bedside [RC] QIDACANDBED Care 09/08/19 19:07 Active Cardiac Monitoring [RC] 0300,0700,1100,1500,1900,2300 Care 09/08/19 18:59 Active Intake and Output [RC] 1400,2200,0600 Care 09/09/19 09:54 Active Oxygen Therapy [RC] DAILY Care 09/08/19 18:58 Active Up With Assistance [RC] ASDIRECTED Care 03/31/20 19:01 Active Heart Healthy Diet [DIET] Diet 09/09/19 Breakfast Active BMP [BASIC METABOLIC PANEL,BMP] [CHEM] AM Lab 09/10/19 05:11 Ordered CBC WITH AUTO DIFF [HEME] AM Lab 09/10/19 05:11 Ordered TROPONIN I [CHEM] AM Lab 09/10/19 05:11 Ordered Acetaminophen [Tylenol] Med 09/08/19 19:02 Active 650 mg PO Q8H PRN Acetaminophen/HYDROcodone [[place] 325-10 MG] Med 09/08/19 19:02 Active 1 tab PO Q6H PRN Albuterol/Ipratropium [DuoNeb 3.0-0.5 MG/3 ML] Med 09/08/19 19:02 Active 3 ml INH Q4H PRN Amiodarone [Cordarone] Med 09/09/19 09:00 Active 200 mg PO DAILY Ascorbic Acid [Vitamin C] Med 09/09/19 09:00 Active 500 mg PO Q48H Clopidogrel [Plavix] Med 09/09/19 09:00 Active 75 mg PO DAILY Docusate Sodium [Colace] Med 09/09/19 09:00 Active 100 mg PO DAILY Docusate Sodium/Sennosides [Senna Plus] Med 09/08/19 21:00 Active 1 tab PO BEDTIME Ferrous Sulfate Med 09/09/19 09:00 Active 325 mg PO Q48H Insulin Aspart [NovoLOG] Med 09/09/19 08:00 Active See Protocol SUBCUT TIDMEALS Insulin Glarg,Human.Rec.Analog [LantUS Solostar] Med 09/09/19 21:00 Active 10 units SUBCUT BEDTIME Mometasone/Formoterol [Dulera 100-5 MCG] Med 09/08/19 20:00 Active 2 puff IH BIDRT OLANZapine [ZyPREXA] Med 09/08/19 21:00 Active 10 mg PO BEDTIME Rosuvastatin [Crestor] Med 09/08/19 21:00 Active 20 mg PO BEDTIME Tamsulosin [Flomax] Med 09/08/19 21:00 Active 0.4 mg PO BEDTIME Warfarin [Coumadin] Med 09/09/19 18:00 Active 2 mg PO DAILY@1800 carvediloL [Coreg] Med 09/08/19 21:00 Active 3.125 mg PO BID fluvoxaMINE [Luvox] Med 09/08/19 21:00 Active 100 mg PO BID Code Status [Resuscitation Status] Routine Resus Stat 09/08/19 19:01 Ordered Medication Orders Acetaminophen (Tylenol) 650 mg PO Q8H PRN PRN Reason: Pain Last Admin: 09/09/19 13:23 Dose: 650 mg Hydrocodone Bitart/Acetaminophen ([place] 325-10 Mg) 1 tab PO Q6H PRN PRN Reason: Pain Albuterol/Ipratropium (Duoneb 3.0-0.5 Mg/3 Ml) 3 ml INH Q4H PRN PRN Reason: Shortness of Breath Amiodarone HCl (Cordarone) 200 mg PO DAILY [facility] Last Admin: 09/09/19 08:12 Dose: 200 mg Ascorbic Acid (Vitamin C) 500 mg PO Q48H [facility] Last Admin: 09/09/19 08:26 Dose: 500 mg Carvedilol (Coreg) 3.125 mg PO BID [facility] Last Admin: 09/09/19 08:15 Dose: 3.125 mg Admin: 09/08/19 20:57 Dose: 3.125 mg Clopidogrel Bisulfate (Plavix) 75 mg PO DAILY [facility] Last Admin: 09/09/19 08:19 Dose: 75 mg Docusate Sodium (Colace) 100 mg PO DAILY [facility] Last Admin: 09/09/19 08:12 Dose: 100 mg Ferrous Sulfate (Ferrous Sulfate) 325 mg PO Q48H [facility] Last Admin: 09/09/19 08:26 Dose: 325 mg Fluvoxamine Maleate (Luvox) 100 mg PO BID [facility] Last Admin: 09/09/19 08:19 Dose: 100 mg Admin: 09/08/19 20:59 Dose: 100 mg Insulin Aspart (Novolog) 0 unit SUBCUT TIDMEALS [facility]; Protocol Last Admin: 09/09/19 17:23 Dose: Admin: 09/09/19 12:01 Dose: Admin: 09/09/19 08:10 Dose: Insulin Glargine (Lantus Solostar) 10 units SUBCUT BEDTIME [facility] Mometasone Furoate/Formoterol Fumar (Dulera 100-5 Mcg) 2 puff IH BIDRT [facility] Last Admin: 09/09/19 07:45 Dose: 2 puff Admin: 09/08/19 20:56 Dose: 2 puff Olanzapine (Zyprexa) 10 mg PO BEDTIME [facility] Last Admin: 09/08/19 20:58 Dose: 10 mg Rosuvastatin Calcium (Crestor) 20 mg PO BEDTIME [facility] Last Admin: 09/08/19 20:58 Dose: 20 mg Senna/Docusate Sodium (Senna Plus) 1 tab PO BEDTIME [facility] Last Admin: 09/08/19 20:59 Dose: 1 tab Sodium Chloride (Saline Flush) 10 ml FLUSH Q8HR PRN PRN Reason: keep vein open Last Admin: 09/09/19 11:55 Dose: 10 ml Admin: 09/08/19 15:30 Dose: 10 ml Tamsulosin HCl (Flomax) 0.4 mg PO BEDTIME [facility] Last Admin: 09/08/19 20:59 Dose: 0.4 mg Warfarin Sodium (Coumadin) 2 mg PO DAILY@1800 [facility] Assessment/Plan Comment:: HPI summary: Mr. Aquino is a 74yoM resident of [facility] with a history notable for significant cardiac disease and dementia who was transported to the [facility] ED on the afternoon of 09/08/19 after being found to have shortness of breath and hypoxia in the low 70s. Notable ED findings: - Only complaint was shortness of breath - T 37.8, BP 100/75, P 89, R 22, O2 93% on 5lpm via nasal cannula - Troponin 0.31 - BNP 946 - WBC 11.4 with 92% neutrophils - Lactic acid 1.8 - EKG without ST-segment changes - CXR with findings of moderate CHF expressed patient and family wishes that he be a DNR/DNI and not be considered for transfer to a tertiary care center. She desired minimal further evaluation, but was willing to have him admitted for monitoring and supportive measures, with the focus on comfort. He was admitted for further work-up and management. Hospital course: After admission, repeat troponin significantly elevated to 2.20. He continued to deny pain and continued to have an overall reassuring hemodynamically status. Dr. Gracia had a discussion with the patient's over the phone regarding desiring wishes for care, and she reiterated wishes for comfort as primary goal and declined further intervention. AM evaluation on 09/09/19 noted overall stable hemodynamic status with T 36.7, BP 138/96, P 73, R 24, and O2 96% on 2lpm via nasal cannula, but with labs noting worsening troponin, severe hypernatremia, and worsening renal function, fitting with likely cardiorenal syndrome. He continued to have mild, stable leukocytosis , but with improving neutrophilia and remained afebrile since admission without overt evidence of infection. On rounds, patient's signed POLST desiring DNR /DNI and comfort measures only, as she expressed the patient and family wishes for minimal further intervention and desire for focus on comfort. She agreed to proceed with furosemide, but desired limited other interventions. Will monitor status in the next 24hours and consider discharge back to [facility] tomorrow with hospice care, for which family desires referral to [facility]. Hospitalization problems and plan: # Acute hypoxic respiratory failure # NSTEMI # CAD s/p stent 11/2018 # Acute on chronic heart failure with preserved ejection fraction: Last echo 07/16 with EF 55%. # Moderate pulmonary hypertension # Cardiorenal syndrome # Hypernatremia # Acute kidney injury, likely due to effective volume depletion in setting of cardiorenal syndrome # Leukocytosis with neutrophilia # Palliative care status - Continue oxygen titrated to saturations >88% or for comfort prn for shortness of breath - Continue clopidogrel - Furosemide 40mg IV today - AM CBC, BMP, and troponin per request for trending once more, but limit other serial lab draws - [place] and Tylenol prn for pain, with low threshold to add morphine and lorazepam as needed Chronic, stable conditions: # COPD: No current evidence of exacerbation. Continue Breo and DuoNebs prn. # Atrial fibrillation: Rate controlled. INR therapeutic. Continue amiodarone, carvedilol, and warfarin. # Constipation: Controlled. Continue docusate and docusate-Senna. # BPH: Stable. Continue tamsulosin. # DMT2: Decrease long acting insulin to Lantus 10un qHS; was on Tresiba 18un qHS , and gave Lantus 18un at HS on 09/08/19. Continue BG checks and provide ISS with meals and bedtime, but have low threshold to de-escalate checks and sliding scale. # HLD: Discontinue rosuvastatin given comfort care status. # Chronic normocytic anemia with recent acute worsening due to hip fracture: Discontinue iron and vitamin C. # Hx closed left femoral neck fracture s/p surgical fixation 07/18/19: Currently denies pain. Analgesics as above. # Depression: Stable. Continue fluvoxamine and olanzapine. Hospitalization details: # FEN: No IVF. Electrolytes as above, with severe hypernatremia likely due to cardiorenal syndrome. Regular diet as tolerated. # PPX: DVT ppx with warfarin for which INR therapeutic. # Code status: DNR/DNI/Comfort measures only. # Emergency contact: , Kasey, who was updated at bedside on rounds. # Disposition: Admit to inpatient status. Anticipate possible discharge back to [facility] tomorrow with hospice care through [facility].
[2019-09-09] MEDS: Warfarin 2 MG Tab PO SCH (17:27)
[2019-09-09] MEDS ORDERED: Insulin Glargine,Human Rec. Analog 100 Units/ML 3 ML Pen SUBCUT SCH (21:00)
[2019-09-09] MEDS ORDERED: LORazepam 2 MG/ML SDV IVPUSH PRN (22:08)
[2019-09-09] MEDS ORDERED: Glycopyrrolate 0.2 MG/ML 5 ML MDV IVPUSH PRN (22:08)
[2019-09-09] MEDS ORDERED: Acetaminophen 325 MG Tab PO PRN (22:11)
[2019-09-09] MEDS ORDERED: Acetaminophen 325 MG Tab ONE (22:26)
[2019-09-09] MEDS: Tamsulosin 0.4 MG Cap.ER PO SCH (22:35)
[2019-09-09] MEDS: OLANZapine 5 MG Tab PO SCH (22:38)
[2019-09-09] MEDS: Rosuvastatin 10 MG Tab PO SCH (22:55)
[2019-09-10 08:02] LABS: ANION GAP 13.4 mmol/L (5-15)
[2019-09-10] MEDS: Insulin Aspart 100 Units/ML 3 ML Pen SUBCUT SCH ×2 (09:45→14:44)
--- NOTE | 2019-09-10 10:17 | PCM.PN ---
- General Info Date of Service: 09/10/19 Functional Status: Reports: Pain Controlled, Urinating (Incontinent). Denies: Tolerating Diet, Ambulating, New Symptoms, Incentive Spirometry - Review of Systems General: Reports: Fever, Weakness. Denies: Night Sweats HEENT: Reports: No Symptoms Pulmonary: Reports: No Symptoms. Denies: Shortness of Breath, Cough, Sputum Cardiovascular: Denies: Chest Pain Gastrointestinal: Reports: Other (Small bowel movement this morning). Denies: Abdominal Pain, Constipation, Diarrhea, Difficulty Swallowing, Nausea, Vomiting Genitourinary: Reports: Incontinence Musculoskeletal: Reports: No Symptoms Skin: Reports: Pallor. Denies: Mottled Neurological: Reports: Confusion Psychiatric: Reports: Confusion. Denies: Anxiety, Hallucinations - Patient Data Vitals - Most Recent: Last Vital Signs Temp 97.4 F 09/10/19 06:11 Pulse 66 09/10/19 06:11 Resp 20 09/10/19 06:11 BP 83/52 L 09/10/19 06:11 Pulse Ox 100 09/10/19 06:11 Weight - Most Recent: 260 lb I&O - Last 24 Hours: Intake & Output 09/09/19 09/10/19 09/10/19 22:59 06:59 14:59 Intake Total 100 150 Balance 100 150 Lab Results Last 24 Hours: Laboratory Results - last 24 hr 09/09/19 09/09/19 09/09/19 Range/Units 11:23 17:14 22:31 WBC (5.00-10.00) 10^3/uL RBC (4.50-6.00) 10^6/uL Hgb (13.0-17.0) g/dL Hct (40.0-52.0) % MCV (82.0-92.0) fL MCH (27.0-31.0) pg MCHC (32.0-36.0) g/dL RDW (11.5-14.5) % Plt Count (150-400) 10^3/uL MPV (7.4-10.4) fL Immature Gran % (Auto) (0.0-5.0) % Neut % (Auto) (50.0-70.0) % Lymph % (Auto) (20.0-40.0) % [place] % (Auto) (2.0-8.0) % Eos % (Auto) (1.0-3.0) % Baso % (Auto) (0.0-1.0) % Immature Gran # (Auto) (0.00-0.50) 10^3/uL Neut # (Auto) (2.50-7.00) 10^3/uL Lymph # (Auto) (1.00-4.00) 10^3/uL [place] # (Auto) (0.10-0.80) 10^3/uL Eos # (Auto) (0.10-0.30) 10^3/uL Baso # (Auto) (0.00-0.10) 10^3/uL Sodium (136-145) mmol/L Potassium (3.3-5.3) mmol/L Chloride (98-115) mmol/L Carbon Dioxide (21.0-32.0) mmol/L Anion Gap (5-15) mmol/L BUN (6-25) mg/dL Creatinine (0.51-1.17) mg/dL Est Cr Clr Drug Dosing mL/min Estimated GFR (MDRD) mL/min Glucose (75 - 99) mg/dL POC Glucose 121 H 134 H 145 H (74-106) mg/dl Calcium (8.7-10.3) mg/dL Troponin I (0.00-0.070) ng/mL 09/10/19 09/10/19 09/10/19 Range/Units 03:16 07:00 07:00 WBC 12.62 H (5.00-10.00) 10^3/uL RBC 3.34 L (4.50-6.00) 10^6/uL Hgb 9.7 L (13.0-17.0) g/dL Hct 31.3 L (40.0-52.0) % MCV 93.7 H (82.0-92.0) fL MCH 29.0 (27.0-31.0) pg MCHC 31.0 L (32.0-36.0) g/dL RDW 17.1 H (11.5-14.5) % Plt Count 106 L (150-400) 10^3/uL MPV 10.9 H (7.4-10.4) fL Immature Gran % (Auto) 0.8 (0.0-5.0) % Neut % (Auto) 88.7 H (50.0-70.0) % Lymph % (Auto) 4.8 L (20.0-40.0) % [place] % (Auto) 5.5 (2.0-8.0) % Eos % (Auto) 0.0 L (1.0-3.0) % Baso % (Auto) 0.2 (0.0-1.0) % Immature Gran # (Auto) 0.10 (0.00-0.50) 10^3/uL Neut # (Auto) 11.20 H (2.50-7.00) 10^3/uL Lymph # (Auto) 0.60 L (1.00-4.00) 10^3/uL [place] # (Auto) 0.70 (0.10-0.80) 10^3/uL Eos # (Auto) 0.00 L (0.10-0.30) 10^3/uL Baso # (Auto) 0.02 (0.00-0.10) 10^3/uL Sodium 140 D (136-145) mmol/L Potassium 4.4 (3.3-5.3) mmol/L Chloride 106 (98-115) mmol/L Carbon Dioxide 25.0 (21.0-32.0) mmol/L Anion Gap 13.4 (5-15) mmol/L BUN 53 H* (6-25) mg/dL Creatinine 2.59 H (0.51-1.17) mg/dL Est Cr Clr Drug Dosing 27.46 mL/min Estimated GFR (MDRD) 24 mL/min Glucose 157 H (75 - 99) mg/dL POC Glucose 136 H (74-106) mg/dl Calcium 8.7 (8.7-10.3) mg/dL Troponin I 5.37 H* (0.00-0.070) ng/mL 09/10/19 Range/Units 07:43 WBC (5.00-10.00) 10^3/uL RBC (4.50-6.00) 10^6/uL Hgb (13.0-17.0) g/dL Hct (40.0-52.0) % MCV (82.0-92.0) fL MCH (27.0-31.0) pg MCHC (32.0-36.0) g/dL RDW (11.5-14.5) % Plt Count (150-400) 10^3/uL MPV (7.4-10.4) fL Immature Gran % (Auto) (0.0-5.0) % Neut % (Auto) (50.0-70.0) % Lymph % (Auto) (20.0-40.0) % [place] % (Auto) (2.0-8.0) % Eos % (Auto) (1.0-3.0) % Baso % (Auto) (0.0-1.0) % Immature Gran # (Auto) (0.00-0.50) 10^3/uL Neut # (Auto) (2.50-7.00) 10^3/uL Lymph # (Auto) (1.00-4.00) 10^3/uL [place] # (Auto) (0.10-0.80) 10^3/uL Eos # (Auto) (0.10-0.30) 10^3/uL Baso # (Auto) (0.00-0.10) 10^3/uL Sodium (136-145) mmol/L Potassium (3.3-5.3) mmol/L Chloride (98-115) mmol/L Carbon Dioxide (21.0-32.0) mmol/L Anion Gap (5-15) mmol/L BUN (6-25) mg/dL Creatinine (0.51-1.17) mg/dL Est Cr Clr Drug Dosing mL/min Estimated GFR (MDRD) mL/min Glucose (75 - 99) mg/dL POC Glucose 161 H (74-106) mg/dl Calcium (8.7-10.3) mg/dL Troponin I (0.00-0.070) ng/mL [place] Results Last 24 Hours: Microbiology 09/08/19 15:35 Bacterial Identification - Preliminary Blood - Arm, Left Gram Negative Rods 09/08/19 15:35 Aerobic Blood Culture - Final Blood - Arm, Left Anaerobic Blood Culture - Final Med Orders - Current: Current Medications Acetaminophen (Tylenol) 650 mg PO Q4H PRN PRN Reason: Pain or Fever Last Admin: 09/09/19 22:39 Dose: 650 mg Hydrocodone Bitart/Acetaminophen ([place] 325-10 Mg) 1 tab PO Q6H PRN PRN Reason: Pain Albuterol/Ipratropium (Duoneb 3.0-0.5 Mg/3 Ml) 3 ml INH Q4H PRN PRN Reason: Shortness of Breath Amiodarone HCl (Cordarone) 200 mg PO DAILY [facility] Last Admin: 09/09/19 08:12 Dose: 200 mg Carvedilol (Coreg) 3.125 mg PO BID [facility] Last Admin: 09/09/19 22:35 Dose: 3.125 mg Clopidogrel Bisulfate (Plavix) 75 mg PO DAILY [facility] Last Admin: 09/09/19 08:19 Dose: 75 mg Docusate Sodium (Colace) 100 mg PO DAILY [facility] Last Admin: 09/09/19 08:12 Dose: 100 mg Fluvoxamine Maleate (Luvox) 100 mg PO BID [facility] Last Admin: 09/09/19 22:35 Dose: 100 mg Glycopyrrolate (Robinul) 0.2 mg IVPUSH Q4H PRN PRN Reason: Secretions Insulin Aspart (Novolog) 0 unit SUBCUT TIDMEALS [facility]; Protocol Last Admin: 09/10/19 09:45 Dose: 1 unit Insulin Glargine (Lantus Solostar) 10 units SUBCUT BEDTIME [facility] Last Admin: 09/09/19 22:32 Dose: 10 unit Lorazepam (Ativan) 1 mg IVPUSH Q6H PRN PRN Reason: Anxiety or agitation Mometasone Furoate/Formoterol Fumar (Dulera 100-5 Mcg) 2 puff IH BIDRT [facility] Last Admin: 09/09/19 19:38 Dose: 2 puff Morphine Sulfate (Morphine) 1 mg IVPUSH Q1H PRN PRN Reason: Pain or shortness of breath Olanzapine (Zyprexa) 10 mg PO BEDTIME [facility] Last Admin: 09/09/19 22:38 Dose: 10 mg Senna/Docusate Sodium (Senna Plus) 1 tab PO BEDTIME [facility] Last Admin: 09/09/19 22:35 Dose: 1 tab Sodium Chloride (Saline Flush) 10 ml FLUSH Q8HR PRN PRN Reason: keep vein open Last Admin: 09/09/19 11:55 Dose: 10 ml Tamsulosin HCl (Flomax) 0.4 mg PO BEDTIME [facility] Last Admin: 09/09/19 22:35 Dose: 0.4 mg Warfarin Sodium (Coumadin) 2 mg PO DAILY@1800 [facility] Last Admin: 09/09/19 17:27 Dose: 2 mg Discontinued Medications Acetaminophen (Tylenol) 650 mg PO Q8H PRN PRN Reason: Pain Last Admin: 09/09/19 13:23 Dose: 650 mg Acetaminophen (Tylenol) Confirm Administered Dose 650 mg .ROUTE .STK-MED ONE Stop: 09/09/19 22:27 Last Admin: 09/09/19 22:56 Dose: Not Given Albuterol/Ipratropium (Duoneb 3.0-0.5 Mg/3 Ml) Confirm Administered Dose 3 ml .ROUTE .STK-MED ONE Stop: 09/08/19 15:40 Last Admin: 09/08/19 16:14 Dose: Not Given Albuterol/Ipratropium (Duoneb 3.0-0.5 Mg/3 Ml) 3 ml NEB ONETIME ONE Stop: 09/08/19 15:54 Last Admin: 09/08/19 15:40 Dose: 3 ml Ascorbic Acid (Vitamin C) 500 mg PO Q48H [facility] Last Admin: 09/09/19 08:26 Dose: 500 mg Aspirin (Aspirin) 324 mg PO ONETIME ONE Stop: 09/08/19 16:35 Last Admin: 09/08/19 16:45 Dose: 324 mg Ferrous Sulfate (Ferrous Sulfate) 325 mg PO Q48H [facility] Last Admin: 09/09/19 08:26 Dose: 325 mg Furosemide (Lasix) 40 mg IVPUSH NOW ONE Stop: 09/09/19 11:16 Last Admin: 09/09/19 11:55 Dose: 40 mg Insulin Glargine (Lantus Solostar) 18 units SUBCUT BEDTIME [facility] Last Admin: 09/08/19 20:59 Dose: 18 units Rosuvastatin Calcium (Crestor) 20 mg PO BEDTIME [facility] Last Admin: 09/09/19 22:55 Dose: Not Given - Exam Quality Assessment: Supplemental Oxygen General: Alert, Cooperative, No Acute Distress. No: Oriented Neck: Supple, No JVD Lungs: Clear to Auscultation, Normal Respiratory Effort Cardiovascular: Regular Rate, Regular Rhythm (Male) Exam: Deferred Extremities: Non-Tender, Slow Capillary Refill, Pallor, Other (Bilateral lower extremities diffuse edema). No: Increased Warmth, Mottled Peripheral Pulses: 2+: Radial (L), Radial (R) Skin: Warm, Dry Wound/Incisions: No: Decubitis Neurological: Normal Speech, Cranial Nerves Intact Psy/Mental Status: Alert, Labile Mood. No: Anxious, Agitated Sepsis Event Note - Evaluation Sepsis Screening Result: No Definite Risk - Focused Exam Vital Signs: Vital Signs Temp Temp Temp Pulse Pulse Resp BP 09/10/19 06:11 97.4 F 66 20 09/10/19 03:29 09/10/19 03:28 98.8 F 76 32 H 09/09/19 23:09 100.0 F 09/09/19 22:35 91 122/77 09/09/19 22:15 101.3 F H 91 40 H BP Pulse Ox 09/10/19 06:11 83/52 L 100 09/10/19 03:29 68/40 L 09/10/19 03:28 67/45 L 91 L 09/09/19 23:09 09/09/19 22:35 09/09/19 22:15 122/77 93 L Date Exam was Performed: 09/10/19 Time Exam was Performed: 09:49 - Problem List Review Problem List Initiated/Reviewed/Updated: Yes - Plan Plan:: HPI summary: Mr. Aquino is a 74yoM resident of [facility] with a history notable for significant cardiac disease and dementia who was transported to the [facility] ED on the afternoon of 09/08/19 after being found to have shortness of breath and hypoxia in the low 70s. Notable ED findings: - Only complaint was shortness of breath - T 37.8, BP 100/75, P 89, R 22, O2 93% on 5lpm via nasal cannula - Troponin 0.31 - BNP 946 - WBC 11.4 with 92% neutrophils - Lactic acid 1.8 - EKG without ST-segment changes - CXR with findings of moderate CHF expressed patient and family wishes that he be a DNR/DNI and not be considered for transfer to a tertiary care center. She desired minimal further evaluation, but was willing to have him admitted for monitoring and supportive measures, with the focus on comfort. He was admitted for further work-up and management. Hospital course: After admission, repeat troponin significantly elevated to 2.20. He continued to deny pain and continued to have an overall reassuring hemodynamically status. Dr. Gracia had a discussion with the patient's over the phone regarding desiring wishes for care, and she reiterated wishes for comfort as primary goal and declined further intervention. AM evaluation on 09/09/19 noted overall stable hemodynamic status with T 36.7, BP 138/96, P 73, R 24, and O2 96% on 2lpm via nasal cannula, but with labs noting worsening troponin, severe hypernatremia, and worsening renal function, fitting with likely cardiorenal syndrome. He continued to have mild, stable leukocytosis , but with improving neutrophilia and remained afebrile until approximately 1300 when he spiked a fever of 103.2 with subsequent preliminary aerobic blood culture gram-negative rods. On-Call provider spoke with patient's signed POLST desiring DNR/DNI and comfort measures only, as she expressed the patient and family wishes for minimal further intervention and desire for focus on comfort which includes foregoing any treatment of possible underlyying infection however she agreed to proceed with furosemide, but desired limited other interventions. Hospitalization problems and plan: # Acute hypoxic respiratory failure # NSTEMI # CAD s/p stent 11/2018 # Acute on chronic heart failure with preserved ejection fraction: Last echo 07/16 with EF 55%. # Moderate pulmonary hypertension # Cardiorenal syndrome # Hypernatremia # Acute kidney injury, likely due to effective volume depletion in setting of cardiorenal syndrome # Leukocytosis with neutrophilia # Palliative care status - Continue oxygen titrated to saturations >88% or for comfort prn for shortness of breath - Continue clopidogrel - Furosemide 40mg IV today - AM CBC, BMP, and troponin per request for trending once more, but limit other serial lab draws - [place] and Tylenol prn for pain, with low threshold to add morphine and lorazepam as needed Chronic, stable conditions: # COPD: No current evidence of exacerbation. See changes below # Atrial fibrillation: Rate controlled. INR therapeutic. See medication changes below # Constipation: Controlled. See medication changes below # BPH: Stable. Discontinue # DMT2: Discontinue insulin # HLD: Discontinued rosuvastatin given comfort care status. # Chronic normocytic anemia with recent acute worsening due to hip fracture: Discontinued iron and vitamin C. # Hx closed left femoral neck fracture s/p surgical fixation 07/18/19: Currently denies pain. Analgesics as above. # Depression: Stable. Discontinue fluvoxamine and olanzapine. Hospitalization details: # FEN: No IVF. Electrolytes as above, with severe hypernatremia likely due to cardiorenal syndrome. Regular diet as tolerated. # PPX: DVT ppx with warfarin forego INR checks for now, therapeutic # Code status: DNR/DNI/Comfort measures # Emergency contact: , Kasey, who was updated at bedside on rounds. # Disposition: Continue with inpatient status, as many medications are being changed and discontinued we will continue with telemetry to monitor the patient' s reactions. anticipate SNF here at [facility] tomorrow Discontinue Coreg Amiodarone Insulin Luvox Zyprexa Flomax All laxatives/stool softeners Change acetaminophen to rectal Coumadin fixed dose (forego INR checks) Dulera to Albuterol neb prn Continue Plavix, Morphine Glycopyrrolate IV
[2019-09-10] MEDS: Formoterol/Mometasone 100-5 MCG 8.8 GM Inhaler IH SCH (10:57)
[2019-09-10] MEDS: Carvedilol 6.25 MG Tab PO SCH (10:58)
[2019-09-10] MEDS: Amiodarone 200 MG Tab PO SCH (10:58)
[2019-09-10] MEDS: Docusate Sodium 100 MG Cap PO SCH (10:58)
[2019-09-10] MEDS: fluvoxaMINE 100 MG Tab PO SCH (10:59)
[2019-09-10] MEDS: Clopidogrel 75 MG Tab PO SCH (11:04)
[2019-09-10] MEDS ORDERED: Albuterol 0.083% 2.5 MG/3 ML Neb Soln NEB PRN (14:24)
[2019-09-10] MEDS: Morphine 2 MG/ML Syringe IVPUSH PRN ×2 (16:12→19:25)
[2019-09-10] MEDS: Warfarin 2 MG Tab PO SCH (18:12)
[2019-09-10] MEDS: Acetaminophen 650 MG Supp RECTAL PRN (19:54)
[2019-09-11] MEDS: Acetaminophen 650 MG Supp RECTAL PRN (02:04)
[2019-09-11] MEDS: Clopidogrel 75 MG Tab PO SCH (08:56)
--- NOTE | 2019-09-11 10:39 | PCM.PN ---
- General Info Date of Service: 09/11/19 Functional Status: Reports: Pain Controlled, Tolerating Diet, Urinating. Denies : Ambulating, New Symptoms, Incentive Spirometry - Review of Systems General: Reports: Weakness, Fatigue. Denies: Fever HEENT: Reports: No Symptoms Pulmonary: Reports: Shortness of Breath Cardiovascular: Reports: Edema. Denies: Chest Pain, Palpitations Gastrointestinal: Reports: No Symptoms Genitourinary: Reports: Incontinence Musculoskeletal: Reports: No Symptoms Skin: Reports: Pallor Neurological: Reports: Confusion, Pre-Existing Deficit Psychiatric: Reports: Confusion - Patient Data Vitals - Most Recent: Last Vital Signs Temp 98.4 F 09/11/19 06:20 Pulse 79 09/11/19 06:20 Resp 36 H 09/11/19 06:20 BP 102/59 L 09/11/19 06:20 Pulse Ox 98 09/11/19 06:20 Weight - Most Recent: 258 lb 3 oz I&O - Last 24 Hours: Intake & Output 09/10/19 09/11/19 09/11/19 22:59 06:59 14:59 Intake Total 0 Balance 0 Lab Results Last 24 Hours: Laboratory Results - last 24 hr 09/10/19 Range/Units 12:02 POC Glucose 177 H (74-106) mg/dl [facility] Results Last 24 Hours: Microbiology 09/08/19 15:35 Bacterial Identification - Preliminary Blood - Arm, Left Klebsiella Oxytoca Med Orders - Current: Current Medications Acetaminophen (Tylenol) 650 mg RECTAL Q4H PRN PRN Reason: Fever Last Admin: 09/11/19 02:04 Dose: 650 mg Hydrocodone Bitart/Acetaminophen ([place] 325-10 Mg) 1 tab PO Q6H PRN PRN Reason: Pain Albuterol (Proventil Neb Soln) 2.5 mg NEB Q4HRRT PRN PRN Reason: Shortness of Breath Albuterol/Ipratropium (Duoneb 3.0-0.5 Mg/3 Ml) 3 ml INH Q4H PRN PRN Reason: Shortness of Breath Clopidogrel Bisulfate (Plavix) 75 mg PO DAILY [facility] Last Admin: 09/11/19 08:56 Dose: 75 mg Glycopyrrolate (Robinul) 0.2 mg IVPUSH Q4H PRN PRN Reason: Secretions Last Admin: 09/10/19 16:30 Dose: 0.2 mg Lorazepam (Ativan) 1 mg IVPUSH Q6H PRN PRN Reason: Anxiety or agitation Morphine Sulfate (Morphine) 1 mg IVPUSH Q1H PRN PRN Reason: Pain or shortness of breath Last Admin: 09/10/19 19:25 Dose: 1 mg Sodium Chloride (Saline Flush) 10 ml FLUSH Q8HR PRN PRN Reason: keep vein open Last Admin: 09/09/19 11:55 Dose: 10 ml Warfarin Sodium (Coumadin) 2 mg PO DAILY@1800 [facility] Last Admin: 09/10/19 18:12 Dose: 2 mg Discontinued Medications Acetaminophen (Tylenol) 650 mg PO Q8H PRN PRN Reason: Pain Last Admin: 09/09/19 13:23 Dose: 650 mg Acetaminophen (Tylenol) 650 mg PO Q4H PRN PRN Reason: Pain or Fever Last Admin: 09/09/19 22:39 Dose: 650 mg Acetaminophen (Tylenol) Confirm Administered Dose 650 mg .ROUTE .STK-MED ONE Stop: 09/09/19 22:27 Last Admin: 09/09/19 22:56 Dose: Not Given Albuterol/Ipratropium (Duoneb 3.0-0.5 Mg/3 Ml) Confirm Administered Dose 3 ml .ROUTE .STK-MED ONE Stop: 09/08/19 15:40 Last Admin: 09/08/19 16:14 Dose: Not Given Albuterol/Ipratropium (Duoneb 3.0-0.5 Mg/3 Ml) 3 ml NEB ONETIME ONE Stop: 09/08/19 15:54 Last Admin: 09/08/19 15:40 Dose: 3 ml Amiodarone HCl (Cordarone) 200 mg PO DAILY [facility] Last Admin: 09/10/19 10:58 Dose: Not Given Ascorbic Acid (Vitamin C) 500 mg PO Q48H [facility] Last Admin: 09/09/19 08:26 Dose: 500 mg Aspirin (Aspirin) 324 mg PO ONETIME ONE Stop: 09/08/19 16:35 Last Admin: 09/08/19 16:45 Dose: 324 mg Carvedilol (Coreg) 3.125 mg PO BID [facility] Last Admin: 09/10/19 10:58 Dose: Not Given Docusate Sodium (Colace) 100 mg PO DAILY [facility] Last Admin: 09/10/19 10:58 Dose: Not Given Ferrous Sulfate (Ferrous Sulfate) 325 mg PO Q48H [facility] Last Admin: 09/09/19 08:26 Dose: 325 mg Fluvoxamine Maleate (Luvox) 100 mg PO BID [facility] Last Admin: 09/10/19 10:59 Dose: Not Given Furosemide (Lasix) 40 mg IVPUSH NOW ONE Stop: 09/09/19 11:16 Last Admin: 09/09/19 11:55 Dose: 40 mg Insulin Aspart (Novolog) 0 unit SUBCUT TIDMEALS [facility]; Protocol Last Admin: 09/10/19 14:44 Dose: Not Given Insulin Glargine (Lantus Solostar) 18 units SUBCUT BEDTIME [facility] Last Admin: 09/08/19 20:59 Dose: 18 units Insulin Glargine (Lantus Solostar) 10 units SUBCUT BEDTIME [facility] Last Admin: 09/09/19 22:32 Dose: 10 unit Mometasone Furoate/Formoterol Fumar (Dulera 100-5 Mcg) 2 puff IH BIDRT [facility] Last Admin: 09/10/19 10:57 Dose: Not Given Olanzapine (Zyprexa) 10 mg PO BEDTIME [facility] Last Admin: 09/09/19 22:38 Dose: 10 mg Rosuvastatin Calcium (Crestor) 20 mg PO BEDTIME [facility] Last Admin: 09/09/19 22:55 Dose: Not Given Senna/Docusate Sodium (Senna Plus) 1 tab PO BEDTIME [facility] Last Admin: 09/09/19 22:35 Dose: 1 tab Tamsulosin HCl (Flomax) 0.4 mg PO BEDTIME [facility] Last Admin: 09/09/19 22:35 Dose: 0.4 mg - Exam Quality Assessment: Supplemental Oxygen General: Alert, Oriented (Knows he is in [facility] knows family members by name), Cooperative, No Acute Distress Neck: No JVD Lungs: Clear to Auscultation, Normal Respiratory Effort Cardiovascular: Regular Rate, Bradycardia GI/Abdominal Exam: Soft, Other (Body habitus) (Male) Exam: Deferred Peripheral Pulses: 2+: Radial (L), Radial (R) Skin: Warm, Dry, Intact Psy/Mental Status: Alert, Normal Mood Sepsis Event Note - Evaluation Sepsis Screening Result: Severe Sepsis Risk - Focused Exam Vital Signs: Vital Signs Temp Temp Pulse Resp BP Pulse Ox 09/11/19 06:20 98.4 F 79 36 H 102/59 L 98 09/11/19 03:00 99.1 F 09/11/19 02:04 99.0 F Date Exam was Performed: 09/11/19 Time Exam was Performed: 10:18 - Problem List Review Problem List Initiated/Reviewed/Updated: Yes - My Orders Last 24 Hours: My Active Orders 09/10/19 13:49 Acetaminophen [Tylenol] 650 mg RECTAL Q4H PRN 09/10/19 14:24 Albuterol [Proventil Neb Soln] 2.5 mg NEB Q4HRRT PRN - Plan Plan:: HPI summary: Mr. Aquino is a 74yoM resident of [facility] with a history notable for significant cardiac disease and dementia who was transported to the [facility] ED on the afternoon of 09/08/19 after being found to have shortness of breath and hypoxia in the low 70s. Notable ED findings: - Only complaint was shortness of breath - T 37.8, BP 100/75, P 89, R 22, O2 93% on 5lpm via nasal cannula - Troponin 0.31 - BNP 946 - WBC 11.4 with 92% neutrophils - Lactic acid 1.8 - EKG without ST-segment changes - CXR with findings of moderate CHF expressed patient and family wishes that he be a DNR/DNI and not be considered for transfer to a tertiary care center. She desired minimal further evaluation, but was willing to have him admitted for monitoring and supportive measures, with the focus on comfort. He was admitted for further work-up and management. Hospital course: After admission, repeat troponin significantly elevated to 2.20. He continued to deny pain and continued to have an overall reassuring hemodynamically status. Dr. Gracia had a discussion with the patient's over the phone regarding desiring wishes for care, and she reiterated wishes for comfort as primary goal and declined further intervention. AM evaluation on 09/09/19 noted overall stable hemodynamic status with T 36.7, BP 138/96, P 73, R 24, and O2 96% on 2lpm via nasal cannula, but with labs noting worsening troponin, severe hypernatremia, and worsening renal function, fitting with likely cardiorenal syndrome. He continued to have mild, stable leukocytosis , but with improving neutrophilia and remained afebrile until approximately 1300 when he spiked a fever of 103.2 with subsequent preliminary aerobic blood culture gram-negative rods. On-Call provider spoke with patient's signed POLST desiring DNR/DNI and comfort measures only, as she expressed the patient and family wishes for minimal further intervention and desire for focus on comfort which includes foregoing any treatment of possible underlyying infection however she agreed to proceed with furosemide, but desired limited other interventions. Update today, patient more alert, seems more oriented, starting to eat and drink fluids now, conversing with family somewhat however baseline confusion. No chest pain. Afebrile, Remains on telemetry Hospitalization problems and plan: # Acute hypoxic respiratory failure # NSTEMI # CAD s/p stent 11/2018 # Acute on chronic heart failure with preserved ejection fraction: Last echo 07/16 with EF 55%. # Moderate pulmonary hypertension # Cardiorenal syndrome # Hypernatremia # Acute kidney injury, likely due to effective volume depletion in setting of cardiorenal syndrome # Leukocytosis with neutrophilia # Palliative care status - Continue oxygen titrated to saturations >88% or for comfort prn for shortness of breath - Continue clopidogrel - BMP, BNP and troponin per request for trending for now, but limit other serial lab draws - [place] and Tylenol prn for pain, with low threshold to add morphine and lorazepam as needed Chronic, stable conditions: # COPD: No current evidence of exacerbation. See changes below # Atrial fibrillation: Rate controlled. INR therapeutic. See medication changes below # Constipation: Controlled. See medication changes below # BPH: Stable. # DMT2: Discontinue insulin and Accuchecks. # HLD: Discontinued rosuvastatin given comfort care status. # Chronic normocytic anemia with recent acute worsening due to hip fracture: Discontinued iron and vitamin C. # Hx closed left femoral neck fracture s/p surgical fixation 07/18/19: Currently denies pain. Analgesics as above. # Depression: Stable. Discontinue fluvoxamine and olanzapine. Hospitalization details: # FEN: No IVF. Electrolytes as above, with severe hypernatremia likely due to cardiorenal syndrome. Regular diet as tolerated. # PPX: DVT ppx with warfarin forego INR checks for now, therapeutic # Code status: DNR/DNI/Comfort measures # Emergency contact: , Kasey, and others at bedside who was updated at bedside on rounds. # Disposition: Continue with inpatient status, as many medications are being changed and discontinued we will continue with telemetry to monitor the patient' s reactions. Patient continues to have ongoing improvement with favorable trending of labs will send back to [facility] soon. Discontinued on 09/09 Coreg Amiodarone Insulin Luvox Zyprexa Flomax All laxatives/stool softeners Changed on 09/09 acetaminophen to rectal Coumadin fixed dose (forego INR checks) Dulera to Albuterol neb prn Continue Plavix, Morphine Glycopyrrolate IV
[2019-09-11 11:15] LABS: ANION GAP 14.3 mmol/L (5-15)
[2019-09-11] MEDS: Acetaminophen/HYDROcodone 325-10 MG Tab PO PRN (16:07)
[2019-09-11] MEDS: Warfarin 2 MG Tab PO SCH (18:12)
[2019-09-12] MEDS: Acetaminophen/HYDROcodone 325-10 MG Tab PO PRN ×2 (00:15→13:46)
[2019-09-12 06:53] VITALS: BP 114/71; PULSE 69
[2019-09-12] MEDS: Clopidogrel 75 MG Tab PO SCH (09:16)
[2019-09-12] MEDS: Sodium Chloride 0.9% 10 ML Syringe FLUSH PRN ×2 (10:00→15:48)
[2019-09-12] MEDS: Morphine 2 MG/ML Syringe IVPUSH PRN ×2 (10:01→15:48)
--- NOTE | 2019-09-13 13:25 | PCM.DCSUM1 ---
Discharge Summary - Hospital Course Diagnosis: Stroke: No - Discharge Data Discharge Date: 09/12/19 Discharge Disposition: DC/Tfer to Hospice - Home 50 Condition: Fair - Referral to Home Health Primary Care Physician: Delio Adam NP - Discharge Plan *PRESCRIPTION DRUG MONITORING PROGRAM REVIEWED*: Not Applicable *COPY OF PRESCRIPTION DRUG MONITORING REPORT IN PATIENT PHAN: Not Applicable Prescriptions/Med Rec: Furosemide [Lasix] 20 mg PO Q48H #30 tablet Hydrocodone/Acetaminophen [Hydrocodon-Acetaminophn 10-325] 1 tab PO Q6H PRN #30 tablet PRN Reason: Pain Home Medications: Home Meds Albuterol/Ipratropium [DuoNeb 3.0-0.5 MG/3 ML] 3 ml INH Q4H PRN 12/25/18 [ History] Furosemide [Lasix] 40 mg PO Q48H 09/08/19 [History] Furosemide [Lasix] 20 mg PO Q48H #30 tablet 09/12/19 [Rx] Hydrocodone/Acetaminophen [Hydrocodon-Acetaminophn 10-325] 1 tab PO Q6H PRN #30 tablet 09/12/19 [Rx] Referrals: Delio Adam, [employer] [Primary Care Provider] - - Discharge Summary/Plan Comment DC Time >30 min.: Yes Discharge Summary/Plan Comment: Final Dx: Acute hypoxic respiratory failure NSTEMI Cardiorenal syndrome Acute kidney injury, Leukocytosis with neutrophilia History summary: Mr. Aquino was a 74yoM resident of [facility] with a history notable for significant cardiac disease and dementia who was transported to the [facility] ED on the afternoon of 09/08/19 after being found to have shortness of breath and hypoxia in the low 70s. Notable ED findings: - Only complaint was shortness of breath - T 37.8, BP 100/75, P 89, R 22, O2 93% on 5lpm via nasal cannula - Troponin 0.31 - BNP 946 - WBC 11.4 with 92% neutrophils - Lactic acid 1.8 - EKG without ST-segment changes - CXR with findings of moderate CHF Hospital course: Early on admission expressed patient and family wishes that he be a DNR/ DNI and not be considered for transfer to a tertiary care center. She desired minimal further evaluation, but was willing to have him admitted for monitoring and supportive measures, with the focus on comfort. He was admitted for further work-up and management. After admission, repeat troponin significantly elevated to 2.20 and continue to rise above the 5 threshold however eventually started coming down however due to cardiorenal syndrome he came down quite slowly. He never had chest pain. He continued to deny pain and continued to have an overall reassuring hemodynamically status. Dr. Gracia had a discussion with the patient's over the phone regarding desiring wishes for care, and she reiterated wishes for comfort as primary goal and declined further intervention. He did have fevers one point. AM evaluation on 09/09/19 noted overall stable hemodynamic status with T 36.7, BP 138/96, P 73, R 24, and O2 96 % on 2lpm via nasal cannula, but with labs noting worsening troponin, severe hypernatremia, and worsening renal function, fitting with likely cardiorenal syndrome. He continued to have mild, stable leukocytosis, but with improving neutrophilia and remained afebrile until approximately 1300 when he spiked a fever of 103.2 with subsequent preliminary aerobic blood culture gram-negative rods and showed Klebsiella. The on-Call provider spoke with patient's signed POLST desiring DNR/DNI and comfort measures only, as she expressed the patient and family wishes for minimal further intervention and desire for focus on comfort which includes foregoing any treatment of possible underlyying infection however she agreed to proceed with furosemide, but desired limited other interventions. Was continued on Plavix until the day of discharge. Discontinued on 09/09 Coreg Amiodarone Insulin Luvox Zyprexa Flomax All laxatives/stool softeners Changed on 09/09 acetaminophen to rectal Coumadin fixed dose (forego INR checks) Dulera to Albuterol neb prn Patient seemed to move somewhat regarding favorable blood pressures, improving troponin levels and seemed to be more alert. He started eating again and drinking some fluids however he remained on oxygen. Discussions with family regarding and dying process and due to his non-STEMI and cardiorenal syndrome and his debilitated state along with weakness it may be best that he be placed on hospice and they agreed with home [facility]. Disposition --Discharged to hospice home health [facility]. --Nebulizers with albuterol every 4 hours PRN --Hydrocodone p.o. as directed --Home oxygen - General Info Date of Service: 09/12/19 Functional Status: Reports: Pain Controlled, Tolerating Diet, Urinating. Denies : Ambulating, New Symptoms, Incentive Spirometry - Review of Systems General: Reports: Weakness, Fatigue HEENT: Reports: No Symptoms Pulmonary: Denies: Shortness of Breath Cardiovascular: Denies: Chest Pain, Palpitations Gastrointestinal: Reports: No Symptoms Genitourinary: Reports: Incontinence Musculoskeletal: Reports: Neck Pain Skin: Denies: Dryness Neurological: Reports: Confusion Psychiatric: Reports: Confusion - Patient Data Vitals - Most Recent: Last Vital Signs Temp 97.7 F 09/12/19 06:52 Pulse 69 09/12/19 06:52 Resp 20 09/12/19 06:52 BP 114/71 09/12/19 06:52 Pulse Ox 96 09/12/19 09:00 Weight - Most Recent: 258 lb 3 oz Med Orders - Current: Current Medications Discontinued Medications Acetaminophen (Tylenol) 650 mg PO Q8H PRN PRN Reason: Pain Last Admin: 09/09/19 13:23 Dose: 650 mg Acetaminophen (Tylenol) 650 mg PO Q4H PRN PRN Reason: Pain or Fever Last Admin: 09/09/19 22:39 Dose: 650 mg Acetaminophen (Tylenol) Confirm Administered Dose 650 mg .ROUTE .STK-MED ONE Stop: 09/09/19 22:27 Last Admin: 09/09/19 22:56 Dose: Not Given Acetaminophen (Tylenol) 650 mg RECTAL Q4H PRN PRN Reason: Fever Last Admin: 09/11/19 02:04 Dose: 650 mg Hydrocodone Bitart/Acetaminophen ([place] 325-10 Mg) 1 tab PO Q6H PRN PRN Reason: Pain Last Admin: 09/12/19 13:46 Dose: 1 tab Albuterol (Proventil Neb Soln) 2.5 mg NEB Q4HRRT PRN PRN Reason: Shortness of Breath Albuterol/Ipratropium (Duoneb 3.0-0.5 Mg/3 Ml) Confirm Administered Dose 3 ml .ROUTE .STK-MED ONE Stop: 09/08/19 15:40 Last Admin: 09/08/19 16:14 Dose: Not Given Albuterol/Ipratropium (Duoneb 3.0-0.5 Mg/3 Ml) 3 ml NEB ONETIME ONE Stop: 09/08/19 15:54 Last Admin: 09/08/19 15:40 Dose: 3 ml Albuterol/Ipratropium (Duoneb 3.0-0.5 Mg/3 Ml) 3 ml INH Q4H PRN PRN Reason: Shortness of Breath Amiodarone HCl (Cordarone) 200 mg PO DAILY [facility] Last Admin: 09/10/19 10:58 Dose: Not Given Ascorbic Acid (Vitamin C) 500 mg PO Q48H ROSIO Last Admin: 09/09/19 08:26 Dose: 500 mg Aspirin (Aspirin) 324 mg PO ONETIME ONE Stop: 09/08/19 16:35 Last Admin: 09/08/19 16:45 Dose: 324 mg Carvedilol (Coreg) 3.125 mg PO BID [facility] Last Admin: 09/10/19 10:58 Dose: Not Given Clopidogrel Bisulfate (Plavix) 75 mg PO DAILY [facility] Last Admin: 09/12/19 09:16 Dose: 75 mg Docusate Sodium (Colace) 100 mg PO DAILY [facility] Last Admin: 09/10/19 10:58 Dose: Not Given Ferrous Sulfate (Ferrous Sulfate) 325 mg PO Q48H [facility] Last Admin: 09/09/19 08:26 Dose: 325 mg Fluvoxamine Maleate (Luvox) 100 mg PO BID [facility] Last Admin: 09/10/19 10:59 Dose: Not Given Furosemide (Lasix) 40 mg IVPUSH NOW ONE Stop: 09/09/19 11:16 Last Admin: 09/09/19 11:55 Dose: 40 mg Glycopyrrolate (Robinul) 0.2 mg IVPUSH Q4H PRN PRN Reason: Secretions Last Admin: 09/10/19 16:30 Dose: 0.2 mg Insulin Aspart (Novolog) 0 unit SUBCUT TIDMEALS [facility]; Protocol Last Admin: 09/10/19 14:44 Dose: Not Given Insulin Glargine (Lantus Solostar) 18 units SUBCUT BEDTIME [facility] Last Admin: 09/08/19 20:59 Dose: 18 units Insulin Glargine (Lantus Solostar) 10 units SUBCUT BEDTIME [facility] Last Admin: 09/09/19 22:32 Dose: 10 unit Lorazepam (Ativan) 1 mg IVPUSH Q6H PRN PRN Reason: Anxiety or agitation Last Admin: 09/12/19 15:49 Dose: 1 mg Mometasone Furoate/Formoterol Fumar (Dulera 100-5 Mcg) 2 puff IH BIDRT [facility] Last Admin: 09/10/19 10:57 Dose: Not Given Morphine Sulfate (Morphine) 1 mg IVPUSH Q1H PRN PRN Reason: Pain or shortness of breath Last Admin: 09/12/19 15:48 Dose: 1 mg Olanzapine (Zyprexa) 10 mg PO BEDTIME [facility] Last Admin: 09/09/19 22:38 Dose: 10 mg Rosuvastatin Calcium (Crestor) 20 mg PO BEDTIME [facility] Last Admin: 09/09/19 22:55 Dose: Not Given Senna/Docusate Sodium (Senna Plus) 1 tab PO BEDTIME [facility] Last Admin: 09/09/19 22:35 Dose: 1 tab Sodium Chloride (Saline Flush) 10 ml FLUSH Q8HR PRN PRN Reason: keep vein open Last Admin: 09/12/19 15:48 Dose: 10 ml Tamsulosin HCl (Flomax) 0.4 mg PO BEDTIME [facility] Last Admin: 09/09/19 22:35 Dose: 0.4 mg Warfarin Sodium (Coumadin) 2 mg PO DAILY@1800 [facility] Last Admin: 09/11/19 18:12 Dose: 2 mg - Exam Quality Assessment: Reports: Supplemental Oxygen General: Reports: Alert, Cooperative. Denies: Oriented Lungs: Reports: Clear to Auscultation, Normal Respiratory Effort Cardiovascular: Reports: Irregular Rhythm, Bradycardia GI/Abdominal Exam: Normal Bowel Sounds
== END 2019-09-12 16:00 | disposition hospice, home (50) | DRG 280 ==
LOC: KA.ED 15:14 → UNDOADMIN 17:07 → KA.MS 17:07 → UNDODISIN 09-12 16:00
PROVIDERS: ADMIT Family Medicine; ATTEND Family Medicine
DX: I21.4 Non-ST elevation (NSTEMI) myocardial infarction (principal); J96.01 Acute respiratory failure with hypoxia; I50.33 Acute on chronic diastolic (congestive) heart failure; I13.0 Hypertensive heart and chronic kidney disease with heart failure and stage 1 through stage 4 chronic kidney disease, or unspecified chronic kidney disease; N17.9 Acute kidney failure, unspecified; E87.0 Hyperosmolality and hypernatremia; E80.0 Hereditary erythropoietic porphyria; Z66 Do not resuscitate; Z51.5 Encounter for palliative care; N18.9 Chronic kidney disease, unspecified; D72.829 Elevated white blood cell count, unspecified; F03.90 Unspecified dementia, unspecified severity, without behavioral disturbance, psychotic disturbance, mood disturbance, and anxiety; R09.02 Hypoxemia; H54.7 Unspecified visual loss; I25.10 Atherosclerotic heart disease of native coronary artery without angina pectoris; J45.909 Unspecified asthma, uncomplicated; I11.0 Hypertensive heart disease with heart failure; I50.9 Heart failure, unspecified; E78.00 Pure hypercholesterolemia, unspecified; F42.9 Obsessive-compulsive disorder, unspecified; E11.22 Type 2 diabetes mellitus with diabetic chronic kidney disease; I25.2 Old myocardial infarction; Z96.649 Presence of unspecified artificial hip joint; Z95.5 Presence of coronary angioplasty implant and graft; D63.1 Anemia in chronic kidney disease; E78.5 Hyperlipidemia, unspecified; N40.0 Benign prostatic hyperplasia without lower urinary tract symptoms; K59.00 Constipation, unspecified; I48.91 Unspecified atrial fibrillation; J44.9 Chronic obstructive pulmonary disease, unspecified; I27.20 Pulmonary hypertension, unspecified; G47.30 Sleep apnea, unspecified; M19.90 Unspecified osteoarthritis, unspecified site; Z90.89 Acquired absence of other organs; M10.9 Gout, unspecified; F32.9 Major depressive disorder, single episode, unspecified; E11.9 Type 2 diabetes mellitus without complications; E66.9 Obesity, unspecified; Z85.820 Personal history of malignant melanoma of skin; Z96.651 Presence of right artificial knee joint; Z79.01 Long term (current) use of anticoagulants; Z79.02 Long term (current) use of antithrombotics/antiplatelets; Z79.4 Long term (current) use of insulin; Z79.899 Other long term (current) drug therapy
CPT/HCPCS: 71045; 80053; 83605; 83880; 84484; 85025; 85610; 87040; 87077; 93005; 94640; 99284 ×2; 99285; A9270; 36415; 36416; 51702; 80048; 82962; J1815-GY; J1940; J2060; J2270; J3490; J7620-GY